=== PATIENT | male | born 1955 | race African-American/Black ===

== ENCOUNTER → 2018-05-09 | Day surgery (SDC) | payer OTHER, MEDICAID ==
[~2018-05-09] MED LIST: ASCO500C PO; ASPI-630 PO; CHOL500016 PO; DICY10CA3 PO; FLAX1CAP PO; HYDR-2761 PO; HYDR12.58 PO; HYDROmorphone 2 MG/ML VIAL IV PRN; IV RINGERS,LACTATED 1000ML 1,000 ML IV SCH; LEVO750T31 PO; LIDOCAINE 1% PF 2 ML VIAL. ID PRN; LISI1TAB3 PO; MORPHINE SULFATE 2 MG/ML VIAL. IV PRN; MULT-246 PO; ONDA4TAB10 SL; ONDANSETRON PF 4 MG/2 ML VIAL. IV PRN; OXYC1TAB7 PO; PROCHLORPERAZINE 10 MG/2 ML VIAL. IV PRN; PROPOFOL 40 ML IV ONE; fentaNYL PF VIAL 100 MCG/2 ML VIAL IV PRN
[2018-05-09 13:09] LABS: BASO # 0.1 x10^3/uL (0.0-0.2); BASO % 1 % (0-3); EOS # 0.1 x10^3/uL (0.0-0.7); EOS % 1 % (0-3); HEMATOCRIT 32.8 % (39.0-53.0); HEMOGLOBIN 10.8 g/dL (13.0-17.5); LYMPH # 3.3 x10^3/uL (1.0-4.8); LYMPH % 28 % (24-48); MEAN CORPUSCULAR HEMOGLOBIN 25 pg (25-35); MEAN CORPUSCULAR HGB CONC 33 g/dL (31-37); MEAN CORPUSCULAR VOLUME 75 fL (79-100); MONO # 1.3 x10^3/uL (0.0-1.1); MONO % 11 % (0-9); NEUT # 7.2 x10^3uL (1.8-7.7); NEUT % 60 % (31-73); PLATELET COUNT 523 x10^3/uL (140-400); RED BLOOD COUNT 4.37 x10^6/uL (4.30-5.70); RED CELL DISTRIBUTION WIDTH 18.4 % (11.5-14.5)
[2018-05-09 13:25] LABS: CALCIUM 9.8 mg/dL (8.5-10.1); GFR 90.7; POTASSIUM 3.7 mmol/L (3.5-5.1)
[2018-05-09 13:30] LABS: ALBUMIN 2.8 g/dL (3.4-5.0); ALBUMIN/GLOBULIN RATIO 0.5 (1.0-1.7); TOTAL BILIRUBIN 0.5 mg/dL (0.2-1.0); TOTAL PROTEIN 8.3 g/dL (6.4-8.2)
[2018-05-09 14:00] VITALS: BP 114/77
--- NOTE | 2018-05-12 15:08 | PATHOLOGY ---
[facility] Accession Number: [id number] . 01 Material submitted: . PART A: ANTRUM BIOPSY PART B: TUMOR AT 28CM PART C: TUMOR AT 9CM . 01 Clinical history: . Nausea with vomiting, HX colon cancer . 02 Diagnosis: A. Gastric biopsy, antrum: - Chronic gastritis, mild. . B. Colon biopsies, tumor at 28 cm: - Tubular adenoma showing focal high-grade dysplasia. . C. Colon biopsies, tumor at 9 cm: - Tubular adenoma showing focal high-grade dysplasia. (JPM:beck; 05/12/2017) QMS/05/12/2018 . 02 Comment: Sections of the gastric antral biopsy show congestion and mild chronic inflammation. A properly controlled immunoperoxidase stain for Helicobacter is negative for Helicobacter organisms. There is no evidence of malignancy. . Sections of the colon biopsies at 28 cm and 9 cm appear similar and show tubular adenomas showing focal high-grade dysplasia. There is no definitive evidence of malignancy. . The case is also examined by Dr. Nadja Gomez, who concurs with the diagnosis. (JPM:beck; 05/12/2018) . . Special stain performed: Immunoperoxidase stain for Helicobacter on A1. . 02 Electronically signed: . Elijah Johnson MD, Pathologist NPI- [id number] . 01 Gross description: . A. Received in formalin labeled "Wilfredo Nagel, antral BX, H. pylori," is a single segment of amor soft tissue measuring 0.4 cm in maximum dimension. The specimen is entirely submitted in cassette A1. . B. Received in formalin labeled "Wilfredo Nagel, tumor at 28 cm," are multiple segments of amor soft tissue measuring 1.1 x 0.3 x 0.1 cm in aggregate dimensions. The specimen is filtered and entirely submitted in cassette B1. . C. Received in formalin labeled "Wilfredo Nagel, tumor at 9 cm," are multiple segments of amor soft tissue measuring 0.9 x 0.3 x 0.2 cm in aggregate dimensions. The specimen is filtered and entirely submitted in cassette C1. (TSD; 05/09/2018) TOB/TOB . 02 Pathologist provided ICD-10: K29.50, D12.6 . 02 CPT . 290419, 593081, 839637, [id number] Specimen Comment: A courtesy copy of this report has been sent to Specimen Comment: [phone], . Specimen Comment: Report sent to and Specimen Comment: A duplicate report has been generated due to demographic updates. Performed at: 01 [facility] [address] [address], [place] [id number] MD Castillo Cervantes MD Phone: [phone] Performed at: 02 [facility] [address] [place], [place] [id number] MD Elijah Johnson MD Phone: [phone]
== END | disposition home or self-care (01) ==
LOC: SURG 11:44
PROVIDERS: ATTEND Surgery
DX: Z12.11 Encounter for screening for malignant neoplasm of colon (principal); D12.5 Benign neoplasm of sigmoid colon; D12.2 Benign neoplasm of ascending colon; D12.8 Benign neoplasm of rectum; K21.0 Gastro-esophageal reflux disease with esophagitis; K29.80 Duodenitis without bleeding; K29.50 Unspecified chronic gastritis without bleeding; Z79.899 Other long term (current) drug therapy; Z79.2 Long term (current) use of antibiotics; I10 Essential (primary) hypertension; Z85.038 Personal history of other malignant neoplasm of large intestine; Z90.49 Acquired absence of other specified parts of digestive tract; Z90.81 Acquired absence of spleen; Z98.890 Other specified postprocedural states
CPT/HCPCS: 36415; 43239; 45380; 45385; 80053; 85025; 88305; 88342; J2704

== ENCOUNTER → 2018-05-20 | Outpatient (CLI) | payer MEDICARE ==
[2018-05-09 14:00] VITALS: BP 114/77
[~2018-05-20] MED LIST changes: -HYDROmorphone 2 MG/ML VIAL IV PRN; +IOHEXOL 240 MG/ML 50ML VIAL. PO ONE; +IOHEXOL 300 MG/ML 100ML VIAL. IV ONE; -IV RINGERS,LACTATED 1000ML 1,000 ML IV SCH; -LIDOCAINE 1% PF 2 ML VIAL. ID PRN; -MORPHINE SULFATE 2 MG/ML VIAL. IV PRN; -ONDANSETRON PF 4 MG/2 ML VIAL. IV PRN; -PROCHLORPERAZINE 10 MG/2 ML VIAL. IV PRN; -PROPOFOL 40 ML IV ONE; -fentaNYL PF VIAL 100 MCG/2 ML VIAL IV PRN
--- NOTE | 2018-05-20 11:52 | RAD ---
PQRS Compliance statement: One or more of the following individualized dose reduction techniques were utilized for this examination: 1. Automated exposure control. 2. Adjustment of the mA and/or kV according to patient size. 3. Use of iterative reconstruction technique. Indication:Tubular adenoma
IVC OMNI 300 75 MLS AND PO OMNI 240 30 MLS
PREVIOUS TECHNIQUE: CT abdomen and pelvis with IV contrast with multiplanar reformats. COMPARISON: 11/28/2014 FINDINGS: Heart is normal in size. No pericardial or pleural effusion. Multiple pulmonary nodules are seen. The largest nodule in the right lower lobe measures 2.4 cm. The largest nodule in the left lung base measures 5 mm. Multiple low attenuating lesions are seen in the liver some of which are confluent limiting exact measurements. Index lesions as follows: Segment 2 lesion measuring 4.6 x 3.5 cm (series 2 image 20) (. Large infiltrative lesion in the segment 8 and 4A measuring 12.0 x 11.3 cm (series 2 image 17). Segment IVb lesion measuring 3.9 x 3.7 cm (series 2 image 36). 2.2 x 1.8 cm pericardial lymph node (series 2 image 13) (. Spleen is severely atrophic. 2.5 x 1.4 cm soft tissue oval-shaped nodule in the left upper quadrant may represent an accessory spleen or enlarged lymph node (series 2 image 21). Gallbladder, pancreas, adrenals within normal limits. Simple cyst is seen in the upper pole right kidney measuring 3.0 x 3.1 cm. No nephrolithiasis or hydronephrosis. No enlarged retroperitoneal or pelvic adenopathy. 2.2 x 1.6 cm, common hepatic artery lymph node (series 3 image 34). Enlarged 2.0 x 2.0 cm gastrohepatic ligament recess lymph node (series 2 image 26). Soft tissue mass in the sigmoid colon measuring 3.4 x 3.3 cm (series 2 image 79). Other soft tissue mass is seen in the rectum measuring 3.8 x 3.1 cm (series 2 image 84). Colonic anastomotic sutures are seen in the left lower quadrant. No bowel obstruction. Normal appendix. The prostate and seminal vesicles show no large mass. Urinary bladder is within normal limits. Most likely a sebaceous cyst in the left parasagittal superficial anterior pelvic wall measuring 2.8 x 2.0 cm. 1.6 x 1.2 cm mildly enlarged right external iliac chain lymph node (series 2 image 85) (. No suspicious bony lesion. IMPRESSION: 1. Multiple bilateral lung bases metastasis. 2. Multiple liver metastasis. 3. Multiple enlarged lymph nodes as described above concerning for metastasis. 4. Couple of intraluminal polypoid lesions in the rectosigmoid colon as described above concerning for colonic malignancy. Correlate with colonoscopy. Electronically signed by: Kyler Abdul DO (05/20/2018 11:47 AM) [id number]
== END | disposition home or self-care (01) ==
LOC: CT 09:41
PROVIDERS: ATTEND Surgery
DX: C78.7 Secondary malignant neoplasm of liver and intrahepatic bile duct (principal); C78.01 Secondary malignant neoplasm of right lung; C78.02 Secondary malignant neoplasm of left lung; K63.9 Disease of intestine, unspecified; N28.1 Cyst of kidney, acquired; R59.1 Generalized enlarged lymph nodes; R91.8 Other nonspecific abnormal finding of lung field
CPT/HCPCS: 74177; Q9966; Q9967

== ENCOUNTER 2018-06-20 06:06 | Inpatient (IN) | payer MEDICARE ==
[~2018-06-20] VITALS: Ht 188 cm; Wt 88.5 kg
[2018-06-20] VITALS (11 sets, daily range): BP systolic 113–141; BP diastolic 74–109
[~2018-06-20 06:06] MED LIST changes: -IOHEXOL 240 MG/ML 50ML VIAL. PO ONE; -IOHEXOL 300 MG/ML 100ML VIAL. IV ONE; +ONDA4TAB7 PO
[2018-06-20] MEDS ORDERED: IV RINGERS,LACTATED 1000ML 1,000 ML IV SCH (07:00)
[2018-06-20] MEDS ORDERED: ONDANSETRON PF 4 MG/2 ML VIAL. IV PRN (07:00)
[2018-06-20] MEDS ORDERED: PROCHLORPERAZINE 10 MG/2 ML VIAL. IV PRN (07:00)
[2018-06-20] MEDS ORDERED: fentaNYL PF VIAL 100 MCG/2 ML VIAL IV PRN (07:00)
[2018-06-20] MEDS ORDERED: LIDOCAINE 1% PF 2 ML VIAL. ID PRN (07:00)
[2018-06-20] MEDS ORDERED: HYDROmorphone 2 MG/ML VIAL IV PRN (07:00)
[2018-06-20] MEDS ORDERED: MORPHINE SULFATE 4 MG/ML VIAL. IV PRN (07:00)
[2018-06-20] MEDS ORDERED: PROPOFOL 20 ML IV ONE (07:43)
[2018-06-20] MEDS ORDERED: MIDAZOLAM HCL/PF 2 MG/2 ML VIAL. ONE (07:43)
[2018-06-20] MEDS ORDERED: DEXAMETHASONE SOD PHOS 20 MG/5 ML VIAL. ONE (07:43)
[2018-06-20] MEDS ORDERED: ONDANSETRON PF 4 MG/2 ML VIAL. ONE (07:43)
[2018-06-20] MEDS ORDERED: FAMOTIDINE 20 MG/2 ML VIAL ONE (07:43)
[2018-06-20] MEDS ORDERED: LIDOCAINE 2% PF 5 ML VIAL. ONE (07:43)
[2018-06-20] MEDS ORDERED: ROCURONIUM 100 MG/10 ML VIAL. ONE (07:43)
[2018-06-20] MEDS ORDERED: fentaNYL PF VIAL 100 MCG/2 ML VIAL ONE ×2 (07:43→07:46)
[2018-06-20] MEDS ORDERED: PHENYLEPHRINE 10 MG/ML VIAL. ONE (07:59)
[2018-06-20] MEDS: cefOXitin SODIUM IV Push 1 GM VIAL. IVP PRN ×2 (08:15→10:07)
[2018-06-20] MEDS ORDERED: SEVOFLURANE > 120 MINUTES. IH ONE (08:55)
[2018-06-20] MEDS ORDERED: GLYCOPYRROLATE 1 MG/5 ML VIAL. ONE (09:34)
[2018-06-20] MEDS ORDERED: NEOSTIGMINE 10 MG/10 ML VIAL. ONE (09:34)
[2018-06-20] MEDS ORDERED: ALBUMIN HUMAN 5% 500 ML IV ONE (09:35)
--- NOTE | 2018-06-20 10:58 | PDOC4 ---
Operative Note Operative Note Date: 06/20/2018 Preoperative diagnosis: Metachronous colon masses sigmoid colon distal rectum liver mass Postoperative diagnosis: Same Procedure: Total colectomy with end ileostomy, liver biopsy Surgeon: Larry Specimens:Colon, midline scar Dictation: Patient is a 63-year-old male who had had a left colon resection for colon cancer obstructing at that time returns after having had a colonoscopy several years later showing 2 large masses one in the mid sigmoid and one in the proximal rectum as well as a mass within the liver. Procedure of total colectomy with end ileostomy and liver biopsy were explained to the patient detail risk benefits were also discussed including bleeding infection alternatives to this procedure also discussed with the patient who seemed to understand and gave both verbal written consent to have the procedure performed. Patient was taken to the operating room placed in supine position general anesthesia was initiated once patient was sleep and intubated is placed in low lithotomy position and his abdomen was prepped and draped usual sterile fashion using ChloraPrep perineum was also prepped using Betadine. Midline incision was made with 10 blade scalpel was carried down through the subcutaneous anus tissue using Brito right hemostasis down to the fascia which was then opened with electrocautery perineum was opened with Metzenbaum scissors and was placed within the abdomen and the midline incision was further opened using electrocautery the abdomen was inspected and was noted there's a large mass within the liver there was no evidence of carcinomatosis. At this point the cecum was visualized a Endo GILDA stapler was used to staple and transect the terminal ileum from the cecum and the colon was taken down along the white line of Toldt mobilized medially up to the hepatic flexure this was taken down electrocautery and was followed around the transverse colon to the sigmoid colon was all taken down along the white line of Toldt the mesentery was taken down with LigaSure impact. This was carried down to the perineal reflection of the rectum this was taken down electrocautery as deep as could be taken and a contour TIA stapler was used to staple and transect the rectum. Specimen was passed off the abdomen was irrigated and suctioned dry a CATHRYN drain 19 Vietnamese was placed in the pelvis brought out through separate stab incision in the left lower quadrant and sewn in place with 2-0 silk suture. There was a large mass within the liver just medial to the gallbladder several core needle biopsies were taken and sent for pathology hemostasis was controlled with cautery. Common ileum was brought out through a circular incision in the right lower quadrant this was matured as an ileostomy. The fascia was then closed with a running looped PDS area in the epigastric portion of the incision there was a small what appeared to be a contained fluid collection which was excised and sent for pathology. Pressure was continued close the deep subcutaneous anus layers closed running 3-0 Vicryl and the skin was approximated for septic and a Monocryl Mastisol Steri-Strips and 4 x 4's Medipore tape were applied. Patient was awakened and extubated in the operating room taken recovery in stable condition all sponge instrument needle counts listed as correct estimated blood loss 100 mL PEPE PAGAN MD Jun 20, 2018 10:58
[2018-06-20] MEDS ORDERED: HYDROmorphone 2 MG/ML VIAL ONE (10:59)
[2018-06-20] MEDS ORDERED: 0.9 % SODIUM CHLORIDE 10 ML DISP.SYRIN. IV PRN (11:00)
[2018-06-20] MEDS ORDERED: KETOROLAC 30 MG/ML VIAL. ONE (11:09)
[2018-06-20] MEDS: IV NORMAL SALINE 1000ML BAG 1,000 ML IV SCH ×2 (12:17→23:57)
[2018-06-20] MEDS: KETOROLAC 15 MG/ML VIAL. IV SCH ×3 (12:19→23:54)
[2018-06-20] MEDS: fentaNYL PF VIAL 100 MCG/2 ML VIAL IV PRN ×2 (12:20→12:39)
[2018-06-20] MEDS: MORPHINE SULFATE 4 MG/ML VIAL. IV PRN ×3 (14:14→20:19)
[2018-06-20] MEDS: IV DEXTROSE 5%-LACT RINGERS 1,000 ML IV SCH (14:54)
[2018-06-20] MEDS ORDERED: cefOXitin SODIUM IV Push 1 GM VIAL. IVP SCH (18:00)
[2018-06-20] MEDS: cefOXitin SODIUM IV Push 1 GM VIAL. IVP SCH (18:05)
[2018-06-21] MEDS: IV DEXTROSE 5%-LACT RINGERS 1,000 ML IV SCH ×2 (00:18→13:38)
[2018-06-21] MEDS: cefOXitin SODIUM IV Push 1 GM VIAL. IVP SCH ×2 (01:53→10:38)
[2018-06-21 03:00] VITALS: BP 115/73
[2018-06-21 05:07] LABS: BASO # 0.1 x10^3/uL (0.0-0.2); BASO % 1 % (0-3); EOS % 0 % (0-3); HEMATOCRIT 29.5 % (39.0-53.0); HEMOGLOBIN 9.3 g/dL (13.0-17.5); LYMPH # 2.9 x10^3/uL (1.0-4.8); LYMPH % 23 % (24-48); MEAN CORPUSCULAR HEMOGLOBIN 23 pg (25-35); MEAN CORPUSCULAR HGB CONC 31 g/dL (31-37); MEAN CORPUSCULAR VOLUME 74 fL (79-100); MONO % 8 % (0-9); NEUT # 8.8 x10^3uL (1.8-7.7); NEUT % 69 % (31-73); PLATELET COUNT 469 x10^3/uL (140-400); RED BLOOD COUNT 3.98 x10^6/uL (4.30-5.70); RED CELL DISTRIBUTION WIDTH 19.4 % (11.5-14.5); WHITE BLOOD COUNT 12.8 x10^3/uL (4.0-11.0)
[2018-06-21 05:29] LABS: CALCIUM 8.9 mg/dL (8.5-10.1); CREATININE 1.8 mg/dL (0.7-1.3); POTASSIUM 4.2 mmol/L (3.5-5.1)
[2018-06-21] MEDS: KETOROLAC 15 MG/ML VIAL. IV SCH ×3 (05:33→17:49)
[2018-06-21] MEDS: IV NORMAL SALINE 1000ML BAG 1,000 ML IV SCH ×2 (07:15→16:44)
[2018-06-21 07:17] VITALS: BP 125/87
[2018-06-21] MEDS: MORPHINE SULFATE 4 MG/ML VIAL. IV PRN ×2 (08:25→20:17)
[2018-06-21 11:04] VITALS: BP 117/82
--- NOTE | 2018-06-21 13:26 | PDOC ---
SURGICAL PROGRESS NOTE Subjective Pt without c/o, pain control, no N/V Vital Signs Vital Signs Date Time Temp Pulse Resp B/P (MAP) Pulse Ox O2 Delivery O2 Flow Rate FiO2 06/21/18 11:04 97.6 86 117/82 (94) 96 97.6 06/21/18 09:00 Room Air 06/21/18 03:00 18 06/20/18 15:15 2.0 I&O Intake and Output 06/21/18 06:59 Intake Total 3050 ml Output Total 920 ml Balance 2130 ml Intake Oral 100 ml IV Total 2950 ml Output Urine Total 525 ml Drainage Total 295 ml Estimated Blood Loss 100 ml General: Alert, Oriented X3, Cooperative, No acute distress Abdomen: Soft, No tenderness, Other (dressing intact, ostomy pink and viable) Labs Laboratory Tests Test 06/21/18 04:30 White Blood Count 12.8 x10^3/uL (4.0-11.0) Red Blood Count 3.98 x10^6/uL (4.30-5.70) Hemoglobin 9.3 g/dL (13.0-17.5) Hematocrit 29.5 % (39.0-53.0) Mean Corpuscular Volume 74 fL (79-100) Mean Corpuscular Hemoglobin 23 pg (25-35) Mean Corpuscular Hemoglobin Concent 31 g/dL (31-37) Red Cell Distribution Width 19.4 % (11.5-14.5) Platelet Count 469 x10^3/uL (140-400) Neutrophils (%) (Auto) 69 % (31-73) Lymphocytes (%) (Auto) 23 % (24-48) Monocytes (%) (Auto) 8 % (0-9) Eosinophils (%) (Auto) 0 % (0-3) Basophils (%) (Auto) 1 % (0-3) Neutrophils # (Auto) 8.8 x10^3uL (1.8-7.7) Lymphocytes # (Auto) 2.9 x10^3/uL (1.0-4.8) Monocytes # (Auto) 1.0 x10^3/uL (0.0-1.1) Eosinophils # (Auto) 0.0 x10^3/uL (0.0-0.7) Basophils # (Auto) 0.1 x10^3/uL (0.0-0.2) Sodium Level 142 mmol/L (136-145) Potassium Level 4.2 mmol/L (3.5-5.1) Chloride Level 104 mmol/L (98-107) Carbon Dioxide Level 25 mmol/L (21-32) Anion Gap 13 (6-14) Blood Urea Nitrogen 27 mg/dL (8-26) Creatinine 1.8 mg/dL (0.7-1.3) Estimated GFR (Cockcroft-Gault) 46.0 Glucose Level 117 mg/dL (70-99) Calcium Level 8.9 mg/dL (8.5-10.1) Laboratory Tests Test 06/21/18 04:30 White Blood Count 12.8 x10^3/uL (4.0-11.0) Red Blood Count 3.98 x10^6/uL (4.30-5.70) Hemoglobin 9.3 g/dL (13.0-17.5) Hematocrit 29.5 % (39.0-53.0) Mean Corpuscular Volume 74 fL (79-100) Mean Corpuscular Hemoglobin 23 pg (25-35) Mean Corpuscular Hemoglobin Concent 31 g/dL (31-37) Red Cell Distribution Width 19.4 % (11.5-14.5) Platelet Count 469 x10^3/uL (140-400) Neutrophils (%) (Auto) 69 % (31-73) Lymphocytes (%) (Auto) 23 % (24-48) Monocytes (%) (Auto) 8 % (0-9) Eosinophils (%) (Auto) 0 % (0-3) Basophils (%) (Auto) 1 % (0-3) Neutrophils # (Auto) 8.8 x10^3uL (1.8-7.7) Lymphocytes # (Auto) 2.9 x10^3/uL (1.0-4.8) Monocytes # (Auto) 1.0 x10^3/uL (0.0-1.1) Eosinophils # (Auto) 0.0 x10^3/uL (0.0-0.7) Basophils # (Auto) 0.1 x10^3/uL (0.0-0.2) Sodium Level 142 mmol/L (136-145) Potassium Level 4.2 mmol/L (3.5-5.1) Chloride Level 104 mmol/L (98-107) Carbon Dioxide Level 25 mmol/L (21-32) Anion Gap 13 (6-14) Blood Urea Nitrogen 27 mg/dL (8-26) Creatinine 1.8 mg/dL (0.7-1.3) Estimated GFR (Cockcroft-Gault) 46.0 Glucose Level 117 mg/dL (70-99) Calcium Level 8.9 mg/dL (8.5-10.1) Problem List s/p colectomy start clears follow up labs in AM CORAL WOODY MD Jun 21, 2018 13:26
[2018-06-21 15:00] VITALS: BP 139/87
[2018-06-21] MEDS: ONDANSETRON PF 4 MG/2 ML VIAL. IV PRN (16:44)
[2018-06-21 19:00] VITALS: BP 108/83
[2018-06-21 23:00] VITALS: BP 155/99
[2018-06-22] MEDS: KETOROLAC 15 MG/ML VIAL. IV SCH ×2 (00:16→06:32)
[2018-06-22] MEDS: IV NORMAL SALINE 1000ML BAG 1,000 ML IV SCH ×3 (00:45→15:15)
[2018-06-22] MEDS: IV DEXTROSE 5%-LACT RINGERS 1,000 ML IV SCH ×2 (02:58→16:18)
[2018-06-22 03:00] VITALS: BP 132/86
[2018-06-22 04:40] LABS: BASO # 0.1 x10^3/uL (0.0-0.2); BASO % 0 % (0-3); EOS % 0 % (0-3); HEMATOCRIT 29.2 % (39.0-53.0); HEMOGLOBIN 9.2 g/dL (13.0-17.5); LYMPH # 2.9 x10^3/uL (1.0-4.8); LYMPH % 22 % (24-48); MEAN CORPUSCULAR HEMOGLOBIN 23 pg (25-35); MEAN CORPUSCULAR HGB CONC 32 g/dL (31-37); MEAN CORPUSCULAR VOLUME 73 fL (79-100); MONO # 0.6 x10^3/uL (0.0-1.1); MONO % 5 % (0-9); NEUT # 9.8 x10^3uL (1.8-7.7); NEUT % 73 % (31-73); PLATELET COUNT 475 x10^3/uL (140-400); RED BLOOD COUNT 3.98 x10^6/uL (4.30-5.70); RED CELL DISTRIBUTION WIDTH 19.3 % (11.5-14.5); WHITE BLOOD COUNT 13.4 x10^3/uL (4.0-11.0)
[2018-06-22 04:55] LABS: ALBUMIN 2.4 g/dL (3.4-5.0); ALBUMIN/GLOBULIN RATIO 0.5 (1.0-1.7); CALCIUM 8.6 mg/dL (8.5-10.1); CREATININE 1.3 mg/dL (0.7-1.3); POTASSIUM 3.6 mmol/L (3.5-5.1); TOTAL BILIRUBIN 0.8 mg/dL (0.2-1.0); TOTAL PROTEIN 7.5 g/dL (6.4-8.2)
[2018-06-22 07:00] VITALS: BP 150/105
[2018-06-22] MEDS: MORPHINE SULFATE 4 MG/ML VIAL. IV PRN ×5 (09:08→22:36)
[2018-06-22 11:00] VITALS: BP 179/108
[2018-06-22] MEDS: ENOXAPARIN 40 MG/0.4 ML SYRINGE. SQ SCH (12:22)
--- NOTE | 2018-06-22 14:40 | PDOC ---
SURGICAL PROGRESS NOTE Subjective Pt with main c/o coughing up phlegm, chepe clears, but having some nausea with it Vital Signs Vital Signs Date Time Temp Pulse Resp B/P (MAP) Pulse Ox O2 Delivery O2 Flow Rate FiO2 06/22/18 12:25 97 Room Air 06/22/18 11:00 98.3 88 18 179/108 (131) 98.3 I&O Intake and Output 06/22/18 07:00 Intake Total 2140 ml Output Total 600 ml Balance 1540 ml Intake Oral 240 ml IV Total 700 ml Other 1200 ml Output Urine Total 320 ml Stool Total 20 ml Drainage Total 260 ml General: Alert, Oriented X3, Cooperative, No acute distress Abdomen: Soft, No tenderness, Other (dressing c/d/i, CATHRYN serosang, ostomy fxn) Labs Laboratory Tests Test 06/21/18 04:30 06/22/18 04:15 White Blood Count 12.8 x10^3/uL (4.0-11.0) 13.4 x10^3/uL (4.0-11.0) Red Blood Count 3.98 x10^6/uL (4.30-5.70) 3.98 x10^6/uL (4.30-5.70) Hemoglobin 9.3 g/dL (13.0-17.5) 9.2 g/dL (13.0-17.5) Hematocrit 29.5 % (39.0-53.0) 29.2 % (39.0-53.0) Mean Corpuscular Volume 74 fL (79-100) 73 fL (79-100) Mean Corpuscular Hemoglobin 23 pg (25-35) 23 pg (25-35) Mean Corpuscular Hemoglobin Concent 31 g/dL (31-37) 32 g/dL (31-37) Red Cell Distribution Width 19.4 % (11.5-14.5) 19.3 % (11.5-14.5) Platelet Count 469 x10^3/uL (140-400) 475 x10^3/uL (140-400) Neutrophils (%) (Auto) 69 % (31-73) 73 % (31-73) Lymphocytes (%) (Auto) 23 % (24-48) 22 % (24-48) Monocytes (%) (Auto) 8 % (0-9) 5 % (0-9) Eosinophils (%) (Auto) 0 % (0-3) 0 % (0-3) Basophils (%) (Auto) 1 % (0-3) 0 % (0-3) Neutrophils # (Auto) 8.8 x10^3uL (1.8-7.7) 9.8 x10^3uL (1.8-7.7) Lymphocytes # (Auto) 2.9 x10^3/uL (1.0-4.8) 2.9 x10^3/uL (1.0-4.8) Monocytes # (Auto) 1.0 x10^3/uL (0.0-1.1) 0.6 x10^3/uL (0.0-1.1) Eosinophils # (Auto) 0.0 x10^3/uL (0.0-0.7) 0.0 x10^3/uL (0.0-0.7) Basophils # (Auto) 0.1 x10^3/uL (0.0-0.2) 0.1 x10^3/uL (0.0-0.2) Sodium Level 142 mmol/L (136-145) 140 mmol/L (136-145) Potassium Level 4.2 mmol/L (3.5-5.1) 3.6 mmol/L (3.5-5.1) Chloride Level 104 mmol/L (98-107) 102 mmol/L (98-107) Carbon Dioxide Level 25 mmol/L (21-32) 23 mmol/L (21-32) Anion Gap 13 (6-14) 15 (6-14) Blood Urea Nitrogen 27 mg/dL (8-26) 23 mg/dL (8-26) Creatinine 1.8 mg/dL (0.7-1.3) 1.3 mg/dL (0.7-1.3) Estimated GFR (Cockcroft-Gault) 46.0 67.0 Glucose Level 117 mg/dL (70-99) 92 mg/dL (70-99) Calcium Level 8.9 mg/dL (8.5-10.1) 8.6 mg/dL (8.5-10.1) BUN/Creatinine Ratio 18 (6-20) Total Bilirubin 0.8 mg/dL (0.2-1.0) Aspartate Amino Transf (AST/SGOT) 88 U/L (15-37) Alanine Aminotransferase (ALT/SGPT) 42 U/L (16-63) Alkaline Phosphatase 249 U/L (46-116) Total Protein 7.5 g/dL (6.4-8.2) Albumin 2.4 g/dL (3.4-5.0) Albumin/Globulin Ratio 0.5 (1.0-1.7) Laboratory Tests Test 06/22/18 04:15 White Blood Count 13.4 x10^3/uL (4.0-11.0) Red Blood Count 3.98 x10^6/uL (4.30-5.70) Hemoglobin 9.2 g/dL (13.0-17.5) Hematocrit 29.2 % (39.0-53.0) Mean Corpuscular Volume 73 fL (79-100) Mean Corpuscular Hemoglobin 23 pg (25-35) Mean Corpuscular Hemoglobin Concent 32 g/dL (31-37) Red Cell Distribution Width 19.3 % (11.5-14.5) Platelet Count 475 x10^3/uL (140-400) Neutrophils (%) (Auto) 73 % (31-73) Lymphocytes (%) (Auto) 22 % (24-48) Monocytes (%) (Auto) 5 % (0-9) Eosinophils (%) (Auto) 0 % (0-3) Basophils (%) (Auto) 0 % (0-3) Neutrophils # (Auto) 9.8 x10^3uL (1.8-7.7) Lymphocytes # (Auto) 2.9 x10^3/uL (1.0-4.8) Monocytes # (Auto) 0.6 x10^3/uL (0.0-1.1) Eosinophils # (Auto) 0.0 x10^3/uL (0.0-0.7) Basophils # (Auto) 0.1 x10^3/uL (0.0-0.2) Sodium Level 140 mmol/L (136-145) Potassium Level 3.6 mmol/L (3.5-5.1) Chloride Level 102 mmol/L (98-107) Carbon Dioxide Level 23 mmol/L (21-32) Anion Gap 15 (6-14) Blood Urea Nitrogen 23 mg/dL (8-26) Creatinine 1.3 mg/dL (0.7-1.3) Estimated GFR (Cockcroft-Gault) 67.0 BUN/Creatinine Ratio 18 (6-20) Glucose Level 92 mg/dL (70-99) Calcium Level 8.6 mg/dL (8.5-10.1) Total Bilirubin 0.8 mg/dL (0.2-1.0) Aspartate Amino Transf (AST/SGOT) 88 U/L (15-37) Alanine Aminotransferase (ALT/SGPT) 42 U/L (16-63) Alkaline Phosphatase 249 U/L (46-116) Total Protein 7.5 g/dL (6.4-8.2) Albumin 2.4 g/dL (3.4-5.0) Albumin/Globulin Ratio 0.5 (1.0-1.7) Problem List s/p total colectomy will start some mucinex per pt request cr improved await bowel fxn CORAL WOODY MD Jun 22, 2018 14:40
[2018-06-22 15:00] VITALS: BP 167/48
[2018-06-22 19:00] VITALS: BP 165/98
[2018-06-22 23:00] VITALS: BP 164/99
[2018-06-22] MEDS: ONDANSETRON PF 4 MG/2 ML VIAL. IV PRN (23:37)
[2018-06-23 03:00] VITALS: BP 149/104
[2018-06-23] MEDS: IV DEXTROSE 5%-LACT RINGERS 1,000 ML IV SCH ×2 (05:38→11:33)
[2018-06-23 07:00] VITALS: BP 148/101
[2018-06-23] MEDS: ONDANSETRON PF 4 MG/2 ML VIAL. IV PRN ×2 (08:58→22:00)
--- NOTE | 2018-06-23 09:10 | NUR ---
SW reviewed pt's medical chart and evaluated for potential dc needs. Pt is from home and was admitted for surgery. PT/OT has not been ordered and there are no dc needs of this time. SW will be available if pt's condition changes and there is a need for services.
[2018-06-23] MEDS: IV NORMAL SALINE 1000ML BAG 1,000 ML IV SCH (09:15)
--- NOTE | 2018-06-23 09:28 | PDOC ---
ANUSHA OVALLES MEDICAL REVIEWER 06/23/18 0928: SURGICAL PROGRESS NOTE Subjective some nausea with tea this AM Vital Signs Vital Signs Date Time Temp Pulse Resp B/P (MAP) Pulse Ox O2 Delivery O2 Flow Rate FiO2 06/23/18 07:00 99.6 85 18 148/101 (117) 96 Room Air 99.6 I&O Intake and Output 06/23/18 06:59 Intake Total 1900 ml Output Total 980 ml Balance 920 ml IV Total 700 ml Other 1200 ml Output Urine Total 750 ml Gastric Drainage Total 190 ml Drainage Total 40 ml General: Alert, Oriented X3, Cooperative, No acute distress Abdomen: Soft, Other (ostomy with stool, dressing dry) Labs Laboratory Tests Test 06/22/18 04:15 White Blood Count 13.4 x10^3/uL (4.0-11.0) Red Blood Count 3.98 x10^6/uL (4.30-5.70) Hemoglobin 9.2 g/dL (13.0-17.5) Hematocrit 29.2 % (39.0-53.0) Mean Corpuscular Volume 73 fL (79-100) Mean Corpuscular Hemoglobin 23 pg (25-35) Mean Corpuscular Hemoglobin Concent 32 g/dL (31-37) Red Cell Distribution Width 19.3 % (11.5-14.5) Platelet Count 475 x10^3/uL (140-400) Neutrophils (%) (Auto) 73 % (31-73) Lymphocytes (%) (Auto) 22 % (24-48) Monocytes (%) (Auto) 5 % (0-9) Eosinophils (%) (Auto) 0 % (0-3) Basophils (%) (Auto) 0 % (0-3) Neutrophils # (Auto) 9.8 x10^3uL (1.8-7.7) Lymphocytes # (Auto) 2.9 x10^3/uL (1.0-4.8) Monocytes # (Auto) 0.6 x10^3/uL (0.0-1.1) Eosinophils # (Auto) 0.0 x10^3/uL (0.0-0.7) Basophils # (Auto) 0.1 x10^3/uL (0.0-0.2) Sodium Level 140 mmol/L (136-145) Potassium Level 3.6 mmol/L (3.5-5.1) Chloride Level 102 mmol/L (98-107) Carbon Dioxide Level 23 mmol/L (21-32) Anion Gap 15 (6-14) Blood Urea Nitrogen 23 mg/dL (8-26) Creatinine 1.3 mg/dL (0.7-1.3) Estimated GFR (Cockcroft-Gault) 67.0 BUN/Creatinine Ratio 18 (6-20) Glucose Level 92 mg/dL (70-99) Calcium Level 8.6 mg/dL (8.5-10.1) Total Bilirubin 0.8 mg/dL (0.2-1.0) Aspartate Amino Transf (AST/SGOT) 88 U/L (15-37) Alanine Aminotransferase (ALT/SGPT) 42 U/L (16-63) Alkaline Phosphatase 249 U/L (46-116) Total Protein 7.5 g/dL (6.4-8.2) Albumin 2.4 g/dL (3.4-5.0) Albumin/Globulin Ratio 0.5 (1.0-1.7) Assessment/Plan add home antihypertensives back liquid diet, await improved bowel function increase activity PEPE PAGAN MD 06/23/18 1548: SURGICAL PROGRESS NOTE Assessment/Plan Agree with Torri's assessment and plan. ANUSHA OVALLES APRN Jun 23, 2018 09:28 PEPE PAGAN MD Jun 23, 2018 15:48
[2018-06-23 11:00] VITALS: BP 161/112
[2018-06-23] MEDS: hydroCHLOROthiazide 12.5 MG CAPSULE PO SCH (11:45)
[2018-06-23] MEDS: LISINOPRIL 10 MG TABLET PO SCH (11:53)
[2018-06-23] MEDS: ENOXAPARIN 40 MG/0.4 ML SYRINGE. SQ SCH (11:55)
[2018-06-23] MEDS: MORPHINE SULFATE 4 MG/ML VIAL. IV PRN ×2 (12:05→22:01)
[2018-06-23 15:00] VITALS: BP 159/104
[2018-06-23 19:00] VITALS: BP 146/103
[2018-06-23 23:00] VITALS: BP 156/107
[2018-06-24 03:00] VITALS: BP 118/88
[2018-06-24 07:00] VITALS: BP 151/104
[2018-06-24] MEDS: ONDANSETRON PF 4 MG/2 ML VIAL. IV PRN ×2 (08:39→18:04)
[2018-06-24] MEDS: LISINOPRIL 10 MG TABLET PO SCH (08:39)
[2018-06-24] MEDS: hydroCHLOROthiazide 12.5 MG CAPSULE PO SCH (08:39)
[2018-06-24] MEDS: MORPHINE SULFATE 4 MG/ML VIAL. IV PRN (08:40)
--- NOTE | 2018-06-24 10:38 | PDOC ---
ANUSHA OVALLES APRN 06/24/18 1038: SURGICAL PROGRESS NOTE Subjective resting low appetite some pain Vital Signs Vital Signs Date Time Temp Pulse Resp B/P (MAP) Pulse Ox O2 Delivery O2 Flow Rate FiO2 06/24/18 09:15 Room Air 06/24/18 08:39 73 151/104 06/24/18 07:00 97.9 18 96 97.9 06/23/18 20:00 2.0 I&O Intake and Output 06/24/18 07:00 Output Total 2155 ml Balance -2155 ml Output Urine Total 375 ml Stool Total 950 ml Gastric Drainage Total 775 ml Drainage Total 55 ml General: Alert, Oriented X3, Cooperative, No acute distress Abdomen: Soft, Other (ostomy with stool, incision c/d/i, no erythema ) Assessment/Plan increase activity-PT/OT eval dc planning diet as tolerated PEPE PAGAN MD 06/24/18 1116: SURGICAL PROGRESS NOTE Assessment/Plan Patient seen and examined by me having good ileostomy output tolerating full liquid diet. We'll advance to regular diet. CATHRYN drain is somewhat cloudy or we' ll continue to monitor agree with Iam assessment and plan ANUSHA OVALLES APRN Jun 24, 2018 10:38 PEPE PAGAN MD Jun 24, 2018 11:16
[2018-06-24 11:00] VITALS: BP 162/107
[2018-06-24] MEDS: ENOXAPARIN 40 MG/0.4 ML SYRINGE. SQ SCH (12:07)
[2018-06-24 15:00] VITALS: BP 127/87
--- NOTE | 2018-06-24 17:08 | PATHOLOGY ---
[facility] Accession Number: [id number] . 01 Material submitted: . PART A: COLON PART B: LIVER BIOPSY PART C: MIDLINE SCAR . 01 Clinical history: . Metastatic colon cancer to liver. . 02 Diagnosis: A. Distal ileum, cecum, and ascending, transverse, descending, and sigmoid colon with attached mesocolon and omentum, total colectomy: - Large polypoid tubular adenoma of distal colon, measuring 4.6 cm in greatest dimension, showing foci of high-grade dysplasia. - Forty-two mesocolic lymph nodes negative for tumor. - Proximal (distal ileum), distal (proximal rectum), and mesocolic margins of resection negative for tumor. - Focal tattooing of colon adjacent to polypoid mass. - Status post left colon segmental resection with intact anastomosis. - Omentum negative for tumor. - Tubular adenomas of colon proximal to polypoid mass, multiple, largest measuring 1.0 cm in greatest dimension. - Adiposity of ileocecal valve. - Reactive follicular lymphoid hyperplasia of mucosal associated lymphoid tissue of appendix. . B. Liver biopsy: - Metastatic moderately-well differentiated mucin producing adenocarcinoma. . C. Fibroadipose tissue, midline: - Dense scar with focal hemosiderin-laden macrophages and foreign body granulomatous reaction. . (JPM:poli; 06/23/2018) MBR/06/24/2018 . 02 Comment: The polypoid mass of the distal colon is a tubular adenoma showing foci of high grade dysplasia.There is no evidence of invasive adenocarcinoma.The liver metastasis is most likely due to the previously resected colonic adenocarcinoma. The case is also examined by Dr. Mendieta, who concurs with the diagnosis. . . 02 Electronically signed: . Elijah Johnson MD, Pathologist NPI- [id number] . 01 Gross description: . A. Received in formalin labeled "Wilfredo Nagel, colon" is a colectomy specimen consisting of a segment of terminal ileum (2.5 x 2.5 cm), cecum (5.8 x 5.5 x 4.3 cm), vermiform appendix (8.5 x 1.3 cm), and a segment of large bowel (68.5 x 3.5 cm). The specimen grossly extends to the proximal rectum. The distal rectum and anus are not present. There is an attached portion of yellow-amor lobulated omentum measuring 25.0 x 13.5 x 2.5 cm, which is grossly unremarkable without tumors or nodules. The colon serosa is pink-amor and smooth with a tattooed area in the distal aspect measuring 3.0 x 2.7 cm. The proximal and distal margins are closed with kassy lines. The specimen is opened to reveal a staple line anastomosis in the mid colon. The appendix is removed and serially sectioned to reveal no perforations or fecaliths and a luminal diameter of 0.3 cm. A prominent pedunculated polypoid mass is identified in the distal colon measuring 4.6 x 3.8 x 3.0 cm. The mass is located 56.5 cm from the proximal margin and 9.3 cm from the distal margin. The mass is located 6.5 cm from the closest mesenteric margin, and does not appear to grossly invade through the mucosa into the muscle wall. The previously described tattooed area is associated with this mass. The uninvolved colonic mucosa is amor-brown with unremarkable folding, and is notable for multiple additional polyps ranging from 0.2-1.0 cm in greatest dimension, which are located throughout the proximal and transverse colon. The mesocolic fat is palpated to reveal numerous lymph nodes ranging from 0.3-1.4 cm in greatest dimension. Bed Spring Maker sections are submitted as follows: A1-A2 proximal margin A3-A4 distal margin A5 sales account representative ileocecal valve A6 sales account representative appendix A7 sales account representative omentum A8 perpendicular section of the closest mesenteric margin A9-A13 multiple whole lymph node in each cassette A14-A16 two bisected lymph nodes in each cassette (one inked black) A17-A32 entire polypoid mass A33 serosa closest to mass, inked black A34 multiple whole colon polyps A35 one polyp, trisected . B. Received in formalin labeled "Wilfredo Nagel, liver biopsy" are two cylindrical soft tissue cores measuring 0.7 x 0.2 cm each. The specimen is submitted in cassette B1. . C. Received in formalin labeled "Wilfredo Nagel, midline scar" is a amor-white fibrotic portion of tissue measuring 4.5 x 1.7 x 1.0 cm. Upon sectioning, the cut surface is amor-white and rubbery. Bed Spring Maker sections are submitted in cassette C1. ([facility] [place]; 06/20/2018) SY/SY . 02 Pathologist provided ICD-10: C19, C78.7, D12.6 . 02 CPT . 573452, 059598, 337372 Specimen Comment: A courtesy copy of this report has been sent to Specimen Comment: [phone], . Specimen Comment: Report sent to / DR MCLAUGHLIN Specimen Comment: A duplicate report has been generated due to demographic updates. Performed at: 01 [facility] [address], [place] [id number] MD Castillo Cervantes MD Phone: [phone] Performed at: 02 [facility] [address] [place], [place] [id number] MD Elijah Johnson MD Phone: [phone]
[2018-06-24 19:25] VITALS: BP 152/111
[2018-06-24] MEDS: oxyCODONE/APAP 5/325 1 TAB TABLET PO PRN (21:00)
[2018-06-24 23:15] VITALS: BP 156/106
[2018-06-25 03:36] VITALS: BP 137/99
[2018-06-25 07:00] VITALS: BP 133/88
--- NOTE | 2018-06-25 08:58 | PDOC ---
SURGICAL PROGRESS NOTE Subjective Patient doing better did have a small bowel movement from rectum. Continues to have copious ileostomy output tolerating diet Vital Signs Vital Signs Date Time Temp Pulse Resp B/P (MAP) Pulse Ox O2 Delivery O2 Flow Rate FiO2 06/25/18 07:00 97.4 89 18 133/88 (103) 96 Room Air 97.4 I&O Intake and Output 06/25/18 06:59 Intake Total 480 ml Output Total 1000 ml Balance -520 ml Intake Oral 480 ml Output Urine Total 450 ml Stool Total 500 ml Other 50 ml # Voids 1 PATIENT HAS A RIVERA: No General: Alert, Oriented X3, Cooperative, mild distress Abdomen: Normal bowel sounds, Soft, Other (mild incisional tenderness ileostomy viable with good output CATHRYN drain intact cloudy drainage) Assessment/Plan Status post colectomy with end ileostomy liver biopsy Patient had ileostomy care training today Will follow his diet if well tolerated tolerating Percocet will plan on discharge in [facility] Levy MD Jun 25, 2018 08:58
[2018-06-25] MEDS: hydroCHLOROthiazide 12.5 MG CAPSULE PO SCH (09:13)
[2018-06-25] MEDS: oxyCODONE/APAP 5/325 1 TAB TABLET PO PRN ×3 (09:13→20:37)
[2018-06-25] MEDS: LISINOPRIL 10 MG TABLET PO SCH (09:13)
[2018-06-25 11:00] VITALS: BP 140/102
--- NOTE | 2018-06-25 11:09 | NUR ---
SW following, discussed with RN. Pt having Ostomy teaching today. SW met with pt, pt wants to go home. Open to Home Health, wants to look over the list of agencies before deciding. RN notified. SW will continue to follow.
[2018-06-25] MEDS: ENOXAPARIN 40 MG/0.4 ML SYRINGE. SQ SCH (12:00)
[2018-06-25 15:00] VITALS: BP 142/100
--- NOTE | 2018-06-25 15:00 | NUR ---
ostomy care patient seen for ostomy education and teaching. patient educated along with patients Pat at the bedside, patient and educated on the process of changing the bag. patient enrolled in the [employer] Program. will continue to f/u for questions.
[2018-06-25] MEDS: ONDANSETRON PF 4 MG/2 ML VIAL. IV PRN (17:34)
[2018-06-25 19:00] VITALS: BP 130/88
[2018-06-25 23:00] VITALS: BP 136/74
[2018-06-26] VITALS (8 sets, daily range): BP systolic 99–131; BP diastolic 71–94
[2018-06-26] MEDS: LISINOPRIL 10 MG TABLET PO SCH (08:25)
[2018-06-26] MEDS: hydroCHLOROthiazide 12.5 MG CAPSULE PO SCH (08:25)
--- NOTE | 2018-06-26 11:37 | PDOC ---
SURGICAL PROGRESS NOTE Subjective a little dizzy when got up to chair taking some pO, no nausea Vital Signs Vital Signs Date Time Temp Pulse Resp B/P (MAP) Pulse Ox O2 Delivery O2 Flow Rate FiO2 06/26/18 10:30 97.4 127 20 119/80 (93) 97 Room Air 97.4 I&O Intake and Output 06/26/18 07:00 Intake Total 1560 ml Output Total 1020 ml Balance 540 ml Intake Oral 1560 ml Output Urine Total 550 ml Stool Total 450 ml Drainage Total 20 ml General: Alert, Oriented X3, Cooperative, No acute distress Abdomen: Soft, Other (ostomy with stool) Assessment/Plan noted tachy this AM--will check EKG, consult IPC ANUSHA OVALLES APRN Jun 26, 2018 11:37
--- NOTE | 2018-06-26 12:00 | EKG ---
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
--- NOTE | 2018-06-26 12:08 | NUR ---
SW following. Discussed with RN, pt would like to have home health through [facility]. SW to fax referral and discharge paperwork when pt is ready to discharge. SW will continue to follow.
[2018-06-26] MEDS: ONDANSETRON PF 4 MG/2 ML VIAL. IV PRN (12:09)
[2018-06-26] MEDS: ENOXAPARIN 40 MG/0.4 ML SYRINGE. SQ SCH (12:10)
--- NOTE | 2018-06-26 12:45 | PDOC1 ---
History and Physical Date of Admission Date of Admission DATE: 06/26/18 TIME: 12:45 Identification/Chief Complaint Chief Complaint asked to see due to sinus tach, low urine output, nurse concerned that he may have inc oder from incision, ct requested Past Medical History Past Medical History Past Medical History Cardiovascular: No pertinent hx Pulmonary: No pertinent hx GI: No pertinent hx Heme/Onc: No pertinent hx Hepatobiliary: No pertinent hx Rheumatologic: No pertinent hx Past Surgical History Past Surgical History: Colon Resection, Other (Splenectomy) Family History Family History: Cancer, Heart Disease, Hypertension Family History: Parent Social History ALCOHOL: none Drugs: None Cardiovascular: No pertinent hx Pulmonary: No pertinent hx GI: No pertinent hx Heme/Onc: No pertinent hx Hepatobiliary: No pertinent hx Rheumatologic: No pertinent hx Past Surgical History Past Surgical History: Colon Resection, Other Family History Family History: Cancer, Heart Disease, Hypertension Family History: Parent Social History Smoke: No ALCOHOL: none Drugs: None Current Medications Current Medications Current Medications Ondansetron HCl (Zofran) 4 mg PRN Q6HRS PRN IV NAUSEA/VOMITING; Start 06/20/18 at 07:00; Stop 06/21/18 at 06:59; Status DC Fentanyl Citrate (Fentanyl 2ml Vial) 25 mcg PRN Q5MIN PRN IV MILD PAIN; Start 06/20/18 at 07:00; Stop 06/21/18 at 06:59; Status DC Fentanyl Citrate (Fentanyl 2ml Vial) 50 mcg PRN Q5MIN PRN IV MODERATE TO SEVERE PAIN Last administered on 06/20/18at 12:39; Start 06/20/18 at 07:00; Stop 06/21/18 at 06:59; Status DC Morphine Sulfate (Morphine Sulfate) 1 mg PRN Q10MIN PRN IV SEVERE PAIN; Start 06/20/18 at 07:00; Stop 06/21/18 at 06:59; Status DC Ringer's Solution 1,000 ml @ 30 mls/hr Q24H IV Last administered on 06/20/18at 06:39; Start 06/20/18 at 07:00; Stop 06/20/18 at 18:59; Status DC Lidocaine HCl (Xylocaine-Mpf 1% 2ml Vial) 2 ml PRN 1X PRN ID IV START; Start at 07:00; Stop 06/21/18 at 06:59; Status DC Hydromorphone HCl (Dilaudid) 0.5 mg PRN Q10MIN PRN IV SEV PAIN, Second choice; Start 06/20/18 at 07:00; Stop 06/21/18 at 06:59; Status DC Prochlorperazine Edisylate (Compazine) 5 mg PACU PRN PRN IV NAUSEA, MRX1 Last administered on 06/20/18at 12:18; Start 06/20/18 at 07:00; Stop 06/21/18 at 06:59 ; Status DC Cefoxitin Sodium (Mefoxin) 2 gm 1X PREOP PRN IVP PRIOR TO PROCEDURE Last administered on 06/20/18at 10:07; Start 06/20/18 at 06:00; Stop 06/20/18 at 21:00 ; Status DC Propofol 20 ml @ As Directed STK-MED ONCE IV ; Start 06/20/18 at 07:43; Stop at 07:44; Status DC Dexamethasone Sodium Phosphate (Decadron) 20 mg STK-MED ONCE .ROUTE ; Start at 07:43; Stop 06/20/18 at 07:44; Status DC Famotidine (Pepcid Vial) 20 mg STK-MED ONCE .ROUTE ; Start 06/20/18 at 07:43; Stop 06/20/18 at 07:44; Status DC Lidocaine HCl (Lidocaine Pf 2% Vial) 5 ml STK-MED ONCE .ROUTE ; Start 06/20/18 at 07:43; Stop 06/20/18 at 07:44; Status DC Ondansetron HCl (Zofran) 4 mg STK-MED ONCE .ROUTE ; Start 06/20/18 at 07:43; Stop 06/20/18 at 07:44; Status DC Rocuronium Sterling (Zemuron) 100 mg STK-MED ONCE .ROUTE ; Start 06/20/18 at 07: 43; Stop 06/20/18 at 07:44; Status DC Fentanyl Citrate (Fentanyl 2ml Vial) 100 mcg STK-MED ONCE .ROUTE ; Start at 07:43; Stop 06/20/18 at 07:44; Status DC Midazolam HCl (Versed) 2 mg STK-MED ONCE .ROUTE ; Start 06/20/18 at 07:43; Stop 06/20/18 at 07:44; Status DC Fentanyl Citrate (Fentanyl 2ml Vial) 100 mcg STK-MED ONCE .ROUTE ; Start at 07:46; Stop 06/20/18 at 07:47; Status DC Phenylephrine HCl (Celio-Synephrine Inj) 10 mg STK-MED ONCE .ROUTE ; Start at 07:59; Stop 06/20/18 at 08:00; Status DC Sevoflurane (Ultane) 90 ml STK-MED ONCE IH ; Start 06/20/18 at 08:55; Stop 06/20 at 08:56; Status DC Neostigmine Methylsulfate (Bloxiverz) 10 mg STK-MED ONCE .ROUTE ; Start at 09:34; Stop 06/20/18 at 09:35; Status DC Glycopyrrolate (Robinul) 1 mg STK-MED ONCE .ROUTE ; Start 06/20/18 at 09:34; Stop 06/20/18 at 09:35; Status DC Albumin Human 500 ml @ As Directed STK-MED ONCE IV ; Start 06/20/18 at 09:35; Stop 06/20/18 at 09:36; Status DC Hydromorphone HCl (Dilaudid) 2 mg STK-MED ONCE .ROUTE ; Start 06/20/18 at 10:59 ; Stop 06/20/18 at 11:00; Status DC Cefoxitin Sodium (Mefoxin) 1 gm Q8H IVP ; Start 06/20/18 at 18:00; Stop at 10:01; Status Cancel Sodium Chloride (Normal Saline Flush) 3 ml QSHIFT PRN IV AFTER MEDS AND BLOOD DRAWS; Start 06/20/18 at 11:00 Morphine Sulfate (Morphine Sulfate) 2 mg PRN Q3HRS PRN IV PAIN Last administered on 06/24/18at 08:40; Start 06/20/18 at 11:00 Oxycodone/ Acetaminophen (Percocet 5/325) 1 tab PRN Q4HRS PRN PO MILD PAIN, 1ST CHOICE Last administered on 06/25/18at 15:11; Start 06/20/18 at 11:00 Oxycodone/ Acetaminophen (Percocet 5/325) 2 tab PRN Q4HRS PRN PO MODERATE PAIN , SEVERE PAIN Last administered on 06/25/18 20:37; Start 06/20/18 at 11:00 Ketorolac Tromethamine (Toradol 15mg Vial) 15 mg Q6HRS IV Last administered on 06/22/18 06:32; Start 06/20/18 at 12:00; Stop 06/22/18 at 11:59; Status DC Ondansetron HCl (Zofran) 4 mg PRN Q6HRS PRN IV NAUSEA, 1ST CHOICE Last administered on 06/26/18 12:09; Start 06/20/18 at 11:00 Dextrose/Lactated Ringer's 1,000 ml @ 75 mls/hr [id number] IV Last administered on 06/20/18 14:54; Start 06/20/18 at 10:58; Stop 06/23/18 at 13:17; Status DC Ketorolac Tromethamine (Toradol 30mg Vial) 30 mg STK-MED ONCE .ROUTE ; Start at 11:09; Stop 06/20/18 at 11:10; Status DC Sodium Chloride 1,000 ml @ 100 mls/hr Q10H IV Last administered on 06/22/18 00:45; Start 06/20/18 at 11:15; Stop 06/23/18 at 13:17; Status DC Cefoxitin Sodium (Mefoxin) 1 gm Q8H IVP Last administered on 06/21/18 10:38; Start 06/20/18 at 18:00; Stop 06/21/18 at 10:01; Status DC Enoxaparin Sodium (Lovenox Per Pharmacy Prophylaxis Dosing) 1 each PRN DAILY PRN MC SEE COMMENTS; Start 06/22/18 at 11:30 Enoxaparin Sodium (Lovenox 40mg Syringe) 40 mg Q24H SQ Last administered on at 12:10; Start 06/22/18 at 12:00 Guaifenesin (Mucinex) 600 mg BID PO Last administered on 06/26/18 08:25; Start 06/22/18 at 15:00 Lisinopril (Prinivil) 10 mg DAILY PO Last administered on 06/26/18at 08:25; Start 06/23/18 at 10:00 Hydrochlorothiazide (Microzide) 12.5 mg DAILY PO Last administered on at 08:25; Start 06/23/18 at 10:00 Active Scripts Active Reported Zofran (Ondansetron Hcl) 4 Mg Tablet 4 Mg PO BID PRN Lisinopril-Hctz 10-12.5 Mg Tab (Lisinopril/Hydrochlorothiazide) 1 Each Tablet 1 Tab PO DAILY Allergies Allergies: Coded Allergies: No Known Drug Allergies (Unverified , 06/20/18) ROS General: YES: Fatigue, Malaise PSYCHOLOGICAL ROS: No: Anxiety, Behavioral Disorder, Concentration difficultie , Decreased libido, Depression, Disorientation, Hallucinations, Hostility, Irritablity, Memory difficulties, Mood Swings, Obsessive thoughts, Physical abuse, Sexual abuse, Sleep disturbances, Suicidal ideation, Other Eyes: No Blurry vision, No Decreased vision, No Double vision, No Dry eyes, No Excessive tearing, No Eye Pain, No Itchy Eyes, No Loss of vision, No Photophobia , No Scotomata, No Uses contacts, No Uses glasses, No Other HEENT: No: Heacaches, Visual Changes, Hearing change, Nasal congestion, Nasal discharge, Oral lesions, Sinus pain, Sore Throat, Epistaxis, Sneezing, Snoring, Tinnitus, Vertigo, Vocal changes, Other Hematological and Lymphatic: No: Bleeding Problems, Blood Clots, Blood Transfusions, Brusing, Night Sweats, Pallor, Swollen Lymph Nodes, Other Respiratory: No: Cough, Hemoptysis, Orthopnea, Pleuritic Pain, Shortness of breath, SOB with excertion, Sputum Changes, Stridor, Tachypnea, Wheezing, Other Cardiovascular: No Chest Pain, No Palpitations, No Orthopnea, No Paroxysmal Noc. Dyspnea, No Edema, No Lt Headedness, No Other Gastrointestinal: Yes Abdominal Pain (post-op) Musculoskeletal: No Gait Disturbance, No Joint Pain, No Joint Stiffness, No Joint Swelling, No Muscle Pain, No Muscular Weakness, No Pain In:, No Swelling In:, No Other Neurological: No Behavorial Changes, No Bowel/Bladder ControlChng, No Confusion , No Dizziness, No Gait Disturbance, No Headaches, No Impaired Coord/balance, No Memory Loss, No Numbness/Tingling, No Seizures, No Speech Problems, No Tremors, No Visual Changes, No Weakness, No Other Physical Exam General: Alert, Oriented X3, Cooperative, mild distress HEENT: Atraumatic, PERRLA, EOMI Lungs: Clear to auscultation Heart: RRR, no gallops, other (hr 110) Breasts: Not examined Abdomen: Soft, Other (incision dry ster-strips intact wound closed) Rectal Exam: not examined PELVIC: Examination not indicated Extremities: No clubbing, No cyanosis Neuro: Normal speech, Sensation intact, Cranial nerves 3-12 NL Psych/Mental Status: Mental status NL, Mood NL Vitals Vitals Vital Signs Date Time Temp Pulse Resp B/P (MAP) Pulse Ox O2 Delivery O2 Flow Rate FiO2 06/26/18 10:30 97.4 127 20 119/80 (93) 97 Room Air 97.4 06/23/18 20:00 2.0 Images Images SEX: M EXAM STATUS: REG CLI ORD. PHYSICIAN: PEPE PAGAN MD REASON: Tubular adenoma PROCEDURE: CT ABD PELV W/ORAL&IV CONTRAST PQRS Compliance statement: One or more of the following individualized dose reduction techniques were utilized for this examination: 1. Automated exposure control. 2. Adjustment of the mA and/or kV according to patient size. 3. Use of iterative reconstruction technique. Indication:Tubular adenoma
IVC OMNI 300 75 MLS AND PO OMNI 240 30 MLS
PREVIOUS TECHNIQUE: CT abdomen and pelvis with IV contrast with multiplanar reformats. COMPARISON: 11/28/2014 FINDINGS: Heart is normal in size. No pericardial or pleural effusion. Multiple pulmonary nodules are seen. The largest nodule in the right lower lobe measures 2.4 cm. The largest nodule in the left lung base measures 5 mm. Multiple low attenuating lesions are seen in the liver some of which are confluent limiting exact measurements. Index lesions as follows: Segment 2 lesion measuring 4.6 x 3.5 cm (series 2 image 20) (. Large infiltrative lesion in the segment 8 and 4A measuring 12.0 x 11.3 cm (series 2 image 17). Segment IVb lesion measuring 3.9 x 3.7 cm (series 2 image 36). 2.2 x 1.8 cm pericardial lymph node (series 2 image 13) (. Spleen is severely atrophic. 2.5 x 1.4 cm soft tissue oval-shaped nodule in the left upper quadrant may represent an accessory spleen or enlarged lymph node (series 2 image 21). Gallbladder, pancreas, adrenals within normal limits. Simple cyst is seen in the upper pole right kidney measuring 3.0 x 3.1 cm. No nephrolithiasis or hydronephrosis. No enlarged retroperitoneal or pelvic adenopathy. 2.2 x 1.6 cm, common hepatic artery lymph node (series 3 image 34). Enlarged 2.0 x 2.0 cm gastrohepatic ligament recess lymph node (series 2 image 26). Soft tissue mass in the sigmoid colon measuring 3.4 x 3.3 cm (series 2 image 79). Other soft tissue mass is seen in the rectum measuring 3.8 x 3.1 cm (series 2 image 84). Colonic anastomotic sutures are seen in the left lower quadrant. No bowel obstruction. Normal appendix. The prostate and seminal vesicles show no large mass. Urinary bladder is within normal limits. Most likely a sebaceous cyst in the left parasagittal superficial anterior pelvic wall measuring 2.8 x 2.0 cm. 1.6 x 1.2 cm mildly enlarged right external iliac chain lymph node (series 2 image 85) (. No suspicious bony lesion. IMPRESSION: 1. Multiple bilateral lung bases metastasis. 2. Multiple liver metastasis. 3. Multiple enlarged lymph nodes as described above concerning for metastasis. 4. Couple of intraluminal polypoid lesions in the rectosigmoid colon as described above concerning for colonic malignancy. Correlate with colonoscopy. Electronically signed by: Kyler Abdul DO (05/20/2018 11:47 AM) [id number] VTE Prophylaxis Ordered VTE Prophylaxis Devices: Yes VTE Pharmacological Prophylaxi: No Assessment/Plan Assessment/Plan impression s/p total colectomy tachycardia, due to volume depletion R/O SEPSIS Multiple bilateral lung bases metastasis. Multiple liver metastasis. Multiple enlarged lymph nodes as described above concerning for metastasis. tele 1 liter NS IV OVER 2 HRS, THEN 100 CC /HR mucinex await bowel fxn tele ct abd vidya ECHO CONSULT CARDIOLOGY PCXR BLOOD CULT CONSULT ID IV MEREM 1 GM Q 8 HRS VANC 1.5 GM IV X 1 CONSULT TIME 75 MIN Operative Note Date: 06/20/2018 Preoperative diagnosis: Metachronous colon masses sigmoid colon distal rectum liver mass Postoperative diagnosis: Same Procedure: Total colectomy with end ileostomy, liver biopsy Surgeon: PEPE Shah MD Jun 26, 2018 12:45
[2018-06-26] MEDS ORDERED: IOHEXOL 240 MG/ML 50ML VIAL. PO ONE (13:00)
[2018-06-26] MEDS ORDERED: IOHEXOL 300 MG/ML 100ML VIAL. IV ONE (13:00)
[2018-06-26] MEDS ORDERED: CONTRAST GIVEN. MC PRN (13:15)
[2018-06-26 13:48] LABS: BASO # 0.1 x10^3/uL (0.0-0.2); BASO % 1 % (0-3); EOS % 0 % (0-3); HEMATOCRIT 36.2 % (39.0-53.0); HEMOGLOBIN 11.2 g/dL (13.0-17.5); LYMPH # 7.9 x10^3/uL (1.0-4.8); LYMPH % 38 % (24-48); MEAN CORPUSCULAR HEMOGLOBIN 23 pg (25-35); MEAN CORPUSCULAR HGB CONC 31 g/dL (31-37); MEAN CORPUSCULAR VOLUME 74 fL (79-100); MONO # 1.4 x10^3/uL (0.0-1.1); MONO % 7 % (0-9); NEUT # 11.3 x10^3uL (1.8-7.7); NEUT % 55 % (31-73); PLATELET COUNT 546 x10^3/uL (140-400); RED BLOOD COUNT 4.86 x10^6/uL (4.30-5.70); RED CELL DISTRIBUTION WIDTH 19.5 % (11.5-14.5); WHITE BLOOD COUNT 20.6 x10^3/uL (4.0-11.0)
[2018-06-26 14:05] LABS: ALBUMIN 2.1 g/dL (3.4-5.0); ALBUMIN/GLOBULIN RATIO 0.4 (1.0-1.7); CALCIUM 9.8 mg/dL (8.5-10.1); CREATININE 1.3 mg/dL (0.7-1.3); POTASSIUM 3.1 mmol/L (3.5-5.1); TOTAL BILIRUBIN 0.8 mg/dL (0.2-1.0); TOTAL PROTEIN 7.8 g/dL (6.4-8.2)
[2018-06-26] MEDS ORDERED: VANCOMYCIN 1.5 GM in IV NORMAL SALINE 500ML BAG 500 ML IV ONE (14:45)
--- NOTE | 2018-06-26 14:58 | RAD ---
CHEST AP ONLY History: SVT, post abdominal surgery Saturday. Comparison: November 18, 2014 Findings: Single view of the chest is submitted. There are now nodular opacities of the bilateral hemithoraces. There is no pneumothorax or significant pleural fluid. There is no lobar consolidation. There is likely atelectasis medial right lung base. Heart size is within normal limits given technique. There is a somewhat tortuous thoracic aorta. Impression: 1. There is right base atelectasis. There are nodules of the bilateral hemithoraces, evidence of lung metastases. Electronically signed by: Rosendo Gordon MD (06/26/2018 2:55 PM) [id number]
[2018-06-26] MEDS ORDERED: POTASSIUM CHLORIDE 20 MEQ TABLET.ER. PO ONE (15:00)
[2018-06-26] MEDS ORDERED: IV NORMAL SALINE 1000ML BAG 1,000 ML IV ONE (15:00)
[2018-06-26] MEDS ORDERED: IV NORMAL SALINE 1000ML BAG 1,000 ML IV SCH ×2 (15:00→17:00)
--- NOTE | 2018-06-26 15:31 | RAD ---
CT ABD PELV W/ORAL IV CONTRAST Indication: Status post bowel surgery, possible bowel contents in abdomen Technique: Postcontrast CT imaging was performed of the abdomen and pelvis, multiplanar reconstruction images submitted. There is some oral contrast present. One or more of the following individualized dose reduction techniques were utilized for this examination: 1. Automated exposure control 2. Adjustment of the mA and/or kV according to patient size 3. Use of iterative reconstruction technique. Comparison: May 20, 2018 FINDINGS: There has been interval colectomy. There are dilated segments of the small bowel greater in the left abdomen with air-fluid levels, maximal caliber up to 4.5 cm. However discrete transition point is not confidently identified. There is now right lower quadrant ileostomy. There is now abnormal collection in the presacral region of the pelvis about 6.8 cm AP by 6.5 cm transverse by about 7 cm CC, some associated foci of adjacent gas. Internal density measurements are 29 Hounsfield units. There is another collection of fluid although more localized in the rectal pouch, internal density measurements of 18 Hounsfield units, mild peripheral enhancement. There is scattered pneumoperitoneum, more localized extraluminal gas in the right abdomen. There is mild perihepatic complex fluid or blood products. There is nonspecific density at site of ventral midline wound in the pelvis and to lesser degree in the abdomen, internal density measurements of 22 Hounsfield units. There are also some small foci of gas in the anterior subcutaneous fat. There are now trace bilateral pleural effusions right greater than left. There are again multiple lung masses, lungs not fully evaluated. There is again 1.8 cm short axis likely node superior abdomen superior to celiac axis. There is left lower lobe atelectasis, also mild compressive atelectasis right lower lobe adjacent to effusion. There is again extensive hepatic metastatic disease, not significantly changed in the short-term interval. Largest more confluent lesion of the left lobe of the liver is estimated about 12.2 cm transverse by 8.9 cm AP by about 11.5 cm cc. There is no adrenal nodularity. Both kidneys enhance without hydronephrosis. There is superior right renal cyst about 2.8 cm. There is no new abnormality of pancreas. 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 Gallbladder is present. There is mild circumferential thickening and enhancement of the urinary bladder gomes. There is degenerative disc disease and spondylosis L5-S1. There is fairly severe narrowing of the right L5-S1 neural foramen due to disc osteophyte complex and facet degenerative change. IMPRESSION: 1. There are scattered pockets of free air. While there has been recent surgery, quantity of gas is somewhat greater than expected, leak difficult to exclude at this point in time. There is also abnormal presacral fluid collection of uncertain sterility, some of foci of adjacent gas, internal density measurements which could be due to complex fluid or hematoma. There is also fluid distention of the rectal pouch. There is small bowel dilatation with air-fluid levels although discrete transition point not identified, could be due to ileus although radiographic follow-up would be beneficial to exclude obstruction. There is nonspecific fluid density at site of ventral wound. 2. There is extensive hepatic metastatic disease, also lung metastases and lymphadenopathy. There are now very small dependent pleural effusions right greater than left. FOR INTERNAL CODING PURPOSES Critical result: Findings discussed with nurse Chyna at 06/26/2018 3:21 PM, to inform doctor of findings. RESULT CODE: (C) Electronically signed by: Rosendo Gordon MD (06/26/2018 3:28 PM) [id number]
--- NOTE | 2018-06-26 15:37 | PDOC2 ---
CARDIAC CONSULT DATE OF CONSULT Date of Consult DATE: 06/26/18 TIME: 15:33 REASON FOR CONSULT Reason for Consult: SVT Possible CHF REFERRING PHYSICIAN Referring Physician: Dr. Cordova SOURCE Source: Chart review, Patient HISTORY OF PRESENT ILLNESS HISTORY OF PRESENT ILLNESS This is a 63 yo male, with a history of colon CA s/p left colon resection, who presented for total colectomy with end ileostomy and liver biopsy secondary to large sigmoid and proximal rectum and liver mass. Liver biopsy notable for metastatic disease. Patient was noted to be tachycardiac post-operatively, which prompted this consult. PAST MEDICAL HISTORY Cardiovascular: HTN Pulmonary: No pertinent hx CENTRAL NERVOUS SYSTEM: Other (no pertinent hx) GI: GERD Heme/Onc: Cancer (colon with mets to liver) Hepatobiliary: No pertinent hx Psych: No pertinent hx Musculoskeletal: Osteoarthritis Rheumatologic: No pertinent hx Infectious disease: No pertinent hx ENT: No pertinent hx Renal/: No pertinent hx Endocrine: No pertinent hx Dermatology: No pertinent hx PAST SURGICAL HISTORY Past Surgical History: Hernia Repair, Colon Resection, Other (splenectomy ) FAMILY HISTORY Family History: Diabetes, Heart Disease, Hypertension SOCIAL HISTORY Smoke: Quit (2014) ALCOHOL: none Drugs: None Lives: with Family CURRENT MEDICATIONS CURRENT MEDICATIONS Current Medications Medications (Trade) Dose Ordered Sig/Siri Route PRN Reason Start Time Stop Time Status Last Admin Dose Admin Iohexol (Omnipaque 300 Mg/ml) 75 ml 1X ONCE IV 06/26/18 13:00 06/26/18 13:02 DC 06/26/18 13:00 Iohexol (Omnipaque 240 Mg/ml) 30 ml 1X ONCE PO 06/26/18 13:00 06/26/18 13:02 DC 06/26/18 13:00 ALLERGIES ALLERGIES: Coded Allergies: No Known Drug Allergies (Unverified , 06/20/18) ROS Review of System 14 point ROS conducted with pertinent positives noted above in HPI PHYSICAL EXAM General: Alert, Oriented X3, Cooperative, No acute distress HEENT: Atraumatic, Mucous membr. moist/pink Lungs: Clear to auscultation Heart: Normal S1, Normal S2, Other (tele ST) Abdomen: Soft, Other (tenderness. incision with steri-strips- well approximated ) Extremities: No edema, Normal pulses Neuro: Normal speech, Sensation intact Psych/Mental Status: Mental status NL, Mood NL MUSCULOSKELETAL: Osteoarthritic changes both hands VITALS VITALS Vital Signs Date Time Temp Pulse Resp B/P (MAP) Pulse Ox O2 Delivery O2 Flow Rate FiO2 06/26/18 14:35 97.5 104 18 121/89 (100) 96 Room Air 97.5 LABS Lab: Laboratory Tests Test 06/26/18 13:30 White Blood Count 20.6 x10^3/uL (4.0-11.0) Red Blood Count 4.86 x10^6/uL (4.30-5.70) Hemoglobin 11.2 g/dL (13.0-17.5) Hematocrit 36.2 % (39.0-53.0) Mean Corpuscular Volume 74 fL (79-100) Mean Corpuscular Hemoglobin 23 pg (25-35) Mean Corpuscular Hemoglobin Concent 31 g/dL (31-37) Red Cell Distribution Width 19.5 % (11.5-14.5) Platelet Count 546 x10^3/uL (140-400) Neutrophils (%) (Auto) 55 % (31-73) Lymphocytes (%) (Auto) 38 % (24-48) Monocytes (%) (Auto) 7 % (0-9) Eosinophils (%) (Auto) 0 % (0-3) Basophils (%) (Auto) 1 % (0-3) Neutrophils # (Auto) 11.3 x10^3uL (1.8-7.7) Lymphocytes # (Auto) 7.9 x10^3/uL (1.0-4.8) Monocytes # (Auto) 1.4 x10^3/uL (0.0-1.1) Eosinophils # (Auto) 0.0 x10^3/uL (0.0-0.7) Basophils # (Auto) 0.1 x10^3/uL (0.0-0.2) Sodium Level 136 mmol/L (136-145) Potassium Level 3.1 mmol/L (3.5-5.1) Chloride Level 96 mmol/L (98-107) Carbon Dioxide Level 24 mmol/L (21-32) Anion Gap 16 (6-14) Blood Urea Nitrogen 33 mg/dL (8-26) Creatinine 1.3 mg/dL (0.7-1.3) Estimated GFR (Cockcroft-Gault) 67.0 BUN/Creatinine Ratio 25 (6-20) Glucose Level 108 mg/dL (70-99) Calcium Level 9.8 mg/dL (8.5-10.1) Total Bilirubin 0.8 mg/dL (0.2-1.0) Aspartate Amino Transf (AST/SGOT) 67 U/L (15-37) Alanine Aminotransferase (ALT/SGPT) 44 U/L (16-63) Alkaline Phosphatase 345 U/L (46-116) Total Protein 7.8 g/dL (6.4-8.2) Albumin 2.1 g/dL (3.4-5.0) Albumin/Globulin Ratio 0.4 (1.0-1.7) ASSESSMENT/PLAN ASSESSMENT/PLAN 1. Colon CA s/p previous left colon resection (2014) 2. Large sigmoid and proximal rectum mass and liver mass; s/p colectomy with end ileostomy liver biopsy. Liver Bx notable for metastatic disease. CXR with evidence of lung metastases. No significant pleural fluid- doubt acute HF. 3. Sinus tachycardia, reactive 4. Leukocytosis, ? sepsis. blood cultures drawn 5. Hypertension; low-normotensive 6. DAMIEN; improved 7. Hypokalemia; replaced 8. Protein malnutrition Recommendations Agree with IVF Echo ordered to assess LV systolic function Check Mg- replace as warranted Check lactic acid Post-op management as per surgical team Supportive care MARA SZYMANSKI APRN Jun 26, 2018 15:37
[2018-06-26] MEDS: MEROPENEM 1 GM in IV NORMAL SALINE 100ML 100 ML IV SCH ×2 (16:10→22:40)
[2018-06-26] MEDS: IV NORMAL SALINE 1000ML BAG 1,000 ML IV SCH (16:10)
[2018-06-26 16:59] LABS: % BANDS 2 % (0-9); % SEGS 59 % (35-66); OVALOCYTES OCC; PLATELET CLUMP PRESENT; PLT ESTIMATE INCREASED (ADEQUATE); POLYCHROMASIA SLIGHT
[2018-06-26 17:00] LABS: % LYMPHS 31 % (24-48); % MONOS 8 % (0-10)
[2018-06-26] MEDS ORDERED: IV NORMAL SALINE 500ML BAG 500 ML IV PRN (17:00)
[2018-06-26 17:32] LABS: PROTHROMBIN TIME PATIENT 16.5 SEC (11.7-14.0)
[2018-06-26] MEDS: VANCOMYCIN PER PHARMACY MC PRN (18:19)
--- NOTE | 2018-06-26 18:21 | NUR ---
Pharmacy Vancomycin Dosing Note S:Consulted to monitor and dose vancomycin started 06/26/18. O:PRABHA GROVER is a 63 year old M with Cellulitis Sepsis . Height: 6 feet, 2 inches Weight: 88.760170 kg [place] Body Weight: 82.20 Adjusted Body Weight: 84.52 Dosing Weight: Other Antibiotics: MEROPENEM 06/26 - LABS: Last BUN: 33 Last Creatinine: 1.3 Creatinine Clearance: 67 mL/min Last WBC: 20.6 Last Procalcitonin: - Tmax (past 24 hours): 98.5 Microbiology: 06/26 PENDING I/O: 1560/1020 Drug Levels: Last level: on at Last dose given 06/26/18 at 1653 Vancomycin Dosing: Loading Dose: 1500 mg x1 Dosing Weight: Target Trough: 15-20 A: Based on: CRCL~67, INITIAL DOSING PER HOSPITALIST OF 1500 MG, P: 1. Initiate Vancomycin 1250 mg IV q12h 2. Follow up Trough level on 06/28/18 at 0430 3. Pharmacy will continue to monitor, follow and adjust therapy as needed. ROSALBA LOTT [facility], 06/26/18 [id number]
--- NOTE | 2018-06-26 19:37 | PDOC ---
SURGICAL PROGRESS NOTE Subjective Resting comfortably in bed, denies pain. Vital Signs Vital Signs Date Time Temp Pulse Resp B/P (MAP) Pulse Ox O2 Delivery O2 Flow Rate FiO2 06/26/18 14:35 97.5 104 18 121/89 (100) 96 Room Air 97.5 I&O Intake and Output 06/26/18 07:00 Intake Total 1560 ml Output Total 1020 ml Balance 540 ml Intake Oral 1560 ml Output Urine Total 550 ml Stool Total 450 ml Drainage Total 20 ml PATIENT HAS A RIVERA: No General: Alert, Oriented X3, Cooperative, mild distress Abdomen: Normal bowel sounds, Soft, Other (mild incisional tenderness, good ileostomy output) Labs Laboratory Tests Test 06/26/18 13:30 06/26/18 17:15 White Blood Count 20.6 x10^3/uL (4.0-11.0) Red Blood Count 4.86 x10^6/uL (4.30-5.70) Hemoglobin 11.2 g/dL (13.0-17.5) Hematocrit 36.2 % (39.0-53.0) Mean Corpuscular Volume 74 fL (79-100) Mean Corpuscular Hemoglobin 23 pg (25-35) Mean Corpuscular Hemoglobin Concent 31 g/dL (31-37) Red Cell Distribution Width 19.5 % (11.5-14.5) Platelet Count 546 x10^3/uL (140-400) Neutrophils (%) (Auto) 55 % (31-73) Lymphocytes (%) (Auto) 38 % (24-48) Monocytes (%) (Auto) 7 % (0-9) Eosinophils (%) (Auto) 0 % (0-3) Basophils (%) (Auto) 1 % (0-3) Neutrophils # (Auto) 11.3 x10^3uL (1.8-7.7) Lymphocytes # (Auto) 7.9 x10^3/uL (1.0-4.8) Monocytes # (Auto) 1.4 x10^3/uL (0.0-1.1) Eosinophils # (Auto) 0.0 x10^3/uL (0.0-0.7) Basophils # (Auto) 0.1 x10^3/uL (0.0-0.2) Segmented Neutrophils % 59 % (35-66) Band Neutrophils % 2 % (0-9) Lymphocytes % 31 % (24-48) Monocytes % 8 % (0-10) Platelet Estimate Increased (ADEQUATE) Platelet Clumps, EDTA Present Giant Platelets Present Polychromasia Slight Ovalocytes Occ Crenated Cell Present Sodium Level 136 mmol/L (136-145) Potassium Level 3.1 mmol/L (3.5-5.1) Chloride Level 96 mmol/L (98-107) Carbon Dioxide Level 24 mmol/L (21-32) Anion Gap 16 (6-14) Blood Urea Nitrogen 33 mg/dL (8-26) Creatinine 1.3 mg/dL (0.7-1.3) Estimated GFR (Cockcroft-Gault) 67.0 BUN/Creatinine Ratio 25 (6-20) Glucose Level 108 mg/dL (70-99) Calcium Level 9.8 mg/dL (8.5-10.1) Magnesium Level 2.3 mg/dL (1.8-2.4) Total Bilirubin 0.8 mg/dL (0.2-1.0) Aspartate Amino Transf (AST/SGOT) 67 U/L (15-37) Alanine Aminotransferase (ALT/SGPT) 44 U/L (16-63) Alkaline Phosphatase 345 U/L (46-116) Total Protein 7.8 g/dL (6.4-8.2) Albumin 2.1 g/dL (3.4-5.0) Albumin/Globulin Ratio 0.4 (1.0-1.7) Prothrombin Time 16.5 SEC (11.7-14.0) Prothromb Time International Ratio 1.4 (0.8-1.1) Activated Partial Thromboplast Time 40 SEC (24-38) Fibrinogen 750 mg/dL (200-440) Lactic Acid Level 2.2 mmol/L (0.4-2.0) Procalcitonin 4.56 ng/mL (0.00-0.10) Laboratory Tests Test 06/26/18 13:30 06/26/18 17:15 White Blood Count 20.6 x10^3/uL (4.0-11.0) Red Blood Count 4.86 x10^6/uL (4.30-5.70) Hemoglobin 11.2 g/dL (13.0-17.5) Hematocrit 36.2 % (39.0-53.0) Mean Corpuscular Volume 74 fL (79-100) Mean Corpuscular Hemoglobin 23 pg (25-35) Mean Corpuscular Hemoglobin Concent 31 g/dL (31-37) Red Cell Distribution Width 19.5 % (11.5-14.5) Platelet Count 546 x10^3/uL (140-400) Neutrophils (%) (Auto) 55 % (31-73) Lymphocytes (%) (Auto) 38 % (24-48) Monocytes (%) (Auto) 7 % (0-9) Eosinophils (%) (Auto) 0 % (0-3) Basophils (%) (Auto) 1 % (0-3) Neutrophils # (Auto) 11.3 x10^3uL (1.8-7.7) Lymphocytes # (Auto) 7.9 x10^3/uL (1.0-4.8) Monocytes # (Auto) 1.4 x10^3/uL (0.0-1.1) Eosinophils # (Auto) 0.0 x10^3/uL (0.0-0.7) Basophils # (Auto) 0.1 x10^3/uL (0.0-0.2) Segmented Neutrophils % 59 % (35-66) Band Neutrophils % 2 % (0-9) Lymphocytes % 31 % (24-48) Monocytes % 8 % (0-10) Platelet Estimate Increased (ADEQUATE) Platelet Clumps, EDTA Present Giant Platelets Present Polychromasia Slight Ovalocytes Occ Crenated Cell Present Sodium Level 136 mmol/L (136-145) Potassium Level 3.1 mmol/L (3.5-5.1) Chloride Level 96 mmol/L (98-107) Carbon Dioxide Level 24 mmol/L (21-32) Anion Gap 16 (6-14) Blood Urea Nitrogen 33 mg/dL (8-26) Creatinine 1.3 mg/dL (0.7-1.3) Estimated GFR (Cockcroft-Gault) 67.0 BUN/Creatinine Ratio 25 (6-20) Glucose Level 108 mg/dL (70-99) Calcium Level 9.8 mg/dL (8.5-10.1) Magnesium Level 2.3 mg/dL (1.8-2.4) Total Bilirubin 0.8 mg/dL (0.2-1.0) Aspartate Amino Transf (AST/SGOT) 67 U/L (15-37) Alanine Aminotransferase (ALT/SGPT) 44 U/L (16-63) Alkaline Phosphatase 345 U/L (46-116) Total Protein 7.8 g/dL (6.4-8.2) Albumin 2.1 g/dL (3.4-5.0) Albumin/Globulin Ratio 0.4 (1.0-1.7) Prothrombin Time 16.5 SEC (11.7-14.0) Prothromb Time International Ratio 1.4 (0.8-1.1) Activated Partial Thromboplast Time 40 SEC (24-38) Fibrinogen 750 mg/dL (200-440) Lactic Acid Level 2.2 mmol/L (0.4-2.0) Procalcitonin 4.56 ng/mL (0.00-0.10) I have reviewed the following CT reviewed-free air, sacral fluid collection Assessment/Plan Patient appears more comfortable now. Free air to be expected in relation to open surgery. Will consult IR in am to evaluate possible percutaneous drain Abx started Discussed plan with the patient. PEPE PAGAN MD Jun 26, 2018 19:37
[2018-06-26] MEDS: oxyCODONE/APAP 5/325 1 TAB TABLET PO PRN (22:47)
[2018-06-26 23:57] LABS: BILIRUBIN,URINE SMALL (NEG); CLARITY,URINE CLEAR; COLOR,URINE YELLOW; NITRITE,URINE NEGATIVE (NEG); PH,URINE 5.5; PROTEIN,URINE NEGATIVE (NEG-TRACE); UROBILINOGEN,URINE 0.2 mg/dL (0.2 mg/dL)
[2018-06-27] VITALS (20 sets, daily range): BP systolic 114–141; BP diastolic 77–102
[2018-06-27 00:18] LABS: AMORPHOUS SEDIMENT,UR PRESENT /HPF; BACTERIA,URINE 0 /HPF (0-FEW); RBC,URINE RARE /HPF (0-2); SQUAMOUS EPITHELIAL CELL,UR FEW /LPF; WBC,URINE RARE /HPF (0-4)
[2018-06-27] MEDS: IV NORMAL SALINE 1000ML BAG 1,000 ML IV SCH ×2 (01:00→09:27)
[2018-06-27 04:51] LABS: BASO % 0 % (0-3); EOS % 0 % (0-3); HEMATOCRIT 30.2 % (39.0-53.0); HEMOGLOBIN 9.6 g/dL (13.0-17.5); LYMPH # 10.3 x10^3/uL (1.0-4.8); LYMPH % 48 % (24-48); MEAN CORPUSCULAR HEMOGLOBIN 23 pg (25-35); MEAN CORPUSCULAR HGB CONC 32 g/dL (31-37); MEAN CORPUSCULAR VOLUME 74 fL (79-100); MONO # 1.4 x10^3/uL (0.0-1.1); MONO % 6 % (0-9); NEUT # 9.8 x10^3uL (1.8-7.7); NEUT % 46 % (31-73); PLATELET COUNT 465 x10^3/uL (140-400); RED CELL DISTRIBUTION WIDTH 19.2 % (11.5-14.5); WHITE BLOOD COUNT 21.5 x10^3/uL (4.0-11.0)
[2018-06-27 05:13] LABS: ALBUMIN 1.8 g/dL (3.4-5.0); ALBUMIN/GLOBULIN RATIO 0.4 (1.0-1.7); CREATININE 1.1 mg/dL (0.7-1.3); GFR 81.3; POTASSIUM 3.4 mmol/L (3.5-5.1); TOTAL BILIRUBIN 0.7 mg/dL (0.2-1.0); TOTAL PROTEIN 6.8 g/dL (6.4-8.2)
[2018-06-27] MEDS: VANCOMYCIN 1.25 GM in IV NORMAL SALINE 250ML 250 ML IV SCH ×2 (05:20→17:24)
[2018-06-27] MEDS: POTASSIUM CHLORIDE 20 MEQ TABLET.ER. PO SCH (08:00)
--- NOTE | 2018-06-27 08:52 | PDOC ---
SURGICAL PROGRESS NOTE Subjective Patient feeling much better this morning minimal pain. Had another bowel movement through the rectal stump Vital Signs Vital Signs Date Time Temp Pulse Resp B/P (MAP) Pulse Ox O2 Delivery O2 Flow Rate FiO2 06/27/18 03:00 97.8 81 18 114/81 (92) 96 Room Air 97.8 I&O Intake and Output 06/27/18 06:59 Intake Total 1800 ml Output Total 2450 ml Balance -650 ml Intake Oral 1200 ml IV Total 600 ml Output Urine Total 1175 ml Stool Total 1275 ml # Voids 1 # Bowel Movements 1 PATIENT HAS A RIVERA: No General: Alert, Oriented X3, Cooperative, mild distress Abdomen: Normal bowel sounds, Soft, Other (mild incisional tenderness ileostomy with good output) Labs Laboratory Tests Test 06/26/18 13:30 06/26/18 17:15 06/26/18 23:25 06/27/18 04:20 White Blood Count 20.6 x10^3/uL (4.0-11.0) 21.5 x10^3/uL (4.0-11.0) Red Blood Count 4.86 x10^6/uL (4.30-5.70) 4.10 x10^6/uL (4.30-5.70) Hemoglobin 11.2 g/dL (13.0-17.5) 9.6 g/dL (13.0-17.5) Hematocrit 36.2 % (39.0-53.0) 30.2 % (39.0-53.0) Mean Corpuscular Volume 74 fL (79-100) 74 fL (79-100) Mean Corpuscular Hemoglobin 23 pg (25-35) 23 pg (25-35) Mean Corpuscular Hemoglobin Concent 31 g/dL (31-37) 32 g/dL (31-37) Red Cell Distribution Width 19.5 % (11.5-14.5) 19.2 % (11.5-14.5) Platelet Count 546 x10^3/uL (140-400) 465 x10^3/uL (140-400) Neutrophils (%) (Auto) 55 % (31-73) 46 % (31-73) Lymphocytes (%) (Auto) 38 % (24-48) 48 % (24-48) Monocytes (%) (Auto) 7 % (0-9) 6 % (0-9) Eosinophils (%) (Auto) 0 % (0-3) 0 % (0-3) Basophils (%) (Auto) 1 % (0-3) 0 % (0-3) Neutrophils # (Auto) 11.3 x10^3uL (1.8-7.7) 9.8 x10^3uL (1.8-7.7) Lymphocytes # (Auto) 7.9 x10^3/uL (1.0-4.8) 10.3 x10^3/uL (1.0-4.8) Monocytes # (Auto) 1.4 x10^3/uL (0.0-1.1) 1.4 x10^3/uL (0.0-1.1) Eosinophils # (Auto) 0.0 x10^3/uL (0.0-0.7) 0.0 x10^3/uL (0.0-0.7) Basophils # (Auto) 0.1 x10^3/uL (0.0-0.2) 0.0 x10^3/uL (0.0-0.2) Segmented Neutrophils % 59 % (35-66) Band Neutrophils % 2 % (0-9) Lymphocytes % 31 % (24-48) Monocytes % 8 % (0-10) Platelet Estimate Increased (ADEQUATE) Platelet Clumps, EDTA Present Giant Platelets Present Polychromasia Slight Ovalocytes Occ Crenated Cell Present Sodium Level 136 mmol/L (136-145) 139 mmol/L (136-145) Potassium Level 3.1 mmol/L (3.5-5.1) 3.4 mmol/L (3.5-5.1) Chloride Level 96 mmol/L (98-107) 102 mmol/L (98-107) Carbon Dioxide Level 24 mmol/L (21-32) 22 mmol/L (21-32) Anion Gap 16 (6-14) 15 (6-14) Blood Urea Nitrogen 33 mg/dL (8-26) 29 mg/dL (8-26) Creatinine 1.3 mg/dL (0.7-1.3) 1.1 mg/dL (0.7-1.3) Estimated GFR (Cockcroft-Gault) 67.0 81.3 BUN/Creatinine Ratio 25 (6-20) 26 (6-20) Glucose Level 108 mg/dL (70-99) 112 mg/dL (70-99) Calcium Level 9.8 mg/dL (8.5-10.1) 9.0 mg/dL (8.5-10.1) Magnesium Level 2.3 mg/dL (1.8-2.4) Total Bilirubin 0.8 mg/dL (0.2-1.0) 0.7 mg/dL (0.2-1.0) Aspartate Amino Transf (AST/SGOT) 67 U/L (15-37) 62 U/L (15-37) Alanine Aminotransferase (ALT/SGPT) 44 U/L (16-63) 35 U/L (16-63) Alkaline Phosphatase 345 U/L (46-116) 292 U/L (46-116) Total Protein 7.8 g/dL (6.4-8.2) 6.8 g/dL (6.4-8.2) Albumin 2.1 g/dL (3.4-5.0) 1.8 g/dL (3.4-5.0) Albumin/Globulin Ratio 0.4 (1.0-1.7) 0.4 (1.0-1.7) Prothrombin Time 16.5 SEC (11.7-14.0) Prothromb Time International Ratio 1.4 (0.8-1.1) Activated Partial Thromboplast Time 40 SEC (24-38) Fibrinogen 750 mg/dL (200-440) Lactic Acid Level 2.2 mmol/L (0.4-2.0) Procalcitonin 4.56 ng/mL (0.00-0.10) Urine Collection Type Unknown Urine Color Yellow Urine Clarity Clear Urine pH 5.5 Urine Specific [place] >=1.030 Urine Protein Negative mg/dL (NEG-TRACE) Urine Glucose (UA) Negative mg/dL (NEG) Urine Ketones (Stick) 15 mg/dL (NEG) Urine Blood Negative (NEG) Urine Nitrite Negative (NEG) Urine Bilirubin Small (NEG) Urine Urobilinogen Dipstick 0.2 mg/dL (0.2 mg/dL) Urine Leukocyte Esterase Negative (NEG) Urine RBC Rare /HPF (0-2) Urine WBC Rare /HPF (0-4) Urine Squamous Epithelial Cells Few /LPF Urine Amorphous Sediment Present /HPF Urine Bacteria 0 /HPF (0-FEW) Urine Mucus Slight /LPF Laboratory Tests Test 06/26/18 13:30 06/26/18 17:15 06/26/18 23:25 06/27/18 04:20 White Blood Count 20.6 x10^3/uL (4.0-11.0) 21.5 x10^3/uL (4.0-11.0) Red Blood Count 4.86 x10^6/uL (4.30-5.70) 4.10 x10^6/uL (4.30-5.70) Hemoglobin 11.2 g/dL (13.0-17.5) 9.6 g/dL (13.0-17.5) Hematocrit 36.2 % (39.0-53.0) 30.2 % (39.0-53.0) Mean Corpuscular Volume 74 fL (79-100) 74 fL (79-100) Mean Corpuscular Hemoglobin 23 pg (25-35) 23 pg (25-35) Mean Corpuscular Hemoglobin Concent 31 g/dL (31-37) 32 g/dL (31-37) Red Cell Distribution Width 19.5 % (11.5-14.5) 19.2 % (11.5-14.5) Platelet Count 546 x10^3/uL (140-400) 465 x10^3/uL (140-400) Neutrophils (%) (Auto) 55 % (31-73) 46 % (31-73) Lymphocytes (%) (Auto) 38 % (24-48) 48 % (24-48) Monocytes (%) (Auto) 7 % (0-9) 6 % (0-9) Eosinophils (%) (Auto) 0 % (0-3) 0 % (0-3) Basophils (%) (Auto) 1 % (0-3) 0 % (0-3) Neutrophils # (Auto) 11.3 x10^3uL (1.8-7.7) 9.8 x10^3uL (1.8-7.7) Lymphocytes # (Auto) 7.9 x10^3/uL (1.0-4.8) 10.3 x10^3/uL (1.0-4.8) Monocytes # (Auto) 1.4 x10^3/uL (0.0-1.1) 1.4 x10^3/uL (0.0-1.1) Eosinophils # (Auto) 0.0 x10^3/uL (0.0-0.7) 0.0 x10^3/uL (0.0-0.7) Basophils # (Auto) 0.1 x10^3/uL (0.0-0.2) 0.0 x10^3/uL (0.0-0.2) Segmented Neutrophils % 59 % (35-66) Band Neutrophils % 2 % (0-9) Lymphocytes % 31 % (24-48) Monocytes % 8 % (0-10) Platelet Estimate Increased (ADEQUATE) Platelet Clumps, EDTA Present Giant Platelets Present Polychromasia Slight Ovalocytes Occ Crenated Cell Present Sodium Level 136 mmol/L (136-145) 139 mmol/L (136-145) Potassium Level 3.1 mmol/L (3.5-5.1) 3.4 mmol/L (3.5-5.1) Chloride Level 96 mmol/L (98-107) 102 mmol/L (98-107) Carbon Dioxide Level 24 mmol/L (21-32) 22 mmol/L (21-32) Anion Gap 16 (6-14) 15 (6-14) Blood Urea Nitrogen 33 mg/dL (8-26) 29 mg/dL (8-26) Creatinine 1.3 mg/dL (0.7-1.3) 1.1 mg/dL (0.7-1.3) Estimated GFR (Cockcroft-Gault) 67.0 81.3 BUN/Creatinine Ratio 25 (6-20) 26 (6-20) Glucose Level 108 mg/dL (70-99) 112 mg/dL (70-99) Calcium Level 9.8 mg/dL (8.5-10.1) 9.0 mg/dL (8.5-10.1) Magnesium Level 2.3 mg/dL (1.8-2.4) Total Bilirubin 0.8 mg/dL (0.2-1.0) 0.7 mg/dL (0.2-1.0) Aspartate Amino Transf (AST/SGOT) 67 U/L (15-37) 62 U/L (15-37) Alanine Aminotransferase (ALT/SGPT) 44 U/L (16-63) 35 U/L (16-63) Alkaline Phosphatase 345 U/L (46-116) 292 U/L (46-116) Total Protein 7.8 g/dL (6.4-8.2) 6.8 g/dL (6.4-8.2) Albumin 2.1 g/dL (3.4-5.0) 1.8 g/dL (3.4-5.0) Albumin/Globulin Ratio 0.4 (1.0-1.7) 0.4 (1.0-1.7) Prothrombin Time 16.5 SEC (11.7-14.0) Prothromb Time International Ratio 1.4 (0.8-1.1) Activated Partial Thromboplast Time 40 SEC (24-38) Fibrinogen 750 mg/dL (200-440) Lactic Acid Level 2.2 mmol/L (0.4-2.0) Procalcitonin 4.56 ng/mL (0.00-0.10) Urine Collection Type Unknown Urine Color Yellow Urine Clarity Clear Urine pH 5.5 Urine Specific [place] >=1.030 Urine Protein Negative mg/dL (NEG-TRACE) Urine Glucose (UA) Negative mg/dL (NEG) Urine Ketones (Stick) 15 mg/dL (NEG) Urine Blood Negative (NEG) Urine Nitrite Negative (NEG) Urine Bilirubin Small (NEG) Urine Urobilinogen Dipstick 0.2 mg/dL (0.2 mg/dL) Urine Leukocyte Esterase Negative (NEG) Urine RBC Rare /HPF (0-2) Urine WBC Rare /HPF (0-4) Urine Squamous Epithelial Cells Few /LPF Urine Amorphous Sediment Present /HPF Urine Bacteria 0 /HPF (0-FEW) Urine Mucus Slight /LPF Assessment/Plan S/P colectomy with ileostomy for colon cancer We'll consult interventional radiology for evaluation of pelvic fluid for drainage. May have spontaneously drained through his rectal stump PEPE PAGAN MD Jun 27, 2018 08:52
[2018-06-27] MEDS: LISINOPRIL 10 MG TABLET PO SCH (09:00)
[2018-06-27] MEDS: hydroCHLOROthiazide 12.5 MG CAPSULE PO SCH (09:00)
--- NOTE | 2018-06-27 09:12 | PDOC ---
Infectious Disease Note Vital Sign Vital Signs Vital Signs Date Time Temp Pulse Resp B/P (MAP) Pulse Ox O2 Delivery O2 Flow Rate FiO2 06/27/18 03:00 97.8 81 18 114/81 (92) 96 Room Air 97.8 Labs Lab Laboratory Tests Test 06/26/18 13:30 06/26/18 17:15 06/26/18 23:25 06/27/18 04:20 White Blood Count 20.6 x10^3/uL (4.0-11.0) 21.5 x10^3/uL (4.0-11.0) Red Blood Count 4.86 x10^6/uL (4.30-5.70) 4.10 x10^6/uL (4.30-5.70) Hemoglobin 11.2 g/dL (13.0-17.5) 9.6 g/dL (13.0-17.5) Hematocrit 36.2 % (39.0-53.0) 30.2 % (39.0-53.0) Mean Corpuscular Volume 74 fL (79-100) 74 fL (79-100) Mean Corpuscular Hemoglobin 23 pg (25-35) 23 pg (25-35) Mean Corpuscular Hemoglobin Concent 31 g/dL (31-37) 32 g/dL (31-37) Red Cell Distribution Width 19.5 % (11.5-14.5) 19.2 % (11.5-14.5) Platelet Count 546 x10^3/uL (140-400) 465 x10^3/uL (140-400) Neutrophils (%) (Auto) 55 % (31-73) 46 % (31-73) Lymphocytes (%) (Auto) 38 % (24-48) 48 % (24-48) Monocytes (%) (Auto) 7 % (0-9) 6 % (0-9) Eosinophils (%) (Auto) 0 % (0-3) 0 % (0-3) Basophils (%) (Auto) 1 % (0-3) 0 % (0-3) Neutrophils # (Auto) 11.3 x10^3uL (1.8-7.7) 9.8 x10^3uL (1.8-7.7) Lymphocytes # (Auto) 7.9 x10^3/uL (1.0-4.8) 10.3 x10^3/uL (1.0-4.8) Monocytes # (Auto) 1.4 x10^3/uL (0.0-1.1) 1.4 x10^3/uL (0.0-1.1) Eosinophils # (Auto) 0.0 x10^3/uL (0.0-0.7) 0.0 x10^3/uL (0.0-0.7) Basophils # (Auto) 0.1 x10^3/uL (0.0-0.2) 0.0 x10^3/uL (0.0-0.2) Segmented Neutrophils % 59 % (35-66) Band Neutrophils % 2 % (0-9) Lymphocytes % 31 % (24-48) Monocytes % 8 % (0-10) Platelet Estimate Increased (ADEQUATE) Platelet Clumps, EDTA Present Giant Platelets Present Polychromasia Slight Ovalocytes Occ Crenated Cell Present Sodium Level 136 mmol/L (136-145) 139 mmol/L (136-145) Potassium Level 3.1 mmol/L (3.5-5.1) 3.4 mmol/L (3.5-5.1) Chloride Level 96 mmol/L (98-107) 102 mmol/L (98-107) Carbon Dioxide Level 24 mmol/L (21-32) 22 mmol/L (21-32) Anion Gap 16 (6-14) 15 (6-14) Blood Urea Nitrogen 33 mg/dL (8-26) 29 mg/dL (8-26) Creatinine 1.3 mg/dL (0.7-1.3) 1.1 mg/dL (0.7-1.3) Estimated GFR (Cockcroft-Gault) 67.0 81.3 BUN/Creatinine Ratio 25 (6-20) 26 (6-20) Glucose Level 108 mg/dL (70-99) 112 mg/dL (70-99) Calcium Level 9.8 mg/dL (8.5-10.1) 9.0 mg/dL (8.5-10.1) Magnesium Level 2.3 mg/dL (1.8-2.4) Total Bilirubin 0.8 mg/dL (0.2-1.0) 0.7 mg/dL (0.2-1.0) Aspartate Amino Transf (AST/SGOT) 67 U/L (15-37) 62 U/L (15-37) Alanine Aminotransferase (ALT/SGPT) 44 U/L (16-63) 35 U/L (16-63) Alkaline Phosphatase 345 U/L (46-116) 292 U/L (46-116) Total Protein 7.8 g/dL (6.4-8.2) 6.8 g/dL (6.4-8.2) Albumin 2.1 g/dL (3.4-5.0) 1.8 g/dL (3.4-5.0) Albumin/Globulin Ratio 0.4 (1.0-1.7) 0.4 (1.0-1.7) Prothrombin Time 16.5 SEC (11.7-14.0) Prothromb Time International Ratio 1.4 (0.8-1.1) Activated Partial Thromboplast Time 40 SEC (24-38) Fibrinogen 750 mg/dL (200-440) Lactic Acid Level 2.2 mmol/L (0.4-2.0) Procalcitonin 4.56 ng/mL (0.00-0.10) Urine Collection Type Unknown Urine Color Yellow Urine Clarity Clear Urine pH 5.5 Urine Specific [place] >=1.030 Urine Protein Negative mg/dL (NEG-TRACE) Urine Glucose (UA) Negative mg/dL (NEG) Urine Ketones (Stick) 15 mg/dL (NEG) Urine Blood Negative (NEG) Urine Nitrite Negative (NEG) Urine Bilirubin Small (NEG) Urine Urobilinogen Dipstick 0.2 mg/dL (0.2 mg/dL) Urine Leukocyte Esterase Negative (NEG) Urine RBC Rare /HPF (0-2) Urine WBC Rare /HPF (0-4) Urine Squamous Epithelial Cells Few /LPF Urine Amorphous Sediment Present /HPF Urine Bacteria 0 /HPF (0-FEW) Urine Mucus Slight /LPF Objective Assessment Fever Leukocytosis Sepsis Abdominal abscess vs leak Plan Plan of Care cont vanc and meropenem CT drainage d/w dr Juarez d/w FLOR SHEN MD Jun 27, 2018 09:12
--- NOTE | 2018-06-27 09:12 | CARD ---
MR#: [id number] Date of Study: 06/27/2018 Ordering Physician: PEPE ADEN, Referring Physician: PEPE PAGAN Tech: Joan Anderson KORINA APPROVED REPORT EXAM: Two-dimensional and M-mode echocardiogram with Doppler and color Doppler. Other Information Quality : AverageHR: 95bpm Rhythm : NSR INDICATION Congestive Heart Failure 2D DIMENSIONS RVDd3.3 (2.9-3.5cm)Left Atrium(2D)2.9 (1.6-4.0cm) IVSd1.5 (0.7-1.1cm)Aortic Root(2D)3.7 (2.0-3.7cm) LVDd4.3 (3.9-5.9cm)LVOT Diameter2.0 (1.8-2.4cm) PWd1.4 (0.7-1.1cm)LVDs3.1 (2.5-4.0cm) FS (%) 28.6 %SV47.2 ml LVEF(%)55.4 (>50%) M-Mode DIMENSIONS Left Atrium(MM)3.17 (2.5-4.0cm)Aortic Root4.17 (2.2-3.7cm) Aortic Valve AoV Peak Maulik.130.1cm/sAoV VTI18.7cm AO Peak GR.6.8mmHgLVOT Peak Maulik.120.3cm/s AO Mean GR.4mmHgAVA (VMAX)2.98cm2 PJ (VTI)2.90cm2 Mitral Valve MV E Vhsrnach29.4cm/sMV DECEL [id number] MV A Ravieheg12.9cm/sE/A Ratio1.0 MV A [id number] Pulmonary Valve PV Peak Tfvmkhhz241.1cm/s LEFT VENTRICLE The left ventricle is normal size. There is mild concentric left ventricular hypertrophy. The left ve ntricular systolic function is normal. The Ejection Fraction is 55-60%. There is normal LV segmental wall motion. RIGHT VENTRICLE The right ventricle is normal size. There is normal right ventricular wall thickness. The right ventr icular systolic function is normal. ATRIA The left atrium size is normal. The right atrium size is normal. The interatrial septum is intact wit h no evidence for an atrial septal defect or patent foramen ovale as noted on 2-D or Doppler imaging. AORTIC VALVE The aortic valve is normal in structure and function. The aortic valve is trileaflet. Doppler and Col or Flow revealed no significant aortic regurgitation. There is no significant aortic valvular stenosi s. MITRAL VALVE The mitral valve is normal in structure and function. There is no evidence of mitral valve prolapse. There is no mitral valve stenosis. Doppler and Color-flow revealed trace mitral regurgitation. TRICUSPID VALVE The tricuspid valve is normal in structure and function. Doppler and Color Flow revealed trace tricus pid regurgitation. There is no tricuspid valve prolapse or vegetation. There is no tricuspid valve st enosis. PULMONIC VALVE The pulmonic valve is not well visualized. GREAT VESSELS The aortic root is mildly enlarged. The ascending aorta is Mildly dilated. The IVC is normal in size and collapses >50% with inspiration. PERICARDIAL EFFUSION There is no evidence of significant pericardial effusion. Critical Notification Critical Value: No <Conclusion> The left ventricular systolic function is normal. The Ejection Fraction is 55-60%. There is normal LV segmental wall motion. Trace mitral regurgitation. Trace tricuspid regurgitation. There is no evidence of significant pericardial effusion. Signed by : Gwyn Larry, Electronically Approved : 06/27/2018 09:11:52
[2018-06-27] MEDS: MEROPENEM 1 GM in IV NORMAL SALINE 100ML 100 ML IV SCH ×3 (09:26→21:31)
--- NOTE | 2018-06-27 11:46 | NUR ---
SW following. Discussed with RN, pt is having a procedure today. SW met with pt, pt would like [facility] upon discharge. Pt choice and rights letter signed. [facility]. Pt likely will not discharge until Saturday06/30/18. SW will continue to follow.
[2018-06-27] MEDS: ENOXAPARIN 40 MG/0.4 ML SYRINGE. SQ SCH (12:00)
[2018-06-27] MEDS ORDERED: LIDOCAINE WITH 8.4% SOD BICARB 3 ML DISP.SYRIN. ONE (12:12)
[2018-06-27] MEDS ORDERED: fentaNYL PF VIAL 100 MCG/2 ML VIAL ONE (12:13)
[2018-06-27] MEDS ORDERED: MIDAZOLAM HCL/PF 2 MG/2 ML VIAL. ONE (12:13)
[2018-06-27] MEDS ORDERED: fentaNYL PF VIAL 100 MCG/2 ML VIAL IV ONE (12:30)
[2018-06-27] MEDS ORDERED: LIDOCAINE WITH 8.4% SOD BICARB 3 ML DISP.SYRIN. IJ ONE (12:30)
[2018-06-27] MEDS ORDERED: MIDAZOLAM HCL/PF 2 MG/2 ML VIAL. IV ONE (12:30)
--- NOTE | 2018-06-27 13:18 | PDOC ---
PROGRESS NOTES Chief Complaint Chief Complaint Sepsis w. fever and leukocytosis, Abdominal abscess vs leak Metachronous colon masses sigmoid colon distal rectum liver mass sever malnutrition, POA acute vasomotor nephropathy on admit, better, History of Present Illness History of Present Illness s/p total colectomy with end ileostomy, liver biopsy ID consult to cont with vanc and meropenem CT drainage d/w dr Juarez d/w Vitals Vitals Vital Signs Date Time Temp Pulse Resp B/P (MAP) Pulse Ox O2 Delivery O2 Flow Rate FiO2 06/27/18 13:00 108 14 130/87 (101) 98 Nasal Cannula 2.0 06/27/18 11:00 97.7 97.7 Physical Exam General: Alert, Oriented X3, Cooperative, mild distress Heart: Normal S1, Normal S2, Other (tele ST) Lungs: Clear Abdomen: Normal bowel sounds, Soft, Other (mild incisional tenderness ileostomy with good output) Extremities: No edema, Normal pulses Skin: No rashes Labs LABS Laboratory Tests Test 06/26/18 13:30 06/26/18 17:15 06/26/18 23:25 06/27/18 04:20 White Blood Count 20.6 x10^3/uL (4.0-11.0) 21.5 x10^3/uL (4.0-11.0) Red Blood Count 4.86 x10^6/uL (4.30-5.70) 4.10 x10^6/uL (4.30-5.70) Hemoglobin 11.2 g/dL (13.0-17.5) 9.6 g/dL (13.0-17.5) Hematocrit 36.2 % (39.0-53.0) 30.2 % (39.0-53.0) Mean Corpuscular Volume 74 fL (79-100) 74 fL (79-100) Mean Corpuscular Hemoglobin 23 pg (25-35) 23 pg (25-35) Mean Corpuscular Hemoglobin Concent 31 g/dL (31-37) 32 g/dL (31-37) Red Cell Distribution Width 19.5 % (11.5-14.5) 19.2 % (11.5-14.5) Platelet Count 546 x10^3/uL (140-400) 465 x10^3/uL (140-400) Neutrophils (%) (Auto) 55 % (31-73) 46 % (31-73) Lymphocytes (%) (Auto) 38 % (24-48) 48 % (24-48) Monocytes (%) (Auto) 7 % (0-9) 6 % (0-9) Eosinophils (%) (Auto) 0 % (0-3) 0 % (0-3) Basophils (%) (Auto) 1 % (0-3) 0 % (0-3) Neutrophils # (Auto) 11.3 x10^3uL (1.8-7.7) 9.8 x10^3uL (1.8-7.7) Lymphocytes # (Auto) 7.9 x10^3/uL (1.0-4.8) 10.3 x10^3/uL (1.0-4.8) Monocytes # (Auto) 1.4 x10^3/uL (0.0-1.1) 1.4 x10^3/uL (0.0-1.1) Eosinophils # (Auto) 0.0 x10^3/uL (0.0-0.7) 0.0 x10^3/uL (0.0-0.7) Basophils # (Auto) 0.1 x10^3/uL (0.0-0.2) 0.0 x10^3/uL (0.0-0.2) Segmented Neutrophils % 59 % (35-66) Band Neutrophils % 2 % (0-9) Lymphocytes % 31 % (24-48) Monocytes % 8 % (0-10) Platelet Estimate Increased (ADEQUATE) Platelet Clumps, EDTA Present Giant Platelets Present Polychromasia Slight Ovalocytes Occ Crenated Cell Present Sodium Level 136 mmol/L (136-145) 139 mmol/L (136-145) Potassium Level 3.1 mmol/L (3.5-5.1) 3.4 mmol/L (3.5-5.1) Chloride Level 96 mmol/L (98-107) 102 mmol/L (98-107) Carbon Dioxide Level 24 mmol/L (21-32) 22 mmol/L (21-32) Anion Gap 16 (6-14) 15 (6-14) Blood Urea Nitrogen 33 mg/dL (8-26) 29 mg/dL (8-26) Creatinine 1.3 mg/dL (0.7-1.3) 1.1 mg/dL (0.7-1.3) Estimated GFR (Cockcroft-Gault) 67.0 81.3 BUN/Creatinine Ratio 25 (6-20) 26 (6-20) Glucose Level 108 mg/dL (70-99) 112 mg/dL (70-99) Calcium Level 9.8 mg/dL (8.5-10.1) 9.0 mg/dL (8.5-10.1) Magnesium Level 2.3 mg/dL (1.8-2.4) Total Bilirubin 0.8 mg/dL (0.2-1.0) 0.7 mg/dL (0.2-1.0) Aspartate Amino Transf (AST/SGOT) 67 U/L (15-37) 62 U/L (15-37) Alanine Aminotransferase (ALT/SGPT) 44 U/L (16-63) 35 U/L (16-63) Alkaline Phosphatase 345 U/L (46-116) 292 U/L (46-116) Total Protein 7.8 g/dL (6.4-8.2) 6.8 g/dL (6.4-8.2) Albumin 2.1 g/dL (3.4-5.0) 1.8 g/dL (3.4-5.0) Albumin/Globulin Ratio 0.4 (1.0-1.7) 0.4 (1.0-1.7) Prothrombin Time 16.5 SEC (11.7-14.0) Prothromb Time International Ratio 1.4 (0.8-1.1) Activated Partial Thromboplast Time 40 SEC (24-38) Fibrinogen 750 mg/dL (200-440) Lactic Acid Level 2.2 mmol/L (0.4-2.0) Procalcitonin 4.56 ng/mL (0.00-0.10) Urine Collection Type Unknown Urine Color Yellow Urine Clarity Clear Urine pH 5.5 Urine Specific [place] >=1.030 Urine Protein Negative mg/dL (NEG-TRACE) Urine Glucose (UA) Negative mg/dL (NEG) Urine Ketones (Stick) 15 mg/dL (NEG) Urine Blood Negative (NEG) Urine Nitrite Negative (NEG) Urine Bilirubin Small (NEG) Urine Urobilinogen Dipstick 0.2 mg/dL (0.2 mg/dL) Urine Leukocyte Esterase Negative (NEG) Urine RBC Rare /HPF (0-2) Urine WBC Rare /HPF (0-4) Urine Squamous Epithelial Cells Few /LPF Urine Amorphous Sediment Present /HPF Urine Bacteria 0 /HPF (0-FEW) Urine Mucus Slight /LPF Comment Review of Relevant I have reviewed the following items pallavi (where applicable) has been applied. Labs Laboratory Tests Test 06/26/18 13:30 06/26/18 17:15 06/26/18 23:25 06/27/18 04:20 White Blood Count 20.6 x10^3/uL (4.0-11.0) 21.5 x10^3/uL (4.0-11.0) Red Blood Count 4.86 x10^6/uL (4.30-5.70) 4.10 x10^6/uL (4.30-5.70) Hemoglobin 11.2 g/dL (13.0-17.5) 9.6 g/dL (13.0-17.5) Hematocrit 36.2 % (39.0-53.0) 30.2 % (39.0-53.0) Mean Corpuscular Volume 74 fL (79-100) 74 fL (79-100) Mean Corpuscular Hemoglobin 23 pg (25-35) 23 pg (25-35) Mean Corpuscular Hemoglobin Concent 31 g/dL (31-37) 32 g/dL (31-37) Red Cell Distribution Width 19.5 % (11.5-14.5) 19.2 % (11.5-14.5) Platelet Count 546 x10^3/uL (140-400) 465 x10^3/uL (140-400) Neutrophils (%) (Auto) 55 % (31-73) 46 % (31-73) Lymphocytes (%) (Auto) 38 % (24-48) 48 % (24-48) Monocytes (%) (Auto) 7 % (0-9) 6 % (0-9) Eosinophils (%) (Auto) 0 % (0-3) 0 % (0-3) Basophils (%) (Auto) 1 % (0-3) 0 % (0-3) Neutrophils # (Auto) 11.3 x10^3uL (1.8-7.7) 9.8 x10^3uL (1.8-7.7) Lymphocytes # (Auto) 7.9 x10^3/uL (1.0-4.8) 10.3 x10^3/uL (1.0-4.8) Monocytes # (Auto) 1.4 x10^3/uL (0.0-1.1) 1.4 x10^3/uL (0.0-1.1) Eosinophils # (Auto) 0.0 x10^3/uL (0.0-0.7) 0.0 x10^3/uL (0.0-0.7) Basophils # (Auto) 0.1 x10^3/uL (0.0-0.2) 0.0 x10^3/uL (0.0-0.2) Segmented Neutrophils % 59 % (35-66) Band Neutrophils % 2 % (0-9) Lymphocytes % 31 % (24-48) Monocytes % 8 % (0-10) Platelet Estimate Increased (ADEQUATE) Platelet Clumps, EDTA Present Giant Platelets Present Polychromasia Slight Ovalocytes Occ Crenated Cell Present Sodium Level 136 mmol/L (136-145) 139 mmol/L (136-145) Potassium Level 3.1 mmol/L (3.5-5.1) 3.4 mmol/L (3.5-5.1) Chloride Level 96 mmol/L (98-107) 102 mmol/L (98-107) Carbon Dioxide Level 24 mmol/L (21-32) 22 mmol/L (21-32) Anion Gap 16 (6-14) 15 (6-14) Blood Urea Nitrogen 33 mg/dL (8-26) 29 mg/dL (8-26) Creatinine 1.3 mg/dL (0.7-1.3) 1.1 mg/dL (0.7-1.3) Estimated GFR (Cockcroft-Gault) 67.0 81.3 BUN/Creatinine Ratio 25 (6-20) 26 (6-20) Glucose Level 108 mg/dL (70-99) 112 mg/dL (70-99) Calcium Level 9.8 mg/dL (8.5-10.1) 9.0 mg/dL (8.5-10.1) Magnesium Level 2.3 mg/dL (1.8-2.4) Total Bilirubin 0.8 mg/dL (0.2-1.0) 0.7 mg/dL (0.2-1.0) Aspartate Amino Transf (AST/SGOT) 67 U/L (15-37) 62 U/L (15-37) Alanine Aminotransferase (ALT/SGPT) 44 U/L (16-63) 35 U/L (16-63) Alkaline Phosphatase 345 U/L (46-116) 292 U/L (46-116) Total Protein 7.8 g/dL (6.4-8.2) 6.8 g/dL (6.4-8.2) Albumin 2.1 g/dL (3.4-5.0) 1.8 g/dL (3.4-5.0) Albumin/Globulin Ratio 0.4 (1.0-1.7) 0.4 (1.0-1.7) Prothrombin Time 16.5 SEC (11.7-14.0) Prothromb Time International Ratio 1.4 (0.8-1.1) Activated Partial Thromboplast Time 40 SEC (24-38) Fibrinogen 750 mg/dL (200-440) Lactic Acid Level 2.2 mmol/L (0.4-2.0) Procalcitonin 4.56 ng/mL (0.00-0.10) Urine Collection Type Unknown Urine Color Yellow Urine Clarity Clear Urine pH 5.5 Urine Specific [place] >=1.030 Urine Protein Negative mg/dL (NEG-TRACE) Urine Glucose (UA) Negative mg/dL (NEG) Urine Ketones (Stick) 15 mg/dL (NEG) Urine Blood Negative (NEG) Urine Nitrite Negative (NEG) Urine Bilirubin Small (NEG) Urine Urobilinogen Dipstick 0.2 mg/dL (0.2 mg/dL) Urine Leukocyte Esterase Negative (NEG) Urine RBC Rare /HPF (0-2) Urine WBC Rare /HPF (0-4) Urine Squamous Epithelial Cells Few /LPF Urine Amorphous Sediment Present /HPF Urine Bacteria 0 /HPF (0-FEW) Urine Mucus Slight /LPF Laboratory Tests Test 06/26/18 13:30 06/26/18 17:15 06/26/18 23:25 06/27/18 04:20 White Blood Count 20.6 x10^3/uL (4.0-11.0) 21.5 x10^3/uL (4.0-11.0) Red Blood Count 4.86 x10^6/uL (4.30-5.70) 4.10 x10^6/uL (4.30-5.70) Hemoglobin 11.2 g/dL (13.0-17.5) 9.6 g/dL (13.0-17.5) Hematocrit 36.2 % (39.0-53.0) 30.2 % (39.0-53.0) Mean Corpuscular Volume 74 fL (79-100) 74 fL (79-100) Mean Corpuscular Hemoglobin 23 pg (25-35) 23 pg (25-35) Mean Corpuscular Hemoglobin Concent 31 g/dL (31-37) 32 g/dL (31-37) Red Cell Distribution Width 19.5 % (11.5-14.5) 19.2 % (11.5-14.5) Platelet Count 546 x10^3/uL (140-400) 465 x10^3/uL (140-400) Neutrophils (%) (Auto) 55 % (31-73) 46 % (31-73) Lymphocytes (%) (Auto) 38 % (24-48) 48 % (24-48) Monocytes (%) (Auto) 7 % (0-9) 6 % (0-9) Eosinophils (%) (Auto) 0 % (0-3) 0 % (0-3) Basophils (%) (Auto) 1 % (0-3) 0 % (0-3) Neutrophils # (Auto) 11.3 x10^3uL (1.8-7.7) 9.8 x10^3uL (1.8-7.7) Lymphocytes # (Auto) 7.9 x10^3/uL (1.0-4.8) 10.3 x10^3/uL (1.0-4.8) Monocytes # (Auto) 1.4 x10^3/uL (0.0-1.1) 1.4 x10^3/uL (0.0-1.1) Eosinophils # (Auto) 0.0 x10^3/uL (0.0-0.7) 0.0 x10^3/uL (0.0-0.7) Basophils # (Auto) 0.1 x10^3/uL (0.0-0.2) 0.0 x10^3/uL (0.0-0.2) Segmented Neutrophils % 59 % (35-66) Band Neutrophils % 2 % (0-9) Lymphocytes % 31 % (24-48) Monocytes % 8 % (0-10) Platelet Estimate Increased (ADEQUATE) Platelet Clumps, EDTA Present Giant Platelets Present Polychromasia Slight Ovalocytes Occ Crenated Cell Present Sodium Level 136 mmol/L (136-145) 139 mmol/L (136-145) Potassium Level 3.1 mmol/L (3.5-5.1) 3.4 mmol/L (3.5-5.1) Chloride Level 96 mmol/L (98-107) 102 mmol/L (98-107) Carbon Dioxide Level 24 mmol/L (21-32) 22 mmol/L (21-32) Anion Gap 16 (6-14) 15 (6-14) Blood Urea Nitrogen 33 mg/dL (8-26) 29 mg/dL (8-26) Creatinine 1.3 mg/dL (0.7-1.3) 1.1 mg/dL (0.7-1.3) Estimated GFR (Cockcroft-Gault) 67.0 81.3 BUN/Creatinine Ratio 25 (6-20) 26 (6-20) Glucose Level 108 mg/dL (70-99) 112 mg/dL (70-99) Calcium Level 9.8 mg/dL (8.5-10.1) 9.0 mg/dL (8.5-10.1) Magnesium Level 2.3 mg/dL (1.8-2.4) Total Bilirubin 0.8 mg/dL (0.2-1.0) 0.7 mg/dL (0.2-1.0) Aspartate Amino Transf (AST/SGOT) 67 U/L (15-37) 62 U/L (15-37) Alanine Aminotransferase (ALT/SGPT) 44 U/L (16-63) 35 U/L (16-63) Alkaline Phosphatase 345 U/L (46-116) 292 U/L (46-116) Total Protein 7.8 g/dL (6.4-8.2) 6.8 g/dL (6.4-8.2) Albumin 2.1 g/dL (3.4-5.0) 1.8 g/dL (3.4-5.0) Albumin/Globulin Ratio 0.4 (1.0-1.7) 0.4 (1.0-1.7) Prothrombin Time 16.5 SEC (11.7-14.0) Prothromb Time International Ratio 1.4 (0.8-1.1) Activated Partial Thromboplast Time 40 SEC (24-38) Fibrinogen 750 mg/dL (200-440) Lactic Acid Level 2.2 mmol/L (0.4-2.0) Procalcitonin 4.56 ng/mL (0.00-0.10) Urine Collection Type Unknown Urine Color Yellow Urine Clarity Clear Urine pH 5.5 Urine Specific [place] >=1.030 Urine Protein Negative mg/dL (NEG-TRACE) Urine Glucose (UA) Negative mg/dL (NEG) Urine Ketones (Stick) 15 mg/dL (NEG) Urine Blood Negative (NEG) Urine Nitrite Negative (NEG) Urine Bilirubin Small (NEG) Urine Urobilinogen Dipstick 0.2 mg/dL (0.2 mg/dL) Urine Leukocyte Esterase Negative (NEG) Urine RBC Rare /HPF (0-2) Urine WBC Rare /HPF (0-4) Urine Squamous Epithelial Cells Few /LPF Urine Amorphous Sediment Present /HPF Urine Bacteria 0 /HPF (0-FEW) Urine Mucus Slight /LPF Medications Current Medications Ondansetron HCl (Zofran) 4 mg PRN Q6HRS PRN IV NAUSEA/VOMITING; Start 06/20/18 at 07:00; Stop 06/21/18 at 06:59; Status DC Fentanyl Citrate (Fentanyl 2ml Vial) 25 mcg PRN Q5MIN PRN IV MILD PAIN; Start 06/20/18 at 07:00; Stop 06/21/18 at 06:59; Status DC Fentanyl Citrate (Fentanyl 2ml Vial) 50 mcg PRN Q5MIN PRN IV MODERATE TO SEVERE PAIN Last administered on 06/20/18at 12:39; Start 06/20/18 at 07:00; Stop 06/21/18 at 06:59; Status DC Morphine Sulfate (Morphine Sulfate) 1 mg PRN Q10MIN PRN IV SEVERE PAIN; Start 06/20/18 at 07:00; Stop 06/21/18 at 06:59; Status DC Ringer's Solution 1,000 ml @ 30 mls/hr Q24H IV Last administered on 06/20/18at 06:39; Start 06/20/18 at 07:00; Stop 06/20/18 at 18:59; Status DC Lidocaine HCl (Xylocaine-Mpf 1% 2ml Vial) 2 ml PRN 1X PRN ID IV START; Start at 07:00; Stop 06/21/18 at 06:59; Status DC Hydromorphone HCl (Dilaudid) 0.5 mg PRN Q10MIN PRN IV SEV PAIN, Second choice; Start 06/20/18 at 07:00; Stop 06/21/18 at 06:59; Status DC Prochlorperazine Edisylate (Compazine) 5 mg PACU PRN PRN IV NAUSEA, MRX1 Last administered on 06/20/18at 12:18; Start 06/20/18 at 07:00; Stop 06/21/18 at 06:59 ; Status DC Cefoxitin Sodium (Mefoxin) 2 gm 1X PREOP PRN IVP PRIOR TO PROCEDURE Last administered on 06/20/18at 10:07; Start 06/20/18 at 06:00; Stop 06/20/18 at 21:00 ; Status DC Propofol 20 ml @ As Directed STK-MED ONCE IV ; Start 06/20/18 at 07:43; Stop at 07:44; Status DC Dexamethasone Sodium Phosphate (Decadron) 20 mg STK-MED ONCE .ROUTE ; Start at 07:43; Stop 06/20/18 at 07:44; Status DC Famotidine (Pepcid Vial) 20 mg STK-MED ONCE .ROUTE ; Start 06/20/18 at 07:43; Stop 06/20/18 at 07:44; Status DC Lidocaine HCl (Lidocaine Pf 2% Vial) 5 ml STK-MED ONCE .ROUTE ; Start 06/20/18 at 07:43; Stop 06/20/18 at 07:44; Status DC Ondansetron HCl (Zofran) 4 mg STK-MED ONCE .ROUTE ; Start 06/20/18 at 07:43; Stop 06/20/18 at 07:44; Status DC Rocuronium [place] (Zemuron) 100 mg STK-MED ONCE .ROUTE ; Start 06/20/18 at 07: 43; Stop 06/20/18 at 07:44; Status DC Fentanyl Citrate (Fentanyl 2ml Vial) 100 mcg STK-MED ONCE .ROUTE ; Start at 07:43; Stop 06/20/18 at 07:44; Status DC Midazolam HCl (Versed) 2 mg STK-MED ONCE .ROUTE ; Start 06/20/18 at 07:43; Stop 06/20/18 at 07:44; Status DC Fentanyl Citrate (Fentanyl 2ml Vial) 100 mcg STK-MED ONCE .ROUTE ; Start at 07:46; Stop 06/20/18 at 07:47; Status DC Phenylephrine HCl (Celio-Synephrine Inj) 10 mg STK-MED ONCE .ROUTE ; Start at 07:59; Stop 06/20/18 at 08:00; Status DC Sevoflurane (Ultane) 90 ml STK-MED ONCE IH ; Start 06/20/18 at 08:55; Stop 06/20 at 08:56; Status DC Neostigmine Methylsulfate (Bloxiverz) 10 mg STK-MED ONCE .ROUTE ; Start at 09:34; Stop 06/20/18 at 09:35; Status DC Glycopyrrolate (Robinul) 1 mg STK-MED ONCE .ROUTE ; Start 06/20/18 at 09:34; Stop 06/20/18 at 09:35; Status DC Albumin Human 500 ml @ As Directed STK-MED ONCE IV ; Start 06/20/18 at 09:35; Stop 06/20/18 at 09:36; Status DC Hydromorphone HCl (Dilaudid) 2 mg STK-MED ONCE .ROUTE ; Start 06/20/18 at 10:59 ; Stop 06/20/18 at 11:00; Status DC Cefoxitin Sodium (Mefoxin) 1 gm Q8H IVP ; Start 06/20/18 at 18:00; Stop at 10:01; Status Cancel Sodium Chloride (Normal Saline Flush) 3 ml QSHIFT PRN IV AFTER MEDS AND BLOOD DRAWS; Start 06/20/18 at 11:00 Morphine Sulfate (Morphine Sulfate) 2 mg PRN Q3HRS PRN IV PAIN Last administered on 06/24/18at 08:40; Start 06/20/18 at 11:00 Oxycodone/ Acetaminophen (Percocet 5/325) 1 tab PRN Q4HRS PRN PO MILD PAIN, 1ST CHOICE Last administered on 06/25/18at 15:11; Start 06/20/18 at 11:00 Oxycodone/ Acetaminophen (Percocet 5/325) 2 tab PRN Q4HRS PRN PO MODERATE PAIN , SEVERE PAIN Last administered on 06/26/18at 22:47; Start 06/20/18 at 11:00 Ketorolac Tromethamine (Toradol 15mg Vial) 15 mg Q6HRS IV Last administered on 06/22/18at 06:32; Start 06/20/18 at 12:00; Stop 06/22/18 at 11:59; Status DC Ondansetron HCl (Zofran) 4 mg PRN Q6HRS PRN IV NAUSEA, 1ST CHOICE Last administered on 06/26/18at 12:09; Start 06/20/18 at 11:00 Dextrose/Lactated Ringer's 1,000 ml @ 75 mls/hr [id number] IV Last administered on 06/20/18at 14:54; Start 06/20/18 at 10:58; Stop 06/23/18 at 13:17; Status DC Ketorolac Tromethamine (Toradol 30mg Vial) 30 mg STK-MED ONCE .ROUTE ; Start at 11:09; Stop 06/20/18 at 11:10; Status DC Sodium Chloride 1,000 ml @ 100 mls/hr Q10H IV Last administered on 06/22/18at 00:45; Start 06/20/18 at 11:15; Stop 06/23/18 at 13:17; Status DC Cefoxitin Sodium (Mefoxin) 1 gm Q8H IVP Last administered on 06/21/18at 10:38; Start 06/20/18 at 18:00; Stop 06/21/18 at 10:01; Status DC Enoxaparin Sodium (Lovenox Per Pharmacy Prophylaxis Dosing) 1 each PRN DAILY PRN MC SEE COMMENTS; Start 06/22/18 at 11:30 Enoxaparin Sodium (Lovenox 40mg Syringe) 40 mg Q24H SQ Last administered on at 12:10; Start 06/22/18 at 12:00 Guaifenesin (Mucinex) 600 mg BID PO Last administered on 06/26/18at 22:40; Start 06/22/18 at 15:00 Lisinopril (Prinivil) 10 mg DAILY PO Last administered on 06/26/18at 08:25; Start 06/23/18 at 10:00 Hydrochlorothiazide (Microzide) 12.5 mg DAILY PO Last administered on at 08:25; Start 06/23/18 at 10:00 Iohexol (Omnipaque 300 Mg/ml) 75 ml 1X ONCE IV Last administered on 06/26/18at 13:00; Start 06/26/18 at 13:00; Stop 06/26/18 at 13:02; Status DC Iohexol (Omnipaque 240 Mg/ml) 30 ml 1X ONCE PO Last administered on 06/26/18at 13:00; Start 06/26/18 at 13:00; Stop 06/26/18 at 13:02; Status DC Info (CONTRAST GIVEN -- Rx MONITORING) 1 each PRN DAILY PRN MC SEE COMMENTS; Start 06/26/18 at 13:15; Stop 06/28/18 at 13:14 Sodium Chloride 1,000 ml @ 100 mls/hr Q10H IV Last administered on 06/27/18at 09 :27; Start 06/26/18 at 15:00 Potassium Chloride (Klor-Con) 40 meq 1X ONCE PO Last administered on at 16:56; Start 06/26/18 at 15:00; Stop 06/26/18 at 15:01; Status DC Potassium Chloride (Klor-Con) 20 meq [id number] PO ; Start 06/27/18 at 08:00 Sodium Chloride 1,000 ml @ 500 mls/hr Q2H IV ; Start 06/26/18 at 15:00; Status Cancel Meropenem 1 gm/ Sodium Chloride 100 ml @ 200 mls/hr Q8HRS IV Last administered on 06/27/18at 09:26; Start 06/26/18 at 15:00 Vancomycin HCl 1.5 gm/Sodium Chloride 500 ml @ 250 mls/hr 1X ONCE IV Last administered on 06/26/18at 16:53; Start 06/26/18 at 14:45; Stop 06/26/18 at 16:44 ; Status DC Sodium Chloride 1,000 ml @ 500 mls/hr 1X ONCE IV Last administered on at 16:10; Start 06/26/18 at 15:00; Stop 06/26/18 at 16:59; Status DC Sodium Chloride 1,000 ml @ 2,460 mls/hr Q25M IV ; Start 06/26/18 at 17:00; Stop 06/26/18 at 17:11; Status DC Sodium Chloride 500 ml @ 1,000 mls/hr PRN Q30MIN PRN IV SEE COMMENTS; Start at 17:00 Vancomycin HCl (Vanco Per Pharmacy) 1 each PRN DAILY PRN MC SEE COMMENTS Last administered on 06/26/18at 18:19; Start 06/26/18 at 17:00 Vancomycin HCl 1.25 gm/Sodium Chloride 250 ml @ 167 mls/hr Q12H IV Last administered on 06/27/18at 05:20; Start 06/27/18 at 05:00 Vancomycin HCl (Vancomycin Trough Level) 1 each 1X ONCE MC ; Start 06/28/18 at 04:30; Stop 06/28/18 at 04:31 Lidocaine/Sodium Bicarbonate (Buffered Lidocaine 1%) 3 ml STK-MED ONCE .ROUTE ; Start 06/27/18 at 12:12; Stop 06/27/18 at 12:13; Status DC Midazolam HCl (Versed) 2 mg STK-MED ONCE .ROUTE ; Start 06/27/18 at 12:13; Stop 06/27/18 at 12:14; Status DC Fentanyl Citrate (Fentanyl 2ml Vial) 100 mcg STK-MED ONCE .ROUTE ; Start at 12:13; Stop 06/27/18 at 12:14; Status DC Lidocaine/Sodium Bicarbonate (Buffered Lidocaine 1%) 3 ml 1X ONCE IJ ; Start at 12:30; Stop 06/27/18 at 12:31; Status DC Midazolam HCl (Versed) 2 mg 1X ONCE IV ; Start 06/27/18 at 12:30; Stop 06/27/18 at 12:31; Status DC Fentanyl Citrate (Fentanyl 2ml Vial) 100 mcg 1X ONCE IV ; Start 06/27/18 at 12: 30; Stop 06/27/18 at 12:31; Status DC Active Scripts Active Reported Zofran (Ondansetron Hcl) 4 Mg Tablet 4 Mg PO BID PRN Lisinopril-Hctz 10-12.5 Mg Tab (Lisinopril/Hydrochlorothiazide) 1 Each Tablet 1 Tab PO DAILY Vitals/I & O Vital Sign - Last 24 Hours 06/26/18 06/26/18 06/26/18 06/26/18 14:35 19:00 20:15 22:47 Temp 97.5 97.4 97.5 97.4 Pulse 104 104 Resp 18 18 B/P (MAP) 121/89 (100) 131/84 (100) Pulse Ox 96 94 O2 Delivery Room Air Room Air Room Air Room Air 06/26/18 06/26/18 06/27/18 06/27/18 23:00 23:47 03:00 11:00 Temp 98.3 97.8 97.7 98.3 97.8 97.7 Pulse 97 81 108 Resp 18 18 18 B/P (MAP) 120/82 (95) 114/81 (92) 124/77 (93) Pulse Ox 93 96 96 O2 Delivery Room Air Room Air Room Air Room Air 06/27/18 06/27/18 06/27/18 06/27/18 12:36 12:45 12:50 12:55 Pulse 102 110 109 107 Resp 20 16 16 15 B/P (MAP) 141/91 (108) 136/85 (102) 123/87 (99) Pulse Ox 94 90 100 95 O2 Delivery Nasal Cannula Nasal Cannula Nasal Cannula Nasal Cannula O2 Flow Rate 2.0 2.0 2.0 2.0 06/27/18 13:00 Pulse 108 Resp 14 B/P (MAP) 130/87 (101) Pulse Ox 98 O2 Delivery Nasal Cannula O2 Flow Rate 2.0 Intake and Output 06/26/18 06/26/18 06/27/18 15:00 23:00 07:00 Intake Total 500 ml 1300 ml Output Total 275 ml 1150 ml 1025 ml Balance 225 ml 150 ml -1025 ml JINA MILLER MD Jun 27, 2018 13:18
--- NOTE | 2018-06-27 13:31 | PDOC ---
CARDIO Progress Notes Date and Time Date of Service 06/27/18 Time of Evaluation 1115 Subjective Subjective: No Chest Pain, No Palpitations, No Dizziness Vitals Vitals Vital Signs Date Time Temp Pulse Resp B/P (MAP) Pulse Ox O2 Delivery O2 Flow Rate FiO2 06/27/18 13:15 107 16 99 Nasal Cannula 2.0 06/27/18 13:11 130/85 (100) 06/27/18 11:00 97.7 97.7 Weight Weight [ ] Input and Output Intake and Output Intake and Output 06/27/18 06:59 Intake Total 1800 ml Output Total 2450 ml Balance -650 ml Intake Oral 1200 ml IV Total 600 ml Output Urine Total 1175 ml Stool Total 1275 ml # Voids 1 # Bowel Movements 1 Laboratory Labs Laboratory Tests Test 06/26/18 13:30 06/26/18 17:15 06/26/18 23:25 06/27/18 04:20 White Blood Count 20.6 x10^3/uL (4.0-11.0) 21.5 x10^3/uL (4.0-11.0) Red Blood Count 4.86 x10^6/uL (4.30-5.70) 4.10 x10^6/uL (4.30-5.70) Hemoglobin 11.2 g/dL (13.0-17.5) 9.6 g/dL (13.0-17.5) Hematocrit 36.2 % (39.0-53.0) 30.2 % (39.0-53.0) Mean Corpuscular Volume 74 fL (79-100) 74 fL (79-100) Mean Corpuscular Hemoglobin 23 pg (25-35) 23 pg (25-35) Mean Corpuscular Hemoglobin Concent 31 g/dL (31-37) 32 g/dL (31-37) Red Cell Distribution Width 19.5 % (11.5-14.5) 19.2 % (11.5-14.5) Platelet Count 546 x10^3/uL (140-400) 465 x10^3/uL (140-400) Neutrophils (%) (Auto) 55 % (31-73) 46 % (31-73) Lymphocytes (%) (Auto) 38 % (24-48) 48 % (24-48) Monocytes (%) (Auto) 7 % (0-9) 6 % (0-9) Eosinophils (%) (Auto) 0 % (0-3) 0 % (0-3) Basophils (%) (Auto) 1 % (0-3) 0 % (0-3) Neutrophils # (Auto) 11.3 x10^3uL (1.8-7.7) 9.8 x10^3uL (1.8-7.7) Lymphocytes # (Auto) 7.9 x10^3/uL (1.0-4.8) 10.3 x10^3/uL (1.0-4.8) Monocytes # (Auto) 1.4 x10^3/uL (0.0-1.1) 1.4 x10^3/uL (0.0-1.1) Eosinophils # (Auto) 0.0 x10^3/uL (0.0-0.7) 0.0 x10^3/uL (0.0-0.7) Basophils # (Auto) 0.1 x10^3/uL (0.0-0.2) 0.0 x10^3/uL (0.0-0.2) Segmented Neutrophils % 59 % (35-66) Band Neutrophils % 2 % (0-9) Lymphocytes % 31 % (24-48) Monocytes % 8 % (0-10) Platelet Estimate Increased (ADEQUATE) Platelet Clumps, EDTA Present Giant Platelets Present Polychromasia Slight Ovalocytes Occ Crenated Cell Present Sodium Level 136 mmol/L (136-145) 139 mmol/L (136-145) Potassium Level 3.1 mmol/L (3.5-5.1) 3.4 mmol/L (3.5-5.1) Chloride Level 96 mmol/L (98-107) 102 mmol/L (98-107) Carbon Dioxide Level 24 mmol/L (21-32) 22 mmol/L (21-32) Anion Gap 16 (6-14) 15 (6-14) Blood Urea Nitrogen 33 mg/dL (8-26) 29 mg/dL (8-26) Creatinine 1.3 mg/dL (0.7-1.3) 1.1 mg/dL (0.7-1.3) Estimated GFR (Cockcroft-Gault) 67.0 81.3 BUN/Creatinine Ratio 25 (6-20) 26 (6-20) Glucose Level 108 mg/dL (70-99) 112 mg/dL (70-99) Calcium Level 9.8 mg/dL (8.5-10.1) 9.0 mg/dL (8.5-10.1) Magnesium Level 2.3 mg/dL (1.8-2.4) Total Bilirubin 0.8 mg/dL (0.2-1.0) 0.7 mg/dL (0.2-1.0) Aspartate Amino Transf (AST/SGOT) 67 U/L (15-37) 62 U/L (15-37) Alanine Aminotransferase (ALT/SGPT) 44 U/L (16-63) 35 U/L (16-63) Alkaline Phosphatase 345 U/L (46-116) 292 U/L (46-116) Total Protein 7.8 g/dL (6.4-8.2) 6.8 g/dL (6.4-8.2) Albumin 2.1 g/dL (3.4-5.0) 1.8 g/dL (3.4-5.0) Albumin/Globulin Ratio 0.4 (1.0-1.7) 0.4 (1.0-1.7) Prothrombin Time 16.5 SEC (11.7-14.0) Prothromb Time International Ratio 1.4 (0.8-1.1) Activated Partial Thromboplast Time 40 SEC (24-38) Fibrinogen 750 mg/dL (200-440) Lactic Acid Level 2.2 mmol/L (0.4-2.0) Procalcitonin 4.56 ng/mL (0.00-0.10) Urine Collection Type Unknown Urine Color Yellow Urine Clarity Clear Urine pH 5.5 Urine Specific [place] >=1.030 Urine Protein Negative mg/dL (NEG-TRACE) Urine Glucose (UA) Negative mg/dL (NEG) Urine Ketones (Stick) 15 mg/dL (NEG) Urine Blood Negative (NEG) Urine Nitrite Negative (NEG) Urine Bilirubin Small (NEG) Urine Urobilinogen Dipstick 0.2 mg/dL (0.2 mg/dL) Urine Leukocyte Esterase Negative (NEG) Urine RBC Rare /HPF (0-2) Urine WBC Rare /HPF (0-4) Urine Squamous Epithelial Cells Few /LPF Urine Amorphous Sediment Present /HPF Urine Bacteria 0 /HPF (0-FEW) Urine Mucus Slight /LPF Physical Exam HEENT: Neck Supple W Full Motion Chest: Symmetric LUNGS: Clear to Auscultation Heart: S1S2, RRR, no murmurs, other (hr 110) Abdomen: Other (abdominal incision well-approximated) Extremities: No Edema Neurology: alert, oriented, follow commands Assessment Assessment 1. Colon CA s/p previous left colon resection (2014) 2. Large sigmoid and proximal rectum mass and liver mass; s/p colectomy with end ileostomy liver biopsy. Liver Bx notable for metastatic disease. Now with evidence of lung metastases. 3. Sinus tachycardia, reactive. HR better controlled following IVFs. Echo showed normal LV systolic function with an EF of 55% 4. Leukocytosis, ? sepsis. blood cultures with on growth so far 5. Hypertension; low-normotensive 6. DAMIEN; improved 7. Hypokalemia; replaced 8. Protein malnutrition Recommendations Check TSH Post-op management as per surgical team Supportive care from a CV standpoint MARA SZYMANSKI APRN Jun 27, 2018 13:30
[2018-06-27] MEDS: VANCOMYCIN PER PHARMACY MC PRN (14:54)
[2018-06-27] MEDS: oxyCODONE/APAP 5/325 1 TAB TABLET PO PRN (22:47)
--- NOTE | 2018-06-27 23:04 | CONS ---
DATE OF CONSULTATION: 06/27/2018 REQUESTING PHYSICIAN: Dr. Juarez. REASON FOR CONSULTATION: Tachycardia and lactic acidosis with leukocytosis. HISTORY OF PRESENT ILLNESS: This is a 63-year-old gentleman admitted with colon mass and liver mets. The patient underwent total colectomy and end ileostomy and a liver biopsy. The patient was doing reasonably well as he was in fact they were even talking about going to home or rehab and then yesterday, he changed with the tachycardia, white count went up and had lactic acidosis, hence they called me, vancomycin and meropenem started and a CT was done, which showed possible leak versus pelvic abscess. The patient's biopsy is showing adenocarcinoma with colon cancer with mets to the liver and probably lungs. The patient is alert, awake. The patient has some abdominal pain, but otherwise, he feels okay. There is a large amount of drainage that came out from the rectum yesterday. The patient denies any nausea or vomiting. Denies any chest pain, shortness of breath or abdominal pain. 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 SOCIAL HISTORY: Negative for smoking, alcohol and illicit drug use. Lives with . ALLERGIES: No known drug allergies. CURRENT MEDICATIONS: Reviewed. The patient is on vancomycin and meropenem. REVIEW OF SYSTEMS: As per HPI, all other systems reviewed and are negative. PHYSICAL EXAMINATION: GENERAL: Alert and oriented gentleman, not in any distress. VITAL SIGNS: Stable, afebrile. HEENT: NAD. NECK: Supple, no JVP, no lymphadenopathy. LUNGS: Clear. HEART: S1, S2 regular. ABDOMEN: Slightly distended, mild tenderness present. No rebound or guarding. No organomegaly appreciated. EXTREMITIES: No edema or cyanosis. SKIN: Unremarkable. NEUROLOGIC: The patient does move all the extremities, though weak and debilitated. LABORATORY DATA: White count is 21,000. BUN and creatinine is 29 and 1.1. Lactic acid was 2.2. Urinalysis unremarkable. CT of the abdomen and pelvis showing pelvic fluid collection, hematoma versus abscess and there is more pockets of air, which is more than expected from the surgery on 06/20/2018. IMPRESSION: 1. Leukocytosis, tachycardia and lactic acidosis points towards possible early sepsis. 2. Anastomotic leak versus pelvic abscess, status post total colectomy. 3. Colon mass, status post total colectomy with colon cancer with mets to the liver and possibly lungs. 4. Leukocytosis. RECOMMENDATIONS: Recommend continue vancomycin and meropenem. Supportive care. CT-guided drainage has been planned for today. Discussion with the done as well as discussed with Dr. Juarez. Thank you very much, Dr. Juarez, for giving me the opportunity to participate in this patient's care. FLOR SHEN MD DR: SKIP/mercedes JOB#: [id number] / [id number]
[2018-06-28] MEDS: IV NORMAL SALINE 1000ML BAG 1,000 ML IV SCH ×2 (01:59→09:14)
[2018-06-28 03:00] VITALS: BP 112/75
[2018-06-28] MEDS: MEROPENEM 1 GM in IV NORMAL SALINE 100ML 100 ML IV SCH ×3 (05:47→21:37)
[2018-06-28 05:58] LABS: VANC TR 13.3 mcg/mL (10.0-20.0)
[2018-06-28] MEDS: VANCOMYCIN 1.25 GM in IV NORMAL SALINE 250ML 250 ML IV SCH ×2 (06:41→16:45)
[2018-06-28] MEDS: VANCOMYCIN PER PHARMACY MC PRN (06:41)
--- NOTE | 2018-06-28 06:41 | NUR ---
Pharmacy Vancomycin Dosing Note S:Consulted to monitor and dose vancomycin started 06/26/18. O:PRABHA GROVER is a 63 year old M with Cellulitis Sepsis possible abd source? . Height: 6 feet, 2 inches Weight: 88.613544 kg [place] Body Weight: 82.20 Adjusted Body Weight: 84.52 Dosing Weight: Other Antibiotics: MEROPENEM 1G IV Q8HRS LABS: Last BUN: 29 Last Creatinine: 1.1 Creatinine Clearance: 82 mL/min Last WBC: 21.5 Last Procalcitonin: - Tmax (past 24 hours): 98.3 Microbiology: BLOOD AND WOUND CX PENDING I/O: 1800/2450 Drug Levels: Last Trough level: 13.3 on 06/28/18 at 0430 Last dose given 06/27/18 at 0520 Vancomycin Dosing: Loading Dose: 1500 mg x1 Dosing Weight: Target Trough: 15-20 A: Based on: TROUGH P: 1. Continue Vancomycin 1250 mg IV q12h 2. Follow up Trough level on 06/28/18 at 0430 3. Pharmacy will continue to monitor, follow and adjust therapy as needed. ANTONIO DAVIES RPH, 06/28/18 0641 Signed: 06/28/18 at 0642 by ANTONIO DAVIES RPH PHA
--- NOTE | 2018-06-28 06:55 | PDOC ---
Infectious Disease Note Subjective Subjective pt is feeling better ROS ROS no n/v/d/sob Vital Sign Vital Signs Vital Signs Date Time Temp Pulse Resp B/P (MAP) Pulse Ox O2 Delivery O2 Flow Rate FiO2 06/28/18 03:00 97.6 79 18 112/75 (87) 96 Room Air 97.6 06/27/18 13:15 2.0 Physical Exam PHYSICAL EXAM GENERAL: Alert and oriented gentleman, not in any distress. VITAL SIGNS: Stable, afebrile. HEENT: NAD. NECK: Supple, no JVP, no lymphadenopathy. LUNGS: Clear. HEART: S1, S2 regular. ABDOMEN: Slightly distended, mild tenderness present. No rebound or guarding. No organomegaly appreciated. EXTREMITIES: No edema or cyanosis. SKIN: Unremarkable. NEUROLOGIC: The patient does move all the extremities, though weak and debilitated. Labs Lab Laboratory Tests Test 06/28/18 04:30 Vancomycin Level Trough 13.3 mcg/mL (10.0-20.0) Vancomycin Last Dose Date 06/27/08 Vancomycin Last Dose Time 1700 Micro Microbiology 06/26/18 Blood Culture - Preliminary, Resulted NO GROWTH AFTER 1 DAY Objective Assessment Fever Leukocytosis Sepsis Abdominal abscess / leak s/p CT drainage Plan Plan of Care cont vanc and meropenem check culture d/w dr Juarez d/w FLRO SHEN MD Jun 28, 2018 06:55
[2018-06-28 07:00] VITALS: BP 138/86
[2018-06-28] MEDS: POTASSIUM CHLORIDE 20 MEQ TABLET.ER. PO SCH (09:13)
[2018-06-28] MEDS: hydroCHLOROthiazide 12.5 MG CAPSULE PO SCH (09:13)
[2018-06-28] MEDS: LISINOPRIL 10 MG TABLET PO SCH (09:13)
[2018-06-28] MEDS: ENOXAPARIN 40 MG/0.4 ML SYRINGE. SQ SCH (09:14)
--- NOTE | 2018-06-28 09:32 | PDOC ---
ANUSHA OVALLES ORNAMENTER 06/28/18 0932: SURGICAL PROGRESS NOTE Subjective resting no complaints Vital Signs Vital Signs Date Time Temp Pulse Resp B/P (MAP) Pulse Ox O2 Delivery O2 Flow Rate FiO2 06/28/18 09:13 86 138/86 06/28/18 07:00 97.4 18 99 Room Air 97.4 06/27/18 13:15 2.0 I&O Intake and Output 06/28/18 06:59 Intake Total 1840 ml Output Total 3335 ml Balance -1495 ml Intake Oral 1740 ml IV Total 100 ml Output Urine Total 700 ml Stool Total 1825 ml Urine/Stool Mix 600 ml Drainage Total 210 ml General: Alert, Oriented X3, Cooperative, No acute distress Abdomen: Soft, Other (ostomy with stool, drain purulent) Labs Laboratory Tests Test 06/26/18 13:30 06/26/18 17:15 06/26/18 23:25 06/27/18 04:20 White Blood Count 20.6 x10^3/uL (4.0-11.0) 21.5 x10^3/uL (4.0-11.0) Red Blood Count 4.86 x10^6/uL (4.30-5.70) 4.10 x10^6/uL (4.30-5.70) Hemoglobin 11.2 g/dL (13.0-17.5) 9.6 g/dL (13.0-17.5) Hematocrit 36.2 % (39.0-53.0) 30.2 % (39.0-53.0) Mean Corpuscular Volume 74 fL (79-100) 74 fL (79-100) Mean Corpuscular Hemoglobin 23 pg (25-35) 23 pg (25-35) Mean Corpuscular Hemoglobin Concent 31 g/dL (31-37) 32 g/dL (31-37) Red Cell Distribution Width 19.5 % (11.5-14.5) 19.2 % (11.5-14.5) Platelet Count 546 x10^3/uL (140-400) 465 x10^3/uL (140-400) Neutrophils (%) (Auto) 55 % (31-73) 46 % (31-73) Lymphocytes (%) (Auto) 38 % (24-48) 48 % (24-48) Monocytes (%) (Auto) 7 % (0-9) 6 % (0-9) Eosinophils (%) (Auto) 0 % (0-3) 0 % (0-3) Basophils (%) (Auto) 1 % (0-3) 0 % (0-3) Neutrophils # (Auto) 11.3 x10^3uL (1.8-7.7) 9.8 x10^3uL (1.8-7.7) Lymphocytes # (Auto) 7.9 x10^3/uL (1.0-4.8) 10.3 x10^3/uL (1.0-4.8) Monocytes # (Auto) 1.4 x10^3/uL (0.0-1.1) 1.4 x10^3/uL (0.0-1.1) Eosinophils # (Auto) 0.0 x10^3/uL (0.0-0.7) 0.0 x10^3/uL (0.0-0.7) Basophils # (Auto) 0.1 x10^3/uL (0.0-0.2) 0.0 x10^3/uL (0.0-0.2) Segmented Neutrophils % 59 % (35-66) Band Neutrophils % 2 % (0-9) Lymphocytes % 31 % (24-48) Monocytes % 8 % (0-10) Platelet Estimate Increased (ADEQUATE) Platelet Clumps, EDTA Present Giant Platelets Present Polychromasia Slight Ovalocytes Occ Crenated Cell Present Sodium Level 136 mmol/L (136-145) 139 mmol/L (136-145) Potassium Level 3.1 mmol/L (3.5-5.1) 3.4 mmol/L (3.5-5.1) Chloride Level 96 mmol/L (98-107) 102 mmol/L (98-107) Carbon Dioxide Level 24 mmol/L (21-32) 22 mmol/L (21-32) Anion Gap 16 (6-14) 15 (6-14) Blood Urea Nitrogen 33 mg/dL (8-26) 29 mg/dL (8-26) Creatinine 1.3 mg/dL (0.7-1.3) 1.1 mg/dL (0.7-1.3) Estimated GFR (Cockcroft-Gault) 67.0 81.3 BUN/Creatinine Ratio 25 (6-20) 26 (6-20) Glucose Level 108 mg/dL (70-99) 112 mg/dL (70-99) Calcium Level 9.8 mg/dL (8.5-10.1) 9.0 mg/dL (8.5-10.1) Magnesium Level 2.3 mg/dL (1.8-2.4) Total Bilirubin 0.8 mg/dL (0.2-1.0) 0.7 mg/dL (0.2-1.0) Aspartate Amino Transf (AST/SGOT) 67 U/L (15-37) 62 U/L (15-37) Alanine Aminotransferase (ALT/SGPT) 44 U/L (16-63) 35 U/L (16-63) Alkaline Phosphatase 345 U/L (46-116) 292 U/L (46-116) Total Protein 7.8 g/dL (6.4-8.2) 6.8 g/dL (6.4-8.2) Albumin 2.1 g/dL (3.4-5.0) 1.8 g/dL (3.4-5.0) Albumin/Globulin Ratio 0.4 (1.0-1.7) 0.4 (1.0-1.7) Prothrombin Time 16.5 SEC (11.7-14.0) Prothromb Time International Ratio 1.4 (0.8-1.1) Activated Partial Thromboplast Time 40 SEC (24-38) Fibrinogen 750 mg/dL (200-440) Lactic Acid Level 2.2 mmol/L (0.4-2.0) Procalcitonin 4.56 ng/mL (0.00-0.10) Urine Collection Type Unknown Urine Color Yellow Urine Clarity Clear Urine pH 5.5 Urine Specific [place] >=1.030 Urine Protein Negative mg/dL (NEG-TRACE) Urine Glucose (UA) Negative mg/dL (NEG) Urine Ketones (Stick) 15 mg/dL (NEG) Urine Blood Negative (NEG) Urine Nitrite Negative (NEG) Urine Bilirubin Small (NEG) Urine Urobilinogen Dipstick 0.2 mg/dL (0.2 mg/dL) Urine Leukocyte Esterase Negative (NEG) Urine RBC Rare /HPF (0-2) Urine WBC Rare /HPF (0-4) Urine Squamous Epithelial Cells Few /LPF Urine Amorphous Sediment Present /HPF Urine Bacteria 0 /HPF (0-FEW) Urine Mucus Slight /LPF Thyroid Stimulating Hormone (TSH) 0.958 uIU/mL (0.358-3.74) Test 06/28/18 04:30 Vancomycin Level Trough 13.3 mcg/mL (10.0-20.0) Vancomycin Last Dose Date 06/27/08 Vancomycin Last Dose Time 1700 Laboratory Tests Test 06/28/18 04:30 Vancomycin Level Trough 13.3 mcg/mL (10.0-20.0) Vancomycin Last Dose Date 06/27/08 Vancomycin Last Dose Time 1700 Problem List supportive care YASMIN MOODY MD 06/29/18 1225: SURGICAL PROGRESS NOTE Assessment/Plan Agree with above ANUSHA OVALLES APRN Jun 28, 2018 09:32 YASMIN MOODY MD Jun 29, 2018 12:25
[2018-06-28 11:00] VITALS: BP 140/88
[2018-06-28] MEDS: oxyCODONE/APAP 5/325 1 TAB TABLET PO PRN ×3 (12:32→21:37)
--- NOTE | 2018-06-28 12:44 | PDOC ---
PROGRESS NOTES Chief Complaint Chief Complaint Sepsis w. fever and leukocytosis, Abdominal abscess vs leak Metachronous colon masses sigmoid colon distal rectum liver mass sever malnutrition, POA acute vasomotor nephropathy on admit, better, History of Present Illness History of Present Illness s/p total colectomy with end ileostomy, liver biopsy some confused today may need SNU, discussed with , she would prefer home in a couple days, PT note reviewed, he may improve markedly by saturday, CT drainage gen surg following Vitals Vitals Vital Signs Date Time Temp Pulse Resp B/P (MAP) Pulse Ox O2 Delivery O2 Flow Rate FiO2 06/28/18 12:32 98 Room Air 06/28/18 11:00 97.4 93 18 140/88 (105) 97.4 06/27/18 13:15 2.0 Physical Exam Physical Exam GENERAL: Alert and oriented gentleman, not in any distress. VITAL SIGNS: Stable, afebrile. HEENT: NAD. NECK: Supple, no JVP, no lymphadenopathy. LUNGS: Clear. HEART: S1, S2 regular. ABDOMEN: Slightly distended, mild tenderness present. No rebound or guarding. No organomegaly appreciated. EXTREMITIES: No edema or cyanosis. SKIN: Unremarkable. NEUROLOGIC: The patient does move all the extremities, though weak and debilitated. General: Alert, Oriented X3, Cooperative, No acute distress Heart: Normal S1, Normal S2, Other (tele ST) Lungs: Clear Abdomen: Soft, Other (ostomy with stool, drain purulent) Extremities: No edema, Normal pulses Skin: No rashes Labs LABS Laboratory Tests Test 06/28/18 04:30 Vancomycin Level Trough 13.3 mcg/mL (10.0-20.0) Vancomycin Last Dose Date 06/27/08 Vancomycin Last Dose Time 1700 Comment Review of Relevant I have reviewed the following items pallavi (where applicable) has been applied. Labs Laboratory Tests Test 06/26/18 13:30 06/26/18 17:15 06/26/18 23:25 06/27/18 04:20 White Blood Count 20.6 x10^3/uL (4.0-11.0) 21.5 x10^3/uL (4.0-11.0) Red Blood Count 4.86 x10^6/uL (4.30-5.70) 4.10 x10^6/uL (4.30-5.70) Hemoglobin 11.2 g/dL (13.0-17.5) 9.6 g/dL (13.0-17.5) Hematocrit 36.2 % (39.0-53.0) 30.2 % (39.0-53.0) Mean Corpuscular Volume 74 fL (79-100) 74 fL (79-100) Mean Corpuscular Hemoglobin 23 pg (25-35) 23 pg (25-35) Mean Corpuscular Hemoglobin Concent 31 g/dL (31-37) 32 g/dL (31-37) Red Cell Distribution Width 19.5 % (11.5-14.5) 19.2 % (11.5-14.5) Platelet Count 546 x10^3/uL (140-400) 465 x10^3/uL (140-400) Neutrophils (%) (Auto) 55 % (31-73) 46 % (31-73) Lymphocytes (%) (Auto) 38 % (24-48) 48 % (24-48) Monocytes (%) (Auto) 7 % (0-9) 6 % (0-9) Eosinophils (%) (Auto) 0 % (0-3) 0 % (0-3) Basophils (%) (Auto) 1 % (0-3) 0 % (0-3) Neutrophils # (Auto) 11.3 x10^3uL (1.8-7.7) 9.8 x10^3uL (1.8-7.7) Lymphocytes # (Auto) 7.9 x10^3/uL (1.0-4.8) 10.3 x10^3/uL (1.0-4.8) Monocytes # (Auto) 1.4 x10^3/uL (0.0-1.1) 1.4 x10^3/uL (0.0-1.1) Eosinophils # (Auto) 0.0 x10^3/uL (0.0-0.7) 0.0 x10^3/uL (0.0-0.7) Basophils # (Auto) 0.1 x10^3/uL (0.0-0.2) 0.0 x10^3/uL (0.0-0.2) Segmented Neutrophils % 59 % (35-66) Band Neutrophils % 2 % (0-9) Lymphocytes % 31 % (24-48) Monocytes % 8 % (0-10) Platelet Estimate Increased (ADEQUATE) Platelet Clumps, EDTA Present Giant Platelets Present Polychromasia Slight Ovalocytes Occ Crenated Cell Present Sodium Level 136 mmol/L (136-145) 139 mmol/L (136-145) Potassium Level 3.1 mmol/L (3.5-5.1) 3.4 mmol/L (3.5-5.1) Chloride Level 96 mmol/L (98-107) 102 mmol/L (98-107) Carbon Dioxide Level 24 mmol/L (21-32) 22 mmol/L (21-32) Anion Gap 16 (6-14) 15 (6-14) Blood Urea Nitrogen 33 mg/dL (8-26) 29 mg/dL (8-26) Creatinine 1.3 mg/dL (0.7-1.3) 1.1 mg/dL (0.7-1.3) Estimated GFR (Cockcroft-Gault) 67.0 81.3 BUN/Creatinine Ratio 25 (6-20) 26 (6-20) Glucose Level 108 mg/dL (70-99) 112 mg/dL (70-99) Calcium Level 9.8 mg/dL (8.5-10.1) 9.0 mg/dL (8.5-10.1) Magnesium Level 2.3 mg/dL (1.8-2.4) Total Bilirubin 0.8 mg/dL (0.2-1.0) 0.7 mg/dL (0.2-1.0) Aspartate Amino Transf (AST/SGOT) 67 U/L (15-37) 62 U/L (15-37) Alanine Aminotransferase (ALT/SGPT) 44 U/L (16-63) 35 U/L (16-63) Alkaline Phosphatase 345 U/L (46-116) 292 U/L (46-116) Total Protein 7.8 g/dL (6.4-8.2) 6.8 g/dL (6.4-8.2) Albumin 2.1 g/dL (3.4-5.0) 1.8 g/dL (3.4-5.0) Albumin/Globulin Ratio 0.4 (1.0-1.7) 0.4 (1.0-1.7) Prothrombin Time 16.5 SEC (11.7-14.0) Prothromb Time International Ratio 1.4 (0.8-1.1) Activated Partial Thromboplast Time 40 SEC (24-38) Fibrinogen 750 mg/dL (200-440) Lactic Acid Level 2.2 mmol/L (0.4-2.0) Procalcitonin 4.56 ng/mL (0.00-0.10) Urine Collection Type Unknown Urine Color Yellow Urine Clarity Clear Urine pH 5.5 Urine Specific [place] >=1.030 Urine Protein Negative mg/dL (NEG-TRACE) Urine Glucose (UA) Negative mg/dL (NEG) Urine Ketones (Stick) 15 mg/dL (NEG) Urine Blood Negative (NEG) Urine Nitrite Negative (NEG) Urine Bilirubin Small (NEG) Urine Urobilinogen Dipstick 0.2 mg/dL (0.2 mg/dL) Urine Leukocyte Esterase Negative (NEG) Urine RBC Rare /HPF (0-2) Urine WBC Rare /HPF (0-4) Urine Squamous Epithelial Cells Few /LPF Urine Amorphous Sediment Present /HPF Urine Bacteria 0 /HPF (0-FEW) Urine Mucus Slight /LPF Thyroid Stimulating Hormone (TSH) 0.958 uIU/mL (0.358-3.74) Test 06/28/18 04:30 Vancomycin Level Trough 13.3 mcg/mL (10.0-20.0) Vancomycin Last Dose Date 06/27/08 Vancomycin Last Dose Time 1700 Laboratory Tests Test 06/28/18 04:30 Vancomycin Level Trough 13.3 mcg/mL (10.0-20.0) Vancomycin Last Dose Date 06/27/08 Vancomycin Last Dose Time 1700 Microbiology 06/26/18 Blood Culture - Preliminary, Resulted NO GROWTH AFTER 1 DAY Medications Current Medications Ondansetron HCl (Zofran) 4 mg PRN Q6HRS PRN IV NAUSEA/VOMITING; Start 06/20/18 at 07:00; Stop 06/21/18 at 06:59; Status DC Fentanyl Citrate (Fentanyl 2ml Vial) 25 mcg PRN Q5MIN PRN IV MILD PAIN; Start 06/20/18 at 07:00; Stop 06/21/18 at 06:59; Status DC Fentanyl Citrate (Fentanyl 2ml Vial) 50 mcg PRN Q5MIN PRN IV MODERATE TO SEVERE PAIN Last administered on 06/20/18at 12:39; Start 06/20/18 at 07:00; Stop 06/21/18 at 06:59; Status DC Morphine Sulfate (Morphine Sulfate) 1 mg PRN Q10MIN PRN IV SEVERE PAIN; Start 06/20/18 at 07:00; Stop 06/21/18 at 06:59; Status DC Ringer's Solution 1,000 ml @ 30 mls/hr Q24H IV Last administered on 06/20/18at 06:39; Start 06/20/18 at 07:00; Stop 06/20/18 at 18:59; Status DC Lidocaine HCl (Xylocaine-Mpf 1% 2ml Vial) 2 ml PRN 1X PRN ID IV START; Start at 07:00; Stop 06/21/18 at 06:59; Status DC Hydromorphone HCl (Dilaudid) 0.5 mg PRN Q10MIN PRN IV SEV PAIN, Second choice; Start 06/20/18 at 07:00; Stop 06/21/18 at 06:59; Status DC Prochlorperazine Edisylate (Compazine) 5 mg PACU PRN PRN IV NAUSEA, MRX1 Last administered on 06/20/18at 12:18; Start 06/20/18 at 07:00; Stop 06/21/18 at 06:59 ; Status DC Cefoxitin Sodium (Mefoxin) 2 gm 1X PREOP PRN IVP PRIOR TO PROCEDURE Last administered on 06/20/18at 10:07; Start 06/20/18 at 06:00; Stop 06/20/18 at 21:00 ; Status DC Propofol 20 ml @ As Directed STK-MED ONCE IV ; Start 06/20/18 at 07:43; Stop at 07:44; Status DC Dexamethasone Sodium Phosphate (Decadron) 20 mg STK-MED ONCE .ROUTE ; Start at 07:43; Stop 06/20/18 at 07:44; Status DC Famotidine (Pepcid Vial) 20 mg STK-MED ONCE .ROUTE ; Start 06/20/18 at 07:43; Stop 06/20/18 at 07:44; Status DC Lidocaine HCl (Lidocaine Pf 2% Vial) 5 ml STK-MED ONCE .ROUTE ; Start 06/20/18 at 07:43; Stop 06/20/18 at 07:44; Status DC Ondansetron HCl (Zofran) 4 mg STK-MED ONCE .ROUTE ; Start 06/20/18 at 07:43; Stop 06/20/18 at 07:44; Status DC Rocuronium [place] (Zemuron) 100 mg STK-MED ONCE .ROUTE ; Start 06/20/18 at 07: 43; Stop 06/20/18 at 07:44; Status DC Fentanyl Citrate (Fentanyl 2ml Vial) 100 mcg STK-MED ONCE .ROUTE ; Start at 07:43; Stop 06/20/18 at 07:44; Status DC Midazolam HCl (Versed) 2 mg STK-MED ONCE .ROUTE ; Start 06/20/18 at 07:43; Stop 06/20/18 at 07:44; Status DC Fentanyl Citrate (Fentanyl 2ml Vial) 100 mcg STK-MED ONCE .ROUTE ; Start at 07:46; Stop 06/20/18 at 07:47; Status DC Phenylephrine HCl (Celio-Synephrine Inj) 10 mg STK-MED ONCE .ROUTE ; Start at 07:59; Stop 06/20/18 at 08:00; Status DC Sevoflurane (Ultane) 90 ml STK-MED ONCE IH ; Start 06/20/18 at 08:55; Stop 06/20 at 08:56; Status DC Neostigmine Methylsulfate (Bloxiverz) 10 mg STK-MED ONCE .ROUTE ; Start at 09:34; Stop 06/20/18 at 09:35; Status DC Glycopyrrolate (Robinul) 1 mg STK-MED ONCE .ROUTE ; Start 06/20/18 at 09:34; Stop 06/20/18 at 09:35; Status DC Albumin Human 500 ml @ As Directed STK-MED ONCE IV ; Start 06/20/18 at 09:35; Stop 06/20/18 at 09:36; Status DC Hydromorphone HCl (Dilaudid) 2 mg STK-MED ONCE .ROUTE ; Start 06/20/18 at 10:59 ; Stop 06/20/18 at 11:00; Status DC Cefoxitin Sodium (Mefoxin) 1 gm Q8H IVP ; Start 06/20/18 at 18:00; Stop at 10:01; Status Cancel Sodium Chloride (Normal Saline Flush) 3 ml QSHIFT PRN IV AFTER MEDS AND BLOOD DRAWS; Start 06/20/18 at 11:00 Morphine Sulfate (Morphine Sulfate) 2 mg PRN Q3HRS PRN IV PAIN Last administered on 06/24/18at 08:40; Start 06/20/18 at 11:00 Oxycodone/ Acetaminophen (Percocet 5/325) 1 tab PRN Q4HRS PRN PO MILD PAIN, 1ST CHOICE Last administered on 06/28/18 12:32; Start 06/20/18 at 11:00 Oxycodone/ Acetaminophen (Percocet 5/325) 2 tab PRN Q4HRS PRN PO MODERATE PAIN , SEVERE PAIN Last administered on 06/27/18at 22:47; Start 06/20/18 at 11:00 Ketorolac Tromethamine (Toradol 15mg Vial) 15 mg Q6HRS IV Last administered on 06/22/18 06:32; Start 06/20/18 at 12:00; Stop 06/22/18 at 11:59; Status DC Ondansetron HCl (Zofran) 4 mg PRN Q6HRS PRN IV NAUSEA, 1ST CHOICE Last administered on 06/26/18at 12:09; Start 06/20/18 at 11:00 Dextrose/Lactated Ringer's 1,000 ml @ 75 mls/hr [id number] IV Last administered on 06/20/18at 14:54; Start 06/20/18 at 10:58; Stop 06/23/18 at 13:17; Status DC Ketorolac Tromethamine (Toradol 30mg Vial) 30 mg STK-MED ONCE .ROUTE ; Start at 11:09; Stop 06/20/18 at 11:10; Status DC Sodium Chloride 1,000 ml @ 100 mls/hr Q10H IV Last administered on 06/22/18at 00:45; Start 06/20/18 at 11:15; Stop 06/23/18 at 13:17; Status DC Cefoxitin Sodium (Mefoxin) 1 gm Q8H IVP Last administered on 06/21/18at 10:38; Start 06/20/18 at 18:00; Stop 06/21/18 at 10:01; Status DC Enoxaparin Sodium (Lovenox Per Pharmacy Prophylaxis Dosing) 1 each PRN DAILY PRN MC SEE COMMENTS; Start 06/22/18 at 11:30; Stop 06/27/18 at 14:49; Status DC Enoxaparin Sodium (Lovenox 40mg Syringe) 40 mg Q24H SQ Last administered on 06/28 09:14; Start 06/22/18 at 12:00 Guaifenesin (Mucinex) 600 mg BID PO Last administered on 06/28/18 09:13; Start 06/22/18 at 15:00 Lisinopril (Prinivil) 10 mg DAILY PO Last administered on 06/28/18 09:13; Start 06/23/18 at 10:00 Hydrochlorothiazide (Microzide) 12.5 mg DAILY PO Last administered on 06/28/18at 09:13; Start 06/23/18 at 10:00 Iohexol (Omnipaque 300 Mg/ml) 75 ml 1X ONCE IV Last administered on 06/26/18at 13:00; Start 06/26/18 at 13:00; Stop 06/26/18 at 13:02; Status DC Iohexol (Omnipaque 240 Mg/ml) 30 ml 1X ONCE PO Last administered on 06/26/18at 13:00; Start 06/26/18 at 13:00; Stop 06/26/18 at 13:02; Status DC Info (CONTRAST GIVEN -- Rx MONITORING) 1 each PRN DAILY PRN MC SEE COMMENTS; Start 06/26/18 at 13:15; Stop 06/28/18 at 13:14 Sodium Chloride 1,000 ml @ 100 mls/hr Q10H IV Last administered on 06/28/18 09 :14; Start 06/26/18 at 15:00; Stop 06/28/18 at 10:46; Status DC Potassium Chloride (Klor-Con) 40 meq 1X ONCE PO Last administered on at 16:56; Start 06/26/18 at 15:00; Stop 06/26/18 at 15:01; Status DC Potassium Chloride (Klor-Con) 20 meq [id number] PO Last administered on at 09:13; Start 06/27/18 at 08:00 Sodium Chloride 1,000 ml @ 500 mls/hr Q2H IV ; Start 06/26/18 at 15:00; Status Cancel Meropenem 1 gm/ Sodium Chloride 100 ml @ 200 mls/hr Q8HRS IV Last administered on 06/28/18at 12:34; Start 06/26/18 at 15:00 Vancomycin HCl 1.5 gm/Sodium Chloride 500 ml @ 250 mls/hr 1X ONCE IV Last administered on 06/26/18at 16:53; Start 06/26/18 at 14:45; Stop 06/26/18 at 16:44 ; Status DC Sodium Chloride 1,000 ml @ 500 mls/hr 1X ONCE IV Last administered on at 16:10; Start 06/26/18 at 15:00; Stop 06/26/18 at 16:59; Status DC Sodium Chloride 1,000 ml @ 2,460 mls/hr Q25M IV ; Start 06/26/18 at 17:00; Stop 06/26/18 at 17:11; Status DC Sodium Chloride 500 ml @ 1,000 mls/hr PRN Q30MIN PRN IV SEE COMMENTS; Start at 17:00 Vancomycin HCl (Vanco Per Pharmacy) 1 each PRN DAILY PRN MC SEE COMMENTS Last administered on 06/28/18at 06:41; Start 06/26/18 at 17:00 Vancomycin HCl 1.25 gm/Sodium Chloride 250 ml @ 167 mls/hr Q12H IV Last administered on 06/28/18at 06:41; Start 06/27/18 at 05:00 Vancomycin HCl (Vancomycin Trough Level) 1 each 1X ONCE MC ; Start 06/28/18 at 04:30; Stop 06/28/18 at 04:31; Status DC Lidocaine/Sodium Bicarbonate (Buffered Lidocaine 1%) 3 ml STK-MED ONCE .ROUTE ; Start 06/27/18 at 12:12; Stop 06/27/18 at 12:13; Status DC Midazolam HCl (Versed) 2 mg STK-MED ONCE .ROUTE ; Start 06/27/18 at 12:13; Stop 06/27/18 at 12:14; Status DC Fentanyl Citrate (Fentanyl 2ml Vial) 100 mcg STK-MED ONCE .ROUTE ; Start at 12:13; Stop 06/27/18 at 12:14; Status DC Lidocaine/Sodium Bicarbonate (Buffered Lidocaine 1%) 3 ml 1X ONCE IJ Last administered on 06/27/18at 12:30; Start 06/27/18 at 12:30; Stop 06/27/18 at 12:31; Status DC Midazolam HCl (Versed) 2 mg 1X ONCE IV Last administered on 06/27/18at 12:30; Start 06/27/18 at 12:30; Stop 06/27/18 at 12:31; Status DC Fentanyl Citrate (Fentanyl 2ml Vial) 100 mcg 1X ONCE IV Last administered on at 12:30; Start 06/27/18 at 12:30; Stop 06/27/18 at 12:31; Status DC Active Scripts Active Reported Zofran (Ondansetron Hcl) 4 Mg Tablet 4 Mg PO BID PRN Lisinopril-Hctz 10-12.5 Mg Tab (Lisinopril/Hydrochlorothiazide) 1 Each Tablet 1 Tab PO DAILY Vitals/I & O Vital Sign - Last 24 Hours 06/27/18 06/27/18 06/27/18 06/27/18 12:45 12:50 12:55 13:00 Pulse 110 109 107 108 Resp 16 16 15 14 B/P (MAP) 141/91 (108) 136/85 (102) 123/87 (99) 130/87 (101) Pulse Ox 90 100 95 98 O2 Delivery Nasal Cannula Nasal Cannula Nasal Cannula Nasal Cannula O2 Flow Rate 2.0 2.0 2.0 2.0 06/27/18 06/27/18 06/27/18 06/27/18 13:05 13:11 13:15 13:30 Pulse 109 111 107 99 Resp 16 16 16 B/P (MAP) 127/84 (98) 130/85 (100) 133/88 (103) Pulse Ox 94 95 99 96 O2 Delivery Nasal Cannula Nasal Cannula Nasal Cannula O2 Flow Rate 2.0 2.0 2.0 06/27/18 06/27/18 06/27/18 06/27/18 13:45 14:00 14:15 14:30 Pulse 100 101 112 112 B/P (MAP) 137/81 (99) 129/90 (103) 130/89 (103) 134/102 (113) 06/27/18 06/27/18 06/27/18 06/27/18 15:00 15:30 16:30 19:00 Temp 98.1 97.4 98.1 97.4 Pulse 98 98 104 99 Resp 18 18 B/P (MAP) 136/85 (102) 131/85 (100) 124/77 (93) 120/81 (94) Pulse Ox 96 96 O2 Delivery Room Air Room Air 06/27/18 06/27/18 06/27/18 06/27/18 19:55 22:47 23:00 23:47 Temp 97.4 97.4 Pulse 94 Resp 18 B/P (MAP) 139/87 (104) Pulse Ox 97 O2 Delivery Room Air Room Air Room Air Room Air 06/28/18 06/28/18 06/28/18 06/28/18 03:00 07:00 09:13 11:00 Temp 97.6 97.4 97.4 97.6 97.4 97.4 Pulse 79 86 86 93 Resp 18 18 18 B/P (MAP) 112/75 (87) 138/86 (103) 138/86 140/88 (105) Pulse Ox 96 99 98 O2 Delivery Room Air Room Air Room Air 06/28/18 12:32 Pulse Ox 98 O2 Delivery Room Air Intake and Output 06/27/18 06/27/18 06/28/18 15:00 23:00 07:00 Intake Total 340 ml 1500 ml Output Total 2055 ml 1280 ml Balance -1715 ml 220 ml JINA MILLER MD Jun 28, 2018 12:44
[2018-06-28 15:00] VITALS: BP 127/78
[2018-06-28 19:00] VITALS: BP 142/91
[2018-06-28 23:00] VITALS: BP 126/80
[2018-06-29] VITALS (9 sets, daily range): BP systolic 115–154; BP diastolic 74–99
--- NOTE | 2018-06-29 04:06 | CONS ---
DATE OF CONSULTATION: 06/28/2018 MEDICAL ONCOLOGY CONSULTATION CONSULTATION REQUESTED BY: Dr. Don Juarze REASON FOR CONSULTATION: Metastatic colon cancer. HISTORY OF PRESENT ILLNESS: The patient is a 63-year-old gentleman who was diagnosed with colon cancer involving the splenic flexure in October 2014. He underwent a splenic flexure segmental resection on 11/22/[address] Don Juarez. Pathology revealed invasive moderately differentiated adenocarcinoma with mucinous component involving the splenic flexure measuring 5.5 cm with tumor invasion through the muscularis propria into the subserosa and mesocolic soft tissues. Focal large vessel tumor invasion is identified and focal perineural tumor invasion is identified. Twenty-three lymph nodes are negative for malignancy. He was staged as a T3 N0 M0, stage 2 colon cancer. He underwent a followup colonoscopy in 2018. He was noted to have tubular adenoma in the colon and there was evidence of focal high-grade dysplasia by colonoscopy performed in April 2018. Hence, further surgery was recommended. He underwent total colectomy with end ileostomy and liver biopsy on 06/20/[address] Don Juarez. Pathology revealed no malignancy in the colon. There was evidence of high-grade dysplasia in the large polypoid tubular adenoma of the distal colon. Liver biopsy revealed metastatic moderately well-differentiated mucin-producing adenocarcinoma. There was no invasive carcinoma in the current colon specimen. CT scan of the abdomen and pelvis on 05/20/2018 revealed multiple bilateral lung bases metastases. Multiple liver metastases. One lesion in the segment 2 region measured 4.6 x 3.5 cm and there was another lesion in the segment 8 and 4a measuring 12 x 11.3 cm. The segment 4b lesion measures 3.9 x 3.7 cm. There is a 2.2 cm pericardial lymph node. There is a 2.5 cm soft tissue nodule in the left upper quadrant, which may represent an accessory spleen or an enlarged lymph node. Soft tissue masses seen in the sigmoid colon and in the rectum, thought to be polypoid lesions. Multiple lung nodules are seen and the largest is noted in the right lower lobe measuring 2.4 cm. I was asked to see the patient for further evaluation and management of metastatic colon cancer. PAST MEDICAL HISTORY: Osteoarthritis, hernia repair. SOCIAL HISTORY: He has a history of cigarette smoking 1 pack of cigarettes per day for approximately 40 years. FAMILY HISTORY: Father had lung cancer. Sister had lung cancer. REVIEW OF SYSTEMS: A 12-point review of systems was performed. Pertinent positives are mentioned in the history of present illness. Rest of the system review is negative. PHYSICAL EXAMINATION: GENERAL APPEARANCE: The patient is a 63-year-old gentleman who appears poorly nourished and in no acute cardiorespiratory distress. VITAL SIGNS: Blood pressure 140/88, temperature 97.4. HEENT: Head is atraumatic, normocephalic. Eyes: No icterus. NECK: Supple. CHEST: Bilaterally symmetrical. HEART: S1, S2 normal. ABDOMEN: Soft, postop incision is noted. CENTRAL NERVOUS SYSTEM: No focal deficits. LYMPHATICS: No lymphadenopathy. SKIN: No rashes. PSYCHOLOGIC: Mood and affect are appropriate. MUSCULOSKELETAL: No joint effusions. LABORATORY DATA: WBC 21.5, hemoglobin 9.6, platelet count 465, MCV 74. Sodium 139, potassium 3.4, creatinine 1.1. Total bilirubin 0.7, AST 62, ALT 25, alkaline phosphatase 292, total protein 6.8, albumin 1.8. IMPRESSION AND PLAN: 1. 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 He had a colon cancer diagnosed in 2014 involving the splenic flexure and it was stage 2 at that time. He was diagnosed with multiple bilateral lung metastases and liver metastasis consistent with stage [address] 2018 and liver biopsy 06/20/18. I reviewed the CT results and the pathology results in detail with the patient and his . I explained that this is stage 4 malignancy, which is not curable and treatments are palliative. I discussed the role of palliative chemotherapy and the risks and benefits. He is going to continue postoperative management at this point and follow up with me in about 3 weeks to evaluate for palliative chemotherapy. 2. Hypoalbuminemia. He reports a 25-pound weight loss. This is due to malignancy. 3. Liver metastasis, status post biopsy. 4. Lung metastasis, bilateral. 5. Anemia due to malignancy. I will also check iron studies and B12 level. BJORN CHACON MD DR: ALEJANDRA/mercedes JOB#: [id number] / [id number] NINI
[2018-06-29] MEDS: MEROPENEM 1 GM in IV NORMAL SALINE 100ML 100 ML IV SCH ×3 (05:21→22:55)
[2018-06-29] MEDS: VANCOMYCIN 1.25 GM in IV NORMAL SALINE 250ML 250 ML IV SCH ×2 (06:26→16:57)
[2018-06-29] MEDS: LISINOPRIL 10 MG TABLET PO SCH (08:28)
[2018-06-29] MEDS: hydroCHLOROthiazide 12.5 MG CAPSULE PO SCH (08:29)
[2018-06-29] MEDS: POTASSIUM CHLORIDE 20 MEQ TABLET.ER. PO SCH (08:29)
[2018-06-29] MEDS: oxyCODONE/APAP 5/325 1 TAB TABLET PO PRN (08:34)
[2018-06-29 09:14] LABS: BASO # 0.1 x10^3/uL (0.0-0.2); BASO % 1 % (0-3); EOS % 0 % (0-3); HEMATOCRIT 31.4 % (39.0-53.0); LYMPH # 9.1 x10^3/uL (1.0-4.8); LYMPH % 46 % (24-48); MEAN CORPUSCULAR HEMOGLOBIN 24 pg (25-35); MEAN CORPUSCULAR HGB CONC 32 g/dL (31-37); MEAN CORPUSCULAR VOLUME 75 fL (79-100); MONO # 0.8 x10^3/uL (0.0-1.1); MONO % 4 % (0-9); NEUT # 9.9 x10^3uL (1.8-7.7); NEUT % 50 % (31-73); PLATELET COUNT 533 x10^3/uL (140-400); RED BLOOD COUNT 4.21 x10^6/uL (4.30-5.70); RED CELL DISTRIBUTION WIDTH 19.8 % (11.5-14.5)
[2018-06-29 09:38] LABS: ALBUMIN 1.9 g/dL (3.4-5.0); ALBUMIN/GLOBULIN RATIO 0.3 (1.0-1.7); CREATININE 0.9 mg/dL (0.7-1.3); GFR 102.5; POTASSIUM 3.2 mmol/L (3.5-5.1); TOTAL BILIRUBIN 0.6 mg/dL (0.2-1.0); TOTAL PROTEIN 7.5 g/dL (6.4-8.2)
--- NOTE | 2018-06-29 10:12 | PDOC ---
Infectious Disease Note Subjective Subjective Thinks he is doing alright Denies pain/N/V No fevers last 48 hours ROS ROS per HPI Vital Sign Vital Signs Vital Signs Date Time Temp Pulse Resp B/P (MAP) Pulse Ox O2 Delivery O2 Flow Rate FiO2 06/29/18 08:34 Room Air 06/29/18 08:28 84 154/92 06/29/18 07:00 98.4 20 98.4 06/29/18 03:00 95 Physical Exam PHYSICAL EXAM GENERAL: Lying down, NAD HEENT: Oral cavity clear NECK: Supple LUNGS: Clear. HEART: S1, S2 regular. ABDOMEN: Slightly distended, midline incision approx/steri-strips. Ostomy. Left -sided CATHRYN - purulent drainage EXTREMITIES: No edema or cyanosis. SKIN: warm NEUROLOGIC: Awake, responds few questions PIV Labs Lab Laboratory Tests Test 06/29/18 08:20 White Blood Count 20.0 x10^3/uL (4.0-11.0) Red Blood Count 4.21 x10^6/uL (4.30-5.70) Hemoglobin 10.0 g/dL (13.0-17.5) Hematocrit 31.4 % (39.0-53.0) Mean Corpuscular Volume 75 fL (79-100) Mean Corpuscular Hemoglobin 24 pg (25-35) Mean Corpuscular Hemoglobin Concent 32 g/dL (31-37) Red Cell Distribution Width 19.8 % (11.5-14.5) Platelet Count 533 x10^3/uL (140-400) Neutrophils (%) (Auto) 50 % (31-73) Lymphocytes (%) (Auto) 46 % (24-48) Monocytes (%) (Auto) 4 % (0-9) Eosinophils (%) (Auto) 0 % (0-3) Basophils (%) (Auto) 1 % (0-3) Neutrophils # (Auto) 9.9 x10^3uL (1.8-7.7) Lymphocytes # (Auto) 9.1 x10^3/uL (1.0-4.8) Monocytes # (Auto) 0.8 x10^3/uL (0.0-1.1) Eosinophils # (Auto) 0.0 x10^3/uL (0.0-0.7) Basophils # (Auto) 0.1 x10^3/uL (0.0-0.2) Sodium Level 137 mmol/L (136-145) Potassium Level 3.2 mmol/L (3.5-5.1) Chloride Level 101 mmol/L (98-107) Carbon Dioxide Level 23 mmol/L (21-32) Anion Gap 13 (6-14) Blood Urea Nitrogen 18 mg/dL (8-26) Creatinine 0.9 mg/dL (0.7-1.3) Estimated GFR (Cockcroft-Gault) 102.5 BUN/Creatinine Ratio 20 (6-20) Glucose Level 98 mg/dL (70-99) Calcium Level 9.0 mg/dL (8.5-10.1) Total Bilirubin 0.6 mg/dL (0.2-1.0) Aspartate Amino Transf (AST/SGOT) 75 U/L (15-37) Alanine Aminotransferase (ALT/SGPT) 51 U/L (16-63) Alkaline Phosphatase 529 U/L (46-116) Total Protein 7.5 g/dL (6.4-8.2) Albumin 1.9 g/dL (3.4-5.0) Albumin/Globulin Ratio 0.3 (1.0-1.7) Micro 06/26/18 Blood Culture - Preliminary, Resulted NO GROWTH AFTER 2 DAYS Objective Assessment Fever, better Leukocytosis Sepsis Abdominal abscess / leak s/p CT drainage on 06/27. Plan Plan of Care Vanc and meropenem Trough 13.3 f/u cultures Supportive care d/w Attending Co-Sign The patient was seen and interviewed as well as examined at the bedside. The chart was reviewed. The case was discussed. Agree with the plan of care. LEXA FAUSTIN APRN Jun 29, 2018 10:12 FLOR SHEN MD Jun 29, 2018 11:32
--- NOTE | 2018-06-29 10:14 | PDOC ---
ANUSHA OVALLES TAPPER HAND 06/29/18 1014: SURGICAL PROGRESS NOTE Subjective resting incisional pain eating some Vital Signs Vital Signs Date Time Temp Pulse Resp B/P (MAP) Pulse Ox O2 Delivery O2 Flow Rate FiO2 06/29/18 08:34 Room Air 06/29/18 08:28 84 154/92 06/29/18 07:00 98.4 20 98.4 06/29/18 03:00 95 I&O Intake and Output 06/29/18 07:00 Intake Total 480 ml Output Total 2495 ml Balance -2015 ml Intake Oral 480 ml Output Urine Total 250 ml Stool Total 2075 ml Urine/Stool Mix 75 ml Drainage Total 95 ml # Voids 2 General: Alert, Oriented X3, Cooperative, No acute distress Abdomen: Soft, Other (ostomy functioning, drain purulent) Labs Laboratory Tests Test 06/28/18 04:30 06/29/18 08:20 Iron Level 13 ug/dL (65-175) Total Iron Binding Capacity 134 ug/dL (250-450) Iron Saturation 10 % (15-34) Ferritin 1544 ng/mL (26-388) Vancomycin Level Trough 13.3 mcg/mL (10.0-20.0) Vancomycin Last Dose Date 06/27/08 Vancomycin Last Dose Time 1700 White Blood Count 20.0 x10^3/uL (4.0-11.0) Red Blood Count 4.21 x10^6/uL (4.30-5.70) Hemoglobin 10.0 g/dL (13.0-17.5) Hematocrit 31.4 % (39.0-53.0) Mean Corpuscular Volume 75 fL (79-100) Mean Corpuscular Hemoglobin 24 pg (25-35) Mean Corpuscular Hemoglobin Concent 32 g/dL (31-37) Red Cell Distribution Width 19.8 % (11.5-14.5) Platelet Count 533 x10^3/uL (140-400) Neutrophils (%) (Auto) 50 % (31-73) Lymphocytes (%) (Auto) 46 % (24-48) Monocytes (%) (Auto) 4 % (0-9) Eosinophils (%) (Auto) 0 % (0-3) Basophils (%) (Auto) 1 % (0-3) Neutrophils # (Auto) 9.9 x10^3uL (1.8-7.7) Lymphocytes # (Auto) 9.1 x10^3/uL (1.0-4.8) Monocytes # (Auto) 0.8 x10^3/uL (0.0-1.1) Eosinophils # (Auto) 0.0 x10^3/uL (0.0-0.7) Basophils # (Auto) 0.1 x10^3/uL (0.0-0.2) Sodium Level 137 mmol/L (136-145) Potassium Level 3.2 mmol/L (3.5-5.1) Chloride Level 101 mmol/L (98-107) Carbon Dioxide Level 23 mmol/L (21-32) Anion Gap 13 (6-14) Blood Urea Nitrogen 18 mg/dL (8-26) Creatinine 0.9 mg/dL (0.7-1.3) Estimated GFR (Cockcroft-Gault) 102.5 BUN/Creatinine Ratio 20 (6-20) Glucose Level 98 mg/dL (70-99) Calcium Level 9.0 mg/dL (8.5-10.1) Total Bilirubin 0.6 mg/dL (0.2-1.0) Aspartate Amino Transf (AST/SGOT) 75 U/L (15-37) Alanine Aminotransferase (ALT/SGPT) 51 U/L (16-63) Alkaline Phosphatase 529 U/L (46-116) Total Protein 7.5 g/dL (6.4-8.2) Albumin 1.9 g/dL (3.4-5.0) Albumin/Globulin Ratio 0.3 (1.0-1.7) Laboratory Tests Test 06/29/18 08:20 White Blood Count 20.0 x10^3/uL (4.0-11.0) Red Blood Count 4.21 x10^6/uL (4.30-5.70) Hemoglobin 10.0 g/dL (13.0-17.5) Hematocrit 31.4 % (39.0-53.0) Mean Corpuscular Volume 75 fL (79-100) Mean Corpuscular Hemoglobin 24 pg (25-35) Mean Corpuscular Hemoglobin Concent 32 g/dL (31-37) Red Cell Distribution Width 19.8 % (11.5-14.5) Platelet Count 533 x10^3/uL (140-400) Neutrophils (%) (Auto) 50 % (31-73) Lymphocytes (%) (Auto) 46 % (24-48) Monocytes (%) (Auto) 4 % (0-9) Eosinophils (%) (Auto) 0 % (0-3) Basophils (%) (Auto) 1 % (0-3) Neutrophils # (Auto) 9.9 x10^3uL (1.8-7.7) Lymphocytes # (Auto) 9.1 x10^3/uL (1.0-4.8) Monocytes # (Auto) 0.8 x10^3/uL (0.0-1.1) Eosinophils # (Auto) 0.0 x10^3/uL (0.0-0.7) Basophils # (Auto) 0.1 x10^3/uL (0.0-0.2) Sodium Level 137 mmol/L (136-145) Potassium Level 3.2 mmol/L (3.5-5.1) Chloride Level 101 mmol/L (98-107) Carbon Dioxide Level 23 mmol/L (21-32) Anion Gap 13 (6-14) Blood Urea Nitrogen 18 mg/dL (8-26) Creatinine 0.9 mg/dL (0.7-1.3) Estimated GFR (Cockcroft-Gault) 102.5 BUN/Creatinine Ratio 20 (6-20) Glucose Level 98 mg/dL (70-99) Calcium Level 9.0 mg/dL (8.5-10.1) Total Bilirubin 0.6 mg/dL (0.2-1.0) Aspartate Amino Transf (AST/SGOT) 75 U/L (15-37) Alanine Aminotransferase (ALT/SGPT) 51 U/L (16-63) Alkaline Phosphatase 529 U/L (46-116) Total Protein 7.5 g/dL (6.4-8.2) Albumin 1.9 g/dL (3.4-5.0) Albumin/Globulin Ratio 0.3 (1.0-1.7) Problem List continue care YASMIN MOODY MD 06/29/18 1226: SURGICAL PROGRESS NOTE Assessment/Plan Agree with above ANUSHA OVALLES APRN Jun 29, 2018 10:14 YASMIN MOODY MD Jun 29, 2018 12:26
[2018-06-29 10:27] LABS: % ATYL 1 % (0-0); % BANDS 15 % (0-9); % LYMPHS 22 % (24-48); % METAS 1 % (0-0); % MONOS 8 % (0-10); % SEGS 53 % (35-66); NUCLEATED RBC 3; PLT ESTIMATE INCREASED (ADEQUATE)
[2018-06-29 10:28] LABS: ANISOCYTOSIS PRESENT; BURR CELLS FEW; MICROCYTOSIS PRESENT; POIKILOCYTOSIS PRESENT; POLYCHROMASIA PRESENT; SCHISTOCYTES FEW; TARGET CELLS FEW
[2018-06-29 10:29] LABS: TEAR DROP CELLS OCC
[2018-06-29] MEDS ORDERED: POTASSIUM CHLORIDE 20 MEQ TABLET.ER. PO ONE (12:00)
[2018-06-29] MEDS: ONDANSETRON PF 4 MG/2 ML VIAL. IV PRN ×2 (12:30→19:35)
[2018-06-29] MEDS: ENOXAPARIN 40 MG/0.4 ML SYRINGE. SQ SCH (12:31)
--- NOTE | 2018-06-29 12:57 | PDOC ---
PROGRESS NOTES Chief Complaint Chief Complaint Sepsis w. fever and leukocytosis, Abdominal abscess vs leak Metachronous colon masses sigmoid colon distal rectum liver mass sever malnutrition, POA acute vasomotor nephropathy on admit, better, History of Present Illness History of Present Illness s/p total colectomy with end ileostomy, liver biopsy more alert and coherent today plan DC with home health in AM if cont to improve he has had trouble with ostomy leakage, He thinks they now have it figured out. gen surg following Vitals Vitals Vital Signs Date Time Temp Pulse Resp B/P (MAP) Pulse Ox O2 Delivery O2 Flow Rate FiO2 06/29/18 11:49 95 Room Air 06/29/18 11:00 97.7 85 18 145/91 (109) 97.7 Physical Exam Physical Exam GENERAL: Lying down, NAD HEENT: Oral cavity clear NECK: Supple LUNGS: Clear. HEART: S1, S2 regular. ABDOMEN: Slightly distended, midline incision approx/steri-strips. Ostomy. Left -sided CATHRYN - purulent drainage EXTREMITIES: No edema or cyanosis. SKIN: warm NEUROLOGIC: Awake, responds few questions PIV General: Alert, Oriented X3, Cooperative, No acute distress Heart: Normal S1, Normal S2, Other (tele ST) Lungs: Clear Abdomen: Soft, Other (ostomy functioning, drain purulent) Extremities: No edema, Normal pulses Skin: No rashes Labs LABS Laboratory Tests Test 06/29/18 08:20 White Blood Count 20.0 x10^3/uL (4.0-11.0) Red Blood Count 4.21 x10^6/uL (4.30-5.70) Hemoglobin 10.0 g/dL (13.0-17.5) Hematocrit 31.4 % (39.0-53.0) Mean Corpuscular Volume 75 fL (79-100) Mean Corpuscular Hemoglobin 24 pg (25-35) Mean Corpuscular Hemoglobin Concent 32 g/dL (31-37) Red Cell Distribution Width 19.8 % (11.5-14.5) Platelet Count 533 x10^3/uL (140-400) Neutrophils (%) (Auto) 50 % (31-73) Lymphocytes (%) (Auto) 46 % (24-48) Monocytes (%) (Auto) 4 % (0-9) Eosinophils (%) (Auto) 0 % (0-3) Basophils (%) (Auto) 1 % (0-3) Neutrophils # (Auto) 9.9 x10^3uL (1.8-7.7) Lymphocytes # (Auto) 9.1 x10^3/uL (1.0-4.8) Monocytes # (Auto) 0.8 x10^3/uL (0.0-1.1) Eosinophils # (Auto) 0.0 x10^3/uL (0.0-0.7) Basophils # (Auto) 0.1 x10^3/uL (0.0-0.2) Segmented Neutrophils % 53 % (35-66) Band Neutrophils % 15 % (0-9) Lymphocytes % 22 % (24-48) Atypical Lymphocytes % (Manual) 1 % (0-0) Monocytes % 8 % (0-10) Metamyelocytes % 1 % (0-0) Nucleated Red Blood Cells 3 Platelet Estimate Increased (ADEQUATE) Large Platelets Few Giant Platelets Few Polychromasia Present Poikilocytosis Present Anisocytosis Present Microcytosis Present Target Cells Few Tear Drop Cells Occ Nick Cells Few Schistocytes Few Sodium Level 137 mmol/L (136-145) Potassium Level 3.2 mmol/L (3.5-5.1) Chloride Level 101 mmol/L (98-107) Carbon Dioxide Level 23 mmol/L (21-32) Anion Gap 13 (6-14) Blood Urea Nitrogen 18 mg/dL (8-26) Creatinine 0.9 mg/dL (0.7-1.3) Estimated GFR (Cockcroft-Gault) 102.5 BUN/Creatinine Ratio 20 (6-20) Glucose Level 98 mg/dL (70-99) Calcium Level 9.0 mg/dL (8.5-10.1) Total Bilirubin 0.6 mg/dL (0.2-1.0) Aspartate Amino Transf (AST/SGOT) 75 U/L (15-37) Alanine Aminotransferase (ALT/SGPT) 51 U/L (16-63) Alkaline Phosphatase 529 U/L (46-116) Total Protein 7.5 g/dL (6.4-8.2) Albumin 1.9 g/dL (3.4-5.0) Albumin/Globulin Ratio 0.3 (1.0-1.7) Review of Systems Review of Systems nausea abd pain weakness - overall better Comment Review of Relevant I have reviewed the following items pallavi (where applicable) has been applied. Labs Laboratory Tests Test 06/28/18 04:30 06/29/18 08:20 Iron Level 13 ug/dL (65-175) Total Iron Binding Capacity 134 ug/dL (250-450) Iron Saturation 10 % (15-34) Ferritin 1544 ng/mL (26-388) Vancomycin Level Trough 13.3 mcg/mL (10.0-20.0) Vancomycin Last Dose Date 06/27/08 Vancomycin Last Dose Time 1700 White Blood Count 20.0 x10^3/uL (4.0-11.0) Red Blood Count 4.21 x10^6/uL (4.30-5.70) Hemoglobin 10.0 g/dL (13.0-17.5) Hematocrit 31.4 % (39.0-53.0) Mean Corpuscular Volume 75 fL (79-100) Mean Corpuscular Hemoglobin 24 pg (25-35) Mean Corpuscular Hemoglobin Concent 32 g/dL (31-37) Red Cell Distribution Width 19.8 % (11.5-14.5) Platelet Count 533 x10^3/uL (140-400) Neutrophils (%) (Auto) 50 % (31-73) Lymphocytes (%) (Auto) 46 % (24-48) Monocytes (%) (Auto) 4 % (0-9) Eosinophils (%) (Auto) 0 % (0-3) Basophils (%) (Auto) 1 % (0-3) Neutrophils # (Auto) 9.9 x10^3uL (1.8-7.7) Lymphocytes # (Auto) 9.1 x10^3/uL (1.0-4.8) Monocytes # (Auto) 0.8 x10^3/uL (0.0-1.1) Eosinophils # (Auto) 0.0 x10^3/uL (0.0-0.7) Basophils # (Auto) 0.1 x10^3/uL (0.0-0.2) Segmented Neutrophils % 53 % (35-66) Band Neutrophils % 15 % (0-9) Lymphocytes % 22 % (24-48) Atypical Lymphocytes % (Manual) 1 % (0-0) Monocytes % 8 % (0-10) Metamyelocytes % 1 % (0-0) Nucleated Red Blood Cells 3 Platelet Estimate Increased (ADEQUATE) Large Platelets Few Giant Platelets Few Polychromasia Present Poikilocytosis Present Anisocytosis Present Microcytosis Present Target Cells Few Tear Drop Cells Occ [place] Cells Few Schistocytes Few Sodium Level 137 mmol/L (136-145) Potassium Level 3.2 mmol/L (3.5-5.1) Chloride Level 101 mmol/L (98-107) Carbon Dioxide Level 23 mmol/L (21-32) Anion Gap 13 (6-14) Blood Urea Nitrogen 18 mg/dL (8-26) Creatinine 0.9 mg/dL (0.7-1.3) Estimated GFR (Cockcroft-Gault) 102.5 BUN/Creatinine Ratio 20 (6-20) Glucose Level 98 mg/dL (70-99) Calcium Level 9.0 mg/dL (8.5-10.1) Total Bilirubin 0.6 mg/dL (0.2-1.0) Aspartate Amino Transf (AST/SGOT) 75 U/L (15-37) Alanine Aminotransferase (ALT/SGPT) 51 U/L (16-63) Alkaline Phosphatase 529 U/L (46-116) Total Protein 7.5 g/dL (6.4-8.2) Albumin 1.9 g/dL (3.4-5.0) Albumin/Globulin Ratio 0.3 (1.0-1.7) Laboratory Tests Test 06/29/18 08:20 White Blood Count 20.0 x10^3/uL (4.0-11.0) Red Blood Count 4.21 x10^6/uL (4.30-5.70) Hemoglobin 10.0 g/dL (13.0-17.5) Hematocrit 31.4 % (39.0-53.0) Mean Corpuscular Volume 75 fL (79-100) Mean Corpuscular Hemoglobin 24 pg (25-35) Mean Corpuscular Hemoglobin Concent 32 g/dL (31-37) Red Cell Distribution Width 19.8 % (11.5-14.5) Platelet Count 533 x10^3/uL (140-400) Neutrophils (%) (Auto) 50 % (31-73) Lymphocytes (%) (Auto) 46 % (24-48) Monocytes (%) (Auto) 4 % (0-9) Eosinophils (%) (Auto) 0 % (0-3) Basophils (%) (Auto) 1 % (0-3) Neutrophils # (Auto) 9.9 x10^3uL (1.8-7.7) Lymphocytes # (Auto) 9.1 x10^3/uL (1.0-4.8) Monocytes # (Auto) 0.8 x10^3/uL (0.0-1.1) Eosinophils # (Auto) 0.0 x10^3/uL (0.0-0.7) Basophils # (Auto) 0.1 x10^3/uL (0.0-0.2) Segmented Neutrophils % 53 % (35-66) Band Neutrophils % 15 % (0-9) Lymphocytes % 22 % (24-48) Atypical Lymphocytes % (Manual) 1 % (0-0) Monocytes % 8 % (0-10) Metamyelocytes % 1 % (0-0) Nucleated Red Blood Cells 3 Platelet Estimate Increased (ADEQUATE) Large Platelets Few Giant Platelets Few Polychromasia Present Poikilocytosis Present Anisocytosis Present Microcytosis Present Target Cells Few Tear Drop Cells Occ Nick Cells Few Schistocytes Few Sodium Level 137 mmol/L (136-145) Potassium Level 3.2 mmol/L (3.5-5.1) Chloride Level 101 mmol/L (98-107) Carbon Dioxide Level 23 mmol/L (21-32) Anion Gap 13 (6-14) Blood Urea Nitrogen 18 mg/dL (8-26) Creatinine 0.9 mg/dL (0.7-1.3) Estimated GFR (Cockcroft-Gault) 102.5 BUN/Creatinine Ratio 20 (6-20) Glucose Level 98 mg/dL (70-99) Calcium Level 9.0 mg/dL (8.5-10.1) Total Bilirubin 0.6 mg/dL (0.2-1.0) Aspartate Amino Transf (AST/SGOT) 75 U/L (15-37) Alanine Aminotransferase (ALT/SGPT) 51 U/L (16-63) Alkaline Phosphatase 529 U/L (46-116) Total Protein 7.5 g/dL (6.4-8.2) Albumin 1.9 g/dL (3.4-5.0) Albumin/Globulin Ratio 0.3 (1.0-1.7) Microbiology 06/26/18 Blood Culture - Preliminary, Resulted NO GROWTH AFTER 2 DAYS Medications Current Medications Ondansetron HCl (Zofran) 4 mg PRN Q6HRS PRN IV NAUSEA/VOMITING; Start 06/20/18 at 07:00; Stop 06/21/18 at 06:59; Status DC Fentanyl Citrate (Fentanyl 2ml Vial) 25 mcg PRN Q5MIN PRN IV MILD PAIN; Start 06/20/18 at 07:00; Stop 06/21/18 at 06:59; Status DC Fentanyl Citrate (Fentanyl 2ml Vial) 50 mcg PRN Q5MIN PRN IV MODERATE TO SEVERE PAIN Last administered on 06/20/18at 12:39; Start 06/20/18 at 07:00; Stop 06/21/18 at 06:59; Status DC Morphine Sulfate (Morphine Sulfate) 1 mg PRN Q10MIN PRN IV SEVERE PAIN; Start 06/20/18 at 07:00; Stop 06/21/18 at 06:59; Status DC Ringer's Solution 1,000 ml @ 30 mls/hr Q24H IV Last administered on 06/20/18at 06:39; Start 06/20/18 at 07:00; Stop 06/20/18 at 18:59; Status DC Lidocaine HCl (Xylocaine-Mpf 1% 2ml Vial) 2 ml PRN 1X PRN ID IV START; Start at 07:00; Stop 06/21/18 at 06:59; Status DC Hydromorphone HCl (Dilaudid) 0.5 mg PRN Q10MIN PRN IV SEV PAIN, Second choice; Start 06/20/18 at 07:00; Stop 06/21/18 at 06:59; Status DC Prochlorperazine Edisylate (Compazine) 5 mg PACU PRN PRN IV NAUSEA, MRX1 Last administered on 06/20/18at 12:18; Start 06/20/18 at 07:00; Stop 06/21/18 at 06:59 ; Status DC Cefoxitin Sodium (Mefoxin) 2 gm 1X PREOP PRN IVP PRIOR TO PROCEDURE Last administered on 06/20/18at 10:07; Start 06/20/18 at 06:00; Stop 06/20/18 at 21:00 ; Status DC Propofol 20 ml @ As Directed STK-MED ONCE IV ; Start 06/20/18 at 07:43; Stop at 07:44; Status DC Dexamethasone Sodium Phosphate (Decadron) 20 mg STK-MED ONCE .ROUTE ; Start at 07:43; Stop 06/20/18 at 07:44; Status DC Famotidine (Pepcid Vial) 20 mg STK-MED ONCE .ROUTE ; Start 06/20/18 at 07:43; Stop 06/20/18 at 07:44; Status DC Lidocaine HCl (Lidocaine Pf 2% Vial) 5 ml STK-MED ONCE .ROUTE ; Start 06/20/18 at 07:43; Stop 06/20/18 at 07:44; Status DC Ondansetron HCl (Zofran) 4 mg STK-MED ONCE .ROUTE ; Start 06/20/18 at 07:43; Stop 06/20/18 at 07:44; Status DC Rocuronium Forbes (Zemuron) 100 mg STK-MED ONCE .ROUTE ; Start 06/20/18 at 07: 43; Stop 06/20/18 at 07:44; Status DC Fentanyl Citrate (Fentanyl 2ml Vial) 100 mcg STK-MED ONCE .ROUTE ; Start at 07:43; Stop 06/20/18 at 07:44; Status DC Midazolam HCl (Versed) 2 mg STK-MED ONCE .ROUTE ; Start 06/20/18 at 07:43; Stop 06/20/18 at 07:44; Status DC Fentanyl Citrate (Fentanyl 2ml Vial) 100 mcg STK-MED ONCE .ROUTE ; Start at 07:46; Stop 06/20/18 at 07:47; Status DC Phenylephrine HCl (Celio-Synephrine Inj) 10 mg STK-MED ONCE .ROUTE ; Start at 07:59; Stop 06/20/18 at 08:00; Status DC Sevoflurane (Ultane) 90 ml STK-MED ONCE IH ; Start 06/20/18 at 08:55; Stop 06/20 at 08:56; Status DC Neostigmine Methylsulfate (Bloxiverz) 10 mg STK-MED ONCE .ROUTE ; Start at 09:34; Stop 06/20/18 at 09:35; Status DC Glycopyrrolate (Robinul) 1 mg STK-MED ONCE .ROUTE ; Start 06/20/18 at 09:34; Stop 06/20/18 at 09:35; Status DC Albumin Human 500 ml @ As Directed STK-MED ONCE IV ; Start 06/20/18 at 09:35; Stop 06/20/18 at 09:36; Status DC Hydromorphone HCl (Dilaudid) 2 mg STK-MED ONCE .ROUTE ; Start 06/20/18 at 10:59 ; Stop 06/20/18 at 11:00; Status DC Cefoxitin Sodium (Mefoxin) 1 gm Q8H IVP ; Start 06/20/18 at 18:00; Stop at 10:01; Status Cancel Sodium Chloride (Normal Saline Flush) 3 ml QSHIFT PRN IV AFTER MEDS AND BLOOD DRAWS; Start 06/20/18 at 11:00 Morphine Sulfate (Morphine Sulfate) 2 mg PRN Q3HRS PRN IV PAIN Last administered on 06/24/18at 08:40; Start 06/20/18 at 11:00 Oxycodone/ Acetaminophen (Percocet 5/325) 1 tab PRN Q4HRS PRN PO MILD PAIN, 1ST CHOICE Last administered on 06/29/18at 08:34; Start 06/20/18 at 11:00 Oxycodone/ Acetaminophen (Percocet 5/325) 2 tab PRN Q4HRS PRN PO MODERATE PAIN , SEVERE PAIN Last administered on 06/28/18at 21:37; Start 06/20/18 at 11:00 Ketorolac Tromethamine (Toradol 15mg Vial) 15 mg Q6HRS IV Last administered on 06/22/18at 06:32; Start 06/20/18 at 12:00; Stop 06/22/18 at 11:59; Status DC Ondansetron HCl (Zofran) 4 mg PRN Q6HRS PRN IV NAUSEA, 1ST CHOICE Last administered on 06/29/18at 12:30; Start 06/20/18 at 11:00 Dextrose/Lactated Ringer's 1,000 ml @ 75 mls/hr [id number] IV Last administered on 06/20/18at 14:54; Start 06/20/18 at 10:58; Stop 06/23/18 at 13:17; Status DC Ketorolac Tromethamine (Toradol 30mg Vial) 30 mg STK-MED ONCE .ROUTE ; Start at 11:09; Stop 06/20/18 at 11:10; Status DC Sodium Chloride 1,000 ml @ 100 mls/hr Q10H IV Last administered on 06/22/18at 00:45; Start 06/20/18 at 11:15; Stop 06/23/18 at 13:17; Status DC Cefoxitin Sodium (Mefoxin) 1 gm Q8H IVP Last administered on 06/21/18at 10:38; Start 06/20/18 at 18:00; Stop 06/21/18 at 10:01; Status DC Enoxaparin Sodium (Lovenox Per Pharmacy Prophylaxis Dosing) 1 each PRN DAILY PRN MC SEE COMMENTS; Start 06/22/18 at 11:30; Stop 06/27/18 at 14:49; Status DC Enoxaparin Sodium (Lovenox 40mg Syringe) 40 mg Q24H SQ Last administered on 06/29at 12:31; Start 06/22/18 at 12:00 Guaifenesin (Mucinex) 600 mg BID PO Last administered on 06/29/18 08:29; Start 06/22/18 at 15:00 Lisinopril (Prinivil) 10 mg DAILY PO Last administered on 06/29/18 08:28; Start 06/23/18 at 10:00 Hydrochlorothiazide (Microzide) 12.5 mg DAILY PO Last administered on 06/29/18 08:29; Start 06/23/18 at 10:00 Iohexol (Omnipaque 300 Mg/ml) 75 ml 1X ONCE IV Last administered on 06/26/18at 13:00; Start 06/26/18 at 13:00; Stop 06/26/18 at 13:02; Status DC Iohexol (Omnipaque 240 Mg/ml) 30 ml 1X ONCE PO Last administered on 06/26/18at 13:00; Start 06/26/18 at 13:00; Stop 06/26/18 at 13:02; Status DC Info (CONTRAST GIVEN -- Rx MONITORING) 1 each PRN DAILY PRN MC SEE COMMENTS; Start 06/26/18 at 13:15; Stop 06/28/18 at 13:14; Status DC Sodium Chloride 1,000 ml @ 100 mls/hr Q10H IV Last administered on 06/28/18at 09 :14; Start 06/26/18 at 15:00; Stop 06/28/18 at 10:46; Status DC Potassium Chloride (Klor-Con) 40 meq 1X ONCE PO Last administered on at 16:56; Start 06/26/18 at 15:00; Stop 06/26/18 at 15:01; Status DC Potassium Chloride (Klor-Con) 20 meq [id number] PO Last administered on at 08:29; Start 06/27/18 at 08:00 Sodium Chloride 1,000 ml @ 500 mls/hr Q2H IV ; Start 06/26/18 at 15:00; Status Cancel Meropenem 1 gm/ Sodium Chloride 100 ml @ 200 mls/hr Q8HRS IV Last administered on 06/29/18at 05:21; Start 06/26/18 at 15:00 Vancomycin HCl 1.5 gm/Sodium Chloride 500 ml @ 250 mls/hr 1X ONCE IV Last administered on 06/26/18at 16:53; Start 06/26/18 at 14:45; Stop 06/26/18 at 16:44 ; Status DC Sodium Chloride 1,000 ml @ 500 mls/hr 1X ONCE IV Last administered on at 16:10; Start 06/26/18 at 15:00; Stop 06/26/18 at 16:59; Status DC Sodium Chloride 1,000 ml @ 2,460 mls/hr Q25M IV ; Start 06/26/18 at 17:00; Stop 06/26/18 at 17:11; Status DC Sodium Chloride 500 ml @ 1,000 mls/hr PRN Q30MIN PRN IV SEE COMMENTS; Start at 17:00 Vancomycin HCl (Vanco Per Pharmacy) 1 each PRN DAILY PRN MC SEE COMMENTS Last administered on 06/28/18at 06:41; Start 06/26/18 at 17:00 Vancomycin HCl 1.25 gm/Sodium Chloride 250 ml @ 167 mls/hr Q12H IV Last administered on 06/29/18at 06:26; Start 06/27/18 at 05:00 Vancomycin HCl (Vancomycin Trough Level) 1 each 1X ONCE MC ; Start 06/28/18 at 04:30; Stop 06/28/18 at 04:31; Status DC Lidocaine/Sodium Bicarbonate (Buffered Lidocaine 1%) 3 ml STK-MED ONCE .ROUTE ; Start 06/27/18 at 12:12; Stop 06/27/18 at 12:13; Status DC Midazolam HCl (Versed) 2 mg STK-MED ONCE .ROUTE ; Start 06/27/18 at 12:13; Stop 06/27/18 at 12:14; Status DC Fentanyl Citrate (Fentanyl 2ml Vial) 100 mcg STK-MED ONCE .ROUTE ; Start at 12:13; Stop 06/27/18 at 12:14; Status DC Lidocaine/Sodium Bicarbonate (Buffered Lidocaine 1%) 3 ml 1X ONCE IJ Last administered on 06/27/18at 12:30; Start 06/27/18 at 12:30; Stop 06/27/18 at 12:31; Status DC Midazolam HCl (Versed) 2 mg 1X ONCE IV Last administered on 06/27/18at 12:30; Start 06/27/18 at 12:30; Stop 06/27/18 at 12:31; Status DC Fentanyl Citrate (Fentanyl 2ml Vial) 100 mcg 1X ONCE IV Last administered on at 12:30; Start 06/27/18 at 12:30; Stop 06/27/18 at 12:31; Status DC Potassium Chloride (Klor-Con) 40 meq 1X ONCE PO Last administered on 06/29/18at 12:31; Start 06/29/18 at 12:00; Stop 06/29/18 at 12:01; Status DC Active Scripts Active Reported Zofran (Ondansetron Hcl) 4 Mg Tablet 4 Mg PO BID PRN Lisinopril-Hctz 10-12.5 Mg Tab (Lisinopril/Hydrochlorothiazide) 1 Each Tablet 1 Tab PO DAILY Vitals/I & O Vital Sign - Last 24 Hours 06/28/18 06/28/18 06/28/18 06/28/18 15:00 16:46 18:02 19:00 Temp 98.2 98.6 98.2 98.6 Pulse 87 91 Resp 18 18 B/P (MAP) 127/78 (94) 142/91 (108) Pulse Ox 97 97 97 96 O2 Delivery Room Air Room Air Room Air 06/28/18 06/28/18 06/28/18 06/28/18 20:00 21:37 22:37 23:00 Temp 98.1 98.1 Pulse 96 Resp 18 20 16 B/P (MAP) 126/80 (95) Pulse Ox 96 O2 Delivery Room Air Room Air Room Air Room Air 06/29/18 06/29/18 06/29/18 06/29/18 03:00 07:00 08:28 08:34 Temp 98.6 98.4 98.6 98.4 Pulse 83 84 84 Resp 16 20 B/P (MAP) 141/87 (105) 154/92 (112) 154/92 Pulse Ox 95 O2 Delivery Room Air Room Air Room Air 06/29/18 06/29/18 11:00 11:49 Temp 97.7 97.7 Pulse 85 Resp 18 B/P (MAP) 145/91 (109) Pulse Ox 95 O2 Delivery Room Air Room Air Intake and Output 06/28/18 06/28/18 06/29/18 15:00 23:00 07:00 Intake Total 480 ml Output Total 925 ml 750 ml 820 ml Balance -445 ml -750 ml -820 ml JINA MILLER MD Jun 29, 2018 12:57
[2018-06-29] MEDS: VANCOMYCIN PER PHARMACY MC PRN (14:20)
--- NOTE | 2018-06-29 18:49 | NUR ---
Floor nurse called a rapid response after obtaining a transfer order from the MD. She stated the patient became tachycardic and she did not know when she was going to be able to transfer him to ICU. I did not run a rapid response because the nurse was on the phone with the MD again when I arrived. Transferred the patient to the ICU with the boiler house operator for higher level of care, at bedside and is meeting a family member to take all of the patient's belongings home, will come to room afterwards.
--- NOTE | 2018-06-29 19:24 | NUR ---
Report given to ICU nurse for pt transferring to ICU. Pt is tachycardic, with purulent drainage coming from the middle of incision site. Dr. Goodwin paged. Orders given. Dr. Cordova notified. A rapid was called for pt's high HR. Pt was tranferred via bed to ICU room 106.
[2018-06-29] MEDS ORDERED: IV NORMAL SALINE 500ML BAG 500 ML IV ONE (19:30)
--- NOTE | 2018-06-29 19:30 | NUR ---
pt transferred to ICU via bed at this time. pt alert and oriented x4, VSS, c/o pain to abdomen upon moving from floor bed to ICU bed. Morphine given per PRN order. thin, yellow/amor drainage noted from abdominal incision, steristrips intact but soiled, left in place. ABD pad placed to open area of incision then covered with medipore tape. ileostomy device also intact, no leaking observed. pt and updated on plan of care, unit routines and new diet order; both verbalize understanding. call light in reach, will continue to closely monitor.
[2018-06-29] MEDS: MORPHINE SULFATE 4 MG/ML VIAL. IV PRN (19:31)
[2018-06-29] MEDS: IV DEXTROSE 5% - 0.9 % NACL 1,000 ML IV SCH (21:07)
[2018-06-30] VITALS (24 sets, daily range): BP systolic 113–165; BP diastolic 69–97
[2018-06-30 05:05] LABS: CALCIUM 8.3 mg/dL (8.5-10.1); CREATININE 0.7 mg/dL (0.7-1.3); GFR 136.9; POTASSIUM 3.6 mmol/L (3.5-5.1)
[2018-06-30] MEDS: VANCOMYCIN 1.25 GM in IV NORMAL SALINE 250ML 250 ML IV SCH ×2 (05:06→19:36)
[2018-06-30] MEDS: MORPHINE SULFATE 4 MG/ML VIAL. IV PRN (05:07)
[2018-06-30] MEDS: MEROPENEM 1 GM in IV NORMAL SALINE 100ML 100 ML IV SCH ×3 (06:11→21:12)
--- NOTE | 2018-06-30 08:16 | PDOC ---
Infectious Disease Note Subjective: Subjective Thinks he is doing alright Denies pain?Vomiting some nausea No fevers last 48 hours ROS: ROS Negative except for above. Vital Signs: Vital Signs Vital Signs Date Time Temp Pulse Resp B/P (MAP) Pulse Ox O2 Delivery O2 Flow Rate FiO2 06/30/18 06:13 18 97 Room Air 06/30/18 06:00 71 144/86 (105) 06/30/18 04:00 98.1 98.1 Physical Exam: PHYSICAL EXAM GENERAL: Lying down, NAD HEENT: Oral cavity clear NECK: Supple LUNGS: Clear. HEART: S1, S2 regular. ABDOMEN: Slightly distended, midline incision approx/steri-strips. Ostomy. Left -sided CATHRYN - purulent drainage EXTREMITIES: No edema or cyanosis. SKIN: warm NEUROLOGIC: Awake, responds few questions PIV Medications: Inpatient Meds: Current Medications Medications (Trade) Dose Ordered Sig/Siri Start Time Stop Time Status Last Admin Dose Admin Albumin Human 500 ml @ As Directed STK-MED ONCE 06/20/18 09:35 06/20/18 09:36 DC Cefoxitin Sodium (Mefoxin) 1 gm Q8H 06/20/18 18:00 06/21/18 10:01 DC 06/21/18 10:38 1 GM Dexamethasone Sodium Phosphate (Decadron) 20 mg STK-MED ONCE 06/20/18 07:43 06/20/18 07:44 DC Dextrose/Lactated Ringer's 1,000 ml @ 75 mls/hr [id number] 06/20/18 10:58 06/23/18 13:17 DC 06/20/18 14:54 75 MLS/HR Dextrose/Sodium Chloride 1,000 ml @ 100 mls/hr Q10H 06/29/18 21:00 06/29/18 21:07 100 MLS/HR Enoxaparin Sodium (Lovenox 40mg Syringe) 40 mg Q24H 06/22/18 12:00 06/29/18 12:31 40 MG Enoxaparin Sodium (Lovenox Per Pharmacy Prophylaxis Dosing) 1 each PRN DAILY PRN 06/22/18 11:30 06/27/18 14:49 DC Famotidine (Pepcid Vial) 20 mg STK-MED ONCE 06/20/18 07:43 06/20/18 07:44 DC Fentanyl Citrate (Fentanyl 2ml Vial) 100 mcg 1X ONCE 06/27/18 12:30 06/27/18 12:31 DC 06/27/18 12:30 75 MCG Glycopyrrolate (Robinul) 1 mg STK-MED ONCE 06/20/18 09:34 06/20/18 09:35 DC Guaifenesin (Mucinex) 600 mg BID 06/22/18 15:00 06/29/18 08:29 600 MG Hydrochlorothiazide (Microzide) 12.5 mg DAILY 06/23/18 10:00 06/29/18 08:29 12.5 MG Hydromorphone HCl (Dilaudid) 2 mg STK-MED ONCE 06/20/18 10:59 06/20/18 11:00 DC Info (CONTRAST GIVEN -- Rx MONITORING) 1 each PRN DAILY PRN 06/26/18 13:15 06/28/18 13:14 DC Iohexol (Omnipaque 240 Mg/ml) 30 ml 1X ONCE 06/26/18 13:00 06/26/18 13:02 DC 06/26/18 13:00 30 ML Iohexol (Omnipaque 300 Mg/ml) 75 ml 1X ONCE 06/26/18 13:00 06/26/18 13:02 DC 06/26/18 13:00 75 ML Ketorolac Tromethamine (Toradol 15mg Vial) 15 mg Q6HRS 06/20/18 12:00 06/22/18 11:59 DC 06/22/18 06:32 15 MG Ketorolac Tromethamine (Toradol 30mg Vial) 30 mg STK-MED ONCE 06/20/18 11:09 06/20/18 11:10 DC Lidocaine HCl (Lidocaine Pf 2% Vial) 5 ml STK-MED ONCE 06/20/18 07:43 06/20/18 07:44 DC Lidocaine HCl (Xylocaine-Mpf 1% 2ml Vial) 2 ml PRN 1X PRN 06/20/18 07:00 06/21/18 06:59 DC Lidocaine/Sodium Bicarbonate (Buffered Lidocaine 1%) 3 ml 1X ONCE 06/27/18 12:30 06/27/18 12:31 DC 06/27/18 12:30 9 ML Lisinopril (Prinivil) 10 mg DAILY 06/23/18 10:00 06/29/18 08:28 10 MG Meropenem 1 gm/ Sodium Chloride 100 ml @ 200 mls/hr Q8HRS 06/26/18 15:00 06/30/18 06:11 200 MLS/HR Midazolam HCl (Versed) 2 mg 1X ONCE 06/27/18 12:30 06/27/18 12:31 DC 06/27/18 12:30 2 MG Morphine Sulfate (Morphine Sulfate) 2 mg PRN Q3HRS PRN 06/20/18 11:00 06/30/18 05:07 2 MG Neostigmine Methylsulfate (Bloxiverz) 10 mg STK-MED ONCE 06/20/18 09:34 06/20/18 09:35 DC Ondansetron HCl (Zofran) 4 mg PRN Q6HRS PRN 06/20/18 11:00 06/29/18 19:35 4 MG Oxycodone/ Acetaminophen (Percocet 5/325) 2 tab PRN Q4HRS PRN 06/20/18 11:00 06/28/18 21:37 2 TAB Phenylephrine HCl (Celio-Synephrine Inj) 10 mg STK-MED ONCE 06/20/18 07:59 06/20/18 08:00 DC Potassium Chloride (Klor-Con) 40 meq 1X ONCE 06/29/18 12:00 06/29/18 12:01 DC 06/29/18 12:31 40 MEQ Prochlorperazine Edisylate (Compazine) 5 mg PACU PRN PRN 06/20/18 07:00 06/21/18 06:59 DC 06/20/18 12:18 5 MG Propofol 20 ml @ As Directed STK-MED ONCE 06/20/18 07:43 06/20/18 07:44 DC Ringer's Solution 1,000 ml @ 30 mls/hr Q24H 06/20/18 07:00 06/20/18 18:59 DC 06/20/18 06:39 30 MLS/HR Rocuronium [place] (Zemuron) 100 mg STK-MED ONCE 06/20/18 07:43 06/20/18 07:44 DC Sevoflurane (Ultane) 90 ml STK-MED ONCE 06/20/18 08:55 06/20/18 08:56 DC Sodium Chloride 500 ml @ 500 mls/hr 1X ONCE 06/29/18 19:30 06/29/18 20:29 DC 06/29/18 20:30 500 MLS/HR Sodium Chloride (Normal Saline Flush) 3 ml QSHIFT PRN 06/20/18 11:00 Vancomycin HCl (Vanco Per Pharmacy) 1 each PRN DAILY PRN 06/26/18 17:00 06/29/18 14:20 1 EACH Vancomycin HCl (Vancomycin Trough Level) 1 each 1X ONCE 06/28/18 04:30 06/28/18 04:31 DC Vancomycin HCl 1.25 gm/Sodium Chloride 250 ml @ 167 mls/hr Q12H 06/27/18 05:00 06/30/18 05:06 167 MLS/HR Vancomycin HCl 1.5 gm/Sodium Chloride 500 ml @ 250 mls/hr 1X ONCE 06/26/18 14:45 06/26/18 16:44 DC 06/26/18 16:53 250 MLS/HR Labs: Lab Laboratory Tests Test 06/29/18 08:20 06/30/18 03:40 White Blood Count 20.0 x10^3/uL (4.0-11.0) Red Blood Count 4.21 x10^6/uL (4.30-5.70) Hemoglobin 10.0 g/dL (13.0-17.5) Hematocrit 31.4 % (39.0-53.0) Mean Corpuscular Volume 75 fL (79-100) Mean Corpuscular Hemoglobin 24 pg (25-35) Mean Corpuscular Hemoglobin Concent 32 g/dL (31-37) Red Cell Distribution Width 19.8 % (11.5-14.5) Platelet Count 533 x10^3/uL (140-400) Neutrophils (%) (Auto) 50 % (31-73) Lymphocytes (%) (Auto) 46 % (24-48) Monocytes (%) (Auto) 4 % (0-9) Eosinophils (%) (Auto) 0 % (0-3) Basophils (%) (Auto) 1 % (0-3) Neutrophils # (Auto) 9.9 x10^3uL (1.8-7.7) Lymphocytes # (Auto) 9.1 x10^3/uL (1.0-4.8) Monocytes # (Auto) 0.8 x10^3/uL (0.0-1.1) Eosinophils # (Auto) 0.0 x10^3/uL (0.0-0.7) Basophils # (Auto) 0.1 x10^3/uL (0.0-0.2) Segmented Neutrophils % 53 % (35-66) Band Neutrophils % 15 % (0-9) Lymphocytes % 22 % (24-48) Atypical Lymphocytes % (Manual) 1 % (0-0) Monocytes % 8 % (0-10) Metamyelocytes % 1 % (0-0) Nucleated Red Blood Cells 3 Platelet Estimate Increased (ADEQUATE) Large Platelets Few Giant Platelets Few Polychromasia Present Poikilocytosis Present Anisocytosis Present Microcytosis Present Target Cells Few Tear Drop Cells Occ [place] Cells Few Schistocytes Few Sodium Level 137 mmol/L (136-145) 141 mmol/L (136-145) Potassium Level 3.2 mmol/L (3.5-5.1) 3.6 mmol/L (3.5-5.1) Chloride Level 101 mmol/L (98-107) 106 mmol/L (98-107) Carbon Dioxide Level 23 mmol/L (21-32) 22 mmol/L (21-32) Anion Gap 13 (6-14) 13 (6-14) Blood Urea Nitrogen 18 mg/dL (8-26) 13 mg/dL (8-26) Creatinine 0.9 mg/dL (0.7-1.3) 0.7 mg/dL (0.7-1.3) Estimated GFR (Cockcroft-Gault) 102.5 136.9 BUN/Creatinine Ratio 20 (6-20) Glucose Level 98 mg/dL (70-99) 125 mg/dL (70-99) Calcium Level 9.0 mg/dL (8.5-10.1) 8.3 mg/dL (8.5-10.1) Total Bilirubin 0.6 mg/dL (0.2-1.0) Aspartate Amino Transf (AST/SGOT) 75 U/L (15-37) Alanine Aminotransferase (ALT/SGPT) 51 U/L (16-63) Alkaline Phosphatase 529 U/L (46-116) Total Protein 7.5 g/dL (6.4-8.2) Albumin 1.9 g/dL (3.4-5.0) Albumin/Globulin Ratio 0.3 (1.0-1.7) Micro RUN DATE: 06/29/18 PAGE 1 RUN TIME: 1610 [facility] [address] [id number] Elijah Johnson M.D., Field Laborer PATIENT: PRABHA GROVER ACCT: [id number] LOC: [address] [place] [address] U : [id number] AGE/SX: 63/M ROOM: 434 REG : 06/20/[address]: PEPE PAGAN MD : 1955 BED: 1 DIS : STATUS: ADM IN TLOC: SPEC #: [id number] SYD: 06/27/18 STATUS: RES REQ #: [id number] RECD: 06/27/[address] [facility] [address]: NOAH HUBBARD MD SOURCE: PELVIS ENTR: 06/27/[address]: TADEO MCLAUGHLIN MD [facility]: FLOR DEWEY MD, PRASHANTH S MD TERMULO, CHERRIE Y MD WILDER, THOMAS W MD ORDERED: ANAER/AEROB/GS Procedure Result ANAEROBIC-AEROBIC CULTURE PENDING ANAEROBIC RES 1 PENDING AEROBIC CULT PENDING AEROBIC RES 1 PENDING GRAM STAIN Final Final report GRAM STAIN RES 1 Final Comment Many gram negative rods. GRAM STAIN RES 2 Final Comment Few gram positive rods. GRAM STAIN RES 3 Final Comment Few gram positive cocci GRAM STAIN RES 4 Final Comment CONTINUED ON NEXT PAGE RUN DATE: 06/29/18 PAGE 2 RUN TIME: 1610 [facility] [address] [place] [address] Elijah Johnson M.D., Field Laborer SPEC: [id number] PATIENT: PRABHA GROVER Bret [id number] ( Continued) Procedure Result GRAM STAIN RES 4 Final (continued) Few white blood cells. Performed at: - [facility] [address], [place], [place] [id number] Postal Clerk: BRISEYDA Peraza MD, Phone: [phone] Objective: Assessment: Fever, better Leukocytosis chronic since 2014 Sepsis Abdominal abscess / leak s/p CT drainage on 06/27. 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 s/p splenic flexure segmental resection on 11/22/2014 by s/p total colectomy with end ileostomy 06/20/2018 awaiting palliative chemotherapy by oncology PCM Anemia Plan: Plan of Care Vanc and meropenem Trough 13.3 f/u cultures Supportive care d/w RN SARAH SHEN MD Jun 30, 2018 08:16
--- NOTE | 2018-06-30 09:10 | PDOC ---
SURGICAL PROGRESS NOTE Subjective Resting comfortably in bed. Complains of incisional pain at site of drainage. Denies N/V Vital Signs Vital Signs Date Time Temp Pulse Resp B/P (MAP) Pulse Ox O2 Delivery O2 Flow Rate FiO2 06/30/18 08:00 Room Air 06/30/18 08:00 74 26 141/81 (101) 96 06/30/18 07:00 97.6 97.6 I&O Intake and Output 06/30/18 06:59 Intake Total 1971.8 ml Output Total 1220 ml Balance 751.8 ml Intake Oral 0 ml IV Total 1971.8 ml Stool Total 875 ml Gastric Drainage Total 235 ml Drainage Total 110 ml PATIENT HAS A RIVERA: No General: Alert, Oriented X3, Cooperative, mild distress Abdomen: Normal bowel sounds, Soft, Other (good ileostomy output. small wound opening with purulent drainage.) Labs Laboratory Tests Test 06/29/18 08:20 06/30/18 03:40 White Blood Count 20.0 x10^3/uL (4.0-11.0) Red Blood Count 4.21 x10^6/uL (4.30-5.70) Hemoglobin 10.0 g/dL (13.0-17.5) Hematocrit 31.4 % (39.0-53.0) Mean Corpuscular Volume 75 fL (79-100) Mean Corpuscular Hemoglobin 24 pg (25-35) Mean Corpuscular Hemoglobin Concent 32 g/dL (31-37) Red Cell Distribution Width 19.8 % (11.5-14.5) Platelet Count 533 x10^3/uL (140-400) Neutrophils (%) (Auto) 50 % (31-73) Lymphocytes (%) (Auto) 46 % (24-48) Monocytes (%) (Auto) 4 % (0-9) Eosinophils (%) (Auto) 0 % (0-3) Basophils (%) (Auto) 1 % (0-3) Neutrophils # (Auto) 9.9 x10^3uL (1.8-7.7) Lymphocytes # (Auto) 9.1 x10^3/uL (1.0-4.8) Monocytes # (Auto) 0.8 x10^3/uL (0.0-1.1) Eosinophils # (Auto) 0.0 x10^3/uL (0.0-0.7) Basophils # (Auto) 0.1 x10^3/uL (0.0-0.2) Segmented Neutrophils % 53 % (35-66) Band Neutrophils % 15 % (0-9) Lymphocytes % 22 % (24-48) Atypical Lymphocytes % (Manual) 1 % (0-0) Monocytes % 8 % (0-10) Metamyelocytes % 1 % (0-0) Nucleated Red Blood Cells 3 Platelet Estimate Increased (ADEQUATE) Large Platelets Few Giant Platelets Few Polychromasia Present Poikilocytosis Present Anisocytosis Present Microcytosis Present Target Cells Few Tear Drop Cells Occ [place] Cells Few Schistocytes Few Sodium Level 137 mmol/L (136-145) 141 mmol/L (136-145) Potassium Level 3.2 mmol/L (3.5-5.1) 3.6 mmol/L (3.5-5.1) Chloride Level 101 mmol/L (98-107) 106 mmol/L (98-107) Carbon Dioxide Level 23 mmol/L (21-32) 22 mmol/L (21-32) Anion Gap 13 (6-14) 13 (6-14) Blood Urea Nitrogen 18 mg/dL (8-26) 13 mg/dL (8-26) Creatinine 0.9 mg/dL (0.7-1.3) 0.7 mg/dL (0.7-1.3) Estimated GFR (Cockcroft-Gault) 102.5 136.9 BUN/Creatinine Ratio 20 (6-20) Glucose Level 98 mg/dL (70-99) 125 mg/dL (70-99) Calcium Level 9.0 mg/dL (8.5-10.1) 8.3 mg/dL (8.5-10.1) Total Bilirubin 0.6 mg/dL (0.2-1.0) Aspartate Amino Transf (AST/SGOT) 75 U/L (15-37) Alanine Aminotransferase (ALT/SGPT) 51 U/L (16-63) Alkaline Phosphatase 529 U/L (46-116) Total Protein 7.5 g/dL (6.4-8.2) Albumin 1.9 g/dL (3.4-5.0) Albumin/Globulin Ratio 0.3 (1.0-1.7) Laboratory Tests Test 06/30/18 03:40 Sodium Level 141 mmol/L (136-145) Potassium Level 3.6 mmol/L (3.5-5.1) Chloride Level 106 mmol/L (98-107) Carbon Dioxide Level 22 mmol/L (21-32) Anion Gap 13 (6-14) Blood Urea Nitrogen 13 mg/dL (8-26) Creatinine 0.7 mg/dL (0.7-1.3) Estimated GFR (Cockcroft-Gault) 136.9 Glucose Level 125 mg/dL (70-99) Calcium Level 8.3 mg/dL (8.5-10.1) Assessment/Plan S/P colon resection Small superficial wound infection, cleaned at bedside and expressed drainage. Will monitor in ICU today, Continue x PEPE PAGAN MD Jun 30, 2018 09:10
[2018-06-30] MEDS: hydroCHLOROthiazide 12.5 MG CAPSULE PO SCH (09:17)
[2018-06-30] MEDS: LISINOPRIL 10 MG TABLET PO SCH (09:18)
[2018-06-30] MEDS: POTASSIUM CHLORIDE 20 MEQ TABLET.ER. PO SCH (09:19)
[2018-06-30] MEDS: oxyCODONE/APAP 5/325 1 TAB TABLET PO PRN ×2 (09:19→21:11)
[2018-06-30] MEDS: VANCOMYCIN PER PHARMACY MC PRN ×3 (09:27→09:52)
--- NOTE | 2018-06-30 11:08 | RAD ---
CT-guided drain placement, pelvic fluid collection. 06/27/2018 Discussion: The patient is a 63-year-old male with a postoperative pelvic fluid collection, adjacent to a rectal stump. The risks and benefits of the procedure were discussed the patient. Informed consent was obtained. A timeout procedure was performed. CT imaging was performed with patient in the prone position. The pelvic fluid collection was again identified. Using an oblique transgluteal approach 1% lidocaine was administered for local anesthesia. Under intermittent CT guidance a 17-gauge needle was advanced to the collection. A guidewire was advanced into the collection which was confirmed with CT. Over this wire following dilatation a 10 Italian drain was placed. Turbid fluid was aspirated. Samples were sent for Gram stain and culture. The catheter secured. Sterile dressings were applied. The procedure was performed under conscious sedation including continuous cardiopulmonary monitoring via dedicated sedation nurse. [id number] sedation time: 30 minutes. Impression: CT-guided transgluteal drainage of a pelvic abscess as described. PQRS Compliance Statement: One or more of the following individualized dose reduction techniques were utilized for this examination: 1. Automated exposure control 2. Adjustment of the mA and/or kV according to patient size 3. Use of iterative reconstruction technique
--- NOTE | 2018-06-30 12:21 | PDOC ---
PROGRESS NOTES Chief Complaint Chief Complaint CC: Sepsis w. 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 General surgery following. Patient seen and examined in the ICU. Discussed case with nurse and discussed plan with patient. Patient complains of drainage from incision site. Patient is awaiting chemotherapy. Vitals Vitals Vital Signs Date Time Temp Pulse Resp B/P (MAP) Pulse Ox O2 Delivery O2 Flow Rate FiO2 06/30/18 09:18 74 166/82 06/30/18 08:00 Room Air 06/30/18 08:00 26 96 06/30/18 07:00 97.6 97.6 Physical Exam Physical Exam GENERAL: Lying down, NAD HEENT: Oral cavity clear NECK: Supple LUNGS: Clear. HEART: S1, S2 regular. ABDOMEN: Slightly distended, midline incision approx/steri-strips. Ostomy. Left -sided CATHRYN - purulent drainage EXTREMITIES: No edema or cyanosis. SKIN: warm NEUROLOGIC: Awake, responds few questions PIV General: Alert, Oriented X3, Cooperative, mild distress Heart: Normal S1, Normal S2, Other (tele ST) Lungs: Clear Abdomen: Normal bowel sounds, Soft, Other (good ileostomy output. small wound opening with purulent drainage.) Extremities: No edema, Normal pulses Skin: No rashes, Other (yellow pus from lap excision site, CATHRYN tube in place) Labs LABS Laboratory Tests Test 06/30/18 03:40 Sodium Level 141 mmol/L (136-145) Potassium Level 3.6 mmol/L (3.5-5.1) Chloride Level 106 mmol/L (98-107) Carbon Dioxide Level 22 mmol/L (21-32) Anion Gap 13 (6-14) Blood Urea Nitrogen 13 mg/dL (8-26) Creatinine 0.7 mg/dL (0.7-1.3) Estimated GFR (Cockcroft-Gault) 136.9 Glucose Level 125 mg/dL (70-99) Calcium Level 8.3 mg/dL (8.5-10.1) Review of Systems Review of Systems Reports drainage and pain around incision site Denies fevers or chills Reports nausea Assessment and Plan Assessmemt and Plan Assessment: Sepsis w. 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 Labs Laboratory Tests Test 06/29/18 08:20 06/30/18 03:40 White Blood Count 20.0 x10^3/uL (4.0-11.0) Red Blood Count 4.21 x10^6/uL (4.30-5.70) Hemoglobin 10.0 g/dL (13.0-17.5) Hematocrit 31.4 % (39.0-53.0) Mean Corpuscular Volume 75 fL (79-100) Mean Corpuscular Hemoglobin 24 pg (25-35) Mean Corpuscular Hemoglobin Concent 32 g/dL (31-37) Red Cell Distribution Width 19.8 % (11.5-14.5) Platelet Count 533 x10^3/uL (140-400) Neutrophils (%) (Auto) 50 % (31-73) Lymphocytes (%) (Auto) 46 % (24-48) Monocytes (%) (Auto) 4 % (0-9) Eosinophils (%) (Auto) 0 % (0-3) Basophils (%) (Auto) 1 % (0-3) Neutrophils # (Auto) 9.9 x10^3uL (1.8-7.7) Lymphocytes # (Auto) 9.1 x10^3/uL (1.0-4.8) Monocytes # (Auto) 0.8 x10^3/uL (0.0-1.1) Eosinophils # (Auto) 0.0 x10^3/uL (0.0-0.7) Basophils # (Auto) 0.1 x10^3/uL (0.0-0.2) Segmented Neutrophils % 53 % (35-66) Band Neutrophils % 15 % (0-9) Lymphocytes % 22 % (24-48) Atypical Lymphocytes % (Manual) 1 % (0-0) Monocytes % 8 % (0-10) Metamyelocytes % 1 % (0-0) Nucleated Red Blood Cells 3 Platelet Estimate Increased (ADEQUATE) Large Platelets Few Giant Platelets Few Polychromasia Present Poikilocytosis Present Anisocytosis Present Microcytosis Present Target Cells Few Tear Drop Cells Occ Mineral Cells Few Schistocytes Few Sodium Level 137 mmol/L (136-145) 141 mmol/L (136-145) Potassium Level 3.2 mmol/L (3.5-5.1) 3.6 mmol/L (3.5-5.1) Chloride Level 101 mmol/L (98-107) 106 mmol/L (98-107) Carbon Dioxide Level 23 mmol/L (21-32) 22 mmol/L (21-32) Anion Gap 13 (6-14) 13 (6-14) Blood Urea Nitrogen 18 mg/dL (8-26) 13 mg/dL (8-26) Creatinine 0.9 mg/dL (0.7-1.3) 0.7 mg/dL (0.7-1.3) Estimated GFR (Cockcroft-Gault) 102.5 136.9 BUN/Creatinine Ratio 20 (6-20) Glucose Level 98 mg/dL (70-99) 125 mg/dL (70-99) Calcium Level 9.0 mg/dL (8.5-10.1) 8.3 mg/dL (8.5-10.1) Total Bilirubin 0.6 mg/dL (0.2-1.0) Aspartate Amino Transf (AST/SGOT) 75 U/L (15-37) Alanine Aminotransferase (ALT/SGPT) 51 U/L (16-63) Alkaline Phosphatase 529 U/L (46-116) Total Protein 7.5 g/dL (6.4-8.2) Albumin 1.9 g/dL (3.4-5.0) Albumin/Globulin Ratio 0.3 (1.0-1.7) Laboratory Tests Test 06/30/18 03:40 Sodium Level 141 mmol/L (136-145) Potassium Level 3.6 mmol/L (3.5-5.1) Chloride Level 106 mmol/L (98-107) Carbon Dioxide Level 22 mmol/L (21-32) Anion Gap 13 (6-14) Blood Urea Nitrogen 13 mg/dL (8-26) Creatinine 0.7 mg/dL (0.7-1.3) Estimated GFR (Cockcroft-Gault) 136.9 Glucose Level 125 mg/dL (70-99) Calcium Level 8.3 mg/dL (8.5-10.1) Microbiology 06/26/18 Blood Culture - Preliminary, Resulted NO GROWTH AFTER 3 DAYS 06/27/18 Anaerobic/Aerobic Culture, Resulted Pending 06/27/18 Anaerobic Culture Result 1 (MILAN), Resulted Pending 06/27/18 Aerobic Culture, Resulted Pending 06/27/18 Aerobic Culture Result 1 (MILAN), Resulted Pending 06/27/18 Gram Stain - Final, Resulted 06/27/18 Gram Stain Result 1 (MILAN) - Final, Resulted 06/27/18 Gram Stain Result 2 (MILAN) - Final, Resulted 06/27/18 Gram Stain Result 3 (MILAN) - Final, Resulted 06/27/18 Gram Stain Result 4 (MILAN) - Final, Resulted Medications Current Medications Ondansetron HCl (Zofran) 4 mg PRN Q6HRS PRN IV NAUSEA/VOMITING; Start 06/20/18 at 07:00; Stop 06/21/18 at 06:59; Status DC Fentanyl Citrate (Fentanyl 2ml Vial) 25 mcg PRN Q5MIN PRN IV MILD PAIN; Start 06/20/18 at 07:00; Stop 06/21/18 at 06:59; Status DC Fentanyl Citrate (Fentanyl 2ml Vial) 50 mcg PRN Q5MIN PRN IV MODERATE TO SEVERE PAIN Last administered on 06/20/18at 12:39; Start 06/20/18 at 07:00; Stop 06/21/18 at 06:59; Status DC Morphine Sulfate (Morphine Sulfate) 1 mg PRN Q10MIN PRN IV SEVERE PAIN; Start 06/20/18 at 07:00; Stop 06/21/18 at 06:59; Status DC Ringer's Solution 1,000 ml @ 30 mls/hr Q24H IV Last administered on 06/20/18at 06:39; Start 06/20/18 at 07:00; Stop 06/20/18 at 18:59; Status DC Lidocaine HCl (Xylocaine-Mpf 1% 2ml Vial) 2 ml PRN 1X PRN ID IV START; Start at 07:00; Stop 06/21/18 at 06:59; Status DC Hydromorphone HCl (Dilaudid) 0.5 mg PRN Q10MIN PRN IV SEV PAIN, Second choice; Start 06/20/18 at 07:00; Stop 06/21/18 at 06:59; Status DC Prochlorperazine Edisylate (Compazine) 5 mg PACU PRN PRN IV NAUSEA, MRX1 Last administered on 06/20/18at 12:18; Start 06/20/18 at 07:00; Stop 06/21/18 at 06:59 ; Status DC Cefoxitin Sodium (Mefoxin) 2 gm 1X PREOP PRN IVP PRIOR TO PROCEDURE Last administered on 06/20/18at 10:07; Start 06/20/18 at 06:00; Stop 06/20/18 at 21:00 ; Status DC Propofol 20 ml @ As Directed STK-MED ONCE IV ; Start 06/20/18 at 07:43; Stop at 07:44; Status DC Dexamethasone Sodium Phosphate (Decadron) 20 mg STK-MED ONCE .ROUTE ; Start at 07:43; Stop 06/20/18 at 07:44; Status DC Famotidine (Pepcid Vial) 20 mg STK-MED ONCE .ROUTE ; Start 06/20/18 at 07:43; Stop 06/20/18 at 07:44; Status DC Lidocaine HCl (Lidocaine Pf 2% Vial) 5 ml STK-MED ONCE .ROUTE ; Start 06/20/18 at 07:43; Stop 06/20/18 at 07:44; Status DC Ondansetron HCl (Zofran) 4 mg STK-MED ONCE .ROUTE ; Start 06/20/18 at 07:43; Stop 06/20/18 at 07:44; Status DC Rocuronium [place] (Zemuron) 100 mg STK-MED ONCE .ROUTE ; Start 06/20/18 at 07: 43; Stop 06/20/18 at 07:44; Status DC Fentanyl Citrate (Fentanyl 2ml Vial) 100 mcg STK-MED ONCE .ROUTE ; Start at 07:43; Stop 06/20/18 at 07:44; Status DC Midazolam HCl (Versed) 2 mg STK-MED ONCE .ROUTE ; Start 06/20/18 at 07:43; Stop 06/20/18 at 07:44; Status DC Fentanyl Citrate (Fentanyl 2ml Vial) 100 mcg STK-MED ONCE .ROUTE ; Start at 07:46; Stop 06/20/18 at 07:47; Status DC Phenylephrine HCl (Celio-Synephrine Inj) 10 mg STK-MED ONCE .ROUTE ; Start at 07:59; Stop 06/20/18 at 08:00; Status DC Sevoflurane (Ultane) 90 ml STK-MED ONCE IH ; Start 06/20/18 at 08:55; Stop 06/20 at 08:56; Status DC Neostigmine Methylsulfate (Bloxiverz) 10 mg STK-MED ONCE .ROUTE ; Start at 09:34; Stop 06/20/18 at 09:35; Status DC Glycopyrrolate (Robinul) 1 mg STK-MED ONCE .ROUTE ; Start 06/20/18 at 09:34; Stop 06/20/18 at 09:35; Status DC Albumin Human 500 ml @ As Directed STK-MED ONCE IV ; Start 06/20/18 at 09:35; Stop 06/20/18 at 09:36; Status DC Hydromorphone HCl (Dilaudid) 2 mg STK-MED ONCE .ROUTE ; Start 06/20/18 at 10:59 ; Stop 06/20/18 at 11:00; Status DC Cefoxitin Sodium (Mefoxin) 1 gm Q8H IVP ; Start 06/20/18 at 18:00; Stop at 10:01; Status Cancel Sodium Chloride (Normal Saline Flush) 3 ml QSHIFT PRN IV AFTER MEDS AND BLOOD DRAWS; Start 06/20/18 at 11:00 Morphine Sulfate (Morphine Sulfate) 2 mg PRN Q3HRS PRN IV PAIN Last administered on 06/30/18at 05:07; Start 06/20/18 at 11:00 Oxycodone/ Acetaminophen (Percocet 5/325) 1 tab PRN Q4HRS PRN PO MILD PAIN, 1ST CHOICE Last administered on 06/29/18 08:34; Start 06/20/18 at 11:00 Oxycodone/ Acetaminophen (Percocet 5/325) 2 tab PRN Q4HRS PRN PO MODERATE PAIN , SEVERE PAIN Last administered on 06/30/18 09:19; Start 06/20/18 at 11:00 Ketorolac Tromethamine (Toradol 15mg Vial) 15 mg Q6HRS IV Last administered on 06/22/18 06:32; Start 06/20/18 at 12:00; Stop 06/22/18 at 11:59; Status DC Ondansetron HCl (Zofran) 4 mg PRN Q6HRS PRN IV NAUSEA, 1ST CHOICE Last administered on 06/29/18 19:35; Start 06/20/18 at 11:00 Dextrose/Lactated Ringer's 1,000 ml @ 75 mls/hr [id number] IV Last administered on 06/20/18 14:54; Start 06/20/18 at 10:58; Stop 06/23/18 at 13:17; Status DC Ketorolac Tromethamine (Toradol 30mg Vial) 30 mg STK-MED ONCE .ROUTE ; Start at 11:09; Stop 06/20/18 at 11:10; Status DC Sodium Chloride 1,000 ml @ 100 mls/hr Q10H IV Last administered on 06/22/18 00:45; Start 06/20/18 at 11:15; Stop 06/23/18 at 13:17; Status DC Cefoxitin Sodium (Mefoxin) 1 gm Q8H IVP Last administered on 06/21/18 10:38; Start 06/20/18 at 18:00; Stop 06/21/18 at 10:01; Status DC Enoxaparin Sodium (Lovenox Per Pharmacy Prophylaxis Dosing) 1 each PRN DAILY PRN MC SEE COMMENTS; Start 06/22/18 at 11:30; Stop 06/27/18 at 14:49; Status DC Enoxaparin Sodium (Lovenox 40mg Syringe) 40 mg Q24H SQ Last administered on 06/29 12:31; Start 06/22/18 at 12:00 Guaifenesin (Mucinex) 600 mg BID PO Last administered on 06/30/18 09:18; Start 06/22/18 at 15:00 Lisinopril (Prinivil) 10 mg DAILY PO Last administered on 06/30/18 09:18; Start 06/23/18 at 10:00 Hydrochlorothiazide (Microzide) 12.5 mg DAILY PO Last administered on 06/30/18 09:17; Start 06/23/18 at 10:00 Iohexol (Omnipaque 300 Mg/ml) 75 ml 1X ONCE IV Last administered on 06/26/18at 13:00; Start 06/26/18 at 13:00; Stop 06/26/18 at 13:02; Status DC Iohexol (Omnipaque 240 Mg/ml) 30 ml 1X ONCE PO Last administered on 06/26/18 13:00; Start 06/26/18 at 13:00; Stop 06/26/18 at 13:02; Status DC Info (CONTRAST GIVEN -- Rx MONITORING) 1 each PRN DAILY PRN MC SEE COMMENTS; Start 06/26/18 at 13:15; Stop 06/28/18 at 13:14; Status DC Sodium Chloride 1,000 ml @ 100 mls/hr Q10H IV Last administered on 06/28/18 09 :14; Start 06/26/18 at 15:00; Stop 06/28/18 at 10:46; Status DC Potassium Chloride (Klor-Con) 40 meq 1X ONCE PO Last administered on at 16:56; Start 06/26/18 at 15:00; Stop 06/26/18 at 15:01; Status DC Potassium Chloride (Klor-Con) 20 meq [id number] PO Last administered on 09:19; Start 06/27/18 at 08:00 Sodium Chloride 1,000 ml @ 500 mls/hr Q2H IV ; Start 06/26/18 at 15:00; Status Cancel Meropenem 1 gm/ Sodium Chloride 100 ml @ 200 mls/hr Q8HRS IV Last administered on 06/30/18 06:11; Start 06/26/18 at 15:00 Vancomycin HCl 1.5 gm/Sodium Chloride 500 ml @ 250 mls/hr 1X ONCE IV Last administered on 06/26/18at 16:53; Start 06/26/18 at 14:45; Stop 06/26/18 at 16:44 ; Status DC Sodium Chloride 1,000 ml @ 500 mls/hr 1X ONCE IV Last administered on at 16:10; Start 06/26/18 at 15:00; Stop 06/26/18 at 16:59; Status DC Sodium Chloride 1,000 ml @ 2,460 mls/hr Q25M IV ; Start 06/26/18 at 17:00; Stop 06/26/18 at 17:11; Status DC Sodium Chloride 500 ml @ 1,000 mls/hr PRN Q30MIN PRN IV SEE COMMENTS; Start at 17:00 Vancomycin HCl (Vanco Per Pharmacy) 1 each PRN DAILY PRN MC SEE COMMENTS Last administered on 06/30/18at 09:52; Start 06/26/18 at 17:00 Vancomycin HCl 1.25 gm/Sodium Chloride 250 ml @ 167 mls/hr Q12H IV Last administered on 06/30/18at 05:06; Start 06/27/18 at 05:00 Vancomycin HCl (Vancomycin Trough Level) 1 each 1X ONCE MC ; Start 06/28/18 at 04:30; Stop 06/28/18 at 04:31; Status DC Lidocaine/Sodium Bicarbonate (Buffered Lidocaine 1%) 3 ml STK-MED ONCE .ROUTE ; Start 06/27/18 at 12:12; Stop 06/27/18 at 12:13; Status DC Midazolam HCl (Versed) 2 mg STK-MED ONCE .ROUTE ; Start 06/27/18 at 12:13; Stop 06/27/18 at 12:14; Status DC Fentanyl Citrate (Fentanyl 2ml Vial) 100 mcg STK-MED ONCE .ROUTE ; Start at 12:13; Stop 06/27/18 at 12:14; Status DC Lidocaine/Sodium Bicarbonate (Buffered Lidocaine 1%) 3 ml 1X ONCE IJ Last administered on 06/27/18at 12:30; Start 06/27/18 at 12:30; Stop 06/27/18 at 12:31; Status DC Midazolam HCl (Versed) 2 mg 1X ONCE IV Last administered on 06/27/18at 12:30; Start 06/27/18 at 12:30; Stop 06/27/18 at 12:31; Status DC Fentanyl Citrate (Fentanyl 2ml Vial) 100 mcg 1X ONCE IV Last administered on 12:30; Start 06/27/18 at 12:30; Stop 06/27/18 at 12:31; Status DC Potassium Chloride (Klor-Con) 40 meq 1X ONCE PO Last administered on 06/29/18at 12:31; Start 06/29/18 at 12:00; Stop 06/29/18 at 12:01; Status DC Dextrose/Sodium Chloride 1,000 ml @ 100 mls/hr Q10H IV Last administered on 06/29/18at 21:07; Start 06/29/18 at 21:00 Sodium Chloride 500 ml @ 500 mls/hr 1X ONCE IV Last administered on 06/29/18at 20:30; Start 06/29/18 at 19:30; Stop 06/29/18 at 20:29; Status DC Active Scripts Active Reported Zofran (Ondansetron Hcl) 4 Mg Tablet 4 Mg PO BID PRN Lisinopril-Hctz 10-12.5 Mg Tab (Lisinopril/Hydrochlorothiazide) 1 Each Tablet 1 Tab PO DAILY Vitals/I & O Vital Sign - Last 24 Hours 06/29/18 06/29/18 06/29/18 06/29/18 15:00 19:00 19:31 20:00 Temp 98.5 98.5 Pulse 101 112 103 Resp 20 20 18 B/P (MAP) 146/99 (115) 127/84 (98) 118/74 (89) Pulse Ox 96 96 97 O2 Delivery Room Air Room Air Room Air Room Air 06/29/18 06/29/18 06/29/18 06/30/18 21:00 22:00 23:00 00:00 Temp 98.4 98.4 Pulse 95 88 81 80 Resp 18 21 15 B/P (MAP) 122/87 (99) 124/80 (95) 115/75 (88) 125/87 (100) Pulse Ox 97 98 99 98 O2 Delivery Room Air Room Air Room Air Room Air 06/30/18 06/30/18 06/30/18 06/30/18 01:00 02:00 03:00 04:00 Temp 98.1 98.1 Pulse 75 75 75 74 Resp 17 B/P (MAP) 124/86 (99) 139/87 (104) 125/97 (106) 132/92 (105) Pulse Ox 97 99 99 97 O2 Delivery Room Air Room Air Room Air Room Air 06/30/18 06/30/18 06/30/18 06/30/18 05:00 05:07 06:00 06:13 Pulse 75 71 Resp 16 18 18 18 B/P (MAP) 144/96 (112) 144/86 (105) Pulse Ox 99 99 97 97 O2 Delivery Room Air Room Air Room Air Room Air 06/30/18 06/30/18 06/30/18 06/30/18 07:00 08:00 08:00 09:18 Temp 97.6 97.6 Pulse 72 74 74 Resp 26 26 B/P (MAP) 140/86 (104) 141/81 (101) 166/82 Pulse Ox 99 96 O2 Delivery Room Air Room Air Room Air Intake and Output 06/29/18 06/29/18 06/30/18 15:00 23:00 07:00 Intake Total 350 ml 1621.8 ml Output Total 85 ml 735 ml 400 ml Balance -85 ml -385 ml 1221.8 ml VERN VALENTIN III DO Jun 30, 2018 12:21
[2018-06-30] MEDS: ENOXAPARIN 40 MG/0.4 ML SYRINGE. SQ SCH (12:34)
[2018-06-30] MEDS: IV DEXTROSE 5% - 0.9 % NACL 1,000 ML IV SCH ×2 (13:53→23:00)
--- NOTE | 2018-06-30 13:56 | NUR ---
SS following up with discharge planning. SS met with pt and contacted pt's spouse, Shazia, to discuss discharge planning. Pt and spouse continue to decline fpc unit. Pt's spouse reported that they will go home with [facility] at discharge as previously discussed with previous social workers.
--- NOTE | 2018-06-30 14:00 | NUR ---
10 cc flush with NS to CATHRYN drain per dr nicole
--- NOTE | 2018-06-30 14:24 | PDOC ---
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 ROS - had purulent discharge Objective Objective Vital Signs Date Time Temp Pulse Resp B/P (MAP) Pulse Ox O2 Delivery O2 Flow Rate FiO2 06/30/18 13:00 76 18 140/88 (105) 99 Room Air 06/30/18 12:00 97.3 97.3 06/27/18 13:15 2.0 Intake and Output 06/30/18 07:00 Intake Total 1971.8 ml Output Total 1220 ml Balance 751.8 ml Intake Oral 0 ml IV Total 1971.8 ml Stool Total 875 ml Gastric Drainage Total 235 ml Drainage Total 110 ml Physical Exam Heart: Normal S1, Normal S2 General: Alert, Oriented X3 Lungs: Clear to auscultation Neuro: Normal speech Psych/Mental Status: Mental status NL Assessment Assessment IMPRESSION AND PLAN: 1. 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 He had a colon cancer diagnosed in 2014 involving the splenic flexure and it was stage 2 at that time. He was diagnosed with multiple bilateral lung metastases and liver metastasis consistent with stage [address] 2018 and liver biopsy 06/20/18. I reviewed the CT results and the pathology results in detail with the patient and his . I explained that this is stage 4 malignancy, which is not curable and treatments are palliative. I discussed the role of palliative chemotherapy and the risks and benefits. He is going to continue postoperative management at this point and follow up with me in about 3 weeks to evaluate for palliative chemotherapy. 2. Hypoalbuminemia. He reports a 25-pound weight loss. This is due to malignancy. 3. Liver metastasis, status post biopsy. 4. Lung metastasis, bilateral. 5. Anemia due to malignancy. Iron studies are consistent with anemia due to chronic disease. Comment Review of Relevant I have reviewed the following items pallavi (where applicable) has been applied. Labs Laboratory Tests Test 06/29/18 07:26 06/29/18 08:20 06/30/18 03:40 Nasal Screen MRSA (PCR) Negative (Negative) White Blood Count 20.0 x10^3/uL (4.0-11.0) Red Blood Count 4.21 x10^6/uL (4.30-5.70) Hemoglobin 10.0 g/dL (13.0-17.5) Hematocrit 31.4 % (39.0-53.0) Mean Corpuscular Volume 75 fL (79-100) Mean Corpuscular Hemoglobin 24 pg (25-35) Mean Corpuscular Hemoglobin Concent 32 g/dL (31-37) Red Cell Distribution Width 19.8 % (11.5-14.5) Platelet Count 533 x10^3/uL (140-400) Neutrophils (%) (Auto) 50 % (31-73) Lymphocytes (%) (Auto) 46 % (24-48) Monocytes (%) (Auto) 4 % (0-9) Eosinophils (%) (Auto) 0 % (0-3) Basophils (%) (Auto) 1 % (0-3) Neutrophils # (Auto) 9.9 x10^3uL (1.8-7.7) Lymphocytes # (Auto) 9.1 x10^3/uL (1.0-4.8) Monocytes # (Auto) 0.8 x10^3/uL (0.0-1.1) Eosinophils # (Auto) 0.0 x10^3/uL (0.0-0.7) Basophils # (Auto) 0.1 x10^3/uL (0.0-0.2) Segmented Neutrophils % 53 % (35-66) Band Neutrophils % 15 % (0-9) Lymphocytes % 22 % (24-48) Atypical Lymphocytes % (Manual) 1 % (0-0) Monocytes % 8 % (0-10) Metamyelocytes % 1 % (0-0) Nucleated Red Blood Cells 3 Platelet Estimate Increased (ADEQUATE) Large Platelets Few Giant Platelets Few Polychromasia Present Poikilocytosis Present Anisocytosis Present Microcytosis Present Target Cells Few Tear Drop Cells Occ Nick Cells Few Schistocytes Few Sodium Level 137 mmol/L (136-145) 141 mmol/L (136-145) Potassium Level 3.2 mmol/L (3.5-5.1) 3.6 mmol/L (3.5-5.1) Chloride Level 101 mmol/L (98-107) 106 mmol/L (98-107) Carbon Dioxide Level 23 mmol/L (21-32) 22 mmol/L (21-32) Anion Gap 13 (6-14) 13 (6-14) Blood Urea Nitrogen 18 mg/dL (8-26) 13 mg/dL (8-26) Creatinine 0.9 mg/dL (0.7-1.3) 0.7 mg/dL (0.7-1.3) Estimated GFR (Cockcroft-Gault) 102.5 136.9 BUN/Creatinine Ratio 20 (6-20) Glucose Level 98 mg/dL (70-99) 125 mg/dL (70-99) Calcium Level 9.0 mg/dL (8.5-10.1) 8.3 mg/dL (8.5-10.1) Total Bilirubin 0.6 mg/dL (0.2-1.0) Aspartate Amino Transf (AST/SGOT) 75 U/L (15-37) Alanine Aminotransferase (ALT/SGPT) 51 U/L (16-63) Alkaline Phosphatase 529 U/L (46-116) Total Protein 7.5 g/dL (6.4-8.2) Albumin 1.9 g/dL (3.4-5.0) Albumin/Globulin Ratio 0.3 (1.0-1.7) Laboratory Tests Test 06/30/18 03:40 Sodium Level 141 mmol/L (136-145) Potassium Level 3.6 mmol/L (3.5-5.1) Chloride Level 106 mmol/L (98-107) Carbon Dioxide Level 22 mmol/L (21-32) Anion Gap 13 (6-14) Blood Urea Nitrogen 13 mg/dL (8-26) Creatinine 0.7 mg/dL (0.7-1.3) Estimated GFR (Cockcroft-Gault) 136.9 Glucose Level 125 mg/dL (70-99) Calcium Level 8.3 mg/dL (8.5-10.1) Microbiology 06/26/18 Blood Culture - Preliminary, Resulted NO GROWTH AFTER 3 DAYS 06/27/18 Anaerobic/Aerobic Culture, Resulted Pending 06/27/18 Anaerobic Culture Result 1 (MILAN), Resulted Pending 06/27/18 Aerobic Culture - Preliminary, Resulted 06/27/18 Aerobic Culture Result 1 (MILAN) - Preliminary, Resulted 06/27/18 Aerobic Culture Result 2 (MILAN) - Preliminary, Resulted 06/27/18 Gram Stain - Final, Resulted 06/27/18 Gram Stain Result 1 (MILAN) - Final, Resulted 06/27/18 Gram Stain Result 2 (MILAN) - Final, Resulted 06/27/18 Gram Stain Result 3 (MILAN) - Final, Resulted 06/27/18 Gram Stain Result 4 (MILAN) - Final, Resulted Medications Current Medications Ondansetron HCl (Zofran) 4 mg PRN Q6HRS PRN IV NAUSEA/VOMITING; Start 06/20/18 at 07:00; Stop 06/21/18 at 06:59; Status DC Fentanyl Citrate (Fentanyl 2ml Vial) 25 mcg PRN Q5MIN PRN IV MILD PAIN; Start 06/20/18 at 07:00; Stop 06/21/18 at 06:59; Status DC Fentanyl Citrate (Fentanyl 2ml Vial) 50 mcg PRN Q5MIN PRN IV MODERATE TO SEVERE PAIN Last administered on 06/20/18at 12:39; Start 06/20/18 at 07:00; Stop 06/21/18 at 06:59; Status DC Morphine Sulfate (Morphine Sulfate) 1 mg PRN Q10MIN PRN IV SEVERE PAIN; Start 06/20/18 at 07:00; Stop 06/21/18 at 06:59; Status DC Ringer's Solution 1,000 ml @ 30 mls/hr Q24H IV Last administered on 06/20/18at 06:39; Start 06/20/18 at 07:00; Stop 06/20/18 at 18:59; Status DC Lidocaine HCl (Xylocaine-Mpf 1% 2ml Vial) 2 ml PRN 1X PRN ID IV START; Start at 07:00; Stop 06/21/18 at 06:59; Status DC Hydromorphone HCl (Dilaudid) 0.5 mg PRN Q10MIN PRN IV SEV PAIN, Second choice; Start 06/20/18 at 07:00; Stop 06/21/18 at 06:59; Status DC Prochlorperazine Edisylate (Compazine) 5 mg PACU PRN PRN IV NAUSEA, MRX1 Last administered on 06/20/18at 12:18; Start 06/20/18 at 07:00; Stop 06/21/18 at 06:59 ; Status DC Cefoxitin Sodium (Mefoxin) 2 gm 1X PREOP PRN IVP PRIOR TO PROCEDURE Last administered on 06/20/18at 10:07; Start 06/20/18 at 06:00; Stop 06/20/18 at 21:00 ; Status DC Propofol 20 ml @ As Directed STK-MED ONCE IV ; Start 06/20/18 at 07:43; Stop at 07:44; Status DC Dexamethasone Sodium Phosphate (Decadron) 20 mg STK-MED ONCE .ROUTE ; Start at 07:43; Stop 06/20/18 at 07:44; Status DC Famotidine (Pepcid Vial) 20 mg STK-MED ONCE .ROUTE ; Start 06/20/18 at 07:43; Stop 06/20/18 at 07:44; Status DC Lidocaine HCl (Lidocaine Pf 2% Vial) 5 ml STK-MED ONCE .ROUTE ; Start 06/20/18 at 07:43; Stop 06/20/18 at 07:44; Status DC Ondansetron HCl (Zofran) 4 mg STK-MED ONCE .ROUTE ; Start 06/20/18 at 07:43; Stop 06/20/18 at 07:44; Status DC Rocuronium [place] (Zemuron) 100 mg STK-MED ONCE .ROUTE ; Start 06/20/18 at 07: 43; Stop 06/20/18 at 07:44; Status DC Fentanyl Citrate (Fentanyl 2ml Vial) 100 mcg STK-MED ONCE .ROUTE ; Start at 07:43; Stop 06/20/18 at 07:44; Status DC Midazolam HCl (Versed) 2 mg STK-MED ONCE .ROUTE ; Start 06/20/18 at 07:43; Stop 06/20/18 at 07:44; Status DC Fentanyl Citrate (Fentanyl 2ml Vial) 100 mcg STK-MED ONCE .ROUTE ; Start at 07:46; Stop 06/20/18 at 07:47; Status DC Phenylephrine HCl (Celio-Synephrine Inj) 10 mg STK-MED ONCE .ROUTE ; Start at 07:59; Stop 06/20/18 at 08:00; Status DC Sevoflurane (Ultane) 90 ml STK-MED ONCE IH ; Start 06/20/18 at 08:55; Stop 06/20 at 08:56; Status DC Neostigmine Methylsulfate (Bloxiverz) 10 mg STK-MED ONCE .ROUTE ; Start at 09:34; Stop 06/20/18 at 09:35; Status DC Glycopyrrolate (Robinul) 1 mg STK-MED ONCE .ROUTE ; Start 06/20/18 at 09:34; Stop 06/20/18 at 09:35; Status DC Albumin Human 500 ml @ As Directed STK-MED ONCE IV ; Start 06/20/18 at 09:35; Stop 06/20/18 at 09:36; Status DC Hydromorphone HCl (Dilaudid) 2 mg STK-MED ONCE .ROUTE ; Start 06/20/18 at 10:59 ; Stop 06/20/18 at 11:00; Status DC Cefoxitin Sodium (Mefoxin) 1 gm Q8H IVP ; Start 06/20/18 at 18:00; Stop at 10:01; Status Cancel Sodium Chloride (Normal Saline Flush) 3 ml QSHIFT PRN IV AFTER MEDS AND BLOOD DRAWS; Start 06/20/18 at 11:00 Morphine Sulfate (Morphine Sulfate) 2 mg PRN Q3HRS PRN IV PAIN Last administered on 06/30/18 05:07; Start 06/20/18 at 11:00 Oxycodone/ Acetaminophen (Percocet 5/325) 1 tab PRN Q4HRS PRN PO MILD PAIN, 1ST CHOICE Last administered on 06/29/18 08:34; Start 06/20/18 at 11:00 Oxycodone/ Acetaminophen (Percocet 5/325) 2 tab PRN Q4HRS PRN PO MODERATE PAIN , SEVERE PAIN Last administered on 06/30/18 09:19; Start 06/20/18 at 11:00 Ketorolac Tromethamine (Toradol 15mg Vial) 15 mg Q6HRS IV Last administered on 06/22/18at 06:32; Start 06/20/18 at 12:00; Stop 06/22/18 at 11:59; Status DC Ondansetron HCl (Zofran) 4 mg PRN Q6HRS PRN IV NAUSEA, 1ST CHOICE Last administered on 06/29/18 19:35; Start 06/20/18 at 11:00 Dextrose/Lactated Ringer's 1,000 ml @ 75 mls/hr [id number] IV Last administered on 06/20/18at 14:54; Start 06/20/18 at 10:58; Stop 06/23/18 at 13:17; Status DC Ketorolac Tromethamine (Toradol 30mg Vial) 30 mg STK-MED ONCE .ROUTE ; Start at 11:09; Stop 06/20/18 at 11:10; Status DC Sodium Chloride 1,000 ml @ 100 mls/hr Q10H IV Last administered on 06/22/18at 00:45; Start 06/20/18 at 11:15; Stop 06/23/18 at 13:17; Status DC Cefoxitin Sodium (Mefoxin) 1 gm Q8H IVP Last administered on 06/21/18at 10:38; Start 06/20/18 at 18:00; Stop 06/21/18 at 10:01; Status DC Enoxaparin Sodium (Lovenox Per Pharmacy Prophylaxis Dosing) 1 each PRN DAILY PRN MC SEE COMMENTS; Start 06/22/18 at 11:30; Stop 06/27/18 at 14:49; Status DC Enoxaparin Sodium (Lovenox 40mg Syringe) 40 mg Q24H SQ Last administered on 06/30 12:34; Start 06/22/18 at 12:00 Guaifenesin (Mucinex) 600 mg BID PO Last administered on 06/30/18 09:18; Start 06/22/18 at 15:00 Lisinopril (Prinivil) 10 mg DAILY PO Last administered on 06/30/18 09:18; Start 06/23/18 at 10:00 Hydrochlorothiazide (Microzide) 12.5 mg DAILY PO Last administered on 06/30/18 09:17; Start 06/23/18 at 10:00 Iohexol (Omnipaque 300 Mg/ml) 75 ml 1X ONCE IV Last administered on 06/26/18 13:00; Start 06/26/18 at 13:00; Stop 06/26/18 at 13:02; Status DC Iohexol (Omnipaque 240 Mg/ml) 30 ml 1X ONCE PO Last administered on 06/26/18 13:00; Start 06/26/18 at 13:00; Stop 06/26/18 at 13:02; Status DC Info (CONTRAST GIVEN -- Rx MONITORING) 1 each PRN DAILY PRN MC SEE COMMENTS; Start 06/26/18 at 13:15; Stop 06/28/18 at 13:14; Status DC Sodium Chloride 1,000 ml @ 100 mls/hr Q10H IV Last administered on 06/28/18at 09 :14; Start 06/26/18 at 15:00; Stop 06/28/18 at 10:46; Status DC Potassium Chloride (Klor-Con) 40 meq 1X ONCE PO Last administered on at 16:56; Start 06/26/18 at 15:00; Stop 06/26/18 at 15:01; Status DC Potassium Chloride (Klor-Con) 20 meq [id number] PO Last administered on 09:19; Start 06/27/18 at 08:00 Sodium Chloride 1,000 ml @ 500 mls/hr Q2H IV ; Start 06/26/18 at 15:00; Status Cancel Meropenem 1 gm/ Sodium Chloride 100 ml @ 200 mls/hr Q8HRS IV Last administered on 06/30/18at 13:53; Start 06/26/18 at 15:00 Vancomycin HCl 1.5 gm/Sodium Chloride 500 ml @ 250 mls/hr 1X ONCE IV Last administered on 06/26/18at 16:53; Start 06/26/18 at 14:45; Stop 06/26/18 at 16:44 ; Status DC Sodium Chloride 1,000 ml @ 500 mls/hr 1X ONCE IV Last administered on at 16:10; Start 06/26/18 at 15:00; Stop 06/26/18 at 16:59; Status DC Sodium Chloride 1,000 ml @ 2,460 mls/hr Q25M IV ; Start 06/26/18 at 17:00; Stop 06/26/18 at 17:11; Status DC Sodium Chloride 500 ml @ 1,000 mls/hr PRN Q30MIN PRN IV SEE COMMENTS; Start at 17:00 Vancomycin HCl (Vanco Per Pharmacy) 1 each PRN DAILY PRN MC SEE COMMENTS Last administered on 06/30/18at 09:52; Start 06/26/18 at 17:00 Vancomycin HCl 1.25 gm/Sodium Chloride 250 ml @ 167 mls/hr Q12H IV Last administered on 06/30/18at 05:06; Start 06/27/18 at 05:00 Vancomycin HCl (Vancomycin Trough Level) 1 each 1X ONCE MC ; Start 06/28/18 at 04:30; Stop 06/28/18 at 04:31; Status DC Lidocaine/Sodium Bicarbonate (Buffered Lidocaine 1%) 3 ml STK-MED ONCE .ROUTE ; Start 06/27/18 at 12:12; Stop 06/27/18 at 12:13; Status DC Midazolam HCl (Versed) 2 mg STK-MED ONCE .ROUTE ; Start 06/27/18 at 12:13; Stop 06/27/18 at 12:14; Status DC Fentanyl Citrate (Fentanyl 2ml Vial) 100 mcg STK-MED ONCE .ROUTE ; Start at 12:13; Stop 06/27/18 at 12:14; Status DC Lidocaine/Sodium Bicarbonate (Buffered Lidocaine 1%) 3 ml 1X ONCE IJ Last administered on 06/27/18at 12:30; Start 06/27/18 at 12:30; Stop 06/27/18 at 12:31; Status DC Midazolam HCl (Versed) 2 mg 1X ONCE IV Last administered on 06/27/18at 12:30; Start 06/27/18 at 12:30; Stop 06/27/18 at 12:31; Status DC Fentanyl Citrate (Fentanyl 2ml Vial) 100 mcg 1X ONCE IV Last administered on at 12:30; Start 06/27/18 at 12:30; Stop 06/27/18 at 12:31; Status DC Potassium Chloride (Klor-Con) 40 meq 1X ONCE PO Last administered on 06/29/18at 12:31; Start 06/29/18 at 12:00; Stop 06/29/18 at 12:01; Status DC Dextrose/Sodium Chloride 1,000 ml @ 100 mls/hr Q10H IV Last administered on 13:53; Start 06/29/18 at 21:00 Sodium Chloride 500 ml @ 500 mls/hr 1X ONCE IV Last administered on 06/29/18at 20:30; Start 06/29/18 at 19:30; Stop 06/29/18 at 20:29; Status DC Active Scripts Active Reported Zofran (Ondansetron Hcl) 4 Mg Tablet 4 Mg PO BID PRN Lisinopril-Hctz 10-12.5 Mg Tab (Lisinopril/Hydrochlorothiazide) 1 Each Tablet 1 Tab PO DAILY Vitals/I & O Vital Sign - Last 24 Hours 06/29/18 06/29/18 06/29/18 06/29/18 15:00 19:00 19:31 20:00 Temp 98.5 98.5 Pulse 101 112 103 Resp 20 20 20 18 B/P (MAP) 146/99 (115) 127/84 (98) 118/74 (89) Pulse Ox 96 96 97 O2 Delivery Room Air Room Air Room Air Room Air 06/29/18 06/29/18 06/29/18 06/30/18 21:00 22:00 23:00 00:00 Temp 98.4 98.4 Pulse 95 88 81 80 Resp 21 18 21 15 B/P (MAP) 122/87 (99) 124/80 (95) 115/75 (88) 125/87 (100) Pulse Ox 97 98 99 98 O2 Delivery Room Air Room Air Room Air Room Air 06/30/18 06/30/18 06/30/18 06/30/18 01:00 02:00 03:00 04:00 Temp 98.1 98.1 Pulse 75 75 75 74 Resp 27 17 19 17 B/P (MAP) 124/86 (99) 139/87 (104) 125/97 (106) 132/92 (105) Pulse Ox 97 99 99 97 O2 Delivery Room Air Room Air Room Air Room Air 06/30/18 06/30/18 06/30/18 06/30/18 05:00 05:07 06:00 06:13 Pulse 75 71 Resp 16 18 18 18 B/P (MAP) 144/96 (112) 144/86 (105) Pulse Ox 99 99 97 97 O2 Delivery Room Air Room Air Room Air Room Air 06/30/18 06/30/18 06/30/18 06/30/18 07:00 08:00 08:00 09:00 Temp 97.6 97.6 Pulse 72 74 74 Resp 26 26 26 B/P (MAP) 140/86 (104) 141/81 (101) 165/97 (119) Pulse Ox 99 96 96 O2 Delivery Room Air Room Air Room Air Room Air 06/30/18 06/30/18 06/30/18 06/30/18 09:18 10:00 11:00 12:00 Pulse 74 77 78 Resp 24 24 B/P (MAP) 166/82 129/92 (104) 128/78 (95) Pulse Ox 100 97 O2 Delivery Room Air Room Air Room Air 06/30/18 06/30/18 12:00 13:00 Temp 97.3 97.3 Pulse 73 76 Resp 22 18 B/P (MAP) 125/81 (96) 140/88 (105) Pulse Ox 98 99 O2 Delivery Room Air Room Air Intake and Output 06/29/18 06/29/18 06/30/18 15:00 23:00 07:00 Intake Total 350 ml 1621.8 ml Output Total 85 ml 735 ml 400 ml Balance -85 ml -385 ml 1221.8 ml BJORN CHACON MD Jun 30, 2018 14:24
[2018-07-01] VITALS (16 sets, daily range): BP systolic 136–176; BP diastolic 82–109
[2018-07-01] MEDS: IV DEXTROSE 5% - 0.9 % NACL 1,000 ML IV SCH ×3 (03:00→21:16)
[2018-07-01] MEDS: VANCOMYCIN 1.25 GM in IV NORMAL SALINE 250ML 250 ML IV SCH ×2 (04:31→17:44)
--- NOTE | 2018-07-01 05:35 | NUR ---
VSS throughout night. Pain mainly with movement. Continued need to empty ostomy frequently. Changed appliance twice throughout night. CATHRYN flushed. No needs currently. Will continue to monitor.
[2018-07-01 05:55] LABS: BASO # 0.1 x10^3/uL (0.0-0.2); BASO % 0 % (0-3); EOS % 0 % (0-3); HEMATOCRIT 27.7 % (39.0-53.0); HEMOGLOBIN 8.6 g/dL (13.0-17.5); LYMPH # 7.1 x10^3/uL (1.0-4.8); LYMPH % 40 % (24-48); MEAN CORPUSCULAR HEMOGLOBIN 23 pg (25-35); MEAN CORPUSCULAR HGB CONC 31 g/dL (31-37); MEAN CORPUSCULAR VOLUME 75 fL (79-100); MONO # 1.8 x10^3/uL (0.0-1.1); MONO % 10 % (0-9); NEUT # 8.8 x10^3uL (1.8-7.7); NEUT % 49 % (31-73); PLATELET COUNT 529 x10^3/uL (140-400); RED BLOOD COUNT 3.71 x10^6/uL (4.30-5.70); RED CELL DISTRIBUTION WIDTH 20.2 % (11.5-14.5); WHITE BLOOD COUNT 17.8 x10^3/uL (4.0-11.0)
[2018-07-01] MEDS: MEROPENEM 1 GM in IV NORMAL SALINE 100ML 100 ML IV SCH ×3 (06:03→21:14)
--- NOTE | 2018-07-01 07:54 | PDOC ---
Infectious Disease Note Subjective: Subjective Pt says is doing ok no n/v ostomy site has some leakage No fevers last 48 hours ROS: ROS Negative except for above. Vital Signs: Vital Signs Vital Signs Date Time Temp Pulse Resp B/P (MAP) Pulse Ox O2 Delivery O2 Flow Rate FiO2 07/01/18 07:11 98.1 77 18 158/96 (116) 94 Room Air 98.1 06/30/18 21:11 2.0 Physical Exam: PHYSICAL EXAM GENERAL: Lying down, NAD HEENT: Oral cavity clear NECK: Supple LUNGS: Clear. HEART: S1, S2 regular. ABDOMEN: Slightly distended, midline incision approx/steri-strips. Ostomy. Left -sided CATHRYN - purulent drainage EXTREMITIES: No edema or cyanosis. SKIN: warm NEUROLOGIC: Awake, responds few questions PIV Medications: Inpatient Meds: Current Medications Medications (Trade) Dose Ordered Sig/Siri Start Time Stop Time Status Last Admin Dose Admin Albumin Human 500 ml @ As Directed STK-MED ONCE 06/20/18 09:35 06/20/18 09:36 DC Cefoxitin Sodium (Mefoxin) 1 gm Q8H 06/20/18 18:00 06/21/18 10:01 DC 06/21/18 10:38 1 GM Dexamethasone Sodium Phosphate (Decadron) 20 mg STK-MED ONCE 06/20/18 07:43 06/20/18 07:44 DC Dextrose/Lactated Ringer's 1,000 ml @ 75 mls/hr [id number] 06/20/18 10:58 06/23/18 13:17 DC 06/20/18 14:54 75 MLS/HR Dextrose/Sodium Chloride 1,000 ml @ 100 mls/hr Q10H 06/29/18 21:00 06/30/18 23:00 100 MLS/HR Enoxaparin Sodium (Lovenox 40mg Syringe) 40 mg Q24H 06/22/18 12:00 06/30/18 12:34 40 MG Enoxaparin Sodium (Lovenox Per Pharmacy Prophylaxis Dosing) 1 each PRN DAILY PRN 06/22/18 11:30 06/27/18 14:49 DC Famotidine (Pepcid Vial) 20 mg STK-MED ONCE 06/20/18 07:43 06/20/18 07:44 DC Fentanyl Citrate (Fentanyl 2ml Vial) 100 mcg 1X ONCE 06/27/18 12:30 06/27/18 12:31 DC 06/27/18 12:30 75 MCG Glycopyrrolate (Robinul) 1 mg STK-MED ONCE 06/20/18 09:34 06/20/18 09:35 DC Guaifenesin (Mucinex) 600 mg BID 06/22/18 15:00 06/30/18 21:11 600 MG Hydrochlorothiazide (Microzide) 12.5 mg DAILY 06/23/18 10:00 06/30/18 09:17 12.5 MG Hydromorphone HCl (Dilaudid) 2 mg STK-MED ONCE 06/20/18 10:59 06/20/18 11:00 DC Info (CONTRAST GIVEN -- Rx MONITORING) 1 each PRN DAILY PRN 06/26/18 13:15 06/28/18 13:14 DC Iohexol (Omnipaque 240 Mg/ml) 30 ml 1X ONCE 06/26/18 13:00 06/26/18 13:02 DC 06/26/18 13:00 30 ML Iohexol (Omnipaque 300 Mg/ml) 75 ml 1X ONCE 06/26/18 13:00 06/26/18 13:02 DC 06/26/18 13:00 75 ML Ketorolac Tromethamine (Toradol 15mg Vial) 15 mg Q6HRS 06/20/18 12:00 06/22/18 11:59 DC 06/22/18 06:32 15 MG Ketorolac Tromethamine (Toradol 30mg Vial) 30 mg STK-MED ONCE 06/20/18 11:09 06/20/18 11:10 DC Lidocaine HCl (Lidocaine Pf 2% Vial) 5 ml STK-MED ONCE 06/20/18 07:43 06/20/18 07:44 DC Lidocaine HCl (Xylocaine-Mpf 1% 2ml Vial) 2 ml PRN 1X PRN 06/20/18 07:00 06/21/18 06:59 DC Lidocaine/Sodium Bicarbonate (Buffered Lidocaine 1%) 3 ml 1X ONCE 06/27/18 12:30 06/27/18 12:31 DC 06/27/18 12:30 9 ML Lisinopril (Prinivil) 10 mg DAILY 06/23/18 10:00 06/30/18 09:18 10 MG Meropenem 1 gm/ Sodium Chloride 100 ml @ 200 mls/hr Q8HRS 06/26/18 15:00 07/01/18 06:03 200 MLS/HR Midazolam HCl (Versed) 2 mg 1X ONCE 06/27/18 12:30 06/27/18 12:31 DC 06/27/18 12:30 2 MG Morphine Sulfate (Morphine Sulfate) 2 mg PRN Q3HRS PRN 06/20/18 11:00 06/30/18 05:07 2 MG Neostigmine Methylsulfate (Bloxiverz) 10 mg STK-MED ONCE 06/20/18 09:34 06/20/18 09:35 DC Ondansetron HCl (Zofran) 4 mg PRN Q6HRS PRN 06/20/18 11:00 06/29/18 19:35 4 MG Oxycodone/ Acetaminophen (Percocet 5/325) 2 tab PRN Q4HRS PRN 06/20/18 11:00 06/30/18 09:19 2 TAB Phenylephrine HCl (Celio-Synephrine Inj) 10 mg STK-MED ONCE 06/20/18 07:59 06/20/18 08:00 DC Potassium Chloride (Klor-Con) 40 meq 1X ONCE 06/29/18 12:00 06/29/18 12:01 DC 06/29/18 12:31 40 MEQ Prochlorperazine Edisylate (Compazine) 5 mg PACU PRN PRN 06/20/18 07:00 06/21/18 06:59 DC 06/20/18 12:18 5 MG Propofol 20 ml @ As Directed STK-MED ONCE 06/20/18 07:43 06/20/18 07:44 DC Ringer's Solution 1,000 ml @ 30 mls/hr Q24H 06/20/18 07:00 06/20/18 18:59 DC 06/20/18 06:39 30 MLS/HR Rocuronium [place] (Zemuron) 100 mg STK-MED ONCE 06/20/18 07:43 06/20/18 07:44 DC Sevoflurane (Ultane) 90 ml STK-MED ONCE 06/20/18 08:55 06/20/18 08:56 DC Sodium Chloride 500 ml @ 500 mls/hr 1X ONCE 06/29/18 19:30 06/29/18 20:29 DC 06/29/18 20:30 500 MLS/HR Sodium Chloride (Normal Saline Flush) 3 ml QSHIFT PRN 06/20/18 11:00 Vancomycin HCl (Vanco Per Pharmacy) 1 each PRN DAILY PRN 06/26/18 17:00 06/30/18 09:52 1 EACH Vancomycin HCl (Vancomycin Trough Level) 1 each 1X ONCE 06/28/18 04:30 06/28/18 04:31 DC Vancomycin HCl 1.25 gm/Sodium Chloride 250 ml @ 167 mls/hr Q12H 06/27/18 05:00 07/01/18 04:31 167 MLS/HR Vancomycin HCl 1.5 gm/Sodium Chloride 500 ml @ 250 mls/hr 1X ONCE 06/26/18 14:45 06/26/18 16:44 DC 06/26/18 16:53 250 MLS/HR Labs: Lab Laboratory Tests Test 07/01/18 04:30 White Blood Count 17.8 x10^3/uL (4.0-11.0) Red Blood Count 3.71 x10^6/uL (4.30-5.70) Hemoglobin 8.6 g/dL (13.0-17.5) Hematocrit 27.7 % (39.0-53.0) Mean Corpuscular Volume 75 fL (79-100) Mean Corpuscular Hemoglobin 23 pg (25-35) Mean Corpuscular Hemoglobin Concent 31 g/dL (31-37) Red Cell Distribution Width 20.2 % (11.5-14.5) Platelet Count 529 x10^3/uL (140-400) Neutrophils (%) (Auto) 49 % (31-73) Lymphocytes (%) (Auto) 40 % (24-48) Monocytes (%) (Auto) 10 % (0-9) Eosinophils (%) (Auto) 0 % (0-3) Basophils (%) (Auto) 0 % (0-3) Neutrophils # (Auto) 8.8 x10^3uL (1.8-7.7) Lymphocytes # (Auto) 7.1 x10^3/uL (1.0-4.8) Monocytes # (Auto) 1.8 x10^3/uL (0.0-1.1) Eosinophils # (Auto) 0.0 x10^3/uL (0.0-0.7) Basophils # (Auto) 0.1 x10^3/uL (0.0-0.2) Micro RUN DATE: 06/29/18 PAGE 1 RUN TIME: 1610 [facility] [address] [place] [address] Elijah Johnson M.D., Nurse Tech PATIENT: PRABHA GROVER ACCT: [id number] LOC: [address] [place] [address] U : [id number] AGE/SX: 63/M ROOM: 434 REG : 06/20/[address]: PEPE PAGAN MD : 1955 BED: 1 DIS : STATUS: ADM IN TLOC: SPEC #: [id number] SYD: 06/27/18 STATUS: RES REQ #: [id number] RECD: 06/27/[address]: NOAH HUBBARD MD SOURCE: PELVIS ENTR: 06/27/[address]: TADEO MCLAUGHLIN MD SPDC: FLOR DEWEY MD, AIDA BUCKLEY MD, MD, THOMAS W MD ORDERED: ANAER/AEROB/GS Procedure Result ANAEROBIC-AEROBIC CULTURE PENDING ANAEROBIC RES 1 PENDING AEROBIC CULT PENDING AEROBIC RES 1 PENDING GRAM STAIN Final Final report GRAM STAIN RES 1 Final Comment Many gram negative rods. GRAM STAIN RES 2 Final Comment Few gram positive rods. GRAM STAIN RES 3 Final Comment Few gram positive cocci GRAM STAIN RES 4 Final Comment CONTINUED ON NEXT PAGE RUN DATE: 06/29/18 PAGE 2 RUN TIME: 1610 [facility] [address] [place] [id number] Elijah Johnson M.D., Nurse Tech SPEC: [id number] PATIENT: PRABHA GROVER Bret [id number] ( Continued) Procedure Result GRAM STAIN RES 4 Final (continued) Few white blood cells. Performed at: DA - [facility] [place] [id number] [facility] [address], [place], [place] [id number] Glass Beveller: BRISEYDA Peraza MD, Phone: [phone] Objective: Assessment: Fever, better Leukocytosis chronic since 2014 Sepsis Abdominal abscess / leak s/p CT drainage on 06/27. cults pending G/S PSAE,GPR,GPCs Stage IV adenocarcinoma of the colon with metastatic disease to the lung and liver. s/p splenic flexure segmental resection on 11/22/2014 by s/p total colectomy with end ileostomy 06/20/2018 awaiting palliative chemotherapy by oncology PCM Anemia Plan: Plan of Care Vanc and meropenem Trough 13.3 f/u cultures Supportive care d/w at bedside SARAH SHEN MD Jul 01, 2018 07:54
--- NOTE | 2018-07-01 08:35 | PDOC ---
ANUSHA OVALLES BEAUTY ARTIST 07/01/18 0834: SURGICAL PROGRESS NOTE Subjective resting no complaints Vital Signs Vital Signs Date Time Temp Pulse Resp B/P (MAP) Pulse Ox O2 Delivery O2 Flow Rate FiO2 07/01/18 07:11 98.1 77 18 158/96 (116) 94 Room Air 98.1 06/30/18 21:11 2.0 I&O Intake and Output 07/01/18 07:00 Intake Total 3831 ml Output Total 3340 ml Balance 491 ml Intake Oral 730 ml IV Total 3101 ml Output Urine Total 1125 ml Stool Total 1745 ml Gastric Drainage Total 350 ml Drainage Total 120 ml General: Alert, Oriented X3, Cooperative, No acute distress Abdomen: Soft, Other (some drainage from bottom of incision, ostomy with stool , keely purulent ) Labs Laboratory Tests Test 06/30/18 03:40 07/01/18 04:30 Sodium Level 141 mmol/L (136-145) Potassium Level 3.6 mmol/L (3.5-5.1) Chloride Level 106 mmol/L (98-107) Carbon Dioxide Level 22 mmol/L (21-32) Anion Gap 13 (6-14) Blood Urea Nitrogen 13 mg/dL (8-26) Creatinine 0.7 mg/dL (0.7-1.3) Estimated GFR (Cockcroft-Gault) 136.9 Glucose Level 125 mg/dL (70-99) Calcium Level 8.3 mg/dL (8.5-10.1) White Blood Count 17.8 x10^3/uL (4.0-11.0) Red Blood Count 3.71 x10^6/uL (4.30-5.70) Hemoglobin 8.6 g/dL (13.0-17.5) Hematocrit 27.7 % (39.0-53.0) Mean Corpuscular Volume 75 fL (79-100) Mean Corpuscular Hemoglobin 23 pg (25-35) Mean Corpuscular Hemoglobin Concent 31 g/dL (31-37) Red Cell Distribution Width 20.2 % (11.5-14.5) Platelet Count 529 x10^3/uL (140-400) Neutrophils (%) (Auto) 49 % (31-73) Lymphocytes (%) (Auto) 40 % (24-48) Monocytes (%) (Auto) 10 % (0-9) Eosinophils (%) (Auto) 0 % (0-3) Basophils (%) (Auto) 0 % (0-3) Neutrophils # (Auto) 8.8 x10^3uL (1.8-7.7) Lymphocytes # (Auto) 7.1 x10^3/uL (1.0-4.8) Monocytes # (Auto) 1.8 x10^3/uL (0.0-1.1) Eosinophils # (Auto) 0.0 x10^3/uL (0.0-0.7) Basophils # (Auto) 0.1 x10^3/uL (0.0-0.2) Laboratory Tests Test 07/01/18 04:30 White Blood Count 17.8 x10^3/uL (4.0-11.0) Red Blood Count 3.71 x10^6/uL (4.30-5.70) Hemoglobin 8.6 g/dL (13.0-17.5) Hematocrit 27.7 % (39.0-53.0) Mean Corpuscular Volume 75 fL (79-100) Mean Corpuscular Hemoglobin 23 pg (25-35) Mean Corpuscular Hemoglobin Concent 31 g/dL (31-37) Red Cell Distribution Width 20.2 % (11.5-14.5) Platelet Count 529 x10^3/uL (140-400) Neutrophils (%) (Auto) 49 % (31-73) Lymphocytes (%) (Auto) 40 % (24-48) Monocytes (%) (Auto) 10 % (0-9) Eosinophils (%) (Auto) 0 % (0-3) Basophils (%) (Auto) 0 % (0-3) Neutrophils # (Auto) 8.8 x10^3uL (1.8-7.7) Lymphocytes # (Auto) 7.1 x10^3/uL (1.0-4.8) Monocytes # (Auto) 1.8 x10^3/uL (0.0-1.1) Eosinophils # (Auto) 0.0 x10^3/uL (0.0-0.7) Basophils # (Auto) 0.1 x10^3/uL (0.0-0.2) Assessment/Plan continue abx PEPE Lyons MD 07/01/18 1113: SURGICAL PROGRESS NOTE Assessment/Plan Improving wbc, patient tolerating diet. Midline wound looking better no drainage , no erythema. Continue abx and KEELY drain. Will transfer to . Agree with Torri 's assessment and plan. ANUSHA OVALLES APRN Jul 01, 2018 08:34 PEPE PAGAN MD Jul 01, 2018 11:13
[2018-07-01] MEDS: hydroCHLOROthiazide 12.5 MG CAPSULE PO SCH (08:55)
--- NOTE | 2018-07-01 08:55 | PDOC ---
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 ROS - no fever Objective Objective Vital Signs Date Time Temp Pulse Resp B/P (MAP) Pulse Ox O2 Delivery O2 Flow Rate FiO2 07/01/18 08:43 97.3 76 18 154/96 (115) 95 Room Air 97.3 06/30/18 21:11 2.0 Intake and Output 07/01/18 07:00 Intake Total 3831 ml Output Total 3340 ml Balance 491 ml Intake Oral 730 ml IV Total 3101 ml Output Urine Total 1125 ml Stool Total 1745 ml Gastric Drainage Total 350 ml Drainage Total 120 ml Physical Exam Heart: Normal S1, Normal S2 General: Alert, Oriented X3 Lungs: Clear to auscultation Neuro: Normal speech Psych/Mental Status: Mental status NL Assessment Assessment IMPRESSION AND PLAN: 1. 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 He had a colon cancer diagnosed in 2014 involving the splenic flexure and it was stage 2 at that time. He was diagnosed with multiple bilateral lung metastases and liver metastasis consistent with stage [address] 2018 and liver biopsy 06/20/18. CEA [id number] on 06/28/18. I reviewed the CT results and the pathology results in detail with the patient and his . I explained that this is stage 4 malignancy, which is not curable and treatments are palliative. I discussed the role of palliative chemotherapy and the risks and benefits. He is going to continue postoperative management at this point and follow up with me in about 3 weeks to evaluate for palliative chemotherapy. 2. Hypoalbuminemia. He reports a 25-pound weight loss. This is due to malignancy. 3. Liver metastasis, status post biopsy. 4. Lung metastasis, bilateral. 5. Anemia due to malignancy. Iron studies are consistent with anemia due to chronic disease. Hb 8.6 Comment Review of Relevant I have reviewed the following items pallavi (where applicable) has been applied. Labs Laboratory Tests Test 06/30/18 03:40 07/01/18 04:30 Sodium Level 141 mmol/L (136-145) Potassium Level 3.6 mmol/L (3.5-5.1) Chloride Level 106 mmol/L (98-107) Carbon Dioxide Level 22 mmol/L (21-32) Anion Gap 13 (6-14) Blood Urea Nitrogen 13 mg/dL (8-26) Creatinine 0.7 mg/dL (0.7-1.3) Estimated GFR (Cockcroft-Gault) 136.9 Glucose Level 125 mg/dL (70-99) Calcium Level 8.3 mg/dL (8.5-10.1) White Blood Count 17.8 x10^3/uL (4.0-11.0) Red Blood Count 3.71 x10^6/uL (4.30-5.70) Hemoglobin 8.6 g/dL (13.0-17.5) Hematocrit 27.7 % (39.0-53.0) Mean Corpuscular Volume 75 fL (79-100) Mean Corpuscular Hemoglobin 23 pg (25-35) Mean Corpuscular Hemoglobin Concent 31 g/dL (31-37) Red Cell Distribution Width 20.2 % (11.5-14.5) Platelet Count 529 x10^3/uL (140-400) Neutrophils (%) (Auto) 49 % (31-73) Lymphocytes (%) (Auto) 40 % (24-48) Monocytes (%) (Auto) 10 % (0-9) Eosinophils (%) (Auto) 0 % (0-3) Basophils (%) (Auto) 0 % (0-3) Neutrophils # (Auto) 8.8 x10^3uL (1.8-7.7) Lymphocytes # (Auto) 7.1 x10^3/uL (1.0-4.8) Monocytes # (Auto) 1.8 x10^3/uL (0.0-1.1) Eosinophils # (Auto) 0.0 x10^3/uL (0.0-0.7) Basophils # (Auto) 0.1 x10^3/uL (0.0-0.2) Laboratory Tests Test 07/01/18 04:30 White Blood Count 17.8 x10^3/uL (4.0-11.0) Red Blood Count 3.71 x10^6/uL (4.30-5.70) Hemoglobin 8.6 g/dL (13.0-17.5) Hematocrit 27.7 % (39.0-53.0) Mean Corpuscular Volume 75 fL (79-100) Mean Corpuscular Hemoglobin 23 pg (25-35) Mean Corpuscular Hemoglobin Concent 31 g/dL (31-37) Red Cell Distribution Width 20.2 % (11.5-14.5) Platelet Count 529 x10^3/uL (140-400) Neutrophils (%) (Auto) 49 % (31-73) Lymphocytes (%) (Auto) 40 % (24-48) Monocytes (%) (Auto) 10 % (0-9) Eosinophils (%) (Auto) 0 % (0-3) Basophils (%) (Auto) 0 % (0-3) Neutrophils # (Auto) 8.8 x10^3uL (1.8-7.7) Lymphocytes # (Auto) 7.1 x10^3/uL (1.0-4.8) Monocytes # (Auto) 1.8 x10^3/uL (0.0-1.1) Eosinophils # (Auto) 0.0 x10^3/uL (0.0-0.7) Basophils # (Auto) 0.1 x10^3/uL (0.0-0.2) Microbiology 06/26/18 Blood Culture - Preliminary, Resulted NO GROWTH AFTER 4 DAYS 06/27/18 Anaerobic/Aerobic Culture, Resulted Pending 06/27/18 Anaerobic Culture Result 1 (MILAN), Resulted Pending 06/27/18 Aerobic Culture - Preliminary, Resulted 06/27/18 Aerobic Culture Result 1 (MILAN) - Preliminary, Resulted 06/27/18 Aerobic Culture Result 2 (MILAN) - Preliminary, Resulted 06/27/18 Gram Stain - Final, Resulted 06/27/18 Gram Stain Result 1 (MILAN) - Final, Resulted 06/27/18 Gram Stain Result 2 (MILAN) - Final, Resulted 06/27/18 Gram Stain Result 3 (MILAN) - Final, Resulted 06/27/18 Gram Stain Result 4 (MILAN) - Final, Resulted Medications Current Medications Ondansetron HCl (Zofran) 4 mg PRN Q6HRS PRN IV NAUSEA/VOMITING; Start 06/20/18 at 07:00; Stop 06/21/18 at 06:59; Status DC Fentanyl Citrate (Fentanyl 2ml Vial) 25 mcg PRN Q5MIN PRN IV MILD PAIN; Start 06/20/18 at 07:00; Stop 06/21/18 at 06:59; Status DC Fentanyl Citrate (Fentanyl 2ml Vial) 50 mcg PRN Q5MIN PRN IV MODERATE TO SEVERE PAIN Last administered on 06/20/18at 12:39; Start 06/20/18 at 07:00; Stop 06/21/18 at 06:59; Status DC Morphine Sulfate (Morphine Sulfate) 1 mg PRN Q10MIN PRN IV SEVERE PAIN; Start 06/20/18 at 07:00; Stop 06/21/18 at 06:59; Status DC Ringer's Solution 1,000 ml @ 30 mls/hr Q24H IV Last administered on 06/20/18at 06:39; Start 06/20/18 at 07:00; Stop 06/20/18 at 18:59; Status DC Lidocaine HCl (Xylocaine-Mpf 1% 2ml Vial) 2 ml PRN 1X PRN ID IV START; Start at 07:00; Stop 06/21/18 at 06:59; Status DC Hydromorphone HCl (Dilaudid) 0.5 mg PRN Q10MIN PRN IV SEV PAIN, Second choice; Start 06/20/18 at 07:00; Stop 06/21/18 at 06:59; Status DC Prochlorperazine Edisylate (Compazine) 5 mg PACU PRN PRN IV NAUSEA, MRX1 Last administered on 06/20/18at 12:18; Start 06/20/18 at 07:00; Stop 06/21/18 at 06:59 ; Status DC Cefoxitin Sodium (Mefoxin) 2 gm 1X PREOP PRN IVP PRIOR TO PROCEDURE Last administered on 06/20/18at 10:07; Start 06/20/18 at 06:00; Stop 06/20/18 at 21:00 ; Status DC Propofol 20 ml @ As Directed STK-MED ONCE IV ; Start 06/20/18 at 07:43; Stop at 07:44; Status DC Dexamethasone Sodium Phosphate (Decadron) 20 mg STK-MED ONCE .ROUTE ; Start at 07:43; Stop 06/20/18 at 07:44; Status DC Famotidine (Pepcid Vial) 20 mg STK-MED ONCE .ROUTE ; Start 06/20/18 at 07:43; Stop 06/20/18 at 07:44; Status DC Lidocaine HCl (Lidocaine Pf 2% Vial) 5 ml STK-MED ONCE .ROUTE ; Start 06/20/18 at 07:43; Stop 06/20/18 at 07:44; Status DC Ondansetron HCl (Zofran) 4 mg STK-MED ONCE .ROUTE ; Start 06/20/18 at 07:43; Stop 06/20/18 at 07:44; Status DC Rocuronium [place]idan (Zemuron) 100 mg STK-MED ONCE .ROUTE ; Start 06/20/18 at 07: 43; Stop 06/20/18 at 07:44; Status DC Fentanyl Citrate (Fentanyl 2ml Vial) 100 mcg STK-MED ONCE .ROUTE ; Start at 07:43; Stop 06/20/18 at 07:44; Status DC Midazolam HCl (Versed) 2 mg STK-MED ONCE .ROUTE ; Start 06/20/18 at 07:43; Stop 06/20/18 at 07:44; Status DC Fentanyl Citrate (Fentanyl 2ml Vial) 100 mcg STK-MED ONCE .ROUTE ; Start at 07:46; Stop 06/20/18 at 07:47; Status DC Phenylephrine HCl (Celio-Synephrine Inj) 10 mg STK-MED ONCE .ROUTE ; Start at 07:59; Stop 06/20/18 at 08:00; Status DC Sevoflurane (Ultane) 90 ml STK-MED ONCE IH ; Start 06/20/18 at 08:55; Stop 06/20 at 08:56; Status DC Neostigmine Methylsulfate (Bloxiverz) 10 mg STK-MED ONCE .ROUTE ; Start at 09:34; Stop 06/20/18 at 09:35; Status DC Glycopyrrolate (Robinul) 1 mg STK-MED ONCE .ROUTE ; Start 06/20/18 at 09:34; Stop 06/20/18 at 09:35; Status DC Albumin Human 500 ml @ As Directed STK-MED ONCE IV ; Start 06/20/18 at 09:35; Stop 06/20/18 at 09:36; Status DC Hydromorphone HCl (Dilaudid) 2 mg STK-MED ONCE .ROUTE ; Start 06/20/18 at 10:59 ; Stop 06/20/18 at 11:00; Status DC Cefoxitin Sodium (Mefoxin) 1 gm Q8H IVP ; Start 06/20/18 at 18:00; Stop at 10:01; Status Cancel Sodium Chloride (Normal Saline Flush) 3 ml QSHIFT PRN IV AFTER MEDS AND BLOOD DRAWS; Start 06/20/18 at 11:00 Morphine Sulfate (Morphine Sulfate) 2 mg PRN Q3HRS PRN IV PAIN Last administered on 06/30/18at 05:07; Start 06/20/18 at 11:00 Oxycodone/ Acetaminophen (Percocet 5/325) 1 tab PRN Q4HRS PRN PO MILD PAIN, 1ST CHOICE Last administered on 06/30/18at 21:11; Start 06/20/18 at 11:00 Oxycodone/ Acetaminophen (Percocet 5/325) 2 tab PRN Q4HRS PRN PO MODERATE PAIN , SEVERE PAIN Last administered on 06/30/18 09:19; Start 06/20/18 at 11:00 Ketorolac Tromethamine (Toradol 15mg Vial) 15 mg Q6HRS IV Last administered on 06/22/18 06:32; Start 06/20/18 at 12:00; Stop 06/22/18 at 11:59; Status DC Ondansetron HCl (Zofran) 4 mg PRN Q6HRS PRN IV NAUSEA, 1ST CHOICE Last administered on 06/29/18at 19:35; Start 06/20/18 at 11:00 Dextrose/Lactated Ringer's 1,000 ml @ 75 mls/hr [id number] IV Last administered on 06/20/18at 14:54; Start 06/20/18 at 10:58; Stop 06/23/18 at 13:17; Status DC Ketorolac Tromethamine (Toradol 30mg Vial) 30 mg STK-MED ONCE .ROUTE ; Start at 11:09; Stop 06/20/18 at 11:10; Status DC Sodium Chloride 1,000 ml @ 100 mls/hr Q10H IV Last administered on 06/22/18at 00:45; Start 06/20/18 at 11:15; Stop 06/23/18 at 13:17; Status DC Cefoxitin Sodium (Mefoxin) 1 gm Q8H IVP Last administered on 06/21/18at 10:38; Start 06/20/18 at 18:00; Stop 06/21/18 at 10:01; Status DC Enoxaparin Sodium (Lovenox Per Pharmacy Prophylaxis Dosing) 1 each PRN DAILY PRN MC SEE COMMENTS; Start 06/22/18 at 11:30; Stop 06/27/18 at 14:49; Status DC Enoxaparin Sodium (Lovenox 40mg Syringe) 40 mg Q24H SQ Last administered on 06/30 12:34; Start 06/22/18 at 12:00 Guaifenesin (Mucinex) 600 mg BID PO Last administered on 06/30/18 21:11; Start 06/22/18 at 15:00 Lisinopril (Prinivil) 10 mg DAILY PO Last administered on 06/30/18 09:18; Start 06/23/18 at 10:00 Hydrochlorothiazide (Microzide) 12.5 mg DAILY PO Last administered on 06/30/18 09:17; Start 06/23/18 at 10:00 Iohexol (Omnipaque 300 Mg/ml) 75 ml 1X ONCE IV Last administered on 06/26/18at 13:00; Start 06/26/18 at 13:00; Stop 06/26/18 at 13:02; Status DC Iohexol (Omnipaque 240 Mg/ml) 30 ml 1X ONCE PO Last administered on 06/26/18at 13:00; Start 06/26/18 at 13:00; Stop 06/26/18 at 13:02; Status DC Info (CONTRAST GIVEN -- Rx MONITORING) 1 each PRN DAILY PRN MC SEE COMMENTS; Start 06/26/18 at 13:15; Stop 06/28/18 at 13:14; Status DC Sodium Chloride 1,000 ml @ 100 mls/hr Q10H IV Last administered on 06/28/18 09 :14; Start 06/26/18 at 15:00; Stop 06/28/18 at 10:46; Status DC Potassium Chloride (Klor-Con) 40 meq 1X ONCE PO Last administered on at 16:56; Start 06/26/18 at 15:00; Stop 06/26/18 at 15:01; Status DC Potassium Chloride (Klor-Con) 20 meq [id number] PO Last administered on at 09:19; Start 06/27/18 at 08:00 Sodium Chloride 1,000 ml @ 500 mls/hr Q2H IV ; Start 06/26/18 at 15:00; Status Cancel Meropenem 1 gm/ Sodium Chloride 100 ml @ 200 mls/hr Q8HRS IV Last administered on 07/01/18at 06:03; Start 06/26/18 at 15:00 Vancomycin HCl 1.5 gm/Sodium Chloride 500 ml @ 250 mls/hr 1X ONCE IV Last administered on 06/26/18at 16:53; Start 06/26/18 at 14:45; Stop 06/26/18 at 16:44 ; Status DC Sodium Chloride 1,000 ml @ 500 mls/hr 1X ONCE IV Last administered on at 16:10; Start 06/26/18 at 15:00; Stop 06/26/18 at 16:59; Status DC Sodium Chloride 1,000 ml @ 2,460 mls/hr Q25M IV ; Start 06/26/18 at 17:00; Stop 06/26/18 at 17:11; Status DC Sodium Chloride 500 ml @ 1,000 mls/hr PRN Q30MIN PRN IV SEE COMMENTS; Start at 17:00 Vancomycin HCl (Vanco Per Pharmacy) 1 each PRN DAILY PRN MC SEE COMMENTS Last administered on 06/30/18at 09:52; Start 06/26/18 at 17:00 Vancomycin HCl 1.25 gm/Sodium Chloride 250 ml @ 167 mls/hr Q12H IV Last administered on 07/01/18at 04:31; Start 06/27/18 at 05:00 Vancomycin HCl (Vancomycin Trough Level) 1 each 1X ONCE MC ; Start 06/28/18 at 04:30; Stop 06/28/18 at 04:31; Status DC Lidocaine/Sodium Bicarbonate (Buffered Lidocaine 1%) 3 ml STK-MED ONCE .ROUTE ; Start 06/27/18 at 12:12; Stop 06/27/18 at 12:13; Status DC Midazolam HCl (Versed) 2 mg STK-MED ONCE .ROUTE ; Start 06/27/18 at 12:13; Stop 06/27/18 at 12:14; Status DC Fentanyl Citrate (Fentanyl 2ml Vial) 100 mcg STK-MED ONCE .ROUTE ; Start at 12:13; Stop 06/27/18 at 12:14; Status DC Lidocaine/Sodium Bicarbonate (Buffered Lidocaine 1%) 3 ml 1X ONCE IJ Last administered on 06/27/18 12:30; Start 06/27/18 at 12:30; Stop 06/27/18 at 12:31; Status DC Midazolam HCl (Versed) 2 mg 1X ONCE IV Last administered on 06/27/18at 12:30; Start 06/27/18 at 12:30; Stop 06/27/18 at 12:31; Status DC Fentanyl Citrate (Fentanyl 2ml Vial) 100 mcg 1X ONCE IV Last administered on 12:30; Start 06/27/18 at 12:30; Stop 06/27/18 at 12:31; Status DC Potassium Chloride (Klor-Con) 40 meq 1X ONCE PO Last administered on 06/29/18 12:31; Start 06/29/18 at 12:00; Stop 06/29/18 at 12:01; Status DC Dextrose/Sodium Chloride 1,000 ml @ 100 mls/hr Q10H IV Last administered on 23:00; Start 06/29/18 at 21:00 Sodium Chloride 500 ml @ 500 mls/hr 1X ONCE IV Last administered on 06/29/18 20:30; Start 06/29/18 at 19:30; Stop 06/29/18 at 20:29; Status DC Active Scripts Active Reported Zofran (Ondansetron Hcl) 4 Mg Tablet 4 Mg PO BID PRN Lisinopril-Hctz 10-12.5 Mg Tab (Lisinopril/Hydrochlorothiazide) 1 Each Tablet 1 Tab PO DAILY Vitals/I & O Vital Sign - Last 24 Hours 06/30/18 06/30/18 06/30/18 06/30/18 09:00 09:18 10:00 11:00 Pulse 74 74 77 78 Resp 26 24 24 B/P (MAP) 165/97 (119) 166/82 129/92 (104) 128/78 (95) Pulse Ox 96 100 97 O2 Delivery Room Air Room Air Room Air 06/30/18 06/30/18 06/30/184/19 12:00 12:00 13:00 14:00 Temp 97.3 97.3 Pulse 73 76 77 Resp 22 18 16 B/P (MAP) 125/81 (96) 140/88 (105) 113/69 (84) Pulse Ox 98 99 98 O2 Delivery Room Air Room Air Room Air Room Air 06/30/18 06/30/18 06/30/18 06/30/18 15:00 16:00 16:00 17:00 Temp 97.4 97.4 Pulse 80 80 78 Resp 16 20 32 B/P (MAP) 120/95 (103) 134/84 (101) 141/88 (105) Pulse Ox 98 99 97 O2 Delivery Room Air Room Air Room Air Room Air 06/30/18 06/30/18 06/30/18 06/30/18 18:00 19:00 19:15 20:00 Temp 98.2 98.2 Pulse 79 84 82 Resp 30 20 22 B/P (MAP) 146/96 (113) 142/95 (111) 146/92 (110) Pulse Ox 96 93 97 O2 Delivery Room Air Room Air Room Air Room Air 06/30/18 06/30/18 06/30/18 06/30/18 21:00 21:11 22:00 22:01 Pulse 80 78 Resp 21 20 15 18 B/P (MAP) 151/97 (115) 153/92 (112) Pulse Ox 94 94 99 94 O2 Delivery Room Air Room Air Room Air Room Air O2 Flow Rate 2.0 06/30/18 07/01/18 07/01/18 07/01/18 23:00 00:00 00:05 01:00 Temp 97.8 97.8 Pulse 78 81 78 Resp 16 21 17 B/P (MAP) 154/89 (110) 155/96 (115) 147/95 (112) Pulse Ox 98 100 97 O2 Delivery Room Air Room Air Room Air Room Air 07/01/18 07/01/18 07/01/18 07/01/18 02:05 03:00 04:00 04:04 Temp 97.8 97.8 Pulse 89 82 79 Resp 20 20 20 B/P (MAP) 150/93 (112) 136/93 (107) 138/86 (103) Pulse Ox 97 99 98 O2 Delivery Room Air Room Air Room Air Room Air 07/01/18 07/01/18 07/01/18 07/01/18 05:00 06:00 07:11 08:13 Temp 98.1 98.1 Pulse 76 80 77 Resp 21 12 18 B/P (MAP) 140/82 (101) 154/92 (112) 158/96 (116) Pulse Ox 99 99 94 O2 Delivery Room Air Room Air Room Air Room Air 07/01/18 08:43 Temp 97.3 97.3 Pulse 76 Resp 18 B/P (MAP) 154/96 (115) Pulse Ox 95 O2 Delivery Room Air Intake and Output 06/30/18 06/30/18 07/01/18 15:00 23:00 07:00 Intake Total 100 ml 2380 ml 1351 ml Output Total 1440 ml 1100 ml 800 ml Balance -1340 ml 1280 ml 551 ml BJORN CHACON MD Jul 01, 2018 08:55
[2018-07-01] MEDS: LISINOPRIL 10 MG TABLET PO SCH (08:56)
[2018-07-01] MEDS: POTASSIUM CHLORIDE 20 MEQ TABLET.ER. PO SCH (08:56)
--- NOTE | 2018-07-01 11:50 | PDOC ---
PROGRESS NOTES Chief Complaint Chief Complaint CC: Sepsis w. 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 General surgery following. Patient seen and examined in the ICU. Patient has no new complaints today. Drainage from midline incision has improved. Patient to be transferred to from ICU today. Incision site c/d/i. Vitals Vitals Vital Signs Date Time Temp Pulse Resp B/P (MAP) Pulse Ox O2 Delivery O2 Flow Rate FiO2 07/01/18 11:00 98.0 82 18 157/89 (111) 96 Room Air 98.0 06/30/18 21:11 2.0 Physical Exam Physical Exam GENERAL: Lying down, NAD HEENT: Oral cavity clear NECK: Supple LUNGS: Clear. HEART: S1, S2 regular. ABDOMEN: Slightly distended, midline incision approx/steri-strips. Ostomy. Left -sided KEELY - purulent drainage EXTREMITIES: No edema or cyanosis. SKIN: warm NEUROLOGIC: Awake, responds few questions PIV General: Alert, Oriented X3 Heart: Normal S1, Normal S2 Lungs: Clear Abdomen: Soft, Other (some drainage from bottom of incision, ostomy with stool , keely purulent ) Extremities: No edema, Normal pulses Skin: No rashes, Other (KEELY tube in place) Labs LABS Laboratory Tests Test 07/01/18 04:30 White Blood Count 17.8 x10^3/uL (4.0-11.0) Red Blood Count 3.71 x10^6/uL (4.30-5.70) Hemoglobin 8.6 g/dL (13.0-17.5) Hematocrit 27.7 % (39.0-53.0) Mean Corpuscular Volume 75 fL (79-100) Mean Corpuscular Hemoglobin 23 pg (25-35) Mean Corpuscular Hemoglobin Concent 31 g/dL (31-37) Red Cell Distribution Width 20.2 % (11.5-14.5) Platelet Count 529 x10^3/uL (140-400) Neutrophils (%) (Auto) 49 % (31-73) Lymphocytes (%) (Auto) 40 % (24-48) Monocytes (%) (Auto) 10 % (0-9) Eosinophils (%) (Auto) 0 % (0-3) Basophils (%) (Auto) 0 % (0-3) Neutrophils # (Auto) 8.8 x10^3uL (1.8-7.7) Lymphocytes # (Auto) 7.1 x10^3/uL (1.0-4.8) Monocytes # (Auto) 1.8 x10^3/uL (0.0-1.1) Eosinophils # (Auto) 0.0 x10^3/uL (0.0-0.7) Basophils # (Auto) 0.1 x10^3/uL (0.0-0.2) Review of Systems Review of Systems Denies chest pain Denies drainage from incision site Assessment and Plan Assessmemt and Plan Assessment: Sepsis w. 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 Juarez input Consult PT/OT Continue home meds Continue Vancomycin and Meropenem Continue to follow with onocology, appreciate subspecialty input Recheck labs tomorrow morning Comment Review of Relevant I have reviewed the following items pallavi (where applicable) has been applied. Labs Laboratory Tests Test 06/30/18 03:40 07/01/18 04:30 Sodium Level 141 mmol/L (136-145) Potassium Level 3.6 mmol/L (3.5-5.1) Chloride Level 106 mmol/L (98-107) Carbon Dioxide Level 22 mmol/L (21-32) Anion Gap 13 (6-14) Blood Urea Nitrogen 13 mg/dL (8-26) Creatinine 0.7 mg/dL (0.7-1.3) Estimated GFR (Cockcroft-Gault) 136.9 Glucose Level 125 mg/dL (70-99) Calcium Level 8.3 mg/dL (8.5-10.1) White Blood Count 17.8 x10^3/uL (4.0-11.0) Red Blood Count 3.71 x10^6/uL (4.30-5.70) Hemoglobin 8.6 g/dL (13.0-17.5) Hematocrit 27.7 % (39.0-53.0) Mean Corpuscular Volume 75 fL (79-100) Mean Corpuscular Hemoglobin 23 pg (25-35) Mean Corpuscular Hemoglobin Concent 31 g/dL (31-37) Red Cell Distribution Width 20.2 % (11.5-14.5) Platelet Count 529 x10^3/uL (140-400) Neutrophils (%) (Auto) 49 % (31-73) Lymphocytes (%) (Auto) 40 % (24-48) Monocytes (%) (Auto) 10 % (0-9) Eosinophils (%) (Auto) 0 % (0-3) Basophils (%) (Auto) 0 % (0-3) Neutrophils # (Auto) 8.8 x10^3uL (1.8-7.7) Lymphocytes # (Auto) 7.1 x10^3/uL (1.0-4.8) Monocytes # (Auto) 1.8 x10^3/uL (0.0-1.1) Eosinophils # (Auto) 0.0 x10^3/uL (0.0-0.7) Basophils # (Auto) 0.1 x10^3/uL (0.0-0.2) Laboratory Tests Test 07/01/18 04:30 White Blood Count 17.8 x10^3/uL (4.0-11.0) Red Blood Count 3.71 x10^6/uL (4.30-5.70) Hemoglobin 8.6 g/dL (13.0-17.5) Hematocrit 27.7 % (39.0-53.0) Mean Corpuscular Volume 75 fL (79-100) Mean Corpuscular Hemoglobin 23 pg (25-35) Mean Corpuscular Hemoglobin Concent 31 g/dL (31-37) Red Cell Distribution Width 20.2 % (11.5-14.5) Platelet Count 529 x10^3/uL (140-400) Neutrophils (%) (Auto) 49 % (31-73) Lymphocytes (%) (Auto) 40 % (24-48) Monocytes (%) (Auto) 10 % (0-9) Eosinophils (%) (Auto) 0 % (0-3) Basophils (%) (Auto) 0 % (0-3) Neutrophils # (Auto) 8.8 x10^3uL (1.8-7.7) Lymphocytes # (Auto) 7.1 x10^3/uL (1.0-4.8) Monocytes # (Auto) 1.8 x10^3/uL (0.0-1.1) Eosinophils # (Auto) 0.0 x10^3/uL (0.0-0.7) Basophils # (Auto) 0.1 x10^3/uL (0.0-0.2) Microbiology 06/26/18 Blood Culture - Preliminary, Resulted NO GROWTH AFTER 4 DAYS 06/27/18 Anaerobic/Aerobic Culture, Resulted Pending 06/27/18 Anaerobic Culture Result 1 (MILAN), Resulted Pending 06/27/18 Aerobic Culture - Preliminary, Resulted 06/27/18 Aerobic Culture Result 1 (MILAN) - Preliminary, Resulted 06/27/18 Aerobic Culture Result 2 (MILAN) - Preliminary, Resulted 06/27/18 Gram Stain - Final, Resulted 06/27/18 Gram Stain Result 1 (MILAN) - Final, Resulted 06/27/18 Gram Stain Result 2 (MILAN) - Final, Resulted 06/27/18 Gram Stain Result 3 (MILAN) - Final, Resulted 06/27/18 Gram Stain Result 4 (MILAN) - Final, Resulted Medications Current Medications Ondansetron HCl (Zofran) 4 mg PRN Q6HRS PRN IV NAUSEA/VOMITING; Start 06/20/18 at 07:00; Stop 06/21/18 at 06:59; Status DC Fentanyl Citrate (Fentanyl 2ml Vial) 25 mcg PRN Q5MIN PRN IV MILD PAIN; Start 06/20/18 at 07:00; Stop 06/21/18 at 06:59; Status DC Fentanyl Citrate (Fentanyl 2ml Vial) 50 mcg PRN Q5MIN PRN IV MODERATE TO SEVERE PAIN Last administered on 06/20/18at 12:39; Start 06/20/18 at 07:00; Stop 06/21/18 at 06:59; Status DC Morphine Sulfate (Morphine Sulfate) 1 mg PRN Q10MIN PRN IV SEVERE PAIN; Start 06/20/18 at 07:00; Stop 06/21/18 at 06:59; Status DC Ringer's Solution 1,000 ml @ 30 mls/hr Q24H IV Last administered on 06/20/18at 06:39; Start 06/20/18 at 07:00; Stop 06/20/18 at 18:59; Status DC Lidocaine HCl (Xylocaine-Mpf 1% 2ml Vial) 2 ml PRN 1X PRN ID IV START; Start at 07:00; Stop 06/21/18 at 06:59; Status DC Hydromorphone HCl (Dilaudid) 0.5 mg PRN Q10MIN PRN IV SEV PAIN, Second choice; Start 06/20/18 at 07:00; Stop 06/21/18 at 06:59; Status DC Prochlorperazine Edisylate (Compazine) 5 mg PACU PRN PRN IV NAUSEA, MRX1 Last administered on 06/20/18at 12:18; Start 06/20/18 at 07:00; Stop 06/21/18 at 06:59 ; Status DC Cefoxitin Sodium (Mefoxin) 2 gm 1X PREOP PRN IVP PRIOR TO PROCEDURE Last administered on 06/20/18at 10:07; Start 06/20/18 at 06:00; Stop 06/20/18 at 21:00 ; Status DC Propofol 20 ml @ As Directed STK-MED ONCE IV ; Start 06/20/18 at 07:43; Stop at 07:44; Status DC Dexamethasone Sodium Phosphate (Decadron) 20 mg STK-MED ONCE .ROUTE ; Start at 07:43; Stop 06/20/18 at 07:44; Status DC Famotidine (Pepcid Vial) 20 mg STK-MED ONCE .ROUTE ; Start 06/20/18 at 07:43; Stop 06/20/18 at 07:44; Status DC Lidocaine HCl (Lidocaine Pf 2% Vial) 5 ml STK-MED ONCE .ROUTE ; Start 06/20/18 at 07:43; Stop 06/20/18 at 07:44; Status DC Ondansetron HCl (Zofran) 4 mg STK-MED ONCE .ROUTE ; Start 06/20/18 at 07:43; Stop 06/20/18 at 07:44; Status DC Rocuronium [place] (Zemuron) 100 mg STK-MED ONCE .ROUTE ; Start 06/20/18 at 07: 43; Stop 06/20/18 at 07:44; Status DC Fentanyl Citrate (Fentanyl 2ml Vial) 100 mcg STK-MED ONCE .ROUTE ; Start at 07:43; Stop 06/20/18 at 07:44; Status DC Midazolam HCl (Versed) 2 mg STK-MED ONCE .ROUTE ; Start 06/20/18 at 07:43; Stop 06/20/18 at 07:44; Status DC Fentanyl Citrate (Fentanyl 2ml Vial) 100 mcg STK-MED ONCE .ROUTE ; Start at 07:46; Stop 06/20/18 at 07:47; Status DC Phenylephrine HCl (Celio-Synephrine Inj) 10 mg STK-MED ONCE .ROUTE ; Start at 07:59; Stop 06/20/18 at 08:00; Status DC Sevoflurane (Ultane) 90 ml STK-MED ONCE IH ; Start 06/20/18 at 08:55; Stop 06/20 at 08:56; Status DC Neostigmine Methylsulfate (Bloxiverz) 10 mg STK-MED ONCE .ROUTE ; Start at 09:34; Stop 06/20/18 at 09:35; Status DC Glycopyrrolate (Robinul) 1 mg STK-MED ONCE .ROUTE ; Start 06/20/18 at 09:34; Stop 06/20/18 at 09:35; Status DC Albumin Human 500 ml @ As Directed STK-MED ONCE IV ; Start 06/20/18 at 09:35; Stop 06/20/18 at 09:36; Status DC Hydromorphone HCl (Dilaudid) 2 mg STK-MED ONCE .ROUTE ; Start 06/20/18 at 10:59 ; Stop 06/20/18 at 11:00; Status DC Cefoxitin Sodium (Mefoxin) 1 gm Q8H IVP ; Start 06/20/18 at 18:00; Stop at 10:01; Status Cancel Sodium Chloride (Normal Saline Flush) 3 ml QSHIFT PRN IV AFTER MEDS AND BLOOD DRAWS; Start 06/20/18 at 11:00 Morphine Sulfate (Morphine Sulfate) 2 mg PRN Q3HRS PRN IV PAIN Last administered on 06/30/18 05:07; Start 06/20/18 at 11:00 Oxycodone/ Acetaminophen (Percocet 5/325) 1 tab PRN Q4HRS PRN PO MILD PAIN, 1ST CHOICE Last administered on 06/30/18 21:11; Start 06/20/18 at 11:00 Oxycodone/ Acetaminophen (Percocet 5/325) 2 tab PRN Q4HRS PRN PO MODERATE PAIN , SEVERE PAIN Last administered on 06/30/18 09:19; Start 06/20/18 at 11:00 Ketorolac Tromethamine (Toradol 15mg Vial) 15 mg Q6HRS IV Last administered on 06/22/18 06:32; Start 06/20/18 at 12:00; Stop 06/22/18 at 11:59; Status DC Ondansetron HCl (Zofran) 4 mg PRN Q6HRS PRN IV NAUSEA, 1ST CHOICE Last administered on 06/29/18 19:35; Start 06/20/18 at 11:00 Dextrose/Lactated Ringer's 1,000 ml @ 75 mls/hr [id number] IV Last administered on 06/20/18at 14:54; Start 06/20/18 at 10:58; Stop 06/23/18 at 13:17; Status DC Ketorolac Tromethamine (Toradol 30mg Vial) 30 mg STK-MED ONCE .ROUTE ; Start at 11:09; Stop 06/20/18 at 11:10; Status DC Sodium Chloride 1,000 ml @ 100 mls/hr Q10H IV Last administered on 06/22/18at 00:45; Start 06/20/18 at 11:15; Stop 06/23/18 at 13:17; Status DC Cefoxitin Sodium (Mefoxin) 1 gm Q8H IVP Last administered on 06/21/18at 10:38; Start 06/20/18 at 18:00; Stop 06/21/18 at 10:01; Status DC Enoxaparin Sodium (Lovenox Per Pharmacy Prophylaxis Dosing) 1 each PRN DAILY PRN MC SEE COMMENTS; Start 06/22/18 at 11:30; Stop 06/27/18 at 14:49; Status DC Enoxaparin Sodium (Lovenox 40mg Syringe) 40 mg Q24H SQ Last administered on 06/30 12:34; Start 06/22/18 at 12:00 Guaifenesin (Mucinex) 600 mg BID PO Last administered on 07/01/18 08:56; Start 06/22/18 at 15:00 Lisinopril (Prinivil) 10 mg DAILY PO Last administered on 07/01/18 08:56; Start 06/23/18 at 10:00 Hydrochlorothiazide (Microzide) 12.5 mg DAILY PO Last administered on 07/01/18 08:55; Start 06/23/18 at 10:00 Iohexol (Omnipaque 300 Mg/ml) 75 ml 1X ONCE IV Last administered on 06/26/18 13:00; Start 06/26/18 at 13:00; Stop 06/26/18 at 13:02; Status DC Iohexol (Omnipaque 240 Mg/ml) 30 ml 1X ONCE PO Last administered on 06/26/18 13:00; Start 06/26/18 at 13:00; Stop 06/26/18 at 13:02; Status DC Info (CONTRAST GIVEN -- Rx MONITORING) 1 each PRN DAILY PRN MC SEE COMMENTS; Start 06/26/18 at 13:15; Stop 06/28/18 at 13:14; Status DC Sodium Chloride 1,000 ml @ 100 mls/hr Q10H IV Last administered on 06/28/18 09 :14; Start 06/26/18 at 15:00; Stop 06/28/18 at 10:46; Status DC Potassium Chloride (Klor-Con) 40 meq 1X ONCE PO Last administered on at 16:56; Start 06/26/18 at 15:00; Stop 06/26/18 at 15:01; Status DC Potassium Chloride (Klor-Con) 20 meq [id number] PO Last administered on 08:56; Start 06/27/18 at 08:00 Sodium Chloride 1,000 ml @ 500 mls/hr Q2H IV ; Start 06/26/18 at 15:00; Status Cancel Meropenem 1 gm/ Sodium Chloride 100 ml @ 200 mls/hr Q8HRS IV Last administered on 3/5/19at 06:03; Start 06/26/18 at 15:00 Vancomycin HCl 1.5 gm/Sodium Chloride 500 ml @ 250 mls/hr 1X ONCE IV Last administered on 06/26/18at 16:53; Start 06/26/18 at 14:45; Stop 06/26/18 at 16:44 ; Status DC Sodium Chloride 1,000 ml @ 500 mls/hr 1X ONCE IV Last administered on at 16:10; Start 06/26/18 at 15:00; Stop 06/26/18 at 16:59; Status DC Sodium Chloride 1,000 ml @ 2,460 mls/hr Q25M IV ; Start 06/26/18 at 17:00; Stop 06/26/18 at 17:11; Status DC Sodium Chloride 500 ml @ 1,000 mls/hr PRN Q30MIN PRN IV SEE COMMENTS; Start at 17:00 Vancomycin HCl (Vanco Per Pharmacy) 1 each PRN DAILY PRN MC SEE COMMENTS Last administered on 06/30/18at 09:52; Start 06/26/18 at 17:00 Vancomycin HCl 1.25 gm/Sodium Chloride 250 ml @ 167 mls/hr Q12H IV Last administered on 07/01/18at 04:31; Start 06/27/18 at 05:00 Vancomycin HCl (Vancomycin Trough Level) 1 each 1X ONCE MC ; Start 06/28/18 at 04:30; Stop 06/28/18 at 04:31; Status DC Lidocaine/Sodium Bicarbonate (Buffered Lidocaine 1%) 3 ml STK-MED ONCE .ROUTE ; Start 06/27/18 at 12:12; Stop 06/27/18 at 12:13; Status DC Midazolam HCl (Versed) 2 mg STK-MED ONCE .ROUTE ; Start 06/27/18 at 12:13; Stop 06/27/18 at 12:14; Status DC Fentanyl Citrate (Fentanyl 2ml Vial) 100 mcg STK-MED ONCE .ROUTE ; Start at 12:13; Stop 06/27/18 at 12:14; Status DC Lidocaine/Sodium Bicarbonate (Buffered Lidocaine 1%) 3 ml 1X ONCE IJ Last administered on 06/27/18at 12:30; Start 06/27/18 at 12:30; Stop 06/27/18 at 12:31; Status DC Midazolam HCl (Versed) 2 mg 1X ONCE IV Last administered on 06/27/18 12:30; Start 06/27/18 at 12:30; Stop 06/27/18 at 12:31; Status DC Fentanyl Citrate (Fentanyl 2ml Vial) 100 mcg 1X ONCE IV Last administered on 12:30; Start 06/27/18 at 12:30; Stop 06/27/18 at 12:31; Status DC Potassium Chloride (Klor-Con) 40 meq 1X ONCE PO Last administered on 06/29/18at 12:31; Start 06/29/18 at 12:00; Stop 06/29/18 at 12:01; Status DC Dextrose/Sodium Chloride 1,000 ml @ 100 mls/hr Q10H IV Last administered on 07/01/18at 08:55; Start 06/29/18 at 21:00 Sodium Chloride 500 ml @ 500 mls/hr 1X ONCE IV Last administered on 06/29/18 20:30; Start 06/29/18 at 19:30; Stop 06/29/18 at 20:29; Status DC Active Scripts Active Reported Zofran (Ondansetron Hcl) 4 Mg Tablet 4 Mg PO BID PRN Lisinopril-Hctz 10-12.5 Mg Tab (Lisinopril/Hydrochlorothiazide) 1 Each Tablet 1 Tab PO DAILY Vitals/I & O Vital Sign - Last 24 Hours 06/30/18 06/30/18 06/30/18 06/30/18 12:00 12:00 13:00 14:00 Temp 97.3 97.3 Pulse 73 76 77 Resp 22 18 16 B/P (MAP) 125/81 (96) 140/88 (105) 113/69 (84) Pulse Ox 98 99 98 O2 Delivery Room Air Room Air Room Air Room Air 06/30/18 06/30/18 06/30/18 06/30/18 15:00 16:00 16:00 17:00 Temp 97.4 97.4 Pulse 80 80 78 Resp 16 20 32 B/P (MAP) 120/95 (103) 134/84 (101) 141/88 (105) Pulse Ox 98 99 97 O2 Delivery Room Air Room Air Room Air Room Air 06/30/18 06/30/18 06/30/18 06/30/18 18:00 19:00 19:15 20:00 Temp 98.2 98.2 Pulse 79 84 82 Resp 30 20 22 B/P (MAP) 146/96 (113) 142/95 (111) 146/92 (110) Pulse Ox 96 93 97 O2 Delivery Room Air Room Air Room Air Room Air 06/30/18 06/30/18 06/30/18 06/30/18 21:00 21:11 22:00 22:01 Pulse 80 78 Resp 20 15 18 B/P (MAP) 151/97 (115) 153/92 (112) Pulse Ox 94 94 99 94 O2 Delivery Room Air Room Air Room Air Room Air O2 Flow Rate 2.0 06/30/18 07/01/18 07/01/18 07/01/18 23:00 00:00 00:05 01:00 Temp 97.8 97.8 Pulse 78 81 78 Resp 16 21 17 B/P (MAP) 154/89 (110) 155/96 (115) 147/95 (112) Pulse Ox 98 100 97 O2 Delivery Room Air Room Air Room Air Room Air 07/01/18 07/01/18 07/01/18 07/01/18 02:05 03:00 04:00 04:04 Temp 97.8 97.8 Pulse 89 82 79 Resp 20 20 20 B/P (MAP) 150/93 (112) 136/93 (107) 138/86 (103) Pulse Ox 97 99 98 O2 Delivery Room Air Room Air Room Air Room Air 07/01/18 07/01/18 07/01/18 07/01/18 05:00 06:00 07:11 08:13 Temp 98.1 98.1 Pulse 76 80 77 Resp 21 12 18 B/P (MAP) 140/82 (101) 154/92 (112) 158/96 (116) Pulse Ox 99 99 94 O2 Delivery Room Air Room Air Room Air Room Air 07/01/18 07/01/18 07/01/18 07/01/18 08:43 08:56 09:05 09:54 Temp 97.3 97.8 97.9 97.3 97.8 97.9 Pulse 76 76 78 77 Resp 18 18 18 B/P (MAP) 154/96 (115) 154/96 155/105 (122) 160/90 (113) Pulse Ox 95 97 95 O2 Delivery Room Air Room Air Room Air 07/01/18 11:00 Temp 98.0 98.0 Pulse 82 Resp 18 B/P (MAP) 157/89 (111) Pulse Ox 96 O2 Delivery Room Air Intake and Output 06/30/18 06/30/18 07/01/18 15:00 23:00 07:00 Intake Total 100 ml 2380 ml 1351 ml Output Total 1440 ml 1100 ml 800 ml Balance -1340 ml 1280 ml 551 ml VERN VALENTIN III DO Jul 01, 2018 11:50
[2018-07-01] MEDS: ENOXAPARIN 40 MG/0.4 ML SYRINGE. SQ SCH (12:02)
--- NOTE | 2018-07-01 12:48 | NUR ---
Transfer note: TR given to Lalito TABOR on [address]. Pt belongings packd up (cell phone, hot metal charger, wound dressing supplies). Denies pain at this time. Transferring to room 426
--- NOTE | 2018-07-01 13:13 | NUR ---
PT ORIENTED TO ROOM AND UNIT. BED LOW AND LOCKED, SIDE RAILS UPX3, CALL LIGHT IN REACH. WILL CONTINUE TO ASSESS.
[2018-07-01] MEDS: oxyCODONE/APAP 5/325 1 TAB TABLET PO PRN ×2 (14:18→19:14)
--- NOTE | 2018-07-01 16:00 | NUR ---
Assumed pt care at this time. Ostomy being changed by RN. at bedside. Call light within reach. Will continue to monitor.
--- NOTE | 2018-07-01 17:30 | NUR ---
Flushed drain with 10mL of saline without complications.
[2018-07-01] MEDS: ONDANSETRON PF 4 MG/2 ML VIAL. IV PRN (19:14)
[2018-07-02] MEDS: oxyCODONE/APAP 5/325 1 TAB TABLET PO PRN ×4 (02:01→21:16)
[2018-07-02 03:00] VITALS: BP 147/97
[2018-07-02] MEDS: VANCOMYCIN 1.25 GM in IV NORMAL SALINE 250ML 250 ML IV SCH ×2 (05:38→17:25)
--- NOTE | 2018-07-02 06:00 | NUR ---
Pt's drain flushed w/ 10ml of normal saline, pt tolerated well.
[2018-07-02 06:06] LABS: CREATININE 0.7 mg/dL (0.7-1.3); GFR 136.9
[2018-07-02 07:00] VITALS: BP 140/97
[2018-07-02] MEDS: MEROPENEM 1 GM in IV NORMAL SALINE 100ML 100 ML IV SCH ×3 (08:28→21:11)
[2018-07-02] MEDS: LISINOPRIL 10 MG TABLET PO SCH (08:30)
[2018-07-02] MEDS: hydroCHLOROthiazide 12.5 MG CAPSULE PO SCH (08:31)
[2018-07-02] MEDS: POTASSIUM CHLORIDE 20 MEQ TABLET.ER. PO SCH (08:32)
--- NOTE | 2018-07-02 08:37 | PDOC ---
PROGRESS NOTES Chief Complaint Chief Complaint CC: Sepsis w. 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 Originally diagnosed 2014, now with multiple bilateral lung metastases and liver metastasis consistent with stage [address] 05/20/2018 and liver biopsy 06/20/18. CEA [id number] on 06/28/18. 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 Iron studies are consistent with anemia due to chronic disease. Hb 8.6 History of Present Illness History of Present Illness Patient is 63 yo male s/p total colectomy with end ileostomy, liver biopsy. General surgery following. Patient seen and examined. Patient has no new complaints today. Drainage from midline incision has improved. Incision site c/d /i. Plan: Need final sensitivities for ID to prescribe antibiotics as this is pseudomonas likely will be on quinolone, carbapenem Surgery to eval for further wound drainage. He needs skilled wound care services established for d/c Vitals Vitals Vital Signs Date Time Temp Pulse Resp B/P (MAP) Pulse Ox O2 Delivery O2 Flow Rate FiO2 07/02/18 03:01 16 95 Room Air 07/02/18 03:00 97.9 70 147/97 (114) 97.9 07/02/18 02:01 2.0 Physical Exam Physical Exam GENERAL: Lying down, NAD HEENT: Oral cavity clear NECK: Supple LUNGS: Clear. HEART: S1, S2 regular. ABDOMEN: Slightly distended, midline incision approx/steri-strips. Ostomy. Left -sided KEELY - purulent drainage EXTREMITIES: No edema or cyanosis. SKIN: warm NEUROLOGIC: Awake, responds few questions PIV General: Alert, Oriented X3 Heart: Normal S1, Normal S2 Lungs: Clear Abdomen: Soft, Other (some drainage from bottom of incision, ostomy with stool , keely purulent ) Extremities: No edema, Normal pulses Skin: No rashes, Other (KEELY tube in place) Labs LABS Laboratory Tests Test 07/02/18 05:00 Creatinine 0.7 mg/dL (0.7-1.3) Estimated GFR (Cockcroft-Gault) 136.9 Comment Review of Relevant I have reviewed the following items pallavi (where applicable) has been applied. Labs Laboratory Tests Test 07/01/18 04:30 07/02/18 05:00 White Blood Count 17.8 x10^3/uL (4.0-11.0) Red Blood Count 3.71 x10^6/uL (4.30-5.70) Hemoglobin 8.6 g/dL (13.0-17.5) Hematocrit 27.7 % (39.0-53.0) Mean Corpuscular Volume 75 fL (79-100) Mean Corpuscular Hemoglobin 23 pg (25-35) Mean Corpuscular Hemoglobin Concent 31 g/dL (31-37) Red Cell Distribution Width 20.2 % (11.5-14.5) Platelet Count 529 x10^3/uL (140-400) Neutrophils (%) (Auto) 49 % (31-73) Lymphocytes (%) (Auto) 40 % (24-48) Monocytes (%) (Auto) 10 % (0-9) Eosinophils (%) (Auto) 0 % (0-3) Basophils (%) (Auto) 0 % (0-3) Neutrophils # (Auto) 8.8 x10^3uL (1.8-7.7) Lymphocytes # (Auto) 7.1 x10^3/uL (1.0-4.8) Monocytes # (Auto) 1.8 x10^3/uL (0.0-1.1) Eosinophils # (Auto) 0.0 x10^3/uL (0.0-0.7) Basophils # (Auto) 0.1 x10^3/uL (0.0-0.2) Creatinine 0.7 mg/dL (0.7-1.3) Estimated GFR (Cockcroft-Gault) 136.9 Laboratory Tests Test 07/02/18 05:00 Creatinine 0.7 mg/dL (0.7-1.3) Estimated GFR (Cockcroft-Gault) 136.9 Microbiology 06/26/18 Blood Culture - Final, Complete NO GROWTH AFTER 5 DAYS 06/27/18 Anaerobic/Aerobic Culture - Final, Resulted 06/27/18 Anaerobic Culture Result 1 (MILAN) - Final, Resulted 06/27/18 Aerobic Culture - Preliminary, Resulted 06/27/18 Aerobic Culture Result 1 (MILAN) - Preliminary, Resulted 06/27/18 Aerobic Culture Result 2 (MILAN) - Preliminary, Resulted 06/27/18 Gram Stain - Final, Resulted 06/27/18 Gram Stain Result 1 (MILAN) - Final, Resulted 06/27/18 Gram Stain Result 2 (MILAN) - Final, Resulted 06/27/18 Gram Stain Result 3 (MILAN) - Final, Resulted 06/27/18 Gram Stain Result 4 (MILAN) - Final, Resulted Medications Current Medications Ondansetron HCl (Zofran) 4 mg PRN Q6HRS PRN IV NAUSEA/VOMITING; Start 06/20/18 at 07:00; Stop 06/21/18 at 06:59; Status DC Fentanyl Citrate (Fentanyl 2ml Vial) 25 mcg PRN Q5MIN PRN IV MILD PAIN; Start 06/20/18 at 07:00; Stop 06/21/18 at 06:59; Status DC Fentanyl Citrate (Fentanyl 2ml Vial) 50 mcg PRN Q5MIN PRN IV MODERATE TO SEVERE PAIN Last administered on 06/20/18at 12:39; Start 06/20/18 at 07:00; Stop 06/21/18 at 06:59; Status DC Morphine Sulfate (Morphine Sulfate) 1 mg PRN Q10MIN PRN IV SEVERE PAIN; Start 06/20/18 at 07:00; Stop 06/21/18 at 06:59; Status DC Ringer's Solution 1,000 ml @ 30 mls/hr Q24H IV Last administered on 06/20/18at 06:39; Start 06/20/18 at 07:00; Stop 06/20/18 at 18:59; Status DC Lidocaine HCl (Xylocaine-Mpf 1% 2ml Vial) 2 ml PRN 1X PRN ID IV START; Start at 07:00; Stop 06/21/18 at 06:59; Status DC Hydromorphone HCl (Dilaudid) 0.5 mg PRN Q10MIN PRN IV SEV PAIN, Second choice; Start 06/20/18 at 07:00; Stop 06/21/18 at 06:59; Status DC Prochlorperazine Edisylate (Compazine) 5 mg PACU PRN PRN IV NAUSEA, MRX1 Last administered on 06/20/18at 12:18; Start 06/20/18 at 07:00; Stop 06/21/18 at 06:59 ; Status DC Cefoxitin Sodium (Mefoxin) 2 gm 1X PREOP PRN IVP PRIOR TO PROCEDURE Last administered on 06/20/18at 10:07; Start 06/20/18 at 06:00; Stop 06/20/18 at 21:00 ; Status DC Propofol 20 ml @ As Directed STK-MED ONCE IV ; Start 06/20/18 at 07:43; Stop at 07:44; Status DC Dexamethasone Sodium Phosphate (Decadron) 20 mg STK-MED ONCE .ROUTE ; Start at 07:43; Stop 06/20/18 at 07:44; Status DC Famotidine (Pepcid Vial) 20 mg STK-MED ONCE .ROUTE ; Start 06/20/18 at 07:43; Stop 06/20/18 at 07:44; Status DC Lidocaine HCl (Lidocaine Pf 2% Vial) 5 ml STK-MED ONCE .ROUTE ; Start 06/20/18 at 07:43; Stop 06/20/18 at 07:44; Status DC Ondansetron HCl (Zofran) 4 mg STK-MED ONCE .ROUTE ; Start 06/20/18 at 07:43; Stop 06/20/18 at 07:44; Status DC Rocuronium [place] (Zemuron) 100 mg STK-MED ONCE .ROUTE ; Start 06/20/18 at 07: 43; Stop 06/20/18 at 07:44; Status DC Fentanyl Citrate (Fentanyl 2ml Vial) 100 mcg STK-MED ONCE .ROUTE ; Start at 07:43; Stop 06/20/18 at 07:44; Status DC Midazolam HCl (Versed) 2 mg STK-MED ONCE .ROUTE ; Start 06/20/18 at 07:43; Stop 06/20/18 at 07:44; Status DC Fentanyl Citrate (Fentanyl 2ml Vial) 100 mcg STK-MED ONCE .ROUTE ; Start at 07:46; Stop 06/20/18 at 07:47; Status DC Phenylephrine HCl (Celio-Synephrine Inj) 10 mg STK-MED ONCE .ROUTE ; Start at 07:59; Stop 06/20/18 at 08:00; Status DC Sevoflurane (Ultane) 90 ml STK-MED ONCE IH ; Start 06/20/18 at 08:55; Stop 06/20 at 08:56; Status DC Neostigmine Methylsulfate (Bloxiverz) 10 mg STK-MED ONCE .ROUTE ; Start at 09:34; Stop 06/20/18 at 09:35; Status DC Glycopyrrolate (Robinul) 1 mg STK-MED ONCE .ROUTE ; Start 06/20/18 at 09:34; Stop 06/20/18 at 09:35; Status DC Albumin Human 500 ml @ As Directed STK-MED ONCE IV ; Start 06/20/18 at 09:35; Stop 06/20/18 at 09:36; Status DC Hydromorphone HCl (Dilaudid) 2 mg STK-MED ONCE .ROUTE ; Start 06/20/18 at 10:59 ; Stop 06/20/18 at 11:00; Status DC Cefoxitin Sodium (Mefoxin) 1 gm Q8H IVP ; Start 06/20/18 at 18:00; Stop at 10:01; Status Cancel Sodium Chloride (Normal Saline Flush) 3 ml QSHIFT PRN IV AFTER MEDS AND BLOOD DRAWS; Start 06/20/18 at 11:00 Morphine Sulfate (Morphine Sulfate) 2 mg PRN Q3HRS PRN IV PAIN Last administered on 06/30/18at 05:07; Start 06/20/18 at 11:00 Oxycodone/ Acetaminophen (Percocet 5/325) 1 tab PRN Q4HRS PRN PO MILD PAIN, 1ST CHOICE Last administered on 07/02/18at 02:01; Start 06/20/18 at 11:00 Oxycodone/ Acetaminophen (Percocet 5/325) 2 tab PRN Q4HRS PRN PO MODERATE PAIN , SEVERE PAIN Last administered on 06/30/18at 09:19; Start 06/20/18 at 11:00 Ketorolac Tromethamine (Toradol 15mg Vial) 15 mg Q6HRS IV Last administered on 06/22/18at 06:32; Start 06/20/18 at 12:00; Stop 06/22/18 at 11:59; Status DC Ondansetron HCl (Zofran) 4 mg PRN Q6HRS PRN IV NAUSEA, 1ST CHOICE Last administered on 07/01/18 19:14; Start 06/20/18 at 11:00 Dextrose/Lactated Ringer's 1,000 ml @ 75 mls/hr [id number] IV Last administered on 06/20/18at 14:54; Start 06/20/18 at 10:58; Stop 06/23/18 at 13:17; Status DC Ketorolac Tromethamine (Toradol 30mg Vial) 30 mg STK-MED ONCE .ROUTE ; Start at 11:09; Stop 06/20/18 at 11:10; Status DC Sodium Chloride 1,000 ml @ 100 mls/hr Q10H IV Last administered on 06/22/18at 00:45; Start 06/20/18 at 11:15; Stop 06/23/18 at 13:17; Status DC Cefoxitin Sodium (Mefoxin) 1 gm Q8H IVP Last administered on 06/21/18at 10:38; Start 06/20/18 at 18:00; Stop 06/21/18 at 10:01; Status DC Enoxaparin Sodium (Lovenox Per Pharmacy Prophylaxis Dosing) 1 each PRN DAILY PRN MC SEE COMMENTS; Start 06/22/18 at 11:30; Stop 06/27/18 at 14:49; Status DC Enoxaparin Sodium (Lovenox 40mg Syringe) 40 mg Q24H SQ Last administered on 07/01 12:02; Start 06/22/18 at 12:00 Guaifenesin (Mucinex) 600 mg BID PO Last administered on 07/01/18 21:14; Start 06/22/18 at 15:00 Lisinopril (Prinivil) 10 mg DAILY PO Last administered on 07/01/18 08:56; Start 06/23/18 at 10:00 Hydrochlorothiazide (Microzide) 12.5 mg DAILY PO Last administered on 07/01/18 08:55; Start 06/23/18 at 10:00 Iohexol (Omnipaque 300 Mg/ml) 75 ml 1X ONCE IV Last administered on 06/26/18 13:00; Start 06/26/18 at 13:00; Stop 06/26/18 at 13:02; Status DC Iohexol (Omnipaque 240 Mg/ml) 30 ml 1X ONCE PO Last administered on 06/26/18at 13:00; Start 06/26/18 at 13:00; Stop 06/26/18 at 13:02; Status DC Info (CONTRAST GIVEN -- Rx MONITORING) 1 each PRN DAILY PRN MC SEE COMMENTS; Start 06/26/18 at 13:15; Stop 06/28/18 at 13:14; Status DC Sodium Chloride 1,000 ml @ 100 mls/hr Q10H IV Last administered on 06/28/18at 09 :14; Start 06/26/18 at 15:00; Stop 06/28/18 at 10:46; Status DC Potassium Chloride (Klor-Con) 40 meq 1X ONCE PO Last administered on at 16:56; Start 06/26/18 at 15:00; Stop 06/26/18 at 15:01; Status DC Potassium Chloride (Klor-Con) 20 meq [id number] PO Last administered on at 08:56; Start 06/27/18 at 08:00 Sodium Chloride 1,000 ml @ 500 mls/hr Q2H IV ; Start 06/26/18 at 15:00; Status Cancel Meropenem 1 gm/ Sodium Chloride 100 ml @ 200 mls/hr Q8HRS IV Last administered on 07/01/18at 21:14; Start 06/26/18 at 15:00 Vancomycin HCl 1.5 gm/Sodium Chloride 500 ml @ 250 mls/hr 1X ONCE IV Last administered on 06/26/18at 16:53; Start 06/26/18 at 14:45; Stop 06/26/18 at 16:44 ; Status DC Sodium Chloride 1,000 ml @ 500 mls/hr 1X ONCE IV Last administered on at 16:10; Start 06/26/18 at 15:00; Stop 06/26/18 at 16:59; Status DC Sodium Chloride 1,000 ml @ 2,460 mls/hr Q25M IV ; Start 06/26/18 at 17:00; Stop 06/26/18 at 17:11; Status DC Sodium Chloride 500 ml @ 1,000 mls/hr PRN Q30MIN PRN IV SEE COMMENTS; Start at 17:00 Vancomycin HCl (Vanco Per Pharmacy) 1 each PRN DAILY PRN MC SEE COMMENTS Last administered on 06/30/18at 09:52; Start 06/26/18 at 17:00 Vancomycin HCl 1.25 gm/Sodium Chloride 250 ml @ 167 mls/hr Q12H IV Last administered on 07/02/18at 05:38; Start 06/27/18 at 05:00 Vancomycin HCl (Vancomycin Trough Level) 1 each 1X ONCE MC ; Start 06/28/18 at 04:30; Stop 06/28/18 at 04:31; Status DC Lidocaine/Sodium Bicarbonate (Buffered Lidocaine 1%) 3 ml STK-MED ONCE .ROUTE ; Start 06/27/18 at 12:12; Stop 06/27/18 at 12:13; Status DC Midazolam HCl (Versed) 2 mg STK-MED ONCE .ROUTE ; Start 06/27/18 at 12:13; Stop 06/27/18 at 12:14; Status DC Fentanyl Citrate (Fentanyl 2ml Vial) 100 mcg STK-MED ONCE .ROUTE ; Start at 12:13; Stop 06/27/18 at 12:14; Status DC Lidocaine/Sodium Bicarbonate (Buffered Lidocaine 1%) 3 ml 1X ONCE IJ Last administered on 06/27/18at 12:30; Start 06/27/18 at 12:30; Stop 06/27/18 at 12:31; Status DC Midazolam HCl (Versed) 2 mg 1X ONCE IV Last administered on 06/27/18at 12:30; Start 06/27/18 at 12:30; Stop 06/27/18 at 12:31; Status DC Fentanyl Citrate (Fentanyl 2ml Vial) 100 mcg 1X ONCE IV Last administered on at 12:30; Start 06/27/18 at 12:30; Stop 06/27/18 at 12:31; Status DC Potassium Chloride (Klor-Con) 40 meq 1X ONCE PO Last administered on 06/29/18at 12:31; Start 06/29/18 at 12:00; Stop 06/29/18 at 12:01; Status DC Dextrose/Sodium Chloride 1,000 ml @ 100 mls/hr Q10H IV Last administered on 07/01/18at 21:16; Start 06/29/18 at 21:00 Sodium Chloride 500 ml @ 500 mls/hr 1X ONCE IV Last administered on 06/29/18at 20:30; Start 06/29/18 at 19:30; Stop 06/29/18 at 20:29; Status DC Amlodipine Besylate (Norvasc) 10 mg DAILY PO ; Start 07/02/18 at 18:00 Active Scripts Active Reported Zofran (Ondansetron Hcl) 4 Mg Tablet 4 Mg PO BID PRN Lisinopril-Hctz 10-12.5 Mg Tab (Lisinopril/Hydrochlorothiazide) 1 Each Tablet 1 Tab PO DAILY Vitals/I & O Vital Sign - Last 24 Hours 07/01/18 07/01/18 07/01/18 07/01/18 08:43 08:56 09:05 09:54 Temp 97.3 97.8 97.9 97.3 97.8 97.9 Pulse 76 76 78 77 Resp 18 18 18 B/P (MAP) 154/96 (115) 154/96 155/105 (122) 160/90 (113) Pulse Ox 95 97 95 O2 Delivery Room Air Room Air Room Air 07/01/18 07/01/18 07/01/18 07/01/18 11:00 12:55 14:18 15:00 Temp 98.0 98.0 98.6 98.0 98.0 98.6 Pulse 82 90 89 Resp 18 18 17 18 B/P (MAP) 157/89 (111) 172/109 (130) 176/107 (130) Pulse Ox 96 98 98 97 O2 Delivery Room Air Room Air Room Air Room Air O2 Flow Rate 2.0 07/01/18 07/01/18 07/01/18 07/01/18 19:00 19:14 20:30 23:00 Temp 98.8 97.5 98.8 97.5 Pulse 78 61 Resp 18 18 B/P (MAP) 152/100 (117) 141/105 (117) Pulse Ox 99 98 O2 Delivery Room Air Room Air Room Air Room Air 07/02/18 07/02/18 07/02/18 02:01 03:00 03:01 Temp 97.9 97.9 Pulse 70 Resp 16 18 16 B/P (MAP) 147/97 (114) Pulse Ox 98 95 95 O2 Delivery Room Air Room Air Room Air O2 Flow Rate 2.0 Intake and Output 307/01/18 07/02/18 15:00 23:00 07:00 Intake Total 600 ml 240 ml 300 ml Output Total 1630 ml 450 ml 650 ml Balance -1030 ml -210 ml -350 ml PHILIP POST MD Jul 02, 2018 08:37
[2018-07-02] MEDS: IV DEXTROSE 5% - 0.9 % NACL 1,000 ML IV SCH (09:00)
--- NOTE | 2018-07-02 09:34 | PDOC ---
Infectious Disease Note Subjective: Subjective Pt witthout complaints no n/v/f/c ROS: ROS Negative except for above. Vital Signs: Vital Signs Vital Signs Date Time Temp Pulse Resp B/P (MAP) Pulse Ox O2 Delivery O2 Flow Rate FiO2 07/02/18 08:33 95 Room Air 07/02/18 08:30 70 147/97 07/02/18 07:00 97.9 18 97.9 07/02/18 02:01 2.0 Physical Exam: PHYSICAL EXAM GENERAL: Lying down, NAD HEENT: Oral cavity clear NECK: Supple LUNGS: Clear. HEART: S1, S2 regular. ABDOMEN: Slightly distended, midline incision approx/steri-strips. Ostomy. Left -sided CATHRYN - purulent drainage EXTREMITIES: No edema or cyanosis. SKIN: warm NEUROLOGIC: Awake, responds few questions PIV Medications: Inpatient Meds: Current Medications Medications (Trade) Dose Ordered Sig/Siri Start Time Stop Time Status Last Admin Dose Admin Albumin Human 500 ml @ As Directed STK-MED ONCE 06/20/18 09:35 06/20/18 09:36 DC Amlodipine Besylate (Norvasc) 10 mg DAILY 07/02/18 18:00 Cefoxitin Sodium (Mefoxin) 1 gm Q8H 06/20/18 18:00 06/21/18 10:01 DC 06/21/18 10:38 1 GM Dexamethasone Sodium Phosphate (Decadron) 20 mg STK-MED ONCE 06/20/18 07:43 06/20/18 07:44 DC Dextrose/Lactated Ringer's 1,000 ml @ 75 mls/hr [id number] 06/20/18 10:58 06/23/18 13:17 DC 06/20/18 14:54 75 MLS/HR Dextrose/Sodium Chloride 1,000 ml @ 100 mls/hr Q10H 06/29/18 21:00 07/01/18 21:16 100 MLS/HR Enoxaparin Sodium (Lovenox 40mg Syringe) 40 mg Q24H 06/22/18 12:00 07/01/18 12:02 40 MG Enoxaparin Sodium (Lovenox Per Pharmacy Prophylaxis Dosing) 1 each PRN DAILY PRN 06/22/18 11:30 06/27/18 14:49 DC Famotidine (Pepcid Vial) 20 mg STK-MED ONCE 06/20/18 07:43 06/20/18 07:44 DC Fentanyl Citrate (Fentanyl 2ml Vial) 100 mcg 1X ONCE 06/27/18 12:30 06/27/18 12:31 DC 06/27/18 12:30 75 MCG Glycopyrrolate (Robinul) 1 mg STK-MED ONCE 06/20/18 09:34 06/20/18 09:35 DC Guaifenesin (Mucinex) 600 mg BID 06/22/18 15:00 07/02/18 08:33 600 MG Hydrochlorothiazide (Microzide) 12.5 mg DAILY 06/23/18 10:00 07/02/18 08:31 12.5 MG Hydromorphone HCl (Dilaudid) 2 mg STK-MED ONCE 06/20/18 10:59 06/20/18 11:00 DC Info (CONTRAST GIVEN -- Rx MONITORING) 1 each PRN DAILY PRN 06/26/18 13:15 06/28/18 13:14 DC Iohexol (Omnipaque 240 Mg/ml) 30 ml 1X ONCE 06/26/18 13:00 06/26/18 13:02 DC 06/26/18 13:00 30 ML Iohexol (Omnipaque 300 Mg/ml) 75 ml 1X ONCE 06/26/18 13:00 06/26/18 13:02 DC 06/26/18 13:00 75 ML Ketorolac Tromethamine (Toradol 15mg Vial) 15 mg Q6HRS 06/20/18 12:00 06/22/18 11:59 DC 06/22/18 06:32 15 MG Ketorolac Tromethamine (Toradol 30mg Vial) 30 mg STK-MED ONCE 06/20/18 11:09 06/20/18 11:10 DC Lidocaine HCl (Lidocaine Pf 2% Vial) 5 ml STK-MED ONCE 06/20/18 07:43 06/20/18 07:44 DC Lidocaine HCl (Xylocaine-Mpf 1% 2ml Vial) 2 ml PRN 1X PRN 06/20/18 07:00 06/21/18 06:59 DC Lidocaine/Sodium Bicarbonate (Buffered Lidocaine 1%) 3 ml 1X ONCE 06/27/18 12:30 06/27/18 12:31 DC 06/27/18 12:30 9 ML Lisinopril (Prinivil) 10 mg DAILY 06/23/18 10:00 07/02/18 08:30 10 MG Meropenem 1 gm/ Sodium Chloride 100 ml @ 200 mls/hr Q8HRS 06/26/18 15:00 07/02/18 08:28 200 MLS/HR Midazolam HCl (Versed) 2 mg 1X ONCE 06/27/18 12:30 06/27/18 12:31 DC 06/27/18 12:30 2 MG Morphine Sulfate (Morphine Sulfate) 2 mg PRN Q3HRS PRN 06/20/18 11:00 06/30/18 05:07 2 MG Neostigmine Methylsulfate (Bloxiverz) 10 mg STK-MED ONCE 06/20/18 09:34 06/20/18 09:35 DC Ondansetron HCl (Zofran) 4 mg PRN Q6HRS PRN 06/20/18 11:00 07/01/18 19:14 4 MG Oxycodone/ Acetaminophen (Percocet 5/325) 2 tab PRN Q4HRS PRN 06/20/18 11:00 06/30/18 09:19 2 TAB Phenylephrine HCl (Celio-Synephrine Inj) 10 mg STK-MED ONCE 06/20/18 07:59 06/20/18 08:00 DC Potassium Chloride (Klor-Con) 40 meq 1X ONCE 06/29/18 12:00 06/29/18 12:01 DC 06/29/18 12:31 40 MEQ Prochlorperazine Edisylate (Compazine) 5 mg PACU PRN PRN 06/20/18 07:00 06/21/18 06:59 DC 06/20/18 12:18 5 MG Propofol 20 ml @ As Directed STK-MED ONCE 06/20/18 07:43 06/20/18 07:44 DC Ringer's Solution 1,000 ml @ 30 mls/hr Q24H 06/20/18 07:00 06/20/18 18:59 DC 06/20/18 06:39 30 MLS/HR Rocuronium [place] (Zemuron) 100 mg STK-MED ONCE 06/20/18 07:43 06/20/18 07:44 DC Sevoflurane (Ultane) 90 ml STK-MED ONCE 06/20/18 08:55 06/20/18 08:56 DC Sodium Chloride 500 ml @ 500 mls/hr 1X ONCE 06/29/18 19:30 06/29/18 20:29 DC 06/29/18 20:30 500 MLS/HR Sodium Chloride (Normal Saline Flush) 3 ml QSHIFT PRN 06/20/18 11:00 Vancomycin HCl (Vanco Per Pharmacy) 1 each PRN DAILY PRN 06/26/18 17:00 06/30/18 09:52 1 EACH Vancomycin HCl (Vancomycin Trough Level) 1 each 1X ONCE 06/28/18 04:30 06/28/18 04:31 DC Vancomycin HCl 1.25 gm/Sodium Chloride 250 ml @ 167 mls/hr Q12H 06/27/18 05:00 07/02/18 05:38 167 MLS/HR Vancomycin HCl 1.5 gm/Sodium Chloride 500 ml @ 250 mls/hr 1X ONCE 06/26/18 14:45 06/26/18 16:44 DC 06/26/18 16:53 250 MLS/HR Labs: Lab Laboratory Tests Test 07/02/18 05:00 Creatinine 0.7 mg/dL (0.7-1.3) Estimated GFR (Cockcroft-Gault) 136.9 Micro RUN DATE: 07/01/18 PAGE 1 RUN TIME: 1810 [facility] [address] [place] [address] Elijah Johnson M.D., [employer] PATIENT: PRABHA GROVER ACCT: [id number] LOC: [address] [place] [address] U : [id number] AGE/SX: 63/M ROOM: [facility] REG : 06/20/[address]: PEPE PAGAN MD : 1955 BED: 1 DIS : STATUS: ADM IN TLOC: SPEC #: [id number] SYD: 06/27/18 STATUS: RES REQ #: [id number] RECD: 06/27/[address] [facility] [address]: NOAH HUBBARD MD SOURCE: PELVIS ENTR: 06/27/[address]: TADEO MCLAUGHLIN MD [facility]: FLOR DEWEY MD, AIDA BUCKLEY MD, MD, THOMAS W MD ORDERED: ANAER/AEROB/GS Procedure Result ANAEROBIC-AEROBIC CULTURE Final Final report ANAEROBIC RES 1 Final Bacteroides fragilis 4+ AEROBIC CULT Preliminary Preliminary report AEROBIC RES 1 Preliminary Comment Pseudomonas aeruginosa 1+ AEROBIC RES 2 Preliminary Escherichia coli 1+ GRAM STAIN Final Final report GRAM STAIN RES 1 Final Comment Many gram negative rods. GRAM STAIN RES 2 Final Comment CONTINUED ON NEXT PAGE RUN DATE: 07/01/18 PAGE 2 RUN TIME: 1810 [facility] [address] [place] [address] Elijah Johnson M.D., [employer] SPEC: [id number] PATIENT: PRABHA GROVER [id number] ( Continued) Procedure Result GRAM STAIN RES 2 Final (continued) Few gram positive rods. GRAM STAIN RES 3 Final Comment Few gram positive cocci GRAM STAIN RES 4 Final Comment Few white blood cells. Performed at: - [facility] [address], [place], [place] [id number] Certifier: BRISEYDA Peraza MD, Phone: [phone] Objective: Assessment: Leukocytosis chronic since 2014 Sepsis Abdominal abscess / leak s/p CT drainage on 06/27. 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 s/p splenic flexure segmental resection on 11/22/2014 by s/p total colectomy with end ileostomy 06/20/2018 awaiting palliative chemotherapy by oncology PCM Anemia Plan: Plan of Care Vanc and meropenem Trough 13.3 f/u final id and kamlesh for GNR .GPCs from intraabdominal abscess Supportive care SARAH SHEN MD Jul 02, 2018 09:34
[2018-07-02 11:00] VITALS: BP 135/92
--- NOTE | 2018-07-02 11:51 | PDOC ---
SURGICAL PROGRESS NOTE Subjective Patient doing quite well today complaints Vital Signs Vital Signs Date Time Temp Pulse Resp B/P (MAP) Pulse Ox O2 Delivery O2 Flow Rate FiO2 07/02/18 11:00 97.1 81 18 135/92 (106) 97 Room Air 97.1 07/02/18 02:01 2.0 I&O Intake and Output 07/02/18 06:59 Intake Total 1140 ml Output Total 2730 ml Balance -1590 ml Intake Oral 1140 ml Output Urine Total 1675 ml Stool Total 1000 ml Drainage Total 55 ml PATIENT HAS A RIVERA: No General: Alert, Oriented X3, Cooperative, No acute distress Abdomen: Normal bowel sounds, Soft, No tenderness, Other (midline wounds clean dry and intact CATHRYN drain intact with cloudy purulent drainage) Labs Laboratory Tests Test 07/01/18 04:30 07/02/18 05:00 White Blood Count 17.8 x10^3/uL (4.0-11.0) Red Blood Count 3.71 x10^6/uL (4.30-5.70) Hemoglobin 8.6 g/dL (13.0-17.5) Hematocrit 27.7 % (39.0-53.0) Mean Corpuscular Volume 75 fL (79-100) Mean Corpuscular Hemoglobin 23 pg (25-35) Mean Corpuscular Hemoglobin Concent 31 g/dL (31-37) Red Cell Distribution Width 20.2 % (11.5-14.5) Platelet Count 529 x10^3/uL (140-400) Neutrophils (%) (Auto) 49 % (31-73) Lymphocytes (%) (Auto) 40 % (24-48) Monocytes (%) (Auto) 10 % (0-9) Eosinophils (%) (Auto) 0 % (0-3) Basophils (%) (Auto) 0 % (0-3) Neutrophils # (Auto) 8.8 x10^3uL (1.8-7.7) Lymphocytes # (Auto) 7.1 x10^3/uL (1.0-4.8) Monocytes # (Auto) 1.8 x10^3/uL (0.0-1.1) Eosinophils # (Auto) 0.0 x10^3/uL (0.0-0.7) Basophils # (Auto) 0.1 x10^3/uL (0.0-0.2) Creatinine 0.7 mg/dL (0.7-1.3) Estimated GFR (Cockcroft-Gault) 136.9 Laboratory Tests Test 07/02/18 05:00 Creatinine 0.7 mg/dL (0.7-1.3) Estimated GFR (Cockcroft-Gault) 136.9 Assessment/Plan At as post colectomy with ileostomy anesthetic colon cancer to the liver Pelvic abscess status post IR drain Will recheck CT scan of the abdomen and pelvis for evaluation of fluid collection and efficiency of drainage will recheck lab. Potentially home tomorrow pending recommendations on oral antibiotics per infectious disease PEPE PAGAN MD Jul 02, 2018 11:51
--- NOTE | 2018-07-02 13:28 | NUR ---
SW following. Discussed with RN, CT and labs being repeated, if they come back okay, pt is okay to discharge home tomorrow (07/03/18) with CATHRYN mantilla and Freda SINGH. SW will continue to follow.
[2018-07-02] MEDS: ENOXAPARIN 40 MG/0.4 ML SYRINGE. SQ SCH (14:37)
[2018-07-02 15:00] VITALS: BP 155/108
[2018-07-02] MEDS: amLODIPine BESYLATE 10 MG TABLET PO SCH (17:20)
[2018-07-02 19:00] VITALS: BP 141/96
[2018-07-02 23:00] VITALS: BP 137/94
[2018-07-03 03:00] VITALS: BP 131/90
[2018-07-03 04:37] LABS: BASO # 0.1 x10^3/uL (0.0-0.2); BASO % 0 % (0-3); EOS # 0.1 x10^3/uL (0.0-0.7); EOS % 0 % (0-3); HEMATOCRIT 27.6 % (39.0-53.0); HEMOGLOBIN 8.6 g/dL (13.0-17.5); LYMPH # 7.9 x10^3/uL (1.0-4.8); LYMPH % 49 % (24-48); MEAN CORPUSCULAR HEMOGLOBIN 23 pg (25-35); MEAN CORPUSCULAR HGB CONC 31 g/dL (31-37); MEAN CORPUSCULAR VOLUME 73 fL (79-100); MONO # 1.3 x10^3/uL (0.0-1.1); MONO % 8 % (0-9); NEUT # 6.7 x10^3uL (1.8-7.7); NEUT % 42 % (31-73); PLATELET COUNT 566 x10^3/uL (140-400); RED BLOOD COUNT 3.77 x10^6/uL (4.30-5.70); RED CELL DISTRIBUTION WIDTH 20.2 % (11.5-14.5)
[2018-07-03] MEDS: VANCOMYCIN 1.25 GM in IV NORMAL SALINE 250ML 250 ML IV SCH (04:57)
--- NOTE | 2018-07-03 06:15 | NUR ---
Pt's drain flushed w/ 10ml NS, drainage noted to be purulent and pt tolerated well, will continue to monitor.
[2018-07-03] MEDS: MEROPENEM 1 GM in IV NORMAL SALINE 100ML 100 ML IV SCH (06:18)
[2018-07-03 07:00] VITALS: BP 153/99
--- NOTE | 2018-07-03 07:46 | PDOC ---
PROGRESS NOTES Chief Complaint Chief Complaint CC: Sepsis w. 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 Originally diagnosed 2014, now with multiple bilateral lung metastases and liver metastasis consistent with stage [address] 05/20/2018 and liver biopsy 06/20/18. CEA [id number] on 06/28/18. 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 Iron studies are consistent with anemia due to chronic disease. Hb 8.6 History of Present Illness History of Present Illness Patient is 63 yo male s/p total colectomy with end ileostomy, liver biopsy. General surgery following. Patient seen and examined. Patient has no new complaints today. Drainage from midline incision has improved. Incision site c/d /i. Plan: final sensitivities for ID to prescribe antibiotics as this is pseudomonas - can take levaquin oral on d/c for 7 days Surgery to eval for further wound drainage. He needs skilled wound care services established for d/c - [place] CT abdomen/pelvis completed. Have d/w him and bedside Vitals Vitals Vital Signs Date Time Temp Pulse Resp B/P (MAP) Pulse Ox O2 Delivery O2 Flow Rate FiO2 07/03/18 07:00 97.8 81 18 153/99 (117) 95 Room Air 97.8 07/02/18 08:10 2.0 Physical Exam Physical Exam GENERAL: Lying down, NAD HEENT: Oral cavity clear NECK: Supple LUNGS: Clear. HEART: S1, S2 regular. ABDOMEN: Slightly distended, midline incision approx/steri-strips. Ostomy. Left -sided CATHRYN - purulent drainage EXTREMITIES: No edema or cyanosis. SKIN: warm NEUROLOGIC: Awake, responds few questions PIV General: Alert, Oriented X3, Cooperative, No acute distress Heart: Normal S1, Normal S2 Lungs: Clear Abdomen: Normal bowel sounds, Soft, No tenderness, Other (midline wounds clean dry and intact CATHRYN drain intact with cloudy purulent drainage) Extremities: No edema, Normal pulses Skin: No rashes, Other (CATHRYN tube in place) Labs LABS Laboratory Tests Test 07/03/18 04:05 White Blood Count 16.0 x10^3/uL (4.0-11.0) Red Blood Count 3.77 x10^6/uL (4.30-5.70) Hemoglobin 8.6 g/dL (13.0-17.5) Hematocrit 27.6 % (39.0-53.0) Mean Corpuscular Volume 73 fL (79-100) Mean Corpuscular Hemoglobin 23 pg (25-35) Mean Corpuscular Hemoglobin Concent 31 g/dL (31-37) Red Cell Distribution Width 20.2 % (11.5-14.5) Platelet Count 566 x10^3/uL (140-400) Neutrophils (%) (Auto) 42 % (31-73) Lymphocytes (%) (Auto) 49 % (24-48) Monocytes (%) (Auto) 8 % (0-9) Eosinophils (%) (Auto) 0 % (0-3) Basophils (%) (Auto) 0 % (0-3) Neutrophils # (Auto) 6.7 x10^3uL (1.8-7.7) Lymphocytes # (Auto) 7.9 x10^3/uL (1.0-4.8) Monocytes # (Auto) 1.3 x10^3/uL (0.0-1.1) Eosinophils # (Auto) 0.1 x10^3/uL (0.0-0.7) Basophils # (Auto) 0.1 x10^3/uL (0.0-0.2) Comment Review of Relevant I have reviewed the following items pallavi (where applicable) has been applied. Labs Laboratory Tests Test 07/02/18 05:00 07/03/18 04:05 Creatinine 0.7 mg/dL (0.7-1.3) Estimated GFR (Cockcroft-Gault) 136.9 White Blood Count 16.0 x10^3/uL (4.0-11.0) Red Blood Count 3.77 x10^6/uL (4.30-5.70) Hemoglobin 8.6 g/dL (13.0-17.5) Hematocrit 27.6 % (39.0-53.0) Mean Corpuscular Volume 73 fL (79-100) Mean Corpuscular Hemoglobin 23 pg (25-35) Mean Corpuscular Hemoglobin Concent 31 g/dL (31-37) Red Cell Distribution Width 20.2 % (11.5-14.5) Platelet Count 566 x10^3/uL (140-400) Neutrophils (%) (Auto) 42 % (31-73) Lymphocytes (%) (Auto) 49 % (24-48) Monocytes (%) (Auto) 8 % (0-9) Eosinophils (%) (Auto) 0 % (0-3) Basophils (%) (Auto) 0 % (0-3) Neutrophils # (Auto) 6.7 x10^3uL (1.8-7.7) Lymphocytes # (Auto) 7.9 x10^3/uL (1.0-4.8) Monocytes # (Auto) 1.3 x10^3/uL (0.0-1.1) Eosinophils # (Auto) 0.1 x10^3/uL (0.0-0.7) Basophils # (Auto) 0.1 x10^3/uL (0.0-0.2) Laboratory Tests Test 07/03/18 04:05 White Blood Count 16.0 x10^3/uL (4.0-11.0) Red Blood Count 3.77 x10^6/uL (4.30-5.70) Hemoglobin 8.6 g/dL (13.0-17.5) Hematocrit 27.6 % (39.0-53.0) Mean Corpuscular Volume 73 fL (79-100) Mean Corpuscular Hemoglobin 23 pg (25-35) Mean Corpuscular Hemoglobin Concent 31 g/dL (31-37) Red Cell Distribution Width 20.2 % (11.5-14.5) Platelet Count 566 x10^3/uL (140-400) Neutrophils (%) (Auto) 42 % (31-73) Lymphocytes (%) (Auto) 49 % (24-48) Monocytes (%) (Auto) 8 % (0-9) Eosinophils (%) (Auto) 0 % (0-3) Basophils (%) (Auto) 0 % (0-3) Neutrophils # (Auto) 6.7 x10^3uL (1.8-7.7) Lymphocytes # (Auto) 7.9 x10^3/uL (1.0-4.8) Monocytes # (Auto) 1.3 x10^3/uL (0.0-1.1) Eosinophils # (Auto) 0.1 x10^3/uL (0.0-0.7) Basophils # (Auto) 0.1 x10^3/uL (0.0-0.2) Microbiology 06/26/18 Blood Culture - Final, Complete NO GROWTH AFTER 5 DAYS 06/27/18 Anaerobic/Aerobic Culture - Final, Complete 06/27/18 Anaerobic Culture Result 1 (MILAN) - Final, Complete 06/27/18 Aerobic Culture - Final, Complete 06/27/18 Aerobic Culture Result 1 (MILAN) - Final, Complete 06/27/18 Aerobic Culture Result 2 (MILAN) - Final, Complete 06/27/18 Aerobic Culture Result 3 (MILAN) - Final, Complete 06/27/18 Antimicrobic Susceptibility - Final, Complete 06/27/18 Gram Stain - Final, Complete 06/27/18 Gram Stain Result 1 (MILAN) - Final, Complete 06/27/18 Gram Stain Result 2 (MILAN) - Final, Complete 06/27/18 Gram Stain Result 3 (MILAN) - Final, Complete 06/27/18 Gram Stain Result 4 (MILAN) - Final, Complete Medications Current Medications Ondansetron HCl (Zofran) 4 mg PRN Q6HRS PRN IV NAUSEA/VOMITING; Start 06/20/18 at 07:00; Stop 06/21/18 at 06:59; Status DC Fentanyl Citrate (Fentanyl 2ml Vial) 25 mcg PRN Q5MIN PRN IV MILD PAIN; Start 06/20/18 at 07:00; Stop 06/21/18 at 06:59; Status DC Fentanyl Citrate (Fentanyl 2ml Vial) 50 mcg PRN Q5MIN PRN IV MODERATE TO SEVERE PAIN Last administered on 06/20/18at 12:39; Start 06/20/18 at 07:00; Stop 06/21/18 at 06:59; Status DC Morphine Sulfate (Morphine Sulfate) 1 mg PRN Q10MIN PRN IV SEVERE PAIN; Start 06/20/18 at 07:00; Stop 06/21/18 at 06:59; Status DC Ringer's Solution 1,000 ml @ 30 mls/hr Q24H IV Last administered on 06/20/18at 06:39; Start 06/20/18 at 07:00; Stop 06/20/18 at 18:59; Status DC Lidocaine HCl (Xylocaine-Mpf 1% 2ml Vial) 2 ml PRN 1X PRN ID IV START; Start at 07:00; Stop 06/21/18 at 06:59; Status DC Hydromorphone HCl (Dilaudid) 0.5 mg PRN Q10MIN PRN IV SEV PAIN, Second choice; Start 06/20/18 at 07:00; Stop 06/21/18 at 06:59; Status DC Prochlorperazine Edisylate (Compazine) 5 mg PACU PRN PRN IV NAUSEA, MRX1 Last administered on 06/20/18at 12:18; Start 06/20/18 at 07:00; Stop 06/21/18 at 06:59 ; Status DC Cefoxitin Sodium (Mefoxin) 2 gm 1X PREOP PRN IVP PRIOR TO PROCEDURE Last administered on 06/20/18at 10:07; Start 06/20/18 at 06:00; Stop 06/20/18 at 21:00 ; Status DC Propofol 20 ml @ As Directed STK-MED ONCE IV ; Start 06/20/18 at 07:43; Stop at 07:44; Status DC Dexamethasone Sodium Phosphate (Decadron) 20 mg STK-MED ONCE .ROUTE ; Start at 07:43; Stop 06/20/18 at 07:44; Status DC Famotidine (Pepcid Vial) 20 mg STK-MED ONCE .ROUTE ; Start 06/20/18 at 07:43; Stop 06/20/18 at 07:44; Status DC Lidocaine HCl (Lidocaine Pf 2% Vial) 5 ml STK-MED ONCE .ROUTE ; Start 06/20/18 at 07:43; Stop 06/20/18 at 07:44; Status DC Ondansetron HCl (Zofran) 4 mg STK-MED ONCE .ROUTE ; Start 06/20/18 at 07:43; Stop 06/20/18 at 07:44; Status DC Rocuronium [place] (Zemuron) 100 mg STK-MED ONCE .ROUTE ; Start 06/20/18 at 07: 43; Stop 06/20/18 at 07:44; Status DC Fentanyl Citrate (Fentanyl 2ml Vial) 100 mcg STK-MED ONCE .ROUTE ; Start at 07:43; Stop 06/20/18 at 07:44; Status DC Midazolam HCl (Versed) 2 mg STK-MED ONCE .ROUTE ; Start 06/20/18 at 07:43; Stop 06/20/18 at 07:44; Status DC Fentanyl Citrate (Fentanyl 2ml Vial) 100 mcg STK-MED ONCE .ROUTE ; Start at 07:46; Stop 06/20/18 at 07:47; Status DC Phenylephrine HCl (Celio-Synephrine Inj) 10 mg STK-MED ONCE .ROUTE ; Start at 07:59; Stop 06/20/18 at 08:00; Status DC Sevoflurane (Ultane) 90 ml STK-MED ONCE IH ; Start 06/20/18 at 08:55; Stop 06/20 at 08:56; Status DC Neostigmine Methylsulfate (Bloxiverz) 10 mg STK-MED ONCE .ROUTE ; Start at 09:34; Stop 06/20/18 at 09:35; Status DC Glycopyrrolate (Robinul) 1 mg STK-MED ONCE .ROUTE ; Start 06/20/18 at 09:34; Stop 06/20/18 at 09:35; Status DC Albumin Human 500 ml @ As Directed STK-MED ONCE IV ; Start 06/20/18 at 09:35; Stop 06/20/18 at 09:36; Status DC Hydromorphone HCl (Dilaudid) 2 mg STK-MED ONCE .ROUTE ; Start 06/20/18 at 10:59 ; Stop 06/20/18 at 11:00; Status DC Cefoxitin Sodium (Mefoxin) 1 gm Q8H IVP ; Start 06/20/18 at 18:00; Stop at 10:01; Status Cancel Sodium Chloride (Normal Saline Flush) 3 ml QSHIFT PRN IV AFTER MEDS AND BLOOD DRAWS; Start 06/20/18 at 11:00 Morphine Sulfate (Morphine Sulfate) 2 mg PRN Q3HRS PRN IV PAIN Last administered on 06/30/18at 05:07; Start 06/20/18 at 11:00 Oxycodone/ Acetaminophen (Percocet 5/325) 1 tab PRN Q4HRS PRN PO MILD PAIN, 1ST CHOICE Last administered on 07/02/18 21:16; Start 06/20/18 at 11:00 Oxycodone/ Acetaminophen (Percocet 5/325) 2 tab PRN Q4HRS PRN PO MODERATE PAIN , SEVERE PAIN Last administered on 06/30/18 09:19; Start 06/20/18 at 11:00 Ketorolac Tromethamine (Toradol 15mg Vial) 15 mg Q6HRS IV Last administered on 06/22/18 06:32; Start 06/20/18 at 12:00; Stop 06/22/18 at 11:59; Status DC Ondansetron HCl (Zofran) 4 mg PRN Q6HRS PRN IV NAUSEA, 1ST CHOICE Last administered on 07/01/18at 19:14; Start 06/20/18 at 11:00 Dextrose/Lactated Ringer's 1,000 ml @ 75 mls/hr [id number] IV Last administered on 06/20/18at 14:54; Start 06/20/18 at 10:58; Stop 06/23/18 at 13:17; Status DC Ketorolac Tromethamine (Toradol 30mg Vial) 30 mg STK-MED ONCE .ROUTE ; Start at 11:09; Stop 06/20/18 at 11:10; Status DC Sodium Chloride 1,000 ml @ 100 mls/hr Q10H IV Last administered on 06/22/18at 00:45; Start 06/20/18 at 11:15; Stop 06/23/18 at 13:17; Status DC Cefoxitin Sodium (Mefoxin) 1 gm Q8H IVP Last administered on 06/21/18at 10:38; Start 06/20/18 at 18:00; Stop 06/21/18 at 10:01; Status DC Enoxaparin Sodium (Lovenox Per Pharmacy Prophylaxis Dosing) 1 each PRN DAILY PRN MC SEE COMMENTS; Start 06/22/18 at 11:30; Stop 06/27/18 at 14:49; Status DC Enoxaparin Sodium (Lovenox 40mg Syringe) 40 mg Q24H SQ Last administered on 07/02at 14:37; Start 06/22/18 at 12:00 Guaifenesin (Mucinex) 600 mg BID PO Last administered on 07/02/18 21:10; Start 06/22/18 at 15:00 Lisinopril (Prinivil) 10 mg DAILY PO Last administered on 07/02/18 08:30; Start 06/23/18 at 10:00 Hydrochlorothiazide (Microzide) 12.5 mg DAILY PO Last administered on 07/02/18 08:31; Start 06/23/18 at 10:00 Iohexol (Omnipaque 300 Mg/ml) 75 ml 1X ONCE IV Last administered on 06/26/18at 13:00; Start 06/26/18 at 13:00; Stop 06/26/18 at 13:02; Status DC Iohexol (Omnipaque 240 Mg/ml) 30 ml 1X ONCE PO Last administered on 06/26/18 13:00; Start 06/26/18 at 13:00; Stop 06/26/18 at 13:02; Status DC Info (CONTRAST GIVEN -- Rx MONITORING) 1 each PRN DAILY PRN MC SEE COMMENTS; Start 06/26/18 at 13:15; Stop 06/28/18 at 13:14; Status DC Sodium Chloride 1,000 ml @ 100 mls/hr Q10H IV Last administered on 06/28/18 09 :14; Start 06/26/18 at 15:00; Stop 06/28/18 at 10:46; Status DC Potassium Chloride (Klor-Con) 40 meq 1X ONCE PO Last administered on at 16:56; Start 06/26/18 at 15:00; Stop 06/26/18 at 15:01; Status DC Potassium Chloride (Klor-Con) 20 meq [id number] PO Last administered on at 08:32; Start 06/27/18 at 08:00 Sodium Chloride 1,000 ml @ 500 mls/hr Q2H IV ; Start 06/26/18 at 15:00; Status Cancel Meropenem 1 gm/ Sodium Chloride 100 ml @ 200 mls/hr Q8HRS IV Last administered on 07/03/18at 06:18; Start 06/26/18 at 15:00 Vancomycin HCl 1.5 gm/Sodium Chloride 500 ml @ 250 mls/hr 1X ONCE IV Last administered on 2/28/19at 16:53; Start 06/26/18 at 14:45; Stop 06/26/18 at 16:44 ; Status DC Sodium Chloride 1,000 ml @ 500 mls/hr 1X ONCE IV Last administered on at 16:10; Start 06/26/18 at 15:00; Stop 06/26/18 at 16:59; Status DC Sodium Chloride 1,000 ml @ 2,460 mls/hr Q25M IV ; Start 06/26/18 at 17:00; Stop 06/26/18 at 17:11; Status DC Sodium Chloride 500 ml @ 1,000 mls/hr PRN Q30MIN PRN IV SEE COMMENTS; Start at 17:00 Vancomycin HCl (Vanco Per Pharmacy) 1 each PRN DAILY PRN MC SEE COMMENTS Last administered on 06/30/18at 09:52; Start 06/26/18 at 17:00 Vancomycin HCl 1.25 gm/Sodium Chloride 250 ml @ 167 mls/hr Q12H IV Last administered on 07/03/18at 04:57; Start 06/27/18 at 05:00 Vancomycin HCl (Vancomycin Trough Level) 1 each 1X ONCE MC ; Start 06/28/18 at 04:30; Stop 06/28/18 at 04:31; Status DC Lidocaine/Sodium Bicarbonate (Buffered Lidocaine 1%) 3 ml STK-MED ONCE .ROUTE ; Start 06/27/18 at 12:12; Stop 06/27/18 at 12:13; Status DC Midazolam HCl (Versed) 2 mg STK-MED ONCE .ROUTE ; Start 06/27/18 at 12:13; Stop 06/27/18 at 12:14; Status DC Fentanyl Citrate (Fentanyl 2ml Vial) 100 mcg STK-MED ONCE .ROUTE ; Start at 12:13; Stop 06/27/18 at 12:14; Status DC Lidocaine/Sodium Bicarbonate (Buffered Lidocaine 1%) 3 ml 1X ONCE IJ Last administered on 06/27/18at 12:30; Start 06/27/18 at 12:30; Stop 06/27/18 at 12:31; Status DC Midazolam HCl (Versed) 2 mg 1X ONCE IV Last administered on 06/27/18at 12:30; Start 06/27/18 at 12:30; Stop 06/27/18 at 12:31; Status DC Fentanyl Citrate (Fentanyl 2ml Vial) 100 mcg 1X ONCE IV Last administered on 12:30; Start 06/27/18 at 12:30; Stop 06/27/18 at 12:31; Status DC Potassium Chloride (Klor-Con) 40 meq 1X ONCE PO Last administered on 06/29/18 12:31; Start 06/29/18 at 12:00; Stop 06/29/18 at 12:01; Status DC Dextrose/Sodium Chloride 1,000 ml @ 100 mls/hr Q10H IV Last administered on 21:16; Start 06/29/18 at 21:00; Stop 07/02/18 at 16:54; Status DC Sodium Chloride 500 ml @ 500 mls/hr 1X ONCE IV Last administered on 06/29/18 20:30; Start 06/29/18 at 19:30; Stop 06/29/18 at 20:29; Status DC Amlodipine Besylate (Norvasc) 10 mg DAILY PO Last administered on 07/02/18at 17: 20; Start 07/02/18 at 18:00 Active Scripts Active Reported Zofran (Ondansetron Hcl) 4 Mg Tablet 4 Mg PO BID PRN Lisinopril-Hctz 10-12.5 Mg Tab (Lisinopril/Hydrochlorothiazide) 1 Each Tablet 1 Tab PO DAILY Vitals/I & O Vital Sign - Last 24 Hours 07/02/18 07/02/18 07/02/18 07/02/18 08:10 08:30 08:33 11:00 Temp 97.1 97.1 Pulse 70 81 Resp 18 B/P (MAP) 147/97 135/92 (106) Pulse Ox 95 97 O2 Delivery Room Air Room Air Room Air O2 Flow Rate 2.0 07/02/18 07/02/18 07/02/18 07/02/18 15:00 15:40 17:20 19:00 Temp 97.3 97.6 97.3 97.6 Pulse 92 92 92 Resp 18 18 B/P (MAP) 155/108 (124) 155/108 141/96 (111) Pulse Ox 99 98 O2 Delivery Room Air Room Air Room Air 07/02/18 07/02/18 07/02/18 07/02/18 20:25 21:16 22:16 23:00 Temp 97.9 97.9 Pulse 82 Resp 16 16 18 B/P (MAP) 137/94 (108) Pulse Ox 98 O2 Delivery Room Air Room Air Room Air Room Air 07/03/18 07/03/18 03:00 07:00 Temp 98.0 97.8 98.0 97.8 Pulse 80 81 Resp 18 18 B/P (MAP) 131/90 (104) 153/99 (117) Pulse Ox 98 95 O2 Delivery Room Air Room Air Intake and Output 07/02/18 07/02/18 07/03/18 14:59 22:59 06:59 Intake Total 220 ml 480 ml Output Total 450 ml 1140 ml Balance -230 ml 480 ml -1140 ml PHILIP POST MD Jul 03, 2018 07:46
--- NOTE | 2018-07-03 07:50 | NUR ---
Pt's ostomy noted to be leaking and removed from stoma site during shift report. Pt's ostomy bag removed, midline abd drsg assessed and underlying steri-strips noted to be saturated w/ bowel drainage. Site cleaned w/ ChloraPrep, steri-strips removed and drsg changed. LEANDER Heath assisted w/ ostomy change w/ no complications. Pt tolerated well, will continue to monitor.
[2018-07-03] MEDS: POTASSIUM CHLORIDE 20 MEQ TABLET.ER. PO SCH (08:00)
[2018-07-03] MEDS ORDERED: IOHEXOL 300 MG/ML 100ML VIAL. IV ONE (08:15)
[2018-07-03] MEDS ORDERED: IOHEXOL 240 MG/ML 50ML VIAL. PO ONE (08:15)
[2018-07-03] MEDS ORDERED: CONTRAST GIVEN. MC PRN (08:30)
--- NOTE | 2018-07-03 08:50 | PDOC ---
Infectious Disease Note Subjective: Subjective Pt without complaints no n/v/f/c is been dc home today ROS: ROS Negative except for above. Vital Signs: Vital Signs Vital Signs Date Time Temp Pulse Resp B/P (MAP) Pulse Ox O2 Delivery O2 Flow Rate FiO2 07/03/18 07:00 97.8 81 18 153/99 (117) 95 Room Air 97.8 07/02/18 08:10 2.0 Physical Exam: PHYSICAL EXAM GENERAL: Lying down, NAD HEENT: Oral cavity clear NECK: Supple LUNGS: Clear. HEART: S1, S2 regular. ABDOMEN: Slightly distended, midline incision approx/steri-strips. Ostomy. Left -sided CATHRYN - purulent drainage EXTREMITIES: No edema or cyanosis. SKIN: warm NEUROLOGIC: Awake, responds few questions PIV Medications: Inpatient Meds: Current Medications Medications (Trade) Dose Ordered Sig/Siri Start Time Stop Time Status Last Admin Dose Admin Albumin Human 500 ml @ As Directed STK-MED ONCE 06/20/18 09:35 06/20/18 09:36 DC Amlodipine Besylate (Norvasc) 10 mg DAILY 07/02/18 18:00 07/02/18 17:20 10 MG Cefoxitin Sodium (Mefoxin) 1 gm Q8H 06/20/18 18:00 06/21/18 10:01 DC 06/21/18 10:38 1 GM Dexamethasone Sodium Phosphate (Decadron) 20 mg STK-MED ONCE 06/20/18 07:43 06/20/18 07:44 DC Dextrose/Lactated Ringer's 1,000 ml @ 75 mls/hr [id number] 06/20/18 10:58 06/23/18 13:17 DC 06/20/18 14:54 75 MLS/HR Dextrose/Sodium Chloride 1,000 ml @ 100 mls/hr Q10H 06/29/18 21:00 07/02/18 16:54 DC 07/01/18 21:16 100 MLS/HR Enoxaparin Sodium (Lovenox 40mg Syringe) 40 mg Q24H 06/22/18 12:00 07/02/18 14:37 40 MG Enoxaparin Sodium (Lovenox Per Pharmacy Prophylaxis Dosing) 1 each PRN DAILY PRN 06/22/18 11:30 06/27/18 14:49 DC Famotidine (Pepcid Vial) 20 mg STK-MED ONCE 06/20/18 07:43 06/20/18 07:44 DC Fentanyl Citrate (Fentanyl 2ml Vial) 100 mcg 1X ONCE 06/27/18 12:30 06/27/18 12:31 DC 06/27/18 12:30 75 MCG Glycopyrrolate (Robinul) 1 mg STK-MED ONCE 06/20/18 09:34 06/20/18 09:35 DC Guaifenesin (Mucinex) 600 mg BID 06/22/18 15:00 07/02/18 21:10 600 MG Hydrochlorothiazide (Microzide) 12.5 mg DAILY 06/23/18 10:00 07/02/18 08:31 12.5 MG Hydromorphone HCl (Dilaudid) 2 mg STK-MED ONCE 06/20/18 10:59 06/20/18 11:00 DC Info (CONTRAST GIVEN -- Rx MONITORING) 1 each PRN DAILY PRN 07/03/18 08:30 07/05/18 08:29 Iohexol (Omnipaque 240 Mg/ml) 30 ml 1X ONCE 07/03/18 08:15 07/03/18 08:17 DC Iohexol (Omnipaque 300 Mg/ml) 75 ml 1X ONCE 07/03/18 08:15 07/03/18 08:17 DC Ketorolac Tromethamine (Toradol 15mg Vial) 15 mg Q6HRS 06/20/18 12:00 06/22/18 11:59 DC 06/22/18 06:32 15 MG Ketorolac Tromethamine (Toradol 30mg Vial) 30 mg STK-MED ONCE 06/20/18 11:09 06/20/18 11:10 DC Lidocaine HCl (Lidocaine Pf 2% Vial) 5 ml STK-MED ONCE 06/20/18 07:43 06/20/18 07:44 DC Lidocaine HCl (Xylocaine-Mpf 1% 2ml Vial) 2 ml PRN 1X PRN 06/20/18 07:00 06/21/18 06:59 DC Lidocaine/Sodium Bicarbonate (Buffered Lidocaine 1%) 3 ml 1X ONCE 06/27/18 12:30 06/27/18 12:31 DC 06/27/18 12:30 9 ML Lisinopril (Prinivil) 10 mg DAILY 06/23/18 10:00 07/02/18 08:30 10 MG Meropenem 1 gm/ Sodium Chloride 100 ml @ 200 mls/hr Q8HRS 06/26/18 15:00 07/03/18 06:18 200 MLS/HR Midazolam HCl (Versed) 2 mg 1X ONCE 06/27/18 12:30 06/27/18 12:31 DC 06/27/18 12:30 2 MG Morphine Sulfate (Morphine Sulfate) 2 mg PRN Q3HRS PRN 06/20/18 11:00 06/30/18 05:07 2 MG Neostigmine Methylsulfate (Bloxiverz) 10 mg STK-MED ONCE 06/20/18 09:34 06/20/18 09:35 DC Ondansetron HCl (Zofran) 4 mg PRN Q6HRS PRN 06/20/18 11:00 07/01/18 19:14 4 MG Oxycodone/ Acetaminophen (Percocet 5/325) 2 tab PRN Q4HRS PRN 06/20/18 11:00 06/30/18 09:19 2 TAB Phenylephrine HCl (Celio-Synephrine Inj) 10 mg STK-MED ONCE 06/20/18 07:59 06/20/18 08:00 DC Potassium Chloride (Klor-Con) 40 meq 1X ONCE 06/29/18 12:00 06/29/18 12:01 DC 06/29/18 12:31 40 MEQ Prochlorperazine Edisylate (Compazine) 5 mg PACU PRN PRN 06/20/18 07:00 06/21/18 06:59 DC 06/20/18 12:18 5 MG Propofol 20 ml @ As Directed STK-MED ONCE 06/20/18 07:43 06/20/18 07:44 DC Ringer's Solution 1,000 ml @ 30 mls/hr Q24H 06/20/18 07:00 06/20/18 18:59 DC 06/20/18 06:39 30 MLS/HR Rocuronium [place] (Zemuron) 100 mg STK-MED ONCE 06/20/18 07:43 06/20/18 07:44 DC Sevoflurane (Ultane) 90 ml STK-MED ONCE 06/20/18 08:55 06/20/18 08:56 DC Sodium Chloride 500 ml @ 500 mls/hr 1X ONCE 06/29/18 19:30 06/29/18 20:29 DC 06/29/18 20:30 500 MLS/HR Sodium Chloride (Normal Saline Flush) 3 ml QSHIFT PRN 06/20/18 11:00 Vancomycin HCl (Vanco Per Pharmacy) 1 each PRN DAILY PRN 06/26/18 17:00 06/30/18 09:52 1 EACH Vancomycin HCl (Vancomycin Trough Level) 1 each 1X ONCE 06/28/18 04:30 06/28/18 04:31 DC Vancomycin HCl 1.25 gm/Sodium Chloride 250 ml @ 167 mls/hr Q12H 06/27/18 05:00 07/03/18 04:57 167 MLS/HR Vancomycin HCl 1.5 gm/Sodium Chloride 500 ml @ 250 mls/hr 1X ONCE 06/26/18 14:45 06/26/18 16:44 DC 06/26/18 16:53 250 MLS/HR Labs: Lab Laboratory Tests Test 07/03/18 04:05 White Blood Count 16.0 x10^3/uL (4.0-11.0) Red Blood Count 3.77 x10^6/uL (4.30-5.70) Hemoglobin 8.6 g/dL (13.0-17.5) Hematocrit 27.6 % (39.0-53.0) Mean Corpuscular Volume 73 fL (79-100) Mean Corpuscular Hemoglobin 23 pg (25-35) Mean Corpuscular Hemoglobin Concent 31 g/dL (31-37) Red Cell Distribution Width 20.2 % (11.5-14.5) Platelet Count 566 x10^3/uL (140-400) Neutrophils (%) (Auto) 42 % (31-73) Lymphocytes (%) (Auto) 49 % (24-48) Monocytes (%) (Auto) 8 % (0-9) Eosinophils (%) (Auto) 0 % (0-3) Basophils (%) (Auto) 0 % (0-3) Neutrophils # (Auto) 6.7 x10^3uL (1.8-7.7) Lymphocytes # (Auto) 7.9 x10^3/uL (1.0-4.8) Monocytes # (Auto) 1.3 x10^3/uL (0.0-1.1) Eosinophils # (Auto) 0.1 x10^3/uL (0.0-0.7) Basophils # (Auto) 0.1 x10^3/uL (0.0-0.2) Micro RUN DATE: 07/02/18 PAGE 1 RUN TIME: 1423 [facility] [address] [place] [address] Elijah Johnson M.D., Lan Specialist PATIENT: PRABHA GROVER ACCT: [id number] LOC: [address] [place] [address] U : [id number] AGE/SX: 63/M ROOM: [facility] REG : 06/20/[address]: PEPE PAGAN MD : 1955 BED: 1 DIS : STATUS: ADM IN TLOC: SPEC #: [id number] SYD: 06/27/18 STATUS: COMP REQ #: [id number] RECD: 06/27/[address] [facility] [address]: NOAH HUBBARD MD SOURCE: PELVIS ENTR: 06/27/[address]: TADEO MCLAUGHLIN MD SPDESC: FLOR DEWEY MD, PRASHANTH S MD TERMULO, CHERRIE Y MD WILDER, THOMAS W MD ORDERED: ANAER/AEROB/GS Procedure Result ANAEROBIC-AEROBIC CULTURE Final Final report ANAEROBIC RES 1 Final Bacteroides fragilis 4+ AEROBIC CULT Final Final report AEROBIC RES 1 Final Comment Pseudomonas aeruginosa 1+ AEROBIC RES 2 Final Escherichia coli 1+ AEROBIC RES 3 Final Mixed site phillip. 1+ ANTIMICROBIAL SUSCEPTIBILITY Final Comment S = Susceptible; I = Intermediate; R = Resistant P = Positive; N = Negative MICS are expressed in micrograms per mL Antibiotic RSLT#1 RSLT#2 RSLT#3 RSLT#4 Amikacin S<=2 Amoxicillin/Clavulanic Acid S<=2 CONTINUED ON NEXT PAGE RUN DATE: 07/02/18 PAGE 2 RUN TIME: 1423 [facility] [address] [place] [address] Elijah Johnson M.D., Lan Specialist SPEC: [id number] PATIENT: PRABHA GROVER Bret [id number] ( Continued) Procedure Result ANTIMICROBIAL SUSCEPTIBILITY Final (continued) Ampicillin S<=2 Ampicillin/Sulbactam R>=32 Cefepime S =4 S<=0.12 Cefotaxime R =32 Ceftazidime S =4 Ceftriaxone R =32 S<=0.25 Cefuroxime S<=1 Ciprofloxacin S<=0.25 S<=0.25 Ertapenem S<=0.12 Gentamicin S =4 S<=1 Imipenem I =8 S<=0.25 Levofloxacin S =0.25 S<=0.12 Meropenem S =1 S<=0.25 Piperacillin R>=128 Piperacillin/Tazobactam S<=4 Tetracycline R>=16 S<=1 Ticarcillin R =R Tobramycin S<=1 S<=1 Trimethoprim/Sulfa R =80 S<=20 GRAM STAIN Final Final report GRAM STAIN RES 1 Final Comment Many gram negative rods. GRAM STAIN RES 2 Final Comment Few gram positive rods. GRAM STAIN RES 3 Final Comment Few gram positive cocci GRAM STAIN RES 4 Final Comment Few white blood cells. Performed at: [facility] [address] [facility] [address], [place], [place] [id number] Infertility Medical Assistant: BRISEYDA Peraza MD, Phone: [phone] Objective: Assessment: Leukocytosis chronic since 2015 Sepsis Abdominal abscess / leak s/p CT drainage on 06/27. 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 s/p splenic flexure segmental resection on 11/22/2014 by s/p total colectomy with end ileostomy 06/20/2018 CEA 29K awaiting palliative chemotherapy by oncology PCM Anemia Plan: Plan of Care DC Vanc DC merrem levaquin for dc home for 7 days,script in chart s/e discussed probiotics f/u ct abdomen and pelvis f/u with us in ID clinic if needed Overall prognosis poor SARAH SHEN MD Jul 03, 2018 08:50
--- NOTE | 2018-07-03 08:56 | PDOC ---
SURGICAL PROGRESS NOTE Subjective feeling better waiting for CT Vital Signs Vital Signs Date Time Temp Pulse Resp B/P (MAP) Pulse Ox O2 Delivery O2 Flow Rate FiO2 07/03/18 07:00 97.8 81 18 153/99 (117) 95 Room Air 97.8 07/02/18 08:10 2.0 I&O Intake and Output 07/03/18 07:00 Intake Total 700 ml Output Total 1590 ml Balance -890 ml Intake Oral 700 ml Output Urine Total 600 ml Stool Total 800 ml Urine/Stool Mix 100 ml Drainage Total 90 ml General: Alert, Oriented X3, Cooperative, No acute distress Abdomen: Soft, Other (ND, wound clean, ostmoy with stool, drain cloudy purulent ) Labs Laboratory Tests Test 07/02/18 05:00 07/03/18 04:05 Creatinine 0.7 mg/dL (0.7-1.3) Estimated GFR (Cockcroft-Gault) 136.9 White Blood Count 16.0 x10^3/uL (4.0-11.0) Red Blood Count 3.77 x10^6/uL (4.30-5.70) Hemoglobin 8.6 g/dL (13.0-17.5) Hematocrit 27.6 % (39.0-53.0) Mean Corpuscular Volume 73 fL (79-100) Mean Corpuscular Hemoglobin 23 pg (25-35) Mean Corpuscular Hemoglobin Concent 31 g/dL (31-37) Red Cell Distribution Width 20.2 % (11.5-14.5) Platelet Count 566 x10^3/uL (140-400) Neutrophils (%) (Auto) 42 % (31-73) Lymphocytes (%) (Auto) 49 % (24-48) Monocytes (%) (Auto) 8 % (0-9) Eosinophils (%) (Auto) 0 % (0-3) Basophils (%) (Auto) 0 % (0-3) Neutrophils # (Auto) 6.7 x10^3uL (1.8-7.7) Lymphocytes # (Auto) 7.9 x10^3/uL (1.0-4.8) Monocytes # (Auto) 1.3 x10^3/uL (0.0-1.1) Eosinophils # (Auto) 0.1 x10^3/uL (0.0-0.7) Basophils # (Auto) 0.1 x10^3/uL (0.0-0.2) Laboratory Tests Test 07/03/18 04:05 White Blood Count 16.0 x10^3/uL (4.0-11.0) Red Blood Count 3.77 x10^6/uL (4.30-5.70) Hemoglobin 8.6 g/dL (13.0-17.5) Hematocrit 27.6 % (39.0-53.0) Mean Corpuscular Volume 73 fL (79-100) Mean Corpuscular Hemoglobin 23 pg (25-35) Mean Corpuscular Hemoglobin Concent 31 g/dL (31-37) Red Cell Distribution Width 20.2 % (11.5-14.5) Platelet Count 566 x10^3/uL (140-400) Neutrophils (%) (Auto) 42 % (31-73) Lymphocytes (%) (Auto) 49 % (24-48) Monocytes (%) (Auto) 8 % (0-9) Eosinophils (%) (Auto) 0 % (0-3) Basophils (%) (Auto) 0 % (0-3) Neutrophils # (Auto) 6.7 x10^3uL (1.8-7.7) Lymphocytes # (Auto) 7.9 x10^3/uL (1.0-4.8) Monocytes # (Auto) 1.3 x10^3/uL (0.0-1.1) Eosinophils # (Auto) 0.1 x10^3/uL (0.0-0.7) Basophils # (Auto) 0.1 x10^3/uL (0.0-0.2) Assessment/Plan noted ID--oral abx CT pending ANUSHA OVALLES APRN Jul 03, 2018 08:56
--- NOTE | 2018-07-03 09:00 | PDOC ---
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 ROS - no fever Objective Objective Vital Signs Date Time Temp Pulse Resp B/P (MAP) Pulse Ox O2 Delivery O2 Flow Rate FiO2 07/03/18 07:00 97.8 81 18 153/99 (117) 95 Room Air 97.8 07/02/18 08:10 2.0 Intake and Output 07/03/18 07:00 Intake Total 700 ml Output Total 1590 ml Balance -890 ml Intake Oral 700 ml Output Urine Total 600 ml Stool Total 800 ml Urine/Stool Mix 100 ml Drainage Total 90 ml Physical Exam Heart: Normal S1, Normal S2 General: Alert, Oriented X3, No acute distress Lungs: Clear to auscultation Neuro: Normal speech Psych/Mental Status: Mental status NL Assessment Assessment IMPRESSION AND PLAN: 1. 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 He had a colon cancer diagnosed in 2014 involving the splenic flexure and it was stage 2 at that time. He was diagnosed with multiple bilateral lung metastases and liver metastasis consistent with stage [address] 2018 and liver biopsy 06/20/18. CEA [id number] on 06/28/18. I reviewed the CT results and the pathology results in detail with the patient and his . I explained that this is stage 4 malignancy, which is not curable and treatments are palliative. I discussed the role of palliative chemotherapy and the risks and benefits. He is going to continue postoperative management at this point and follow up with me in about 3 weeks to evaluate for palliative chemotherapy. I d/w Dr Orozco. 2. Hypoalbuminemia. He reports a 25-pound weight loss. This is due to malignancy. 3. Liver metastasis, status post biopsy. 4. Lung metastasis, bilateral. 5. Anemia due to malignancy. Iron studies are consistent with anemia due to chronic disease. Hb 8.6 Comment Review of Relevant I have reviewed the following items pallavi (where applicable) has been applied. Labs Laboratory Tests Test 07/02/18 05:00 07/03/18 04:05 Creatinine 0.7 mg/dL (0.7-1.3) Estimated GFR (Cockcroft-Gault) 136.9 White Blood Count 16.0 x10^3/uL (4.0-11.0) Red Blood Count 3.77 x10^6/uL (4.30-5.70) Hemoglobin 8.6 g/dL (13.0-17.5) Hematocrit 27.6 % (39.0-53.0) Mean Corpuscular Volume 73 fL (79-100) Mean Corpuscular Hemoglobin 23 pg (25-35) Mean Corpuscular Hemoglobin Concent 31 g/dL (31-37) Red Cell Distribution Width 20.2 % (11.5-14.5) Platelet Count 566 x10^3/uL (140-400) Neutrophils (%) (Auto) 42 % (31-73) Lymphocytes (%) (Auto) 49 % (24-48) Monocytes (%) (Auto) 8 % (0-9) Eosinophils (%) (Auto) 0 % (0-3) Basophils (%) (Auto) 0 % (0-3) Neutrophils # (Auto) 6.7 x10^3uL (1.8-7.7) Lymphocytes # (Auto) 7.9 x10^3/uL (1.0-4.8) Monocytes # (Auto) 1.3 x10^3/uL (0.0-1.1) Eosinophils # (Auto) 0.1 x10^3/uL (0.0-0.7) Basophils # (Auto) 0.1 x10^3/uL (0.0-0.2) Laboratory Tests Test 07/03/18 04:05 White Blood Count 16.0 x10^3/uL (4.0-11.0) Red Blood Count 3.77 x10^6/uL (4.30-5.70) Hemoglobin 8.6 g/dL (13.0-17.5) Hematocrit 27.6 % (39.0-53.0) Mean Corpuscular Volume 73 fL (79-100) Mean Corpuscular Hemoglobin 23 pg (25-35) Mean Corpuscular Hemoglobin Concent 31 g/dL (31-37) Red Cell Distribution Width 20.2 % (11.5-14.5) Platelet Count 566 x10^3/uL (140-400) Neutrophils (%) (Auto) 42 % (31-73) Lymphocytes (%) (Auto) 49 % (24-48) Monocytes (%) (Auto) 8 % (0-9) Eosinophils (%) (Auto) 0 % (0-3) Basophils (%) (Auto) 0 % (0-3) Neutrophils # (Auto) 6.7 x10^3uL (1.8-7.7) Lymphocytes # (Auto) 7.9 x10^3/uL (1.0-4.8) Monocytes # (Auto) 1.3 x10^3/uL (0.0-1.1) Eosinophils # (Auto) 0.1 x10^3/uL (0.0-0.7) Basophils # (Auto) 0.1 x10^3/uL (0.0-0.2) Microbiology 06/26/18 Blood Culture - Final, Complete NO GROWTH AFTER 5 DAYS 06/27/18 Anaerobic/Aerobic Culture - Final, Complete 06/27/18 Anaerobic Culture Result 1 (MILAN) - Final, Complete 06/27/18 Aerobic Culture - Final, Complete 06/27/18 Aerobic Culture Result 1 (MILAN) - Final, Complete 06/27/18 Aerobic Culture Result 2 (MILAN) - Final, Complete 06/27/18 Aerobic Culture Result 3 (MILAN) - Final, Complete 06/27/18 Antimicrobic Susceptibility - Final, Complete 06/27/18 Gram Stain - Final, Complete 06/27/18 Gram Stain Result 1 (MILAN) - Final, Complete 06/27/18 Gram Stain Result 2 (MILAN) - Final, Complete 06/27/18 Gram Stain Result 3 (MILAN) - Final, Complete 06/27/18 Gram Stain Result 4 (MILAN) - Final, Complete Medications Current Medications Ondansetron HCl (Zofran) 4 mg PRN Q6HRS PRN IV NAUSEA/VOMITING; Start 06/20/18 at 07:00; Stop 06/21/18 at 06:59; Status DC Fentanyl Citrate (Fentanyl 2ml Vial) 25 mcg PRN Q5MIN PRN IV MILD PAIN; Start 06/20/18 at 07:00; Stop 06/21/18 at 06:59; Status DC Fentanyl Citrate (Fentanyl 2ml Vial) 50 mcg PRN Q5MIN PRN IV MODERATE TO SEVERE PAIN Last administered on 06/20/18at 12:39; Start 06/20/18 at 07:00; Stop 06/21/18 at 06:59; Status DC Morphine Sulfate (Morphine Sulfate) 1 mg PRN Q10MIN PRN IV SEVERE PAIN; Start 06/20/18 at 07:00; Stop 06/21/18 at 06:59; Status DC Ringer's Solution 1,000 ml @ 30 mls/hr Q24H IV Last administered on 06/20/18at 06:39; Start 06/20/18 at 07:00; Stop 06/20/18 at 18:59; Status DC Lidocaine HCl (Xylocaine-Mpf 1% 2ml Vial) 2 ml PRN 1X PRN ID IV START; Start at 07:00; Stop 06/21/18 at 06:59; Status DC Hydromorphone HCl (Dilaudid) 0.5 mg PRN Q10MIN PRN IV SEV PAIN, Second choice; Start 06/20/18 at 07:00; Stop 06/21/18 at 06:59; Status DC Prochlorperazine Edisylate (Compazine) 5 mg PACU PRN PRN IV NAUSEA, MRX1 Last administered on 06/20/18at 12:18; Start 06/20/18 at 07:00; Stop 06/21/18 at 06:59 ; Status DC Cefoxitin Sodium (Mefoxin) 2 gm 1X PREOP PRN IVP PRIOR TO PROCEDURE Last administered on 06/20/18at 10:07; Start 06/20/18 at 06:00; Stop 06/20/18 at 21:00 ; Status DC Propofol 20 ml @ As Directed STK-MED ONCE IV ; Start 06/20/18 at 07:43; Stop at 07:44; Status DC Dexamethasone Sodium Phosphate (Decadron) 20 mg STK-MED ONCE .ROUTE ; Start at 07:43; Stop 06/20/18 at 07:44; Status DC Famotidine (Pepcid Vial) 20 mg STK-MED ONCE .ROUTE ; Start 06/20/18 at 07:43; Stop 06/20/18 at 07:44; Status DC Lidocaine HCl (Lidocaine Pf 2% Vial) 5 ml STK-MED ONCE .ROUTE ; Start 06/20/18 at 07:43; Stop 06/20/18 at 07:44; Status DC Ondansetron HCl (Zofran) 4 mg STK-MED ONCE .ROUTE ; Start 06/20/18 at 07:43; Stop 06/20/18 at 07:44; Status DC Rocuronium [place] (Zemuron) 100 mg STK-MED ONCE .ROUTE ; Start 06/20/18 at 07: 43; Stop 06/20/18 at 07:44; Status DC Fentanyl Citrate (Fentanyl 2ml Vial) 100 mcg STK-MED ONCE .ROUTE ; Start at 07:43; Stop 06/20/18 at 07:44; Status DC Midazolam HCl (Versed) 2 mg STK-MED ONCE .ROUTE ; Start 06/20/18 at 07:43; Stop 06/20/18 at 07:44; Status DC Fentanyl Citrate (Fentanyl 2ml Vial) 100 mcg STK-MED ONCE .ROUTE ; Start at 07:46; Stop 06/20/18 at 07:47; Status DC Phenylephrine HCl (Celio-Synephrine Inj) 10 mg STK-MED ONCE .ROUTE ; Start at 07:59; Stop 06/20/18 at 08:00; Status DC Sevoflurane (Ultane) 90 ml STK-MED ONCE IH ; Start 06/20/18 at 08:55; Stop 06/20 at 08:56; Status DC Neostigmine Methylsulfate (Bloxiverz) 10 mg STK-MED ONCE .ROUTE ; Start at 09:34; Stop 06/20/18 at 09:35; Status DC Glycopyrrolate (Robinul) 1 mg STK-MED ONCE .ROUTE ; Start 06/20/18 at 09:34; Stop 06/20/18 at 09:35; Status DC Albumin Human 500 ml @ As Directed STK-MED ONCE IV ; Start 06/20/18 at 09:35; Stop 06/20/18 at 09:36; Status DC Hydromorphone HCl (Dilaudid) 2 mg STK-MED ONCE .ROUTE ; Start 06/20/18 at 10:59 ; Stop 06/20/18 at 11:00; Status DC Cefoxitin Sodium (Mefoxin) 1 gm Q8H IVP ; Start 06/20/18 at 18:00; Stop at 10:01; Status Cancel Sodium Chloride (Normal Saline Flush) 3 ml QSHIFT PRN IV AFTER MEDS AND BLOOD DRAWS; Start 06/20/18 at 11:00 Morphine Sulfate (Morphine Sulfate) 2 mg PRN Q3HRS PRN IV PAIN Last administered on 06/30/18 05:07; Start 06/20/18 at 11:00 Oxycodone/ Acetaminophen (Percocet 5/325) 1 tab PRN Q4HRS PRN PO MILD PAIN, 1ST CHOICE Last administered on 07/02/18at 21:16; Start 06/20/18 at 11:00 Oxycodone/ Acetaminophen (Percocet 5/325) 2 tab PRN Q4HRS PRN PO MODERATE PAIN , SEVERE PAIN Last administered on 06/30/18 09:19; Start 06/20/18 at 11:00 Ketorolac Tromethamine (Toradol 15mg Vial) 15 mg Q6HRS IV Last administered on 06/22/18 06:32; Start 06/20/18 at 12:00; Stop 06/22/18 at 11:59; Status DC Ondansetron HCl (Zofran) 4 mg PRN Q6HRS PRN IV NAUSEA, 1ST CHOICE Last administered on 07/01/18at 19:14; Start 06/20/18 at 11:00 Dextrose/Lactated Ringer's 1,000 ml @ 75 mls/hr [id number] IV Last administered on 06/20/18at 14:54; Start 06/20/18 at 10:58; Stop 06/23/18 at 13:17; Status DC Ketorolac Tromethamine (Toradol 30mg Vial) 30 mg STK-MED ONCE .ROUTE ; Start at 11:09; Stop 06/20/18 at 11:10; Status DC Sodium Chloride 1,000 ml @ 100 mls/hr Q10H IV Last administered on 06/22/18at 00:45; Start 06/20/18 at 11:15; Stop 06/23/18 at 13:17; Status DC Cefoxitin Sodium (Mefoxin) 1 gm Q8H IVP Last administered on 06/21/18at 10:38; Start 06/20/18 at 18:00; Stop 06/21/18 at 10:01; Status DC Enoxaparin Sodium (Lovenox Per Pharmacy Prophylaxis Dosing) 1 each PRN DAILY PRN MC SEE COMMENTS; Start 06/22/18 at 11:30; Stop 06/27/18 at 14:49; Status DC Enoxaparin Sodium (Lovenox 40mg Syringe) 40 mg Q24H SQ Last administered on 07/02at 14:37; Start 06/22/18 at 12:00 Guaifenesin (Mucinex) 600 mg BID PO Last administered on 07/02/18at 21:10; Start 06/22/18 at 15:00 Lisinopril (Prinivil) 10 mg DAILY PO Last administered on 07/02/18 08:30; Start 06/23/18 at 10:00 Hydrochlorothiazide (Microzide) 12.5 mg DAILY PO Last administered on 07/02/18 08:31; Start 06/23/18 at 10:00 Iohexol (Omnipaque 300 Mg/ml) 75 ml 1X ONCE IV Last administered on 06/26/18at 13:00; Start 06/26/18 at 13:00; Stop 06/26/18 at 13:02; Status DC Iohexol (Omnipaque 240 Mg/ml) 30 ml 1X ONCE PO Last administered on 06/26/18at 13:00; Start 06/26/18 at 13:00; Stop 06/26/18 at 13:02; Status DC Info (CONTRAST GIVEN -- Rx MONITORING) 1 each PRN DAILY PRN MC SEE COMMENTS; Start 06/26/18 at 13:15; Stop 06/28/18 at 13:14; Status DC Sodium Chloride 1,000 ml @ 100 mls/hr Q10H IV Last administered on 06/28/18 09 :14; Start 06/26/18 at 15:00; Stop 06/28/18 at 10:46; Status DC Potassium Chloride (Klor-Con) 40 meq 1X ONCE PO Last administered on at 16:56; Start 06/26/18 at 15:00; Stop 06/26/18 at 15:01; Status DC Potassium Chloride (Klor-Con) 20 meq DAILYWBKFT PO Last administered on at 08:32; Start 06/27/18 at 08:00 Sodium Chloride 1,000 ml @ 500 mls/hr Q2H IV ; Start 06/26/18 at 15:00; Status Cancel Meropenem 1 gm/ Sodium Chloride 100 ml @ 200 mls/hr Q8HRS IV Last administered on 07/03/18at 06:18; Start 06/26/18 at 15:00 Vancomycin HCl 1.5 gm/Sodium Chloride 500 ml @ 250 mls/hr 1X ONCE IV Last administered on 06/26/18at 16:53; Start 06/26/18 at 14:45; Stop 06/26/18 at 16:44 ; Status DC Sodium Chloride 1,000 ml @ 500 mls/hr 1X ONCE IV Last administered on at 16:10; Start 06/26/18 at 15:00; Stop 06/26/18 at 16:59; Status DC Sodium Chloride 1,000 ml @ 2,460 mls/hr Q25M IV ; Start 06/26/18 at 17:00; Stop 06/26/18 at 17:11; Status DC Sodium Chloride 500 ml @ 1,000 mls/hr PRN Q30MIN PRN IV SEE COMMENTS; Start at 17:00 Vancomycin HCl (Vanco Per Pharmacy) 1 each PRN DAILY PRN MC SEE COMMENTS Last administered on 06/30/18at 09:52; Start 06/26/18 at 17:00 Vancomycin HCl 1.25 gm/Sodium Chloride 250 ml @ 167 mls/hr Q12H IV Last administered on 07/03/18at 04:57; Start 06/27/18 at 05:00 Vancomycin HCl (Vancomycin Trough Level) 1 each 1X ONCE MC ; Start 06/28/18 at 04:30; Stop 06/28/18 at 04:31; Status DC Lidocaine/Sodium Bicarbonate (Buffered Lidocaine 1%) 3 ml STK-MED ONCE .ROUTE ; Start 06/27/18 at 12:12; Stop 06/27/18 at 12:13; Status DC Midazolam HCl (Versed) 2 mg STK-MED ONCE .ROUTE ; Start 06/27/18 at 12:13; Stop 06/27/18 at 12:14; Status DC Fentanyl Citrate (Fentanyl 2ml Vial) 100 mcg STK-MED ONCE .ROUTE ; Start at 12:13; Stop 06/27/18 at 12:14; Status DC Lidocaine/Sodium Bicarbonate (Buffered Lidocaine 1%) 3 ml 1X ONCE IJ Last administered on 06/27/18at 12:30; Start 06/27/18 at 12:30; Stop 06/27/18 at 12:31; Status DC Midazolam HCl (Versed) 2 mg 1X ONCE IV Last administered on 06/27/18at 12:30; Start 06/27/18 at 12:30; Stop 06/27/18 at 12:31; Status DC Fentanyl Citrate (Fentanyl 2ml Vial) 100 mcg 1X ONCE IV Last administered on at 12:30; Start 06/27/18 at 12:30; Stop 06/27/18 at 12:31; Status DC Potassium Chloride (Klor-Con) 40 meq 1X ONCE PO Last administered on 06/29/18at 12:31; Start 06/29/18 at 12:00; Stop 06/29/18 at 12:01; Status DC Dextrose/Sodium Chloride 1,000 ml @ 100 mls/hr Q10H IV Last administered on 07/01/18at 21:16; Start 06/29/18 at 21:00; Stop 07/02/18 at 16:54; Status DC Sodium Chloride 500 ml @ 500 mls/hr 1X ONCE IV Last administered on 06/29/18at 20:30; Start 06/29/18 at 19:30; Stop 06/29/18 at 20:29; Status DC Amlodipine Besylate (Norvasc) 10 mg DAILY PO Last administered on 07/02/18at 17: 20; Start 07/02/18 at 18:00 Iohexol (Omnipaque 240 Mg/ml) 30 ml 1X ONCE PO ; Start 07/03/18 at 08:15; Stop 07/03/18 at 08:17; Status DC Iohexol (Omnipaque 300 Mg/ml) 75 ml 1X ONCE IV ; Start 07/03/18 at 08:15; Stop 07/03/18 at 08:17; Status DC Info (CONTRAST GIVEN -- Rx MONITORING) 1 each PRN DAILY PRN MC SEE COMMENTS; Start 07/03/18 at 08:30; Stop 07/05/18 at 08:29 Active Scripts Active Reported Zofran (Ondansetron Hcl) 4 Mg Tablet 4 Mg PO BID PRN Lisinopril-Hctz 10-12.5 Mg Tab (Lisinopril/Hydrochlorothiazide) 1 Each Tablet 1 Tab PO DAILY Vitals/I & O Vital Sign - Last 24 Hours 07/02/18 07/02/18 07/02/18 07/02/18 11:00 15:00 15:40 17:20 Temp 97.1 97.3 97.1 97.3 Pulse 81 92 92 Resp 18 18 B/P (MAP) 135/92 (106) 155/108 (124) 155/108 Pulse Ox 97 99 O2 Delivery Room Air Room Air Room Air 07/02/18 07/02/18 07/02/18 07/02/18 19:00 20:25 21:16 22:16 Temp 97.6 97.6 Pulse 92 Resp 18 16 16 B/P (MAP) 141/96 (111) Pulse Ox 98 O2 Delivery Room Air Room Air Room Air Room Air 07/02/18 07/03/18 07/03/18 23:00 03:00 07:00 Temp 97.9 98.0 97.8 97.9 98.0 97.8 Pulse 82 80 81 Resp 18 18 18 B/P (MAP) 137/94 (108) 131/90 (104) 153/99 (117) Pulse Ox 98 98 95 O2 Delivery Room Air Room Air Room Air Intake and Output 07/02/18 07/02/18 07/03/18 15:00 23:00 07:00 Intake Total 220 ml 480 ml Output Total 450 ml 540 ml 600 ml Balance -230 ml -60 ml -600 ml BJORN CHACON MD Jul 03, 2018 09:00
[2018-07-03] MEDS: ONDANSETRON PF 4 MG/2 ML VIAL. IV PRN (10:36)
[2018-07-03 11:00] VITALS: BP 166/113
--- NOTE | 2018-07-03 11:06 | DISCH ---
DISCHARGE INSTRUCTIONS Condition on Discharge Condition on Discharge: Stable Activity After Discharge Activity Instructions for Disc: Activity as tolerated, Avoid exertion Bathing Instructions: No Tub Bath until see Lifting Instructions after Dis: No heavy lifting, No pulling or pushing Exercise Instruction after Dis: Progress as tolerated Driving Instructions after Dis: Do not drive Diet after Discharge Diet after Discharge: Regular Diet Texture: Regular Liquid Texture: Thin Liquid Swallowing Supervision: None needed Wound Incision Care Wound/Incision Care: Change dressing, May get incision wet Contacting the after DC Call your doctor for: Concerns you may have Follow-Up Follow up with: Dr Pagan in 1 week Treatment/Equipment after DC Adaptive Equipment Issued: None PEPE PAGAN MD Jul 03, 2018 11:06
[2018-07-03] MEDS: amLODIPine BESYLATE 10 MG TABLET PO SCH (11:31)
[2018-07-03 11:32] VITALS: BP 166/113
[2018-07-03] MEDS: hydroCHLOROthiazide 12.5 MG CAPSULE PO SCH (11:32)
[2018-07-03] MEDS: LISINOPRIL 10 MG TABLET PO SCH (11:32)
--- NOTE | 2018-07-03 11:48 | SNU/HH DC ---
DISCHARGE WITH HOME HEALTH DISCHARGE INFORMATION: Discharge Date: Jul 03, 2018 Final Diagnosis: Sepsis w. 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 Originally diagnosed 2014, now with multiple bilateral lung metastases and liver metastasis consistent with stage [address] 05/20/2018 and liver biopsy 06/20/18. CEA [id number] on 06/28/18. 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 Iron studies are consistent with anemia due to chronic disease. Hb 8.6 Condition on Discharge: Stable CODE STATUS: Code Status: Full HOME HEALTH: Face to Face: I certify this patient is under my care and that I, or a nurse practitioner or physician's certified anesthesiologist assistant working with me, had a face to face encounter that meets the physician face to face encounter requirements with this patient on 07/03/18. Medical Complications: Other (Colon cancer, abdominal wound) Retirement For: Assess & Educate Safety, Bowel/Bladder Training, Medication Management, Ostomy Care, Wound Care Physical Therapy For: Evalulation/Treatment Occupational Therapy For: Evaluation/Treatment Home Health Aide For: Self-care Pt Meets Homebound Status: Extreme weakness w/ amb. POST DISCHARGE ORDERS: Activity Instructions for Disc: Activity as tolerated, Avoid exertion Bathing Instructions: No Tub Bath until see DIET AFTER DISCHARGE: Regular Wound/Incision Care: Change dressing, May get incision wet CHECKS AFTER DISCHARGE: Checks after discharge: Check blood press - daily, Check your Temp as needed, Weigh Yourself Daily FOLLOW-UP: Follow up with: Dr Juarez in 1 week TREATMENT/EQUIPMENT ORDERS: Adaptive Equipment Issued: None CERTIFICATION STATEMENT: Certification Statement: Certification Statement: Based on the above finding, I certify that this patient is confined to the home and needs intermittent longterm care, physical therapy and/or speech therapy, or continues to need occupational therapy.~ This patient is under my care, and I have initiated the establishment of the plan of care.~ This patient will be followed by myself or a community physician who will periodically review the plan of care. Home Meds Active Scripts Levofloxacin (LEVAQUIN) 500 Mg Tablet, 1 TAB PO DAILY for abdominal wound for 7 Days, #7 TAB Prov:PHILIP POST MD 07/03/18 Oxycodone/Apap 5-325 (PERCOCET 5-325 MG TABLET ) 1 Each Tablet, 1 TAB PO PRN Q4HRS PRN for MILD PAIN, 1ST CHOICE for 10 Days, TAB Prov:PHILIP POST MD 07/03/18 Reported Medications Ondansetron Hcl (ZOFRAN) 4 Mg Tablet, 4 MG PO BID PRN for NAUSEA/VOMITING, TAB 06/17/18 Lisinopril/Hydrochlorothiazide (LISINOPRIL-HCTZ 10-12.5 MG TAB) 1 Each Tablet, 1 TAB PO DAILY, #90 TAB 3 Refills 06/29/15 PHILIP POST MD Jul 03, 2018 11:48
[2018-07-03] MEDS ORDERED: LEVO500T59 PO (11:51)
[2018-07-03] MEDS ORDERED: OXYC1TAB15 PO (11:51)
[2018-07-03] MEDS: ENOXAPARIN 40 MG/0.4 ML SYRINGE. SQ SCH (12:00)
--- NOTE | 2018-07-03 12:08 | RAD ---
PQRS Compliance statement: One or more of the following individualized dose reduction techniques were utilized for this examination: 1. Automated exposure control. 2. Adjustment of the mA and/or kV according to patient size. 3. Use of iterative reconstruction technique. Indication:EVAL PELVIC ABSCESS INJ 75ML OMNI 300 PREV SENT TECHNIQUE: CT abdomen and pelvis with IV contrast with multiplanar reformats. COMPARISON: 06/26/2018 FINDINGS: Heart is normal in size. No pericardial or pleural effusion. Multiple right lung metastasis seen as follows: Stable 2.6 cm nodule in the subpleural medial basal segment of the right lower lobe (series 2 image 8). Slight interval increase in the size of other medial basal segment right lower lobe nodule measuring 1.9 cm, previously 1.6 cm (series 2 image 3). Minimal interval increase in the size of subpleural lateral basal segment right lower lobe nodule measuring 2.6 cm, previously 2.4 cm (series 2 image 10) is. Multiple liver metastatic lesions are seen. Index lesions as follows: Segment 2 lesion measuring 5.7 x 5.0 cm, previously 5.1 x 4.2 cm (series 2 image 24). Confluent large metastatic lesion in the segment 8/4 A measuring 11.3 x 10.0 cm, previously 10.1 x 9.5 cm (series 2 image 16) (. Segment 7 lesion measuring 5.6 x 4.8 cm, previously 5.5 x 4.2 cm (series 2 image 21) (. Lesion in segment IVb measures 5.8 x 4.8 cm, previously 5.1 x 5.1 cm (series 2 image 42). Stable thrombus in the posterior branch supplying segment 6. Main portal vein is patent. Status post splenectomy. Pancreas, adrenals and left kidney within normal limits. Simple cyst in the upper pole of the right kidney measuring 3 cm. Gastrohepatic ligament recess lymph node measuring 2.9 x 2.2 cm, previously 2.4 x 2.0 cm. Common hepatic artery lymph node measuring 2.5 x 2.1 cm, previously 2.2 x 1.6 cm. Interval resolution of previously seen presacral fluid collection with surgical drain in place. Syed's pouch is seen. 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 Status post colectomy. Right lower quadrant ostomy. Interval resolution of previously seen fluid collection in the ventral midline surgical incision. No bowel obstruction. The prostate and seminal vesicles show no large mass. Urinary bladder is within normal limits. No peritoneum. No suspicious bony lesion. IMPRESSION: 1. Interval resolution of previously seen presacral fluid collection. Interval decrease in the amount of contained mesenteric emphysema in the pelvis. 2. Diffuse metastatic disease in the visualized lungs, liver and metastatic lymph nodes with interval change as described above. 3. 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 Electronically signed by: Kyler Abdul DO (07/03/2018 12:05 PM) [id number]
--- NOTE | 2018-07-03 12:30 | NUR ---
SW following. Discussed with RN, pt ready to discharge home today with Freda SINGH. BENI faxed discharge and clinicals. Freda will contact pt to set up time to visit with pt. No further SW needs.
--- NOTE | 2018-07-03 14:00 | NUR ---
Wound/Ostomy Care Pt seen prior to d/c, as pt's ostomy bag began to leak. Bag removed, skin cleaned with water and washcloths, skin prep and stoma powder applied to peristomal skin redness, then a strip of ostomy ring placed on either side of stoma into skinfold, as this is possibly where stool is leaking from the bag. Then a 2 piece convex Ostomy bag was placed over the stoma, stoma is beefy red and protrudes nicely. Pt's at bedside, taking note and photographs of step by step bag application, with pt approval, all questions answered at this time. Assisted pt to get dressed, bag is tightly sealed. Pt and are aware of f/u ostomy questions to FRANCISCO RN and Kasandra program.
--- NOTE | 2018-07-03 14:01 | NUR ---
Pt was given dc packet. Pt will be having Home Health services for Pt, OT, and WC. Rx given for pain, antibiotics, and ostomy supplies. VSS. No questions asked. All of pt's questions answered. Pt was escorted to main entrance at 1330 by wc accompanied by NA.
--- NOTE | 2018-07-25 10:36 | PDOC3 ---
Discharge Summary Visit Information Date of Admission: Jun 20, 2018 Date of Discharge: Jul 03, 2018 Admitting Diagnosis: Metachronous colon masses sigmoid colon distal rectum li Final Diagnosis Metachronous colon masses sigmoid colon distal rectum liver mass Brief Hospital Course Allergies Allergies Coded Allergies Type Severity Reaction Last Updated Verified No Known Drug Allergies 06/20/18 No Brief Hospital Course Mr. Nagel is a 63 old male who underwent Total colectomy with end ileostomy, liver biopsy. Postoperatively developed wound infection, treated with wound care. Drain was placed in pelvic abscess and treated with antibiotics. At discharge patient tolerating diet, pain managed. He was discharged with home health services Discharge Information Condition at Discharge: Stable Follow Up: Weeks (2) Disposition/Orders: D/C to Home w/ HH Scheduled Levofloxacin (Levaquin) 500 Mg Tablet, 1 TAB PO DAILY for abdominal wound for 7 Days, #7 Prescribed by: PHILIP POST MD on 07/03/18 1151 Lisinopril/Hydrochlorothiazide (Lisinopril-Hctz 10-12.5 Mg Tab) 1 Each Tablet, 1 TAB PO DAILY, #90 Ref 3 (Reported) Entered as Reported by: JESE AWAD on 06/29/15 1143 Last Taken: Unknown Dose on 06/19/18 0830 Last Action: Converted on 925 by Anusha Wild Scheduled PRN Ondansetron Hcl (Zofran) 4 Mg Tablet, 4 MG PO BID PRN for NAUSEA/VOMITING, ( Reported) Entered as Reported by: DEVI WHITLOCK on 06/17/18 1305 Last Taken: Unknown Dose on 06/12/18 Last Action: HELD on 06/23/18925 by Anusha Wild Oxycodone/Apap 5-325 (Percocet 5-325 Mg Tablet ) 1 Each Tablet, 1 TAB PO PRN Q4HRS PRN for MILD PAIN, 1ST CHOICE for 10 Days Prescribed by: PHILIP POST MD on 07/03/18 1151 ANUSHA WILD APRN Jul 25, 2018 10:36
== END 2018-07-03 13:49 | disposition home health service (06) | DRG 329 ==
LOC: OPSVCIP 06:06 → 4 NORTH 13:07 → 1 WEST ICU 06-29 18:57 → 4 NORTH 07-01 12:59
PROVIDERS: ADMIT Surgery; ATTEND Surgery
PROC: 0D1B0Z4 Bypass Ileum to Cutaneous, Open Approach (ICD-10-PCS; 2018-06-20)
PROC: 0FB00ZX Excision of Liver, Open Approach, Diagnostic (ICD-10-PCS; principal; 2018-06-20 08:00)
PROC: 0DTE0ZZ Resection of Large Intestine, Open Approach (ICD-10-PCS; 2018-06-20 08:00)
PROC: 0D9W30Z Drainage of Peritoneum with Drainage Device, Percutaneous Approach (ICD-10-PCS; 2018-06-30)
DX: C18.9 Malignant neoplasm of colon, unspecified (principal); A41.9 Sepsis, unspecified organism; E43 Unspecified severe protein-calorie malnutrition; N17.0 Acute kidney failure with tubular necrosis; K65.1 Peritoneal abscess; C78.7 Secondary malignant neoplasm of liver and intrahepatic bile duct; I47.1 Supraventricular tachycardia; C78.01 Secondary malignant neoplasm of right lung; C78.02 Secondary malignant neoplasm of left lung; J90 Pleural effusion, not elsewhere classified; R16.0 Hepatomegaly, not elsewhere classified; E87.6 Hypokalemia; I10 Essential (primary) hypertension; M19.90 Unspecified osteoarthritis, unspecified site; D63.0 Anemia in neoplastic disease; E86.9 Volume depletion, unspecified; K21.9 Gastro-esophageal reflux disease without esophagitis; Z90.81 Acquired absence of spleen; Z87.891 Personal history of nicotine dependence; Z80.1 Family history of malignant neoplasm of trachea, bronchus and lung; Z82.49 Family history of ischemic heart disease and other diseases of the circulatory system; Z83.3 Family history of diabetes mellitus; Z68.25 Body mass index [BMI] 25.0-25.9, adult
CPT/HCPCS: 36415; 49406; 71045; 74177; 80048; 80053; 80202; 81001; 82378; 82565; 82607; 82728; 83540; 83550; 83605; 83735; 84145; 84443; 85007; 85025; 85384; 85610; 85730; 87040; 87071; 87075; 87186; 87641; 88304; 88307; 88309; 88341; 88342; 93005; 93306; 99152; 99153; A4215; A7015; C1729; C1892; C1894; J0694; J0780; J1100; J1170; J1650; J1885; J2001; J2185; J2250; J2270; J2405; J2704; J2710; J3010; J3370; J3490; J7030; J7040; J7042; J7050; J7120; P9045; Q9966; Q9967; 97116; 97530; 97535; A4461

== ENCOUNTER 2018-08-19 11:24 | Day surgery (SDC) | payer MEDICARE ==
[~2018-08-19] VITALS: Ht 188 cm; Wt 81.2 kg
[~2018-08-19 11:24] MED LIST changes: +HYDROmorphone 2 MG/ML VIAL IV PRN; +IV RINGERS,LACTATED 1000ML 1,000 ML IV SCH; +LEVO500T59 PO; +MORPHINE SULFATE 2 MG/ML VIAL. IV PRN; +OXYC1TAB15 PO; +PROCHLORPERAZINE 10 MG/2 ML VIAL. IV PRN; +ceFAZolin 2GM PREMIX 2 GM/50 ML BAG IV ONE; +fentaNYL PF VIAL 100 MCG/2 ML VIAL IV PRN
--- NOTE | 2018-08-19 12:11 | PDOC1 ---
History and Physical Date of Admission Date of Admission DATE: 08/19/18 TIME: 12:08 Identification/Chief Complaint Chief Complaint Needs long-term venous access for chemotherapy Source Source: Patient History of Present Illness History of Present Illness 63-year-old male with a history of colorectal cancer has undergone a total colectomy with ileostomy has metastatic disease and is needing chemotherapy and long-term venous access Past Medical History Cardiovascular: HTN Pulmonary: No pertinent hx CENTRAL NERVOUS SYSTEM: Other GI: GERD Heme/Onc: Cancer Hepatobiliary: No pertinent hx Psych: No pertinent hx Musculoskeletal: Osteoarthritis Rheumatologic: No pertinent hx Infectious disease: No pertinent hx Renal/: No pertinent hx Endocrine: No pertinent hx Past Surgical History Past Surgical History: Hernia Repair, Colon Resection, Other Family History Family History: Diabetes, Heart Disease, Hypertension Family History: Parent Social History ALCOHOL: none Drugs: None Current Medications Current Medications Current Medications Cefazolin Sodium/ Dextrose 50 ml @ 100 mls/hr 1X PREOP PRN IV PRIOR TO PROCEDURE; Start 08/19/18 at 06:00; Stop 08/19/18 at 18:00 Fentanyl Citrate (Fentanyl 2ml Vial) 25 mcg PRN Q5MIN PRN IV MILD PAIN; Start 08/19/18 at 07:45; Stop 08/20/18 at 07:44 Fentanyl Citrate (Fentanyl 2ml Vial) 50 mcg PRN Q5MIN PRN IV MODERATE TO SEVERE PAIN; Start 08/19/18 at 07:45; Stop 08/20/18 at 07:44 Morphine Sulfate (Morphine Sulfate) 1 mg PRN Q10MIN PRN IV SEVERE PAIN; Start 08/19/18 at 07:45; Stop 08/20/18 at 07:44 Ringer's Solution 1,000 ml @ 30 mls/hr Q24H IV ; Start 08/19/18 at 07:45; Stop 08/19/18 at 19:44 Hydromorphone HCl (Dilaudid) 0.5 mg PRN Q10MIN PRN IV SEV PAIN, Second choice; Start 08/19/18 at 07:45; Stop 08/20/18 at 07:44 Prochlorperazine Edisylate (Compazine) 5 mg PACU PRN PRN IV NAUSEA, MRX1; Start 08/19/18 at 07:45; Stop 08/20/18 at 07:44 Fentanyl Citrate (Fentanyl 2ml Vial) 25 mcg PRN Q5MIN PRN IV MILD PAIN; Start 08/19/18 at 10:30; Stop 08/20/18 at 10:29 Fentanyl Citrate (Fentanyl 2ml Vial) 50 mcg PRN Q5MIN PRN IV MODERATE TO SEVERE PAIN; Start 08/19/18 at 10:30; Stop 08/20/18 at 10:29 Morphine Sulfate (Morphine Sulfate) 1 mg PRN Q10MIN PRN IV SEVERE PAIN; Start 08/19/18 at 10:30; Stop 08/20/18 at 10:29 Ringer's Solution 1,000 ml @ 30 mls/hr Q24H IV ; Start 08/19/18 at 10:20; Stop 08/19/18 at 22:19 Hydromorphone HCl (Dilaudid) 0.5 mg PRN Q10MIN PRN IV SEV PAIN, Second choice; Start 08/19/18 at 10:30; Stop 08/20/18 at 10:29 Prochlorperazine Edisylate (Compazine) 5 mg PACU PRN PRN IV NAUSEA, MRX1; Start 08/19/18 at 10:30; Stop 08/20/18 at 10:29 Active Scripts Active Percocet 5-325 Mg Tablet (Oxycodone/Acetaminophen) 1 Each Tablet 1 Tab PO PRN Q4HRS PRN 10 Days Reported Zofran (Ondansetron Hcl) 4 Mg Tablet 4 Mg PO BID PRN Lisinopril-Hctz 10-12.5 Mg Tab (Lisinopril/Hydrochlorothiazide) 1 Each Tablet 1 Tab PO DAILY Allergies Allergies: Coded Allergies: No Known Drug Allergies (Unverified , 08/19/18) ROS General: YES: Fatigue Physical Exam General: Alert, Oriented X3, Cooperative, No acute distress HEENT: Atraumatic, PERRLA, EOMI Lungs: Clear to auscultation, Normal air movement Heart: RRR Abdomen: Normal bowel sounds, Soft, No tenderness, Other (ileostomy in place well-healed midline scar) Extremities: No edema Skin: No significant lesion Neuro: Normal speech VTE Prophylaxis Ordered VTE Prophylaxis Devices: Yes VTE Pharmacological Prophylaxi: No Assessment/Plan Assessment/Plan Metastatic colon cancer needs long-term venous access for chemotherapy for Port-A-Cath placement PEPE PAGAN MD Aug 19, 2018 12:11
[2018-08-19] MEDS ORDERED: HEPARIN for IV BOLUS 10,000 UNIT/10 ML VIAL. ONE (12:28)
[2018-08-19] MEDS ORDERED: BUPIVACAINE 0.25% 50 ML VIAL. ONE (12:28)
[2018-08-19] MEDS ORDERED: HEPARIN PF 500 UNIT/5 ML DISP.SYRIN. IV ONE ×2 (12:28→12:29)
[2018-08-19] MEDS ORDERED: PROPOFOL 20 ML IV ONE (13:08)
[2018-08-19] MEDS ORDERED: LIDOCAINE 2% PF 5 ML VIAL. ONE (13:08)
[2018-08-19] MEDS ORDERED: ONDANSETRON PF 4 MG/2 ML VIAL. ONE (13:56)
[2018-08-19] MEDS ORDERED: DEXAMETHASONE SOD PHOS 20 MG/5 ML VIAL. ONE (13:56)
[2018-08-19] MEDS ORDERED: fentaNYL PF VIAL 100 MCG/2 ML VIAL ONE (14:06)
[2018-08-19] MEDS ORDERED: SEVOFLURANE 31 TO 60 MINUTES. IH ONE (14:37)
--- NOTE | 2018-08-19 14:41 | PDOC4 ---
Operative Note Operative Note Date: 08/19/2018 Preoperative diagnosis: Colon cancer Postoperative diagnosis: Same Procedure: Port-A-Cath placement left cephalic Specimen: None Dictation: Patient is a 63-year-old male who has metastatic colon cancer and is needing long-term venous access for chemotherapy. Procedure of Port-A-Cath placement was explained to the patient detail risk benefits were also discussed including bleeding infection alternatives to this procedure also discussed with patient who seemed to understand and gave both verbal and written consent to have the procedure performed. Patient was taken to the operating room placed in supine position general anesthesia was initiated once patient was sleep and intubated his neck and chest were prepped and draped usual sterile fashion using ChloraPrep and area over the left deltopectoral groove was injected with quarter percent Marcaine plain incision was made with 15 blade scalpel was carried down through the subcutaneous tissue using electrocautery divided hemostasis until cephalic vein was visualized this was controlled proximally and distally with Vicryl suture. The vein was partially opened 11 blade scalpel and a Salinger wire was placed via the vein to this subclavian vein to the superior vena cava this was all confirmed by fluoroscopy. Peel-away dilator was then placed over the wire and the catheter was placed through the peel-away with the tip of the catheter in the superior vena cava. The port was placed on the end of the catheter pocket was propagated in the anterior chest for the port which was sewn into place with a 3-0 Prolene. Port was then accessed there was good blood return was easily flushed with hep saline and then locked with Hep-Lock 1-1/2 mL of 1000 units per ml. Wound was then closed in 2 layers a deep layer running 3-0 Vicryl and skin was approximate for septic and a Monocryl Mastisol Steri-Strips and island dressing were applied. She was awakened and asked bated operating room taken to recovery in stable condition all sponge instrument needle counts listed as correct estimate blood loss 5 mL PEPE PAGAN MD Aug 19, 2018 14:40
--- NOTE | 2018-08-19 14:44 | DISCH ---
DISCHARGE INSTRUCTIONS Condition on Discharge Condition on Discharge: Stable Activity After Discharge Activity Instructions for Disc: Activity as tolerated, Avoid exertion Diet after Discharge Diet after Discharge: Regular Diet Texture: Regular Liquid Texture: Thin Liquid Swallowing Supervision: None needed Wound Incision Care Wound/Incision Care: Change dressing, May get incision wet Other wound/incision instructi: May shower in 24 hours Checks after Discharge Checks after discharge: Check blood press - daily, Check your Temp as needed, Weigh Yourself Daily Contacting the DRJennifer after DC Call your doctor for: Concerns you may have Follow-Up Follow up with: Dr. Pagan in 2 weeks Treatment/Equipment after DC Adaptive Equipment Issued: None PEPE PAGAN MD Aug 19, 2018 14:44
[2018-08-19] MEDS ORDERED: HYDROcodone/APAP 5/325MG 1 TAB TABLET PO ONE (15:15)
[2018-08-19 16:05] VITALS: BP 142/103
== END 2018-08-19 16:14 | disposition home or self-care (01) ==
LOC: SURG 11:24
PROVIDERS: ATTEND Surgery
DX: C18.3 Malignant neoplasm of hepatic flexure (principal); I10 Essential (primary) hypertension; K21.9 Gastro-esophageal reflux disease without esophagitis; M19.90 Unspecified osteoarthritis, unspecified site; Z90.49 Acquired absence of other specified parts of digestive tract; Z98.890 Other specified postprocedural states; Z82.49 Family history of ischemic heart disease and other diseases of the circulatory system; Z83.3 Family history of diabetes mellitus; Z79.899 Other long term (current) drug therapy
CPT/HCPCS: 36571; 77001; C1788; J0696; J1100; J1644; J2001; J2405; J2704; J3010; J3490; 36556

== ENCOUNTER 2018-09-19 06:57 | Outpatient (CLI) | payer MEDICARE ==
[2018-09-19] VITALS (8 sets, daily range): BP systolic 124–154; BP diastolic 89–98
[~2018-09-19] VITALS: Ht 188 cm; Wt 74.8 kg
[~2018-09-19 06:57] MED LIST changes: -HYDROmorphone 2 MG/ML VIAL IV PRN; -IV RINGERS,LACTATED 1000ML 1,000 ML IV SCH; -MORPHINE SULFATE 2 MG/ML VIAL. IV PRN; -PROCHLORPERAZINE 10 MG/2 ML VIAL. IV PRN; -ceFAZolin 2GM PREMIX 2 GM/50 ML BAG IV ONE; -fentaNYL PF VIAL 100 MCG/2 ML VIAL IV PRN
[2018-09-19] MEDS ORDERED: AMLO5TAB10 PO (07:19)
[2018-09-19] MEDS ORDERED: GABA300C18 PO (07:19)
[2018-09-19] MEDS ORDERED: MEGE40TA PO (07:19)
[2018-09-19] MEDS ORDERED: ONDA4TAB11 PO (07:19)
[2018-09-19] MEDS ORDERED: OXYC1TAB15 PO (07:19)
[2018-09-19 07:28] LABS: BASO # 0.1 x10^3/uL (0.0-0.2); BASO % 1 % (0-3); EOS % 0 % (0-3); HEMATOCRIT 31.4 % (39.0-53.0); HEMOGLOBIN 9.8 g/dL (13.0-17.5); LYMPH % 65 % (24-48); MEAN CORPUSCULAR HEMOGLOBIN 22 pg (25-35); MEAN CORPUSCULAR HGB CONC 31 g/dL (31-37); MEAN CORPUSCULAR VOLUME 70 fL (79-100); MONO # 0.6 x10^3/uL (0.0-1.1); MONO % 7 % (0-9); NEUT # 2.5 x10^3uL (1.8-7.7); NEUT % 28 % (31-73); PLATELET COUNT 831 x10^3/uL (140-400); RED BLOOD COUNT 4.47 x10^6/uL (4.30-5.70); RED CELL DISTRIBUTION WIDTH 20.4 % (11.5-14.5); WHITE BLOOD COUNT 9.2 x10^3/uL (4.0-11.0)
[2018-09-19 07:42] LABS: PROTHROMBIN TIME PATIENT 14.2 SEC (11.7-14.0)
[2018-09-19] MEDS ORDERED: FLUMAZENIL 0.5 MG/5 ML VIAL. IV ONE (07:49)
[2018-09-19] MEDS ORDERED: fentaNYL PF VIAL 100 MCG/2 ML VIAL ONE (07:49)
[2018-09-19] MEDS ORDERED: MIDAZOLAM HCL/PF 2 MG/2 ML VIAL. ONE (07:49)
[2018-09-19] MEDS ORDERED: NALOXONE 0.4 MG/ML VIAL. ONE (07:49)
[2018-09-19] MEDS ORDERED: LIDOCAINE WITH 8.4% SOD BICARB 3 ML DISP.SYRIN. ONE (08:13)
[2018-09-19 08:25] LABS: % LYMPHS 59 % (24-48); % MONOS 11 % (0-10); % MYELOS 1 % (0-0); % SEGS 29 % (35-66); PLT ESTIMATE INCREASED (ADEQUATE)
[2018-09-19 08:27] LABS: ANISOCYTOSIS PRESENT; HYPOCHROMIA PRESENT; MICROCYTOSIS PRESENT; POLYCHROMASIA PRESENT; TARGET CELLS PRESENT
[2018-09-19] MEDS ORDERED: LIDOCAINE WITH 8.4% SOD BICARB 3 ML DISP.SYRIN. IJ ONE (08:30)
[2018-09-19] MEDS ORDERED: MIDAZOLAM HCL/PF 2 MG/2 ML VIAL. IV ONE (08:30)
[2018-09-19] MEDS ORDERED: fentaNYL PF VIAL 100 MCG/2 ML VIAL IV ONE (08:30)
--- NOTE | 2018-09-19 08:49 | RAD ---
CT-guided bone marrow biopsy. 09/19/2018 8:45 AM Indication: IMMATURE MYELOID CELLS Discussion: The risks and benefits of the procedure, including but not limited to, bleeding and infection were discussed patient. Informed consent was obtained. The patient was brought to the CT scanner and placed in the prone position. A timeout procedure was performed. Kindergarten Assistant CT imaging of the pelvis demonstrated left ilium amenable to bone marrow biopsy. The overlying soft tissues were prepped and draped using maximum sterile barrier technique. 1% lidocaine without epinephrine was administered for local anesthesia. Under intermittent CT guidance, an OncControl needle was advanced into the bone marrow of the left iliac crest. 2 Aspirates and 1 core biopsy samples were obtained. Samples were delivered to pathology was present at the time of procedure. The needle was removed and manual pressure held to achieve hemostasis. No immediate complications were identified. The procedure was performed under conscious sedation including continuous cardiopulmonary monitoring via dedicated sedation nurse. Sedation time: 20 minutes Impression: Successful CT-guided bone marrow biopsy of the left iliac crest . PQRS Compliance Statement: One or more of the following individualized dose reduction techniques were utilized for this examination: 1. Automated exposure control 2. Adjustment of the mA and/or kV according to patient size 3. Use of iterative reconstruction technique Impression: 1. CT-guided bone marrow aspiration and biopsy as described PQRS Compliance Statement: One or more of the following individualized dose reduction techniques were utilized for this examination: 1. Automated exposure control 2. Adjustment of the mA and/or kV according to patient size 3. Use of iterative reconstruction technique
--- NOTE | 2018-09-19 09:55 | NUR ---
Discharge Note: PRABHA GROVER Discharge instructions and discharge home medications reviewed with Spouse and a copy given. All questions have been answered and understanding verbalized. Patient tolerated breakfast with no difficulties. The following instructions and handouts were given: Moderate sedation and Bone Marrow Biopsy post care. Discontinued lines and drains: left chest boni cath deaccessed with no difficulties, bandaid clean dry intact. Patient discharged to home with via wheelchair in private vehichle.
--- NOTE | 2018-09-26 11:07 | PATHOLOGY ---
[facility] Accession Number: [id number] . 01 Material submitted: . PART A: bone - BONE MARROW BIOPSY PART B: bone - BONE MARROW CLOT PART C: bone - BONE MARROW ASPIRATE SLIDES PART D: bone - PERIPHERAL BLOOD SMEARS PART E: bone - BONE MARROW FLOW . 01 Clinical history: . Immature myeloid cells/MDS . 02 Diagnosis: Peripheral smear: - Microcytic anemia, mild, with mild to moderate anisopoikilocytosis. - Thrombocytosis, marked. . Bone marrow, aspirate smears, clot section, and core biopsy: - Variable normocellular to focally mildly hypocellular marrow showing trilineage hematopoiesis, relative erythroid hyperplasia, no significant dyspoiesis, and mildly increased reticuloendothelial iron stores. (See comment). . (JPM:mm; 09/25/2018) [facility]/09/26/2018 . 02 Comment: The peripheral smear shows mild microcytic anemia and marked thrombocytosis. The bone marrow is normocellular to focally mildly hypocellular and shows trilineage hematopoiesis, relative erythroid hyperplasia, no significant dyspoiesis, and mildly increased reticuloendothelial iron stores. Red blood cells show mild to moderate anisopoikilocytosis with occasional presence of Lobo-Deans bodies. 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 There is no evidence of metastatic colon carcinoma. . Special stains performed: Retic stain on A1 Iron stain on B1 and C1 . (JPM:mml; 09/25/2018) . 02 Electronically signed: . Elijah Johnson MD, Pathologist NPI- [id number] . 01 Gross description: . A. The specimen is received in formalin, labeled "Wilfredo Nagel, BM BX" and consists of 3 amor-brown bone cores measuring between 0.3 cm and 1.3 cm in length and 0.3 cm each in diameter. They are entirely submitted in A1 following decalcification. . B. The specimen is received in formalin, labeled "Wilfredo Nagel, BM ASP clot" and consists of a biopsy bag containing blood clot measuring 2.6 x 2.4 x 0.4 cm which is entirely submitted in B1. (SDY; 09/19/2018) SYU/SYU . 02 Microscopic: . Laboratory Data: The WBC count is 9.2 K/CMM, and the WBC differential reveals 29% segmented neutrophils, 59% lymphs, 11% monos, and 1% myelocytes. The RBC count is 4.47 M/CMM, hemoglobin 9.8 G/DL, hematocrit 31.4%, MCV 70 FL, MCH 22 PG, MCHC 31 G/DL, and the RDW is 20.4%. The platelet count is 831 K/CMM. . Additional laboratory studies are obtained from Dr. Chacon's office. The alkaline phosphatase is 414 U/L, and the CEA is greater than 8500 NG/ML. . Peripheral Smear: The peripheral smear is reviewed. The WBC count is normal. The WBC differential reveals a predominant population of lymphocytes, with smaller populations of neutrophils and monocytes noted. The lymphocyte population consists predominantly of small lymphocytes. There are several medium-sized granular lymphocytes. Neutrophils do not show dysplastic changes. There is a rare circulating myelocyte. There are no circulating blasts and there is no leukoerythroblastic reaction. Some of the monocytes appear young and immature. There is a dual red cell population. One is normochromic, and the other is hypochromic. Red blood cells appear microcytic and show mild to moderate anisocytosis. Red blood cells show moderate poikilocytosis comprised of ovalocytes, spiculated red blood cells and target cells. Occasional red blood cells appear to contain a Lobo-Deans body. Platelets are markedly increased and predominantly normal in morphology with occasional large platelets noted. . Aspirate Smears: Two Encarnacion's-stained and one iron-stained aspirate smears are examined. The smears contain multiple marrow particles. There is a relative erythroid hyperplasia. The M/E ratio is on the order of 1-1.5. Erythroid maturation predominantly appears normoblastic. There are no megaloblastic or obvious dysplastic changes. Granulopoiesis qualitatively appears normal. There may be a mild left shift of granulocytic maturation. There is no increase of blasts. Megakaryocytes appear adequate to mildly increased and are focally clustered. The megakaryocytes are of variable ploidy. There are scattered admixed plasma cells with no significant increase of plasma cells noted. Lymphocytes are not increased. There are no cells foreign to the marrow. The iron stained smear shows mildly increased reticuloendothelial iron stores. No ringed sideroblasts are identified. . Bone Marrow Biopsy and Clot Section: Sections of the bone marrow biopsy reveal segments of bone marrow, which range between 10% and 30% cellular. The clot sections contain multiple marrow particles, the majority of which range between 20% and 50-60% cellular. There is trilineage hematopoiesis with a relative erythroid hyperplasia. Erythroid precursors are admixed with granulocytic precursors which are present in varying stages of maturation. There is no apparent increase of blasts. Megakaryocytes appear adequate in number and are of variable ploidy. There is a discrete lymphoid aggregate present within the clot section, which is comprised of small lymphocytes. There are no abnormal lymphoid aggregates. There are focal perivascular plasma cells with no significant increase of plasma cells noted. There are no granulomas. There are no cells foreign to the marrow. More specifically, there is no evidence of metastatic colon carcinoma. A reticulin stain obtained on the biopsy shows no increase of reticulin fibers. An iron stain obtained on the clot section shows mildly increased reticuloendothelial iron stores. No ringed sideroblasts are identified. . Special Studies: Bone marrow submitted for flow cytometry has a viability of 97.7%. Granulocytes comprise 68.5% of total cells and show left-shifted maturation with decreased CD10 expression. Monocytes comprise 7.4% of total cells and co-express CD14 and CD64. CD45 dim, CD34 positive cells comprise 1.5% of total cells. Plasma cells comprise 0.6% of total cells and show unremarkable surface marker expression. Lymphocytes comprise 18.1% of total cells. T-cells comprise 69% of lymphoid cells and show a CD4/CD8 ratio of 1.5. NK-cells comprise 9% of lymphoid cells. Mature B-cells comprise 17% of lymphoid cells and are polyclonal with a kappa:lambda ratio of 1.2. . (JPM:poli/nicolasa; 09/24/2018) . 02 Pathologist provided ICD-10: D75.89, D47.3, D50.9 . 02 CPT . 921015, 195851, 502029, 753984, 161356, 743468, 777810, 794869, 307691 Specimen Comment: A courtesy copy of this report has been sent to Specimen Comment: [phone], , . Specimen Comment: Report sent to ,DR CHACON / DR MCLAUGHLIN Performed at: 01 [facility] [address] [address], [place] [id number] MD Castillo Cervantes MD Phone: [phone] Performed at: 02 [facility] [address] [place], [place] [id number] MD Elijah Johnson MD Phone: [phone]
== END 2018-09-19 09:55 | disposition home or self-care (01) ==
LOC: INTRAD 06:57
PROVIDERS: ATTEND Internal Medicine Hematology & Oncology
DX: C92.90 Myeloid leukemia, unspecified, not having achieved remission (principal); I10 Essential (primary) hypertension; K21.9 Gastro-esophageal reflux disease without esophagitis
CPT/HCPCS: 36415; 38222; 77012; 85025; 85610; 88184; 88185; 88237; J2250; J3010; 85007; 88305; 88311; 88313; 99152

== ENCOUNTER → 2018-10-17 | Outpatient (CLI) | payer MEDICARE ==
[2018-09-19 09:30] VITALS: BP 154/94
[~2018-10-17] MED LIST changes: +AMLO5TAB10 PO; +CONTRAST GIVEN. MC PRN; +GABA300C18 PO; +HEPARIN PF 500 UNIT/5 ML DISP.SYRIN. IV ONE; +IOHEXOL 240 MG/ML 50ML VIAL. PO ONE; +IOHEXOL 300 MG/ML 100ML VIAL. IV ONE; +MEGE40TA PO; +ONDA4TAB11 PO
--- NOTE | 2018-10-17 12:49 | RAD ---
CT of the chest, abdomen and pelvis with contrast, 10/17/2018: HISTORY: Follow-up colon cancer with metastases Multidetector CT imaging was performed following oral and IV administration of contrast. There are numerous bilateral pulmonary nodules compatible with metastatic disease. The largest of these lies posterior laterally in the right lower lobe and measures 2.8 cm. Comparison is made to images from the 07/03/2018 CT abdomen study which included a portion of the lung bases. Several of the current small pulmonary nodules are new. No pleural fluid is evident. There are calcified mediastinal and right hilar lymph nodes. There is a 7 x 10 mm lymph node in the upper mediastinum located along the medial aspect of the proximal left common carotid artery. Several other smaller mediastinal nodes are seen without definite pathologic enlargement. There is a 2.3 cm nodule in the epicardial fat anteriorly adjacent to the diaphragm which is unchanged and likely on a metastatic basis. There is a small subcentimeter low-density lesion in the left thyroid lobe. A left Port-A-Cath is in place extending into the superior vena cava. There are extensive irregular low density lesions in both lobes of the liver. These have generally increased in size, for example a discrete 5.4 cm lesion in the left lobe seen on the previous study now measures 7 cm. There are larger confluent masses in the right lobe which have generally increased in size. The gallbladder is partially collapsed. No intrinsic pancreatic abnormality is seen. The spleen appears to be surgically absent. Several right renal cysts are present. The kidneys show no evidence of obstruction. Aortoiliac calcific plaquing is present. Gastrohepatic region adenopathy is again noted. A 2.4 cm lymph node located along the anterosuperior aspect of the pancreatic neck has increased in size and now measures 3.2 cm. No pelvic adenopathy is seen. There are surgical sutures related to what appears to be a rectal stump. An ileostomy is present in the right lower quadrant. The bowel loops are not dilated. No free fluid or free air is evident in the abdomen or pelvis. There is soft tissue thickening involving the anterior abdominal wall near the midline which is presumably postsurgical. Previously seen gas within this process has resolved. IMPRESSION: 1. Worsening hepatic metastatic disease and metastatic adenopathy in the upper abdomen. 2. Numerous bilateral pulmonary metastases, some which are new. 3. Stable small epicardial metastasis. PQRS Compliance Statement: One or more of the following individualized dose reduction techniques were utilized for this examination: 1. Automated exposure control 2. Adjustment of the mA and/or kV according to patient size 3. Use of iterative reconstruction technique Electronically signed by: Phillip Park MD (10/17/2018 12:46 PM) [facility]
== END | disposition home or self-care (01) ==
LOC: CT 10:22
PROVIDERS: ATTEND Internal Medicine Hematology & Oncology
DX: C78.7 Secondary malignant neoplasm of liver and intrahepatic bile duct (principal); C78.02 Secondary malignant neoplasm of left lung; C78.01 Secondary malignant neoplasm of right lung; C79.89 Secondary malignant neoplasm of other specified sites; C18.9 Malignant neoplasm of colon, unspecified; J98.59 Other diseases of mediastinum, not elsewhere classified; I31.8 Other specified diseases of pericardium; K82.8 Other specified diseases of gallbladder; N28.1 Cyst of kidney, acquired; I10 Essential (primary) hypertension
CPT/HCPCS: 71260; 74177; Q9966; Q9967

== ENCOUNTER 2018-10-26 19:08 | Emergency (ER) | payer MEDICARE ==
[~2018-10-26] VITALS: Ht 185.4 cm; Wt 74.8 kg
[~2018-10-26 19:08] MED LIST changes: -CONTRAST GIVEN. MC PRN; -HEPARIN PF 500 UNIT/5 ML DISP.SYRIN. IV ONE; -IOHEXOL 240 MG/ML 50ML VIAL. PO ONE; -IOHEXOL 300 MG/ML 100ML VIAL. IV ONE
[2018-10-26] MEDS ORDERED: KETOROLAC 15 MG/ML VIAL. IV ONE (19:45)
[2018-10-26] MEDS ORDERED: IV NORMAL SALINE 1000ML BAG 1,000 ML IV ONE (19:45)
[2018-10-26] MEDS ORDERED: MORPHINE SULFATE 4 MG/ML VIAL. IV ONE (19:45)
--- NOTE | 2018-10-26 19:45 | PHYS DOC ---
Past Medical History Past Medical History: Kidney Stone, Lung Disease, Other Additional Past Medical Histor: ABD PAIN, WEIGHT LOSS, Stg 4 lung CA (LUCIO MORGAN APRN) Past Surgical History: No Surgical History Additional Past Surgical Histo: Illeostomy (LUCIO MORGAN APRN) Alcohol Use: None Drug Use: None (LUCIO MORGAN APRN) Adult General Chief Complaint Chief Complaint: FEVER HPI HPI Patient is a 63 year old male] who presents with [fever. Patient reports he is a cancer patient, his history of metastatic colon cancer with metastasis to his lungs and liver. Reports he had been going through chemotherapy for the past several months. States his oncologist is going to change his chemotherapy medication as he has been non responsive, so he has been off his treatment for the past 2 weeks. States he has had a fever for the past 24 hours, spouse has been checking temperature every hour, had highest temperature of 100.2 last night. Patient states he just feels miserable, he has not taken any medication because he did not know what he could take. Also reports increased discomfort in back over the past 2 days, since he had the fever. States no change in urination, states no change in bowel habits - uses colostomy bag, has not noted any blood. ] (LUCIO MORGAN APRN) Review of Systems Review of Systems Constitutional: Reports fever and general malaise. Denies chills [] Eyes: Denies change in visual acuity, redness, or eye pain [] HENT: Reports increase in nasal congestion today. denies sore throat [] Respiratory: Denies cough or shortness of breath [] Cardiovascular: No additional information not addressed in HPI [] GI: Denies abdominal pain, nausea, vomiting, bloody stools or diarrhea [] : Denies dysuria or hematuria [] Musculoskeletal: Denies back pain or joint pain [] Integument: Denies rash or skin lesions [] Neurologic: Denies headache, focal weakness or sensory changes [] Endocrine: Denies polyuria or polydipsia [] All other systems were reviewed and found to be within normal limits, except as documented in this note. (LUCIO MORGAN APRN) Current Medications Current Medications Current Medications Medications (Trade) Dose Ordered Sig/Siri Start Time Stop Time Status Last Admin Dose Admin Ketorolac Tromethamine (Toradol 15mg Vial) 15 mg 1X ONCE 10/26/18 19:45 10/26/18 19:46 DC 10/26/18 20:12 15 MG Morphine Sulfate (Morphine Sulfate) 4 mg 1X ONCE 10/26/18 19:45 10/26/18 19:46 DC 10/26/18 20:12 4 MG Sodium Chloride 1,000 ml @ 1,000 mls/hr 1X ONCE 10/26/18 19:45 10/26/18 20:44 DC 10/26/18 20:11 1,000 MLS/HR (CAIT ARRIETA DO) Allergies Allergies Allergies Coded Allergies Type Severity Reaction Last Updated Verified No Known Drug Allergies 08/19/18 No (CAIT ARRIETA DO) Physical Exam Physical Exam Constitutional: Well developed, slender, appears uncomfortable, fatigued. non- toxic appearance. [] HENT: Normocephalic, atraumatic, bilateral external ears normal, oropharynx moist, no oral exudates, nose normal. [] Eyes: PERRLA, EOMI, conjunctiva normal, no discharge. [] Neck: Normal range of motion, no tenderness, supple, no stridor. [] Cardiovascular:Heart rate regular rhythm, no murmur [] Lungs & Thorax: Bilateral breath sounds, decreased lung sounds. clear to auscultation [] Abdomen: Bowel sounds normal, soft, no tenderness, no masses, no pulsatile masses. Colostomy bag noted. [] Skin: Warm, dry, no erythema, no rash. [] Back: No tenderness, minimal bilateral CVA tenderness. [] Extremities: No tenderness, no cyanosis, no clubbing, ROM intact, no edema. [] Neurologic: Alert and oriented X 3, normal motor function, normal sensory function, no focal deficits noted. [] Psychologic: Affect normal, judgement normal, mood normal. [] (LUCIO MORGAN APRN) Current Patient Data Vital Signs Vital Signs Date Time Temp Pulse Resp B/P (MAP) Pulse Ox O2 Delivery O2 Flow Rate FiO2 10/26/18 21:59 72 18 120/84 (96) 99 Room Air 10/26/18 19:16 99.2 99.2 (CAIT ARRIETA DO) Lab Values Laboratory Tests Test 10/26/18 19:35 10/26/18 20:55 White Blood Count 10.0 x10^3/uL (4.0-11.0) Red Blood Count 3.70 x10^6/uL (4.30-5.70) L Hemoglobin 8.7 g/dL (13.0-17.5) L Hematocrit 26.6 % (39.0-53.0) L Mean Corpuscular Volume 72 fL (79-100) L Mean Corpuscular Hemoglobin 24 pg (25-35) L Mean Corpuscular Hemoglobin Concent 33 g/dL (31-37) Red Cell Distribution Width 26.9 % (11.5-14.5) H Platelet Count 601 x10^3/uL (140-400) H Neutrophils (%) (Auto) 39 % (31-73) Lymphocytes (%) (Auto) 53 % (24-48) H Monocytes (%) (Auto) 7 % (0-9) Eosinophils (%) (Auto) 0 % (0-3) Basophils (%) (Auto) 1 % (0-3) Neutrophils # (Auto) 3.9 x10^3uL (1.8-7.7) Lymphocytes # (Auto) 5.3 x10^3/uL (1.0-4.8) H Monocytes # (Auto) 0.7 x10^3/uL (0.0-1.1) Eosinophils # (Auto) 0.0 x10^3/uL (0.0-0.7) Basophils # (Auto) 0.1 x10^3/uL (0.0-0.2) Segmented Neutrophils % 64 % (35-66) Lymphocytes % 23 % (24-48) L Monocytes % 13 % (0-10) H Platelet Estimate Increased (ADEQUATE) Polychromasia Slight Hypochromasia Slight Anisocytosis Marked Microcytosis Slight [place]obo-[place] Bodies Present Prothrombin Time 15.1 SEC (11.7-14.0) H Prothrombin Time INR 1.2 (0.8-1.1) H Sodium Level 136 mmol/L (136-145) Potassium Level 3.4 mmol/L (3.5-5.1) L Chloride Level 100 mmol/L (98-107) Carbon Dioxide Level 20 mmol/L (21-32) L Anion Gap 16 (6-14) H Blood Urea Nitrogen 10 mg/dL (8-26) Creatinine 0.8 mg/dL (0.7-1.3) Estimated GFR (Cockcroft-Gault) 117.4 BUN/Creatinine Ratio 13 (6-20) Glucose Level 98 mg/dL (70-99) Lactic Acid Level 1.7 mmol/L (0.4-2.0) Calcium Level 9.2 mg/dL (8.5-10.1) Total Bilirubin 0.4 mg/dL (0.2-1.0) Aspartate Amino Transferase (AST) 48 U/L (15-37) H Alanine Aminotransferase (ALT) 24 U/L (16-63) Alkaline Phosphatase 275 U/L (46-116) H Total Protein 7.9 g/dL (6.4-8.2) Albumin 2.2 g/dL (3.4-5.0) L Albumin/Globulin Ratio 0.4 (1.0-1.7) L Urine Collection Type Unknown Urine Color Yellow Urine Clarity Clear Urine pH 5.5 Urine Specific [place] 1.015 Urine Protein 30 mg/dL (NEG-TRACE) Urine Glucose (UA) Negative mg/dL (NEG) Urine Ketones (Stick) Negative mg/dL (NEG) Urine Blood Trace (NEG) Urine Nitrite Negative (NEG) Urine Bilirubin Negative (NEG) Urine Urobilinogen Dipstick 0.2 mg/dL (0.2 mg/dL) Urine Leukocyte Esterase Negative (NEG) Urine RBC Rare /HPF (0-2) Urine WBC 0 /HPF (0-4) Urine Squamous Epithelial Cells Few /LPF Urine Amorphous Sediment Present /HPF Urine Bacteria 0 /HPF (0-FEW) Urine Mucus Mod /LPF Laboratory Tests 10/26/18 19:35 Laboratory Tests 10/26/18 19:35 (CAIT ARRIETA DO) Lab Values Laboratory Tests Test 10/26/18 19:35 10/26/18 20:55 White Blood Count 10.0 x10^3/uL (4.0-11.0) Red Blood Count 3.70 x10^6/uL (4.30-5.70) L Hemoglobin 8.7 g/dL (13.0-17.5) L Hematocrit 26.6 % (39.0-53.0) L Mean Corpuscular Volume 72 fL (79-100) L Mean Corpuscular Hemoglobin 24 pg (25-35) L Mean Corpuscular Hemoglobin Concent 33 g/dL (31-37) Red Cell Distribution Width 26.9 % (11.5-14.5) H Platelet Count 601 x10^3/uL (140-400) H Neutrophils (%) (Auto) 39 % (31-73) Lymphocytes (%) (Auto) 53 % (24-48) H Monocytes (%) (Auto) 7 % (0-9) Eosinophils (%) (Auto) 0 % (0-3) Basophils (%) (Auto) 1 % (0-3) Neutrophils # (Auto) 3.9 x10^3uL (1.8-7.7) Lymphocytes # (Auto) 5.3 x10^3/uL (1.0-4.8) H Monocytes # (Auto) 0.7 x10^3/uL (0.0-1.1) Eosinophils # (Auto) 0.0 x10^3/uL (0.0-0.7) Basophils # (Auto) 0.1 x10^3/uL (0.0-0.2) Segmented Neutrophils % 64 % (35-66) Lymphocytes % 23 % (24-48) L Monocytes % 13 % (0-10) H Platelet Estimate Increased (ADEQUATE) Polychromasia Slight Hypochromasia Slight Anisocytosis Marked Microcytosis Slight [place]obo[place] Bodies Present Prothrombin Time 15.1 SEC (11.7-14.0) H Prothrombin Time INR 1.2 (0.8-1.1) H Sodium Level 136 mmol/L (136-145) Potassium Level 3.4 mmol/L (3.5-5.1) L Chloride Level 100 mmol/L (98-107) Carbon Dioxide Level 20 mmol/L (21-32) L Anion Gap 16 (6-14) H Blood Urea Nitrogen 10 mg/dL (8-26) Creatinine 0.8 mg/dL (0.7-1.3) Estimated GFR (Cockcroft-Gault) 117.4 BUN/Creatinine Ratio 13 (6-20) Glucose Level 98 mg/dL (70-99) Lactic Acid Level 1.7 mmol/L (0.4-2.0) Calcium Level 9.2 mg/dL (8.5-10.1) Total Bilirubin 0.4 mg/dL (0.2-1.0) Aspartate Amino Transferase (AST) 48 U/L (15-37) H Alanine Aminotransferase (ALT) 24 U/L (16-63) Alkaline Phosphatase 275 U/L (46-116) H Total Protein 7.9 g/dL (6.4-8.2) Albumin 2.2 g/dL (3.4-5.0) L Albumin/Globulin Ratio 0.4 (1.0-1.7) L Urine Collection Type Unknown Urine Color Yellow Urine Clarity Clear Urine pH 5.5 Urine Specific [place] 1.015 Urine Protein 30 mg/dL (NEG-TRACE) Urine Glucose (UA) Negative mg/dL (NEG) Urine Ketones (Stick) Negative mg/dL (NEG) Urine Blood Trace (NEG) Urine Nitrite Negative (NEG) Urine Bilirubin Negative (NEG) Urine Urobilinogen Dipstick 0.2 mg/dL (0.2 mg/dL) Urine Leukocyte Esterase Negative (NEG) Urine RBC Rare /HPF (0-2) Urine WBC 0 /HPF (0-4) Urine Squamous Epithelial Cells Few /LPF Urine Amorphous Sediment Present /HPF Urine Bacteria 0 /HPF (0-FEW) Urine Mucus Mod /LPF Laboratory Tests 10/26/18 19:35 Laboratory Tests 10/26/18 19:35 (LUCIO MORGAN APRN) EKG EKG [] (LUCIO MORGAN APRN) Radiology/Procedures Radiology/Procedures Per Dr Arrieta - No acute process noted today. Does have known CA nodules. [] (LUCIO MORGAN APRN) Course & Med Decision Making Course & Med Decision Making Pertinent Labs and Imaging studies reviewed. (See chart for details) [Discussed findings with patient, discussed lab results showing no acute abnormalities today, did notice l chronic abnormalities, without change today. We'll have patient follow up with oncologist and primary care, to hydrate, continue to rest. No neutropenia noted at this time, anemia consistent with patient history. AST noted elevated, improved from patient's normally is. Polycythemia is noted, similar to patient normal. Discussed pain control patient, continued use [id number] or prescription pain medications. Patient does report continued to have this to have his urine,. Advised patient to discuss with his oncologist on Saturday when he has his appointment to determine if he needs to start on a prostate medication he continues to have this issue. (LUCIO MORGAN APRN) Dragon Disclaimer Dragon Disclaimer This electronic medical record was generated, in whole or in part, using a voice recognition dictation system. (LUCIO MORGAN APRN) Departure Departure Impression: Primary Impression: Fever of undetermined origin Additional Impression: Urinary retention Disposition: HOME, SELF-CARE Condition: IMPROVED Referrals: TADEO MCLAUGHLIN MD (PCP) Patient Instructions: Fever of Unknown Origin, Urinary Retention, Acute, Male, [id number] Additional Instructions: As we discussed, make sure you keep the appointment with your oncologist on Saturday. When there you may want to discuss prostate medications with them, if you continue to have problems urinating and have continued problems urinating. Take your pain medicines at home that she had been taking if needed. Attending Signature Attending Signature I have reviewed the PA/[employer]INE [employer]ENT's note and plan of care. I was available for con sultation as needed during the patient's visit in the emergency department. I agree with the clinical impression, plan, and disposition. (CAIT ARRIETA DO) Problem Qualifiers LUCIO MORGAN APRN Oct 26, 2018 19:45 CAIT ARRIETA DO Oct 27, 2018 03:05
[2018-10-26 19:53] LABS: BASO # 0.1 x10^3/uL (0.0-0.2); BASO % 1 % (0-3); EOS % 0 % (0-3); HEMATOCRIT 26.6 % (39.0-53.0); HEMOGLOBIN 8.7 g/dL (13.0-17.5); LYMPH # 5.3 x10^3/uL (1.0-4.8); LYMPH % 53 % (24-48); MEAN CORPUSCULAR HEMOGLOBIN 24 pg (25-35); MEAN CORPUSCULAR HGB CONC 33 g/dL (31-37); MEAN CORPUSCULAR VOLUME 72 fL (79-100); MONO # 0.7 x10^3/uL (0.0-1.1); MONO % 7 % (0-9); NEUT # 3.9 x10^3uL (1.8-7.7); NEUT % 39 % (31-73); PLATELET COUNT 601 x10^3/uL (140-400); RED CELL DISTRIBUTION WIDTH 26.9 % (11.5-14.5)
[2018-10-26 19:58] LABS: PROTHROMBIN TIME PATIENT 15.1 SEC (11.7-14.0)
[2018-10-26 20:15] LABS: % LYMPHS 23 % (24-48); % MONOS 13 % (0-10); % SEGS 64 % (35-66); CALCIUM 9.2 mg/dL (8.5-10.1); CREATININE 0.8 mg/dL (0.7-1.3); GFR 117.4; POTASSIUM 3.4 mmol/L (3.5-5.1)
[2018-10-26 20:16] LABS: ANISOCYTOSIS MARKED; HOWELL-JOLLY BODIES PRESENT; HYPOCHROMIA SLIGHT; MICROCYTOSIS SLIGHT; PLT ESTIMATE INCREASED (ADEQUATE); POLYCHROMASIA SLIGHT
[2018-10-26 20:27] LABS: ALBUMIN 2.2 g/dL (3.4-5.0); ALBUMIN/GLOBULIN RATIO 0.4 (1.0-1.7); TOTAL BILIRUBIN 0.4 mg/dL (0.2-1.0); TOTAL PROTEIN 7.9 g/dL (6.4-8.2)
[2018-10-26 21:09] LABS: BILIRUBIN,URINE NEGATIVE (NEG); CLARITY,URINE CLEAR; COLOR,URINE YELLOW; NITRITE,URINE NEGATIVE (NEG); PH,URINE 5.5; PROTEIN,URINE 30 mg/dL (NEG-TRACE); UROBILINOGEN,URINE 0.2 mg/dL (0.2 mg/dL)
[2018-10-26 21:16] LABS: AMORPHOUS SEDIMENT,UR PRESENT /HPF; BACTERIA,URINE 0 /HPF (0-FEW); RBC,URINE RARE /HPF (0-2); SQUAMOUS EPITHELIAL CELL,UR FEW /LPF; WBC,URINE 0 /HPF (0-4)
--- NOTE | 2018-10-26 21:47 | RAD ---
Chest AP portable at 1943: Reason for examination: Short of breath. Comparison is made to previous chest x-ray dated 06/26/[address] of the chest dated 10/17/2018. Port-A-Cath is present on the left with the tip at the superior vena cava. Heart and mediastinum are unremarkable. Lung de santiago however show multiple pulmonary nodules with new nodules present bilaterally. The largest nodule is in the right lower lobe medially and measures at least 3 cm in greatest dimension. No pleural effusions are seen. No pneumothorax is seen. No acute bony abnormalities are evident. IMPRESSION: Multiple pulmonary nodules with the largest in the right lower lobe measuring 3 cm in size. These are consistent with pulmonary metastases. Electronically signed by: Nakita Camp MD (10/26/2018 9:44 PM) [facility]
[2018-10-26 21:59] VITALS: BP 120/84
== END 2018-10-26 22:20 | disposition home or self-care (01) ==
LOC: ER 19:08
DX: R50.9 Fever, unspecified (principal); R33.9 Retention of urine, unspecified; R06.02 Shortness of breath; Z87.442 Personal history of urinary calculi; Z93.3 Colostomy status
CPT/HCPCS: 36415; 71045; 80053; 81001; 83605; 85007; 85025; 85610; 87040; 96374; 96375; 99285; J1885; J2270; J7030

== ENCOUNTER → 2019-01-19 | Outpatient (CLI) | payer MEDICARE ==
[~2019-01-19] MED LIST changes: +CONTRAST GIVEN. MC PRN; +HEPARIN PF 500 UNIT/5 ML DISP.SYRIN. IV ONE; +IOHEXOL 240 MG/ML 50ML VIAL. PO ONE; +IOHEXOL 300 MG/ML 100ML VIAL. IV ONE; +LISI1TAB23 PO; -LISI1TAB3 PO
--- NOTE | 2019-01-19 12:47 | RAD ---
Examination: CT CHEST ABD PELVIS W/CONTRAST History: Colon cancer Comparison/Correlation: 10/17/2018 CT chest abdomen and pelvis with contrast Findings: Axial images of the chest, abdomen, and pelvis were obtained following IV contrast. Oral contrast was also administered. Sagittal and coronal reformatted images were provided. Numerous pulmonary nodules are again identified. These are similar in number compared to previous exam. There is decrease in size of most of the pulmonary nodules since the prior exam. No new pulmonary nodule or increase in size of pulmonary nodules is evident in the interval. Largest of the pulmonary nodules at the right lower lung. Measures up to 2.6 in diameter. Previously, this nodule measured up to 2.9 cm diameter. This nodule is currently seen on axial image 38 of series 2. Other nodules involving the lung de santiago also identified have decreased in size by a few millimeters diameter. Largest of the left lower lobe pulmonary nodules measuring up to 1.8 cm diameter on axial image 31 of series 2 is present. This is decreased in size by 2 mm in the interval. No infiltrates or pleural effusions. Massive the right pericardiac fat again seen. Numerous hepatic metastases are present. Mild decrease in size of a left hepatic dome metastatic lesion with prior 6.5 cm transverse is present. This has decreased compared to previous exam 5 almost 0.5 cm. Decrease in size of dominant right hepatic dome mass on axial image 21 of series 4 is identified. This currently measures up to 9.5 cm and this represents a decrease of 0.65 cm since the prior exam. Right posterior hepatic segment vein is noted with suggestion of collaterals. Splenectomy noted. Gastrohepatic ligament lymph node again identified and is decreased in size currently measuring up to 1.8 cm diameter. Adrenal glands are unremarkable. Pancreas is normal. No extraluminal gas. No ascites or pelvic free fluid. No new enlarged abdominal lymph nodes. Low-attenuation lymph node or other mass along the anterior aspect of the main portal vein is minimally decreased measuring up to 2.8 cm maximum diameter since the prior exam. Right lower quadrant ostomy is noted. Syed's pouch noted. Bony structures are grossly unremarkable. Impression: Overall decrease in size of pulmonary and hepatic metastases. Decreased size of lymphadenopathy of the upper abdomen. No new mass. No new enlarged lymph nodes or other findings to suggest progression. PQRS Compliance Statement: One or more of the following individualized dose reduction techniques were utilized for this examination: 1. Automated exposure control 2. Adjustment of the mA and/or kV according to patient size 3. Use of iterative reconstruction technique Electronically signed by: John Burnham MD (01/19/2019 12:44 PM) [facility]
== END | disposition home or self-care (01) ==
LOC: CT 08:18
PROVIDERS: ATTEND Internal Medicine Hematology & Oncology
DX: C78.7 Secondary malignant neoplasm of liver and intrahepatic bile duct (principal); C18.9 Malignant neoplasm of colon, unspecified; R91.8 Other nonspecific abnormal finding of lung field; R59.0 Localized enlarged lymph nodes; Z90.81 Acquired absence of spleen
CPT/HCPCS: 71260; 74177; Q9966; Q9967

== ENCOUNTER 2019-03-29 12:00 | Inpatient (IN) | payer MEDICARE ==
[~2019-03-29] VITALS: Ht 185.4 cm; Wt 66.0 kg
[~2019-03-29 12:00] MED LIST changes: +ACET325T9 PO; +ALBU2.5V8 NEB; -CONTRAST GIVEN. MC PRN; +DOCU-153 PO; +GUAI100L12 PO; -HEPARIN PF 500 UNIT/5 ML DISP.SYRIN. IV ONE; -IOHEXOL 240 MG/ML 50ML VIAL. PO ONE; -IOHEXOL 300 MG/ML 100ML VIAL. IV ONE; +LORA0.5T96 PO; +MECL12.52 PO; +POTA20TA4 PO; +ZOLP5TAB PO
[2019-03-29] MEDS ORDERED: IV NORMAL SALINE 1000ML BAG 1,000 ML IV SCH (12:09)
--- NOTE | 2019-03-29 12:12 | PHYS DOC ---
Past Medical History Past Medical History: Cancer, Hypertension, Kidney Stone, Lung Disease, Other Additional Past Medical Histor: ABD PAIN, WEIGHT LOSS, Stg 4 lung CA, Liver CA, Colon CA Past Surgical History: No Surgical History Additional Past Surgical Histo: Illeostomy Alcohol Use: None Drug Use: None Adult General Chief Complaint Chief Complaint: WEAKNESS/GENERALIZED HPI HPI Patient is a 64-year-old male, who presents to the emergency department for evaluation via EMS. According to the patient's , overnight he developed increasing weakness, to the point that he was unable to ambulate on his own, and the patient's , who was trying to take him to the bathroom to empty his ostomy bag, felt that he would fall down if she tried to have him ambulate so she called EMS. He was also less coherent than normal over the past 12 hours, although the patient's states that she did give him a Percocet tablet, although he does not normally take pain medication. He also ate some homemade brownies, although it is unclear if they were "medicated" with THC. The patient denies any pain today. He was admitted to this hospital about 2 weeks ago his generalized weakness and deconditioning, [facility] notes from that hospital stay have been reviewed. The patient is not having any new pain at this time, denies any headache, chest pain, shortness of breath, abdominal pain, vomiting, or bloody ostomy output. There are no alleviating or exacerbating factors to his symptoms. Review of Systems Review of Systems Constitutional: Denies fever or chills [] Eyes: Denies change in visual acuity, redness, or eye pain [] HENT: Denies nasal congestion or sore throat [] Respiratory: Denies cough or shortness of breath [] Cardiovascular:The patient denies any shortness of breath, chest pain, palpitations, or orthopnea[] GI: Denies abdominal pain, nausea, vomiting, bloody stools or diarrhea [] : Denies dysuria or hematuria [] Musculoskeletal: Denies back pain or joint pain [] Integument: Denies rash or skin lesions [] Neurologic: Denies headache, focal weakness or sensory changes [] Endocrine: Denies polyuria or polydipsia [] All other systems were reviewed and found to be within normal limits, except as documented in this note. Current Medications Current Medications Current Medications Medications (Trade) Dose Ordered Sig/Siri Start Time Stop Time Status Last Admin Dose Admin Info (CONTRAST GIVEN -- Rx MONITORING) 1 each PRN DAILY PRN 03/29/19 12:45 03/31/19 12:44 Iohexol (Omnipaque 300 Mg/ml) 70 ml 1X ONCE 03/29/19 12:30 03/29/19 12:31 DC 03/29/19 12:30 70 ML Sodium Chloride 1,000 ml @ 1,000 mls/hr Q1H 03/29/19 12:09 03/29/19 13:08 DC 03/29/19 12:09 1,000 MLS/HR Allergies Allergies Allergies Coded Allergies Type Severity Reaction Last Updated Verified No Known Drug Allergies 08/19/18 No Physical Exam Physical Exam PHYSICAL EXAM: CONSTITUTIONAL: Patient is thin, cachectic appearing. HEAD: normocephalic, atraumatic EENT: PERRL, EOMI. pupils are 2 mm bilaterally. Conjunctivae normal color, sclerae non-icteric; moist mucous membranes. NECK: Supple, non-tender; no meningismus. LUNGS: Lungs CTA, breathing even and unlabored. Normal air movement. HEART: Regular rate and rhythm, no murmur CHEST: No deformity; non-tender ABDOMEN: The abdomen is soft, and non-tender, no masses or bruits. There is an ostomy in the right lower quadrant. EXTREM: Normal ROM; no deformity, no calf tenderness. Normal pulses palpable in all extremities. There is no pedal edema. SKIN: No rash; no diaphoresis NEURO: Alert; normal speech and cognition; CN's grossly intact; strength grossly intact without focal deficit. BACK: No CVA TTP. Current Patient Data Vital Signs Vital Signs Date Time Temp Pulse Resp B/P (MAP) Pulse Ox O2 Delivery O2 Flow Rate FiO2 03/29/19 12:10 98.0 75 10 108/77 (87) 95 Room Air 98.0 Lab Values Laboratory Tests Test 03/29/19 13:27 White Blood Count 7.7 x10^3/uL (4.0-11.0) Red Blood Count 3.33 x10^6/uL (4.30-5.70) L Hemoglobin 10.4 g/dL (13.0-17.5) L Hematocrit 30.6 % (39.0-53.0) L Mean Corpuscular Volume 92 fL (79-100) Mean Corpuscular Hemoglobin 31 pg (25-35) Mean Corpuscular Hemoglobin Concent 34 g/dL (31-37) Red Cell Distribution Width 28.3 % (11.5-14.5) H Platelet Count 377 x10^3/uL (140-400) Neutrophils (%) (Auto) 6 % (31-73) L Lymphocytes (%) (Auto) 62 % (24-48) H Monocytes (%) (Auto) 31 % (0-9) H Eosinophils (%) (Auto) 1 % (0-3) Basophils (%) (Auto) 0 % (0-3) Neutrophils # (Auto) 0.5 x10^3/uL (1.8-7.7) L Lymphocytes # (Auto) 4.8 x10^3/uL (1.0-4.8) Monocytes # (Auto) 2.3 x10^3/uL (0.0-1.1) H Eosinophils # (Auto) 0.1 x10^3/uL (0.0-0.7) Basophils # (Auto) 0.0 x10^3/uL (0.0-0.2) Platelet Estimate Pending Prothrombin Time 15.3 SEC (11.7-14.0) H Prothrombin Time INR 1.2 (0.8-1.1) H Sodium Level 137 mmol/L (136-145) Potassium Level 3.7 mmol/L (3.5-5.1) Chloride Level 104 mmol/L (98-107) Carbon Dioxide Level 21 mmol/L (21-32) Anion Gap 12 (6-14) Blood Urea Nitrogen 16 mg/dL (8-26) Creatinine 1.0 mg/dL (0.7-1.3) Estimated GFR (Cockcroft-Gault) 90.5 BUN/Creatinine Ratio 16 (6-20) Glucose Level 82 mg/dL (70-99) Calcium Level 9.2 mg/dL (8.5-10.1) Magnesium Level 1.5 mg/dL (1.8-2.4) L Total Bilirubin 0.5 mg/dL (0.2-1.0) Aspartate Amino Transferase (AST) 24 U/L (15-37) Alanine Aminotransferase (ALT) 13 U/L (16-63) L Alkaline Phosphatase 163 U/L (46-116) H Ammonia < 10 mcmol/L (11-34) L Troponin I Quantitative < 0.017 ng/mL (0.000-0.055) NI-Npg-[id number]-Type Natriuretic Peptide 128 pg/mL (0-124) H Total Protein 7.3 g/dL (6.4-8.2) Albumin 2.8 g/dL (3.4-5.0) L Albumin/Globulin Ratio 0.6 (1.0-1.7) L Thyroid Stimulating Hormone (TSH) 1.633 uIU/mL (0.358-3.74) Laboratory Tests 03/29/19 13:27 Laboratory Tests 03/29/19 13:27 EKG EKG Normal sinus rhythm with a normal rate, normal axis, normal intervals, there are no acute ischemic ST/T changes. There is artifact in leads V2 and V3. Radiology/Procedures Radiology/Procedures PROCEDURE: PORTABLE CHEST 1V PORTABLE CHEST 1V Clinical Indication: Altered mental status. Comparison: AP chest March 13, 2019. Findings: Stable left chest Port-A-Cath. Tortuous thoracic aorta. Cardiac size is normal. Bilateral pulmonary nodules of various sizes are unchanged.. There is no pneumothorax. No pleural effusion is appreciated. No acute bone abnormality. IMPRESSION: No acute airspace disease. No significant change of pulmonary metastases.[] Course & Med Decision Making Course & Med Decision Making Pertinent Labs and Imaging studies reviewed. (See chart for details) []2:15 PM:The patient's condition remains stable. I spoke with the hosp italist, who accepted the patient to the hospital for further evaluation and treatment. CT pending. Dragon Disclaimer Dragon Disclaimer This electronic medical record was generated, in whole or in part, using a voice recognition dictation system. Departure Departure Impression: Primary Impression: Weakness Additional Impression: Colon cancer Disposition: ADMITTED INPATIENT Condition: STABLE Referrals: ERIC BETH (PCP) Problem Qualifiers FAY ROSALES MD Mar 29, 2019 12:12
[2019-03-29] MEDS ORDERED: IOHEXOL 300 MG/ML 100ML VIAL. IV ONE (12:30)
--- NOTE | 2019-03-29 12:39 | RAD ---
PORTABLE CHEST 1V Clinical Indication: Altered mental status. Comparison: AP chest March 13, 2019. Findings: Stable left chest Port-A-Cath. Tortuous thoracic aorta. Cardiac size is normal. Bilateral pulmonary nodules of various sizes are unchanged.. There is no pneumothorax. No pleural effusion is appreciated. No acute bone abnormality. IMPRESSION: No acute airspace disease. No significant change of pulmonary metastases. Electronically signed by: Marcos Alicea MD (03/29/2019 12:36 PM) [facility]
[2019-03-29] MEDS ORDERED: CONTRAST GIVEN. MC PRN (12:45)
--- NOTE | 2019-03-29 12:53 | PDOC1 ---
History and Physical Date of Admission Date of Admission DATE: 03/29/19 TIME: 12:52 Identification/Chief Complaint Chief Complaint SEEN IN ER 64-year-old male, who presents to the emergency department for evaluation via EMS. According to the patient's , overnight he developed increasing weakness, to the point that he was unable to ambulate on his own, and the patient's , who was trying to take him to the bathroom to empty his ostomy bag, felt that he would fall down if she tried to have him ambulate so she called EMS. He was also less coherent than normal over the past 12 hours, although the patient's states that she did give him a Percocet tablet, although he does not normally take pain medication. He also ate some homemade brownies, although it is unclear if they were "medicated" with THC. The patient denies any pain today. He was admitted to this hospital about 2 weeks ago his generalized weakness and deconditioning,NOW APPEARS MORE FRAIL Past Medical History Past Medical History Past Medical History Past Medical History Past Medical History: Cancer, Hypertension, Kidney Stone, Lung Disease, Other Additional Past Medical Histor: ABD PAIN, WEIGHT LOSS, Stg 4 lung CA, Liver CA, Colon CA Past Surgical History: No Surgical History Additional Past Surgical Histo: Illeostomy Alcohol Use: None Drug Use: None fhx htn Cardiovascular: HTN Pulmonary: No pertinent hx CENTRAL NERVOUS SYSTEM: Other GI: GERD Heme/Onc: Cancer Hepatobiliary: No pertinent hx Psych: No pertinent hx Musculoskeletal: Osteoarthritis Rheumatologic: No pertinent hx Infectious disease: No pertinent hx Renal/: No pertinent hx Endocrine: No pertinent hx Past Surgical History Past Surgical History: Hernia Repair, Colon Resection, Other Family History Family History: Diabetes, Heart Disease, Hypertension Family History: Parent Social History Smoke: No ALCOHOL: none Drugs: None Current Medications Current Medications Current Medications Sodium Chloride 1,000 ml @ 1,000 mls/hr Q1H IV ; Start 03/29/19 at 12:09; Stop 03/29/19 at 13:08 Iohexol (Omnipaque 300 Mg/ml) 70 ml 1X ONCE IV ; Start 03/29/19 at 12:30; Stop 03/29/19 at 12:31; Status DC Info (CONTRAST GIVEN -- Rx MONITORING) 1 each PRN DAILY PRN MC SEE COMMENTS; Start 03/29/19 at 12:45; Stop 03/31/19 at 12:44 Active Scripts Active Meclizine Hcl 12.5 Mg Tablet 25 Mg PO PRN Q8HRS PRN 30 Days Dok (Docusate Sodium) 100 Mg Capsule 100 Mg PO PRN BID PRN 30 Days Guaifenesin 100 Mg/5 Ml Liquid 200 Mg PO PRN Q4HRS PRN 10 Days Klor-Con M20 (Potassium Chloride) 20 Meq Tab.er.prt 20 Meq PO DAILYWBKFT 10 Days Ambien (Zolpidem Tartrate) 5 Mg Tablet 5 Mg PO PRN QHS PRN 10 Days Ativan (Lorazepam) 0.5 Mg Tablet 0.5 Mg PO PRN Q4HRS PRN 30 Days Tylenol (Acetaminophen) 325 Mg Tablet 650 Mg PO PRN Q4HRS PRN 14 Days Proair Hfa (Albuterol Sulfate) 8.5 Gm Hfa.aer.ad 2.5 Mg NEB PRN Q4HRS PRN 14 Days Reported Amlodipine Besylate 5 Mg Tablet 5 Mg PO DAILY Megestrol Acetate 40 Mg Tablet 0.5 Tab PO BID Gabapentin (Gabapentin) 300 Mg Capsule 300 Mg PO QID PRN Ondansetron Hcl 4 Mg Tablet 1 Tab PO PRN Q8HRS PRN Percocet 5-325 Mg Tablet (Oxycodone/Acetaminophen) 1 Each Tablet 1-2 Tab PO PRN Q4HRS PRN Allergies Allergies: Coded Allergies: No Known Drug Allergies (Unverified , 08/19/18) ROS General: YES: Fatigue, Malaise PSYCHOLOGICAL ROS: YES: Anxiety; No: Behavioral Disorder, Concentration difficultie, Decreased libido, Depression, Disorientation, Hallucinations, Hostility, Irritablity, Memory difficulties, Mood Swings, Obsessive thoughts, Physical abuse, Sexual abuse, Sleep disturbances, Suicidal ideation, Other ALLERGY AND IMMUNOLOGY: No: Hives, Insect Bite Sensitivity, Itchy/Watery Eyes, Nasal Congestion, Post Nasal Drip, Seasonal Allergies, Other Respiratory: YES: Shortness of breath Gastrointestinal: Yes Nausea Musculoskeletal: Yes Gait Disturbance, Yes Joint Stiffness Neurological: Yes Confusion, Yes Gait Disturbance Physical Exam Physical Exam Physical Exam Physical Exam GENERAL: Laying in bed, alert, FRAIL HEENT: Pupils are equally round, small. Oral cavity, oropharynx pink and dry. No thrush. NECK: Supple. LUNGS: Clear. HEART: S1, S2. ABDOMEN: Soft, nontender with bowel sounds present w/ ostomy - no complications EXTREMITIES: No gross edema or cyanosis. SKIN: Warm to touch. No signs of rash. NEUROLOGIC: Alert and answering questions appropriately. Left-sided Port-A-Cath without signs of any complications. General: Alert, Oriented X3, MILD acute distress Heart: Regular rate, Normal S1, Normal S2, Other (port left chest looks healthy) Lungs: Clear Abdomen: Normal bowel sounds, Soft, Other (ostomy) Extremities: No clubbing, No cyanosis, No edema Skin: No rashes General: Oriented X3, Cooperative Breasts: Not examined Abdomen: Soft Rectal Exam: not examined PELVIC: Examination not indicated Extremities: No cyanosis Neuro: Normal speech, Cranial nerves 3-12 NL Vitals Vitals Vital Signs Date Time Temp Pulse Resp B/P (MAP) Pulse Ox O2 Delivery O2 Flow Rate FiO2 03/29/19 12:10 98.0 75 10 108/77 (87) 95 Room Air 98.0 VTE Prophylaxis Ordered VTE Prophylaxis Devices: Yes VTE Pharmacological Prophylaxi: Yes Assessment/Plan Assessment/Plan impression 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 colon cancer diagnosed in 2014 involving the splenic flexure and it was stage 2 at that time. He was diagnosed with multiple bilateral lung metastases and liver metastasis consistent with stage [address] 05/20/2018 and liver biopsy 06/20/18. INCREASING generalized weakness, severe Diffuse metastatic disease in the visualized lungs, liver and metastatic lymph nodes with interval change 07/15 immuno-compromised state Multiple bilateral lung masses are seen, better delineated on prior CT chest. Left port tip projects over the proximal SVC, grossly stable. COPD severe protein-caloric malnutrition plan admit blood cult URINE CULT oncology consult iv fluid support HOME MEDS DVT PROPHYLAXIS DUONEBS QID PT/OT/ST 78 MIN PT EXAM, CHART REVIEW D/C PLANNING TIME , > 50% OF TIME SPENT WITH EXAM, CHART REVIEW, PT CARE COORDINATION PEPE ADEN MD Mar 29, 2019 12:53
[2019-03-29 13:39] LABS: BASO % 0 % (0-3); EOS # 0.1 x10^3/uL (0.0-0.7); EOS % 1 % (0-3); HEMATOCRIT 30.6 % (39.0-53.0); HEMOGLOBIN 10.4 g/dL (13.0-17.5); LYMPH # 4.8 x10^3/uL (1.0-4.8); LYMPH % 62 % (24-48); MEAN CORPUSCULAR HEMOGLOBIN 31 pg (25-35); MEAN CORPUSCULAR HGB CONC 34 g/dL (31-37); MEAN CORPUSCULAR VOLUME 92 fL (79-100); MONO # 2.3 x10^3/uL (0.0-1.1); MONO % 31 % (0-9); NEUT # 0.5 x10^3/uL (1.8-7.7); NEUT % 6 % (31-73); PLATELET COUNT 377 x10^3/uL (140-400); RED BLOOD COUNT 3.33 x10^6/uL (4.30-5.70); RED CELL DISTRIBUTION WIDTH 28.3 % (11.5-14.5); WHITE BLOOD COUNT 7.7 x10^3/uL (4.0-11.0)
[2019-03-29 13:48] LABS: CALCIUM 9.2 mg/dL (8.5-10.1); GFR 90.5
[2019-03-29 13:49] LABS: POTASSIUM 3.7 mmol/L (3.5-5.1)
[2019-03-29 13:50] LABS: PROTHROMBIN TIME PATIENT 15.3 SEC (11.7-14.0)
[2019-03-29 13:54] LABS: ALBUMIN 2.8 g/dL (3.4-5.0); ALBUMIN/GLOBULIN RATIO 0.6 (1.0-1.7); MAGNESIUM 1.5 mg/dL (1.8-2.4); TOTAL BILIRUBIN 0.5 mg/dL (0.2-1.0); TOTAL PROTEIN 7.3 g/dL (6.4-8.2)
[2019-03-29] MEDS ORDERED: MAGNESIUM SULFATE 1GM 100 ML IV ONE (14:30)
--- NOTE | 2019-03-29 14:36 | RAD ---
PQRS Compliance Statement: One or more of the following individualized dose reduction techniques were utilized for this examination: 1. Automated exposure control 2. Adjustment of the mA and/or kV according to patient size 3. Use of iterative reconstruction technique CT HEAD WITHOUT AND WITH CONTRAST History: Altered mental status. History of colon cancer. Comparison: None. Procedure: Axial images are obtained of the head from the skull base through the vertex before and after 70 cc of Omnipaque 300 IV contrast. Findings: The ventricles and sulci are prominent, consistent with age-related cerebral atrophy. There is supratentorial white matter hypoattenuation. This is a nonspecific finding but is commonly due to chronic small vessel ischemic disease in a patient of this age. No abnormal enhancement of the brain parenchyma is identified on the postcontrast images. No mass-effect, midline shift, hemorrhage, extra-axial fluid collection, or obvious acute infarction is identified. Basilar cisterns are patent. Bone windows demonstrate no acute calvarial abnormality. Mucous retention cyst or polyp left maxillary sinus. Mild mucosal thickening right maxillary sinus. Other paranasal sinuses are clear. Mastoid air cells are well aerated. IMPRESSION: 1. No acute intracranial abnormality. 2. No CT evidence of intracranial metastasis. 3. Generalized cerebral atrophy. 4. Mild supratentorial white matter changes probably due to chronic small vessel ischemic disease. Electronically signed by: Marcos Alicea MD (03/29/2019 2:33 PM) [id number]
[2019-03-29 14:44] LABS: % BASOS 1 % (0-3); % LYMPHS 83 % (24-48); % MONOS 15 % (0-10); % SEGS 1 % (35-66); NUCLEATED RBC 1; PLATELET CLUMP PRESENT; PLT ESTIMATE ADEQUATE (ADEQUATE); POIKILOCYTOSIS MOD; TARGET CELLS FEW
[2019-03-29 14:45] LABS: ACANTHOCYTES FEW; ANISOCYTOSIS MARKED; MICROCYTOSIS SLIGHT; OVALOCYTES OCC; SMUDGE CELLS PRESENT
[2019-03-29 14:46] LABS: HYPOCHROMIA SLIGHT; SCHISTOCYTES FEW
[2019-03-29 14:47] LABS: BURR CELLS OCC
[2019-03-29 14:49] LABS: POLYCHROMASIA OCCASIONAL
[2019-03-29] MEDS ORDERED: ACETAMINOPHEN 325 MG TABLET. PO PRN (16:00)
[2019-03-29] MEDS ORDERED: MECLIZINE HCL 12.5 MG TABLET. PO PRN (16:00)
[2019-03-29] MEDS ORDERED: ZOLPIDEM 5 MG TABLET. PO PRN (16:00)
[2019-03-29] MEDS ORDERED: ONDANSETRON ODT 4 MG TAB.RAPDIS. PO PRN (16:00)
[2019-03-29] MEDS: HYDROmorphone 2 MG/ML VIAL IV PRN ×2 (16:29→19:49)
[2019-03-29 19:00] VITALS: BP 103/70
[2019-03-29 23:00] VITALS: BP 75/54
[2019-03-30] MEDS: HYDROmorphone 2 MG/ML VIAL IV PRN ×6 (00:13→19:18)
[2019-03-30 03:00] VITALS: BP_SYST 143; BP_SYST 84; BP_DIAS 58; BP_DIAS 59
[2019-03-30 07:00] VITALS: BP 89/56
--- NOTE | 2019-03-30 07:14 | EKG ---
[facility] [address] [place] [address] Test Date: 2019-03-29 Test Time: 12:33:45 Pat Name: PRABHA GROVER Department: Room: Gender: M Personal Attendant: : 1955 Requested By: FAY ROSALES Order Number: [id number] Reading MD: Measurements Intervals [place] Rate: 78 P: 54 [place]: 150 QRS: 39 QRSD: 88 T: 70 QT: 398 QTc: 457 Interpretive Statements SINUS RHYTHM NORMAL ECG RI6.01 No previous ECG available for comparison
--- NOTE | 2019-03-30 07:59 | NUR ---
Patient using [place] prior to admission.
[2019-03-30] MEDS: POTASSIUM CHLORIDE 20 MEQ TABLET.ER. PO SCH (08:48)
[2019-03-30] MEDS: amLODIPine BESYLATE 5 MG TABLET PO SCH (09:00)
[2019-03-30] MEDS ORDERED: MAGNESIUM SULFATE 2GM 50 ML IV ONE (09:00)
--- NOTE | 2019-03-30 09:10 | PDOC ---
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 colon cancer diagnosed in 2014 involving the splenic flexure and it was stage 2 at that time. multiple bilateral lung metastases and liver metastasis consistent with stage 4 colon cancer INCREASING generalized weakness, severe COPD severe protein-caloric malnutrition History of Present Illness History of Present Illness cont IV fluid cultures pending vitals better consult onc, physiatry pt and ot pain control OOB if able Vitals Vitals Vital Signs Date Time Temp Pulse Resp B/P (MAP) Pulse Ox O2 Delivery O2 Flow Rate FiO2 03/30/19 08:49 90 Room Air 03/30/19 07:00 98.1 63 14 89/56 (67) 98.1 Physical Exam General: Alert, Oriented X3, Cooperative, No acute distress Heart: Regular rate Lungs: Clear Abdomen: Soft Extremities: No cyanosis Skin: No rashes Labs LABS Laboratory Tests Test 03/29/19 13:27 White Blood Count 7.7 x10^3/uL (4.0-11.0) Red Blood Count 3.33 x10^6/uL (4.30-5.70) Hemoglobin 10.4 g/dL (13.0-17.5) Hematocrit 30.6 % (39.0-53.0) Mean Corpuscular Volume 92 fL (79-100) Mean Corpuscular Hemoglobin 31 pg (25-35) Mean Corpuscular Hemoglobin Concent 34 g/dL (31-37) Red Cell Distribution Width 28.3 % (11.5-14.5) Platelet Count 377 x10^3/uL (140-400) Neutrophils (%) (Auto) 6 % (31-73) Lymphocytes (%) (Auto) 62 % (24-48) Monocytes (%) (Auto) 31 % (0-9) Eosinophils (%) (Auto) 1 % (0-3) Basophils (%) (Auto) 0 % (0-3) Neutrophils # (Auto) 0.5 x10^3/uL (1.8-7.7) Lymphocytes # (Auto) 4.8 x10^3/uL (1.0-4.8) Monocytes # (Auto) 2.3 x10^3/uL (0.0-1.1) Eosinophils # (Auto) 0.1 x10^3/uL (0.0-0.7) Basophils # (Auto) 0.0 x10^3/uL (0.0-0.2) Segmented Neutrophils % 1 % (35-66) Lymphocytes % 83 % (24-48) Monocytes % 15 % (0-10) Basophils % 1 % (0-3) Nucleated Red Blood Cells 1 Smudge Cells Present Platelet Estimate Adequate (ADEQUATE) Platelet Clumps, EDTA Present Large Platelets Occ Giant Platelets Occ Polychromasia Occasional Hypochromasia Slight Poikilocytosis Mod Anisocytosis Marked Microcytosis Slight Target Cells Few Ovalocytes Occ [place] Cells Occ Acanthocytes Few Schistocytes Few Prothrombin Time 15.3 SEC (11.7-14.0) Prothromb Time International Ratio 1.2 (0.8-1.1) Sodium Level 137 mmol/L (136-145) Potassium Level 3.7 mmol/L (3.5-5.1) Chloride Level 104 mmol/L (98-107) Carbon Dioxide Level 21 mmol/L (21-32) Anion Gap 12 (6-14) Blood Urea Nitrogen 16 mg/dL (8-26) Creatinine 1.0 mg/dL (0.7-1.3) Estimated GFR (Cockcroft-Gault) 90.5 BUN/Creatinine Ratio 16 (6-20) Glucose Level 82 mg/dL (70-99) Calcium Level 9.2 mg/dL (8.5-10.1) Magnesium Level 1.5 mg/dL (1.8-2.4) Total Bilirubin 0.5 mg/dL (0.2-1.0) Aspartate Amino Transf (AST/SGOT) 24 U/L (15-37) Alanine Aminotransferase (ALT/SGPT) 13 U/L (16-63) Alkaline Phosphatase 163 U/L (46-116) Ammonia < 10 mcmol/L (11-34) Troponin I Quantitative < 0.017 ng/mL (0.000-0.055) WV-Xpp-M-Type Natriuretic Peptide 128 pg/mL (0-124) Total Protein 7.3 g/dL (6.4-8.2) Albumin 2.8 g/dL (3.4-5.0) Albumin/Globulin Ratio 0.6 (1.0-1.7) Thyroid Stimulating Hormone (TSH) 1.633 uIU/mL (0.358-3.74) Assessment and Plan Assessmemt and Plan Problems Medical Problems: (1) Colon cancer Status: Acute (2) Weakness Status: Acute Comment Review of Relevant I have reviewed the following items pallavi (where applicable) has been applied. Labs Laboratory Tests Test 03/29/19 13:27 White Blood Count 7.7 x10^3/uL (4.0-11.0) Red Blood Count 3.33 x10^6/uL (4.30-5.70) Hemoglobin 10.4 g/dL (13.0-17.5) Hematocrit 30.6 % (39.0-53.0) Mean Corpuscular Volume 92 fL (79-100) Mean Corpuscular Hemoglobin 31 pg (25-35) Mean Corpuscular Hemoglobin Concent 34 g/dL (31-37) Red Cell Distribution Width 28.3 % (11.5-14.5) Platelet Count 377 x10^3/uL (140-400) Neutrophils (%) (Auto) 6 % (31-73) Lymphocytes (%) (Auto) 62 % (24-48) Monocytes (%) (Auto) 31 % (0-9) Eosinophils (%) (Auto) 1 % (0-3) Basophils (%) (Auto) 0 % (0-3) Neutrophils # (Auto) 0.5 x10^3/uL (1.8-7.7) Lymphocytes # (Auto) 4.8 x10^3/uL (1.0-4.8) Monocytes # (Auto) 2.3 x10^3/uL (0.0-1.1) Eosinophils # (Auto) 0.1 x10^3/uL (0.0-0.7) Basophils # (Auto) 0.0 x10^3/uL (0.0-0.2) Segmented Neutrophils % 1 % (35-66) Lymphocytes % 83 % (24-48) Monocytes % 15 % (0-10) Basophils % 1 % (0-3) Nucleated Red Blood Cells 1 Smudge Cells Present Platelet Estimate Adequate (ADEQUATE) Platelet Clumps, EDTA Present Large Platelets Occ Giant Platelets Occ Polychromasia Occasional Hypochromasia Slight Poikilocytosis Mod Anisocytosis Marked Microcytosis Slight Target Cells Few Ovalocytes Occ Nick Cells Occ Acanthocytes Few Schistocytes Few Prothrombin Time 15.3 SEC (11.7-14.0) Prothromb Time International Ratio 1.2 (0.8-1.1) Sodium Level 137 mmol/L (136-145) Potassium Level 3.7 mmol/L (3.5-5.1) Chloride Level 104 mmol/L (98-107) Carbon Dioxide Level 21 mmol/L (21-32) Anion Gap 12 (6-14) Blood Urea Nitrogen 16 mg/dL (8-26) Creatinine 1.0 mg/dL (0.7-1.3) Estimated GFR (Cockcroft-Gault) 90.5 BUN/Creatinine Ratio 16 (6-20) Glucose Level 82 mg/dL (70-99) Calcium Level 9.2 mg/dL (8.5-10.1) Magnesium Level 1.5 mg/dL (1.8-2.4) Total Bilirubin 0.5 mg/dL (0.2-1.0) Aspartate Amino Transf (AST/SGOT) 24 U/L (15-37) Alanine Aminotransferase (ALT/SGPT) 13 U/L (16-63) Alkaline Phosphatase 163 U/L (46-116) Ammonia < 10 mcmol/L (11-34) Troponin I Quantitative < 0.017 ng/mL (0.000-0.055) OD-Fqx-H-Type Natriuretic Peptide 128 pg/mL (0-124) Total Protein 7.3 g/dL (6.4-8.2) Albumin 2.8 g/dL (3.4-5.0) Albumin/Globulin Ratio 0.6 (1.0-1.7) Thyroid Stimulating Hormone (TSH) 1.633 uIU/mL (0.358-3.74) Laboratory Tests Test 03/29/19 13:27 White Blood Count 7.7 x10^3/uL (4.0-11.0) Red Blood Count 3.33 x10^6/uL (4.30-5.70) Hemoglobin 10.4 g/dL (13.0-17.5) Hematocrit 30.6 % (39.0-53.0) Mean Corpuscular Volume 92 fL (79-100) Mean Corpuscular Hemoglobin 31 pg (25-35) Mean Corpuscular Hemoglobin Concent 34 g/dL (31-37) Red Cell Distribution Width 28.3 % (11.5-14.5) Platelet Count 377 x10^3/uL (140-400) Neutrophils (%) (Auto) 6 % (31-73) Lymphocytes (%) (Auto) 62 % (24-48) Monocytes (%) (Auto) 31 % (0-9) Eosinophils (%) (Auto) 1 % (0-3) Basophils (%) (Auto) 0 % (0-3) Neutrophils # (Auto) 0.5 x10^3/uL (1.8-7.7) Lymphocytes # (Auto) 4.8 x10^3/uL (1.0-4.8) Monocytes # (Auto) 2.3 x10^3/uL (0.0-1.1) Eosinophils # (Auto) 0.1 x10^3/uL (0.0-0.7) Basophils # (Auto) 0.0 x10^3/uL (0.0-0.2) Segmented Neutrophils % 1 % (35-66) Lymphocytes % 83 % (24-48) Monocytes % 15 % (0-10) Basophils % 1 % (0-3) Nucleated Red Blood Cells 1 Smudge Cells Present Platelet Estimate Adequate (ADEQUATE) Platelet Clumps, EDTA Present Large Platelets Occ Giant Platelets Occ Polychromasia Occasional Hypochromasia Slight Poikilocytosis Mod Anisocytosis Marked Microcytosis Slight Target Cells Few Ovalocytes Occ Nick Cells Occ Acanthocytes Few Schistocytes Few Prothrombin Time 15.3 SEC (11.7-14.0) Prothromb Time International Ratio 1.2 (0.8-1.1) Sodium Level 137 mmol/L (136-145) Potassium Level 3.7 mmol/L (3.5-5.1) Chloride Level 104 mmol/L (98-107) Carbon Dioxide Level 21 mmol/L (21-32) Anion Gap 12 (6-14) Blood Urea Nitrogen 16 mg/dL (8-26) Creatinine 1.0 mg/dL (0.7-1.3) Estimated GFR (Cockcroft-Gault) 90.5 BUN/Creatinine Ratio 16 (6-20) Glucose Level 82 mg/dL (70-99) Calcium Level 9.2 mg/dL (8.5-10.1) Magnesium Level 1.5 mg/dL (1.8-2.4) Total Bilirubin 0.5 mg/dL (0.2-1.0) Aspartate Amino Transf (AST/SGOT) 24 U/L (15-37) Alanine Aminotransferase (ALT/SGPT) 13 U/L (16-63) Alkaline Phosphatase 163 U/L (46-116) Ammonia < 10 mcmol/L (11-34) Troponin I Quantitative < 0.017 ng/mL (0.000-0.055) DQ-Owh-F-Type Natriuretic Peptide 128 pg/mL (0-124) Total Protein 7.3 g/dL (6.4-8.2) Albumin 2.8 g/dL (3.4-5.0) Albumin/Globulin Ratio 0.6 (1.0-1.7) Thyroid Stimulating Hormone (TSH) 1.633 uIU/mL (0.358-3.74) Medications Current Medications Sodium Chloride 1,000 ml @ 1,000 mls/hr Q1H IV Last administered on 03/29/19at 12:09; Start 03/29/19 at 12:09; Stop 03/29/19 at 13:08; Status DC Iohexol (Omnipaque 300 Mg/ml) 70 ml 1X ONCE IV Last administered on 03/29/19at 12:30; Start 03/29/19 at 12:30; Stop 03/29/19 at 12:31; Status DC Info (CONTRAST GIVEN -- Rx MONITORING) 1 each PRN DAILY PRN MC SEE COMMENTS; Start 03/29/19 at 12:45; Stop 03/31/19 at 12:44 Magnesium Sulfate/ Dextrose 100 ml @ 100 mls/hr 1X ONCE IV Last administered on 03/29/19at 16:19; Start 03/29/19 at 14:30; Stop 03/29/19 at 15:29; Status DC Acetaminophen (Tylenol) 650 mg PRN Q4HRS PRN PO TEMP OVER 100.4F OR MILD PAIN; Start 03/29/19 at 16:00 Amlodipine Besylate (Norvasc) 5 mg DAILY PO ; Start 03/30/19 at 09:00 Lorazepam (Ativan) 0.5 mg PRN Q4HRS PRN PO ANXIETY / AGITATION; Start 03/29/19 at 16:00 Meclizine HCl (Antivert) 25 mg PRN Q8HRS PRN PO DIZZINESS; Start 03/29/19 at 16:00 Oxycodone/ Acetaminophen (Percocet 5/325) pain PRN Q4HRS PRN PO MODERATE TO SEVERE PAIN; Start 03/29/19 at 16:00 Potassium Chloride (Klor-Con) 20 meq DAILYWBKFT PO Last administered on 03/30/19at 08:48; Start 03/30/19 at 08:00 Zolpidem Tartrate (Ambien) 5 mg PRN QHS PRN PO INSOMNIA; Start 03/29/19 at 16:00 Megestrol Acetate (Megace) 20 mg BID PO ; Start 03/30/19 at 21:00 Ondansetron HCl (Zofran Odt) 4 mg PRN Q8HRS PRN PO NAUSEA/VOMITING; Start 03/29/19 at 16:00 Hydromorphone HCl (Dilaudid) 1 mg PRN Q3HRS PRN IV MODERATE TO SEVERE PAIN Last administered on 03/30/19at 08:49; Start 03/29/19 at 16:00 Magnesium Sulfate 50 ml @ 25 mls/hr 1X ONCE IV ; Start 03/30/19 at 09:00; Stop 03/30/19 at 10:59 Sodium Chloride 1,000 ml @ 100 mls/hr Q10H IV ; Start 03/30/19 at 09:00 Active Scripts Active Meclizine Hcl 12.5 Mg Tablet 25 Mg PO PRN Q8HRS PRN 30 Days Klor-Con M20 (Potassium Chloride) 20 Meq Tab.er.prt 20 Meq PO DAILYWBKFT 10 Days Ambien (Zolpidem Tartrate) 5 Mg Tablet 5 Mg PO PRN QHS PRN 10 Days Ativan (Lorazepam) 0.5 Mg Tablet 0.5 Mg PO PRN Q4HRS PRN 30 Days Tylenol (Acetaminophen) 325 Mg Tablet 650 Mg PO PRN Q4HRS PRN 14 Days Reported Amlodipine Besylate 5 Mg Tablet 5 Mg PO DAILY Megestrol Acetate 40 Mg Tablet 0.5 Tab PO BID Ondansetron Hcl 4 Mg Tablet 1 Tab PO PRN Q8HRS PRN Percocet 5-325 Mg Tablet (Oxycodone/Acetaminophen) 1 Each Tablet 1-2 Tab PO PRN Q4HRS PRN Vitals/I & O Vital Sign - Last 24 Hours 03/29/19 03/29/19 03/29/19 03/29/19 12:10 13:00 14:00 15:00 Temp 98.0 98.0 Pulse 75 78 78 76 Resp 10 11 12 10 B/P (MAP) 108/77 (87) Pulse Ox 95 99 94 94 O2 Delivery Room Air 03/29/19 03/29/19 03/29/19 03/29/19 16:05 16:29 16:49 19:00 Temp 97.5 97.5 Pulse 77 Resp 18 B/P (MAP) 103/70 (81) Pulse Ox 94 94 94 O2 Delivery Room Air Room Air Room Air Room Air 03/29/19 03/29/19 03/29/19 03/29/19 19:49 20:00 20:19 23:00 Temp 97.6 97.6 Pulse 93 Resp 16 B/P (MAP) 75/54 (61) Pulse Ox 94 94 96 O2 Delivery Room Air Room Air Room Air Room Air 03/30/19 03/30/19 03/30/19 03/30/19 00:13 00:43 03:00 04:38 Temp 98.4 98.4 Pulse 83 Resp 16 B/P (MAP) 84/58 (67) Pulse Ox 96 96 99 99 O2 Delivery Room Air Room Air Room Air Room Air 03/30/19 03/30/19 03/30/19 05:08 07:00 08:49 Temp 98.1 98.1 Pulse 63 Resp 14 B/P (MAP) 89/56 (67) Pulse Ox 99 90 90 O2 Delivery Room Air Room Air Room Air Intake and Output 03/29/19 03/29/19 03/30/19 15:00 23:00 07:00 Intake Total 0 ml Output Total 100 ml Balance -100 ml 0 ml JINA MILLER MD Mar 30, 2019 09:10
--- NOTE | 2019-03-30 09:46 | NUR ---
BENI following for discharge planning. Chart reviewed, discussed with RN. Pt on services with [facility] (ph: [phone], fax: [phone]). Dr. Corey and oncology consulted. BENI will continue to follow for discharge planning.
[2019-03-30] MEDS: oxyCODONE/APAP 5/325 1 TAB TABLET PO PRN ×3 (10:05→17:59)
[2019-03-30 11:00] VITALS: BP 101/64
[2019-03-30] MEDS: IV NORMAL SALINE 1000ML BAG 1,000 ML IV SCH ×2 (13:08→22:49)
--- NOTE | 2019-03-30 13:13 | PDOC ---
Provider Note Provider Note Med Onc consult: 1. Stage 4 colon ca - poor functional status. Plan hospice. see dictation [id number] BJORN CHACON MD Mar 30, 2019 13:13
[2019-03-30 15:00] VITALS: BP 122/77
--- NOTE | 2019-03-30 15:06 | RAD ---
EXAM: Right hip, 2 views. HISTORY: Acute pain. COMPARISON: None. FINDINGS: 2 views of the right hip are obtained. There is no fracture, dislocation or subluxation. IMPRESSION: No acute osseous finding. Electronically signed by: Elba Holder MD (03/30/2019 3:03 PM) [place] [id number]
[2019-03-30] MEDS ORDERED: oxyCODONE/APAP 5/325 1 TAB TABLET PO PRN (16:00)
[2019-03-30] MEDS: LORazepam 0.5 MG TABLET PO PRN (16:10)
[2019-03-30] MEDS: MORPHINE ER 15 MG TABLET.ER PO SCH ×2 (16:10→21:41)
--- NOTE | 2019-03-30 17:17 | CONS ---
DATE OF CONSULTATION: 03/30/2019 MEDICAL ONCOLOGY CONSULTATION REQUESTING PHYSICIAN: Dr. Don Cordova. REASON FOR CONSULTATION: Stage 4 colon cancer. HISTORY OF PRESENT ILLNESS: The patient is a 64-year-old gentleman who was diagnosed with a stage 2 colon cancer in 10/2014 and he underwent splenic flexure segmental resection by Dr. Don Juarez. He was diagnosed with metastatic colon cancer in 04/2018 when he had evidence of bilateral lung metastases and multiple liver metastases. He was started on palliative chemotherapy with FOLFIRI and Avastin on 08/26/2018 and he had disease progression and hence it was changed to FOLFOX and Avastin from 11/04/2018. He received cycle #10 on 03/11/2019. His functional status has been getting gradually worse and hence chemotherapy was not resumed. He has had worsening weakness for the last 2 days, because of which the had to bring him to the Emergency Room. He was admitted [facility]. He feels profoundly weak, deconditioned, and frail. PAST MEDICAL HISTORY: Hypertension, renal stones, lung disease, ileostomy. FAMILY HISTORY: Positive for diabetes, heart disease and hypertension. SOCIAL HISTORY: No smoking or alcohol abuse. REVIEW OF SYSTEMS: A 12-point review of system was performed. Pertinent positives are mentioned in the history of present illness. Rest of the system review is negative. PHYSICAL EXAMINATION: GENERAL APPEARANCE: The patient is a 64-year-old gentleman who is well built and poorly nourished. Appears frail and in no acute cardiorespiratory distress. VITAL SIGNS: Blood pressure 101/64, temperature 97.6. HEAD: Atraumatic, normocephalic. EYES: No icterus. NECK: Supple. CHEST: Bilaterally symmetrical. HEART: S1, S2 normal. ABDOMEN: Soft, nontender. CENTRAL NERVOUS SYSTEM: No focal deficits. He is able to move all 4 extremities. He is alert and awake, confused at times. PSYCHOLOGIC: He has had confusion and delirium. MUSCULOSKELETAL: No joint effusions. LABORATORY DATA: WBC 7.7, hemoglobin 10.4, platelet count 377. Creatinine 1.0. IMPRESSION AND PLAN: 1. Stage 4 colon cancer with liver and lung metastasis, status post cycle #10 of chemotherapy with FOLFOX and Avastin on 03/11/2019. His functional status has significantly declined. He is more deconditioned and appears more frail. He would not be a candidate for any further chemotherapy due to declining functional status. I discussed in detail with the patient and his . His does agree with supportive care only with the help of hospice. I discussed with registered nurse and will consult social work nurse to help with hospice arrangements. 2. 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 Hemoglobin is 10.4. No signs of bleeding. Continue to monitor. BJORN CHACON MD DR: ALEJANDRA/nts JOB#: [id number] / [id number] NINI
[2019-03-30 19:00] VITALS: BP 93/60
[2019-03-30] MEDS: MEGESTROL 20 MG TABLET. PO SCH (21:31)
[2019-03-30 23:00] VITALS: BP 107/67
[2019-03-31 03:00] VITALS: BP 99/58
[2019-03-31] MEDS: HYDROmorphone 2 MG/ML VIAL IV PRN ×4 (03:03→19:59)
[2019-03-31 07:00] VITALS: BP 110/65
[2019-03-31] MEDS: MORPHINE ER 15 MG TABLET.ER PO SCH ×2 (08:58→20:59)
[2019-03-31] MEDS: MEGESTROL 20 MG TABLET. PO SCH ×2 (08:58→20:50)
[2019-03-31] MEDS: IV NORMAL SALINE 1000ML BAG 1,000 ML IV SCH ×2 (08:58→17:24)
[2019-03-31] MEDS: POTASSIUM CHLORIDE 20 MEQ TABLET.ER. PO SCH (08:58)
[2019-03-31] MEDS: amLODIPine BESYLATE 5 MG TABLET PO SCH (08:58)
--- NOTE | 2019-03-31 09:24 | PDOC ---
PROGRESS NOTES Subjective Subjective HPI - f/u of Stage 4 colon cancer with liver and lung metastasis ROS -very weak, confused at times Objective Objective Vital Signs Date Time Temp Pulse Resp B/P (MAP) Pulse Ox O2 Delivery O2 Flow Rate FiO2 03/31/19 08:58 Room Air 03/31/19 08:58 71 110/65 03/31/19 07:00 97.9 12 100 97.9 Intake and Output 03/31/19 07:00 Intake Total 2535 ml Balance 2535 ml Intake Oral 135 ml IV Total 1200 ml Other 1200 ml # Voids 7 Physical Exam Heart: Normal S1, Normal S2 General: Alert, No acute distress Lungs: Clear to auscultation Assessment Assessment Problems Medical Problems: (1) Colon cancer Status: Acute (2) Weakness Status: Acute IMPRESSION AND PLAN: 1. Stage 4 colon cancer with liver and lung metastasis, status post cycle #10 of chemotherapy with FOLFOX and Avastin on 03/11/2019. His functional status has significantly declined. He is more deconditioned and appears more frail. He would not be a candidate for any further chemotherapy due to declining functional status. I discussed in detail with the patient and his . His does agree with supportive care only with the help of hospice. I discussed with registered nurse and will consult social services designee to help with hospice arrangements. ECOG PS is 4. 2. 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 Hemoglobin is 10.4. No signs of bleeding. Continue to monitor. 3. I d/w re code status - agrees with DNR status. Comment Review of Relevant I have reviewed the following items pallavi (where applicable) has been applied. Labs Laboratory Tests Test 03/29/19 13:27 White Blood Count 7.7 x10^3/uL (4.0-11.0) Red Blood Count 3.33 x10^6/uL (4.30-5.70) Hemoglobin 10.4 g/dL (13.0-17.5) Hematocrit 30.6 % (39.0-53.0) Mean Corpuscular Volume 92 fL (79-100) Mean Corpuscular Hemoglobin 31 pg (25-35) Mean Corpuscular Hemoglobin Concent 34 g/dL (31-37) Red Cell Distribution Width 28.3 % (11.5-14.5) Platelet Count 377 x10^3/uL (140-400) Neutrophils (%) (Auto) 6 % (31-73) Lymphocytes (%) (Auto) 62 % (24-48) Monocytes (%) (Auto) 31 % (0-9) Eosinophils (%) (Auto) 1 % (0-3) Basophils (%) (Auto) 0 % (0-3) Neutrophils # (Auto) 0.5 x10^3/uL (1.8-7.7) Lymphocytes # (Auto) 4.8 x10^3/uL (1.0-4.8) Monocytes # (Auto) 2.3 x10^3/uL (0.0-1.1) Eosinophils # (Auto) 0.1 x10^3/uL (0.0-0.7) Basophils # (Auto) 0.0 x10^3/uL (0.0-0.2) Segmented Neutrophils % 1 % (35-66) Lymphocytes % 83 % (24-48) Monocytes % 15 % (0-10) Basophils % 1 % (0-3) Nucleated Red Blood Cells 1 Smudge Cells Present Platelet Estimate Adequate (ADEQUATE) Platelet Clumps, EDTA Present Large Platelets Occ Giant Platelets Occ Polychromasia Occasional Hypochromasia Slight Poikilocytosis Mod Anisocytosis Marked Microcytosis Slight Target Cells Few Ovalocytes Occ Nick Cells Occ Acanthocytes Few Schistocytes Few Prothrombin Time 15.3 SEC (11.7-14.0) Prothromb Time International Ratio 1.2 (0.8-1.1) Sodium Level 137 mmol/L (136-145) Potassium Level 3.7 mmol/L (3.5-5.1) Chloride Level 104 mmol/L (98-107) Carbon Dioxide Level 21 mmol/L (21-32) Anion Gap 12 (6-14) Blood Urea Nitrogen 16 mg/dL (8-26) Creatinine 1.0 mg/dL (0.7-1.3) Estimated GFR (Cockcroft-Gault) 90.5 BUN/Creatinine Ratio 16 (6-20) Glucose Level 82 mg/dL (70-99) Calcium Level 9.2 mg/dL (8.5-10.1) Magnesium Level 1.5 mg/dL (1.8-2.4) Total Bilirubin 0.5 mg/dL (0.2-1.0) Aspartate Amino Transf (AST/SGOT) 24 U/L (15-37) Alanine Aminotransferase (ALT/SGPT) 13 U/L (16-63) Alkaline Phosphatase 163 U/L (46-116) Ammonia < 10 mcmol/L (11-34) Troponin I Quantitative < 0.017 ng/mL (0.000-0.055) BO-Nax-M-Type Natriuretic Peptide 128 pg/mL (0-124) Total Protein 7.3 g/dL (6.4-8.2) Albumin 2.8 g/dL (3.4-5.0) Albumin/Globulin Ratio 0.6 (1.0-1.7) Thyroid Stimulating Hormone (TSH) 1.633 uIU/mL (0.358-3.74) Medications Current Medications Sodium Chloride 1,000 ml @ 1,000 mls/hr Q1H IV Last administered on 03/29/19at 12:09; Start 03/29/19 at 12:09; Stop 03/29/19 at 13:08; Status DC Iohexol (Omnipaque 300 Mg/ml) 70 ml 1X ONCE IV Last administered on 03/29/19at 12:30; Start 03/29/19 at 12:30; Stop 03/29/19 at 12:31; Status DC Info (CONTRAST GIVEN -- Rx MONITORING) 1 each PRN DAILY PRN MC SEE COMMENTS; Start 03/29/19 at 12:45; Stop 03/31/19 at 12:44 Magnesium Sulfate/ Dextrose 100 ml @ 100 mls/hr 1X ONCE IV Last administered on 03/29/19at 16:19; Start 03/29/19 at 14:30; Stop 03/29/19 at 15:29; Status DC Acetaminophen (Tylenol) 650 mg PRN Q4HRS PRN PO TEMP OVER 100.4F OR MILD PAIN; Start 03/29/19 at 16:00 Amlodipine Besylate (Norvasc) 5 mg DAILY PO Last administered on 03/31/19at 08:58; Start 03/30/19 at 09:00 Lorazepam (Ativan) 0.5 mg PRN Q4HRS PRN PO ANXIETY / AGITATION Last administered on 03/30/19at 16:10; Start 03/29/19 at 16:00 Meclizine HCl (Antivert) 25 mg PRN Q8HRS PRN PO DIZZINESS; Start 03/29/19 at 16:00 Oxycodone/ Acetaminophen (Percocet 5/325) pain PRN Q4HRS PRN PO MODERATE TO SEVERE PAIN Last administered on 03/30/19at 14:08; Start 03/29/19 at 16:00; Stop 03/30/19 at 15:53; Status DC Potassium Chloride (Klor-Con) 20 meq DAILYWBKFT PO Last administered on 03/31/19at 08:58; Start 03/30/19 at 08:00 Zolpidem Tartrate (Ambien) 5 mg PRN QHS PRN PO INSOMNIA; Start 03/29/19 at 16:00 Megestrol Acetate (Megace) 20 mg BID PO Last administered on 03/31/19at 08:58; Start 03/30/19 at 21:00 Ondansetron HCl (Zofran Odt) 4 mg PRN Q8HRS PRN PO NAUSEA/VOMITING; Start 03/29/19 at 16:00 Hydromorphone HCl (Dilaudid) 1 mg PRN Q3HRS PRN IV MODERATE TO SEVERE PAIN Last administered on 03/31/19 03:03; Start 03/29/19 at 16:00 Magnesium Sulfate 50 ml @ 25 mls/hr 1X ONCE IV Last administered on 03/30/19at 10:07; Start 03/30/19 at 09:00; Stop 03/30/19 at 10:59; Status DC Sodium Chloride 1,000 ml @ 100 mls/hr Q10H IV Last administered on 03/31/19at 08:58; Start 03/30/19 at 09:00 Morphine Sulfate (Ms Contin) 15 mg BID PO Last administered on 03/31/19at 08:58; Start 03/30/19 at 16:00 Oxycodone/ Acetaminophen (Percocet 5/325) 1 tab PRN Q4HRS PRN PO MODERATE TO SEVERE PAIN; Start 03/30/19 at 16:00 Oxycodone/ Acetaminophen (Percocet 5/325) 2 tab PRN Q4HRS PRN PO MODERATE TO SEVERE PAIN Last administered on 03/30/19at 17:59; Start 03/30/19 at 16:00 Active Scripts Active Meclizine Hcl 12.5 Mg Tablet 25 Mg PO PRN Q8HRS PRN 30 Days Klor-Con M20 (Potassium Chloride) 20 Meq Tab.er.prt 20 Meq PO DAILYWBKFT 10 Days Ambien (Zolpidem Tartrate) 5 Mg Tablet 5 Mg PO PRN QHS PRN 10 Days Ativan (Lorazepam) 0.5 Mg Tablet 0.5 Mg PO PRN Q4HRS PRN 30 Days Tylenol (Acetaminophen) 325 Mg Tablet 650 Mg PO PRN Q4HRS PRN 14 Days Reported Amlodipine Besylate 5 Mg Tablet 5 Mg PO DAILY Megestrol Acetate 40 Mg Tablet 0.5 Tab PO BID Ondansetron Hcl 4 Mg Tablet 1 Tab PO PRN Q8HRS PRN Percocet 5-325 Mg Tablet (Oxycodone/Acetaminophen) 1 Each Tablet 1-2 Tab PO PRN Q4HRS PRN Vitals/I & O Vital Sign - Last 24 Hours 03/30/19 03/30/19 03/30/19 03/30/19 09:32 10:05 11:00 12:10 Temp 97.6 97.6 Pulse 82 Resp 18 B/P (MAP) 101/64 (76) Pulse Ox 90 90 100 100 O2 Delivery Room Air Room Air Room Air Room Air 03/30/19 03/30/19 03/30/19 03/30/19 13:08 14:08 15:00 15:19 Temp 98.4 98.4 Pulse 84 Resp 18 B/P (MAP) 122/77 (92) Pulse Ox 100 100 100 100 O2 Delivery Room Air Room Air Room Air Room Air 03/30/19 03/30/19 03/30/19 03/30/19 15:20 16:09 16:10 17:59 Pulse Ox 100 100 100 100 O2 Delivery Room Air Room Air Room Air Room Air 03/30/19 03/30/19 03/30/19 03/30/19 18:04 18:59 19:00 19:15 Temp 97.7 97.7 Pulse 72 Resp 18 18 B/P (MAP) 93/60 (71) Pulse Ox 100 98 O2 Delivery Room Air Room Air Room Air Room Air 03/30/19 03/30/19 03/30/19 03/30/19 19:18 19:48 19:48 21:41 Resp 18 20 20 18 O2 Delivery Room Air Room Air Room Air Room Air 03/30/19 03/31/19 03/31/19 03/31/19 23:00 01:41 03:00 03:03 Temp 97.9 97.9 97.9 97.9 Pulse 72 72 Resp 18 20 18 20 B/P (MAP) 107/67 (80) 99/58 (72) Pulse Ox 100 96 O2 Delivery Room Air Room Air Room Air Room Air 03/31/19 03/31/19 03/31/19 03/31/19 03:33 07:00 08:58 08:58 Temp 97.9 97.9 Pulse 71 71 Resp 20 12 B/P (MAP) 110/65 (80) 110/65 Pulse Ox 100 O2 Delivery Room Air Room Air Room Air Intake and Output 03/30/19 03/30/19 03/31/19 15:00 23:00 07:00 Intake Total 75 ml 2460 ml Balance 75 ml 2460 ml Nutrition Consultation Dietary Evaluation: Recommendations by RD: Dietary education by RD Comments: rec liberlize diet to regular with supplements Expected Outcomes/Goals: comfort care Interpretation of weight loss: >10% in 6 months Malnutrition Findings: Food and Nutrition Intake (Sev: <50% est energy req 5days Weight Status: Underweight BJORN CHACON MD Mar 31, 2019 09:24
--- NOTE | 2019-03-31 09:34 | PDOC ---
PROGRESS NOTES Chief Complaint Chief Complaint IMPRESSION confusion, acute metabolic encephalopathy, NOS acute right hip pain, pain to palpation of bursa Stage IV adenocarcinoma of the colon with metastatic disease to the liver and lungs. colon cancer diagnosed in 2014 involving the splenic flexure and it was stage 2 at that time. multiple bilateral lung metastases and liver metastasis consistent with stage 4 colon cancer INCREASING generalized weakness, severe COPD Diffuse metastatic disease in the visualized lungs, liver and metastatic lymph nodes with interval change 07/15 immuno-compromised state Multiple bilateral lung masses are seen, better delineated on prior CT chest. Left port tip projects over the proximal SVC, grossly stable. severe protein-caloric malnutrition agrees with DNR status., HOSPICE INTAKE History of Present Illness History of Present Illness cont IV fluid cultures pending START COMFORT MEASURES consult onc, physiatry pt and ot pain control 38 MIN PT EXAM, CHART REVIEW D/C PLANNING TIME , > 50% OF TIME SPENT WITH EXAM, CHART REVIEW, PT CARE COORDINATION Vitals Vitals Vital Signs Date Time Temp Pulse Resp B/P (MAP) Pulse Ox O2 Delivery O2 Flow Rate FiO2 03/31/19 08:58 Room Air 03/31/19 08:58 71 110/65 03/31/19 07:00 97.9 12 100 97.9 Physical Exam General: Alert, Cooperative, No acute distress, moderate distress Heart: Normal S1, Normal S2 Lungs: Clear Abdomen: Soft Extremities: No cyanosis Skin: No rashes Labs LABS TATUS: ADM IN ORD. PHYSICIAN: PEPE PAGAN MD REASON: evaluation of pelvic abscess and residual fluid. PROCEDURE: CT ABD PELV W/ORAL&IV CONTRAST PQRS Compliance statement: One or more of the following individualized dose reduction techniques were utilized for this examination: 1. Automated exposure control. 2. Adjustment of the mA and/or kV according to patient size. 3. Use of iterative reconstruction technique. Indication:EVAL PELVIC ABSCESS INJ 75ML OMNI 300 PREV SENT TECHNIQUE: CT abdomen and pelvis with IV contrast with multiplanar reformats. COMPARISON: 06/26/2018 FINDINGS: Heart is normal in size. No pericardial or pleural effusion. Multiple right lung metastasis seen as follows: Stable 2.6 cm nodule in the subpleural medial basal segment of the right lower lobe (series 2 image 8). Slight interval increase in the size of other medial basal segment right lower lobe nodule measuring 1.9 cm, previously 1.6 cm (series 2 image 3). Minimal interval increase in the size of subpleural lateral basal segment right lower lobe nodule measuring 2.6 cm, previously 2.4 cm (series 2 image 10) is. Multiple liver metastatic lesions are seen. Index lesions as follows: Segment 2 lesion measuring 5.7 x 5.0 cm, previously 5.1 x 4.2 cm (series 2 image 24). Confluent large metastatic lesion in the segment 8/4 A measuring 11.3 x 10.0 cm, previously 10.1 x 9.5 cm (series 2 image 16) (. Segment 7 lesion measuring 5.6 x 4.8 cm, previously 5.5 x 4.2 cm (series 2 image 21) (. Lesion in segment IVb measures 5.8 x 4.8 cm, previously 5.1 x 5.1 cm (series 2 image 42). Stable thrombus in the posterior branch supplying segment 6. Main portal vein is patent. Status post splenectomy. Pancreas, adrenals and left kidney within normal limits. Simple cyst in the upper pole of the right kidney measuring 3 cm. Gastrohepatic ligament recess lymph node measuring 2.9 x 2.2 cm, previously 2.4 x 2.0 cm. Common hepatic artery lymph node measuring 2.5 x 2.1 cm, previously 2.2 x 1.6 cm. Interval resolution of previously seen presacral fluid collection with surgical drain in place. Syed's pouch is seen. 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 Status post colectomy. Right lower quadrant ostomy. Interval resolution of previously seen fluid collection in the ventral midline surgical incision. No bowel obstruction. The prostate and seminal vesicles show no large mass. Urinary bladder is within normal limits. No peritoneum. No suspicious bony lesion. IMPRESSION: 1. Interval resolution of previously seen presacral fluid collection. Interval decrease in the amount of contained mesenteric emphysema in the pelvis. 2. Diffuse metastatic disease in the visualized lungs, liver and metastatic lymph nodes with interval change as described above. 3. 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 Electronically signed by: Kyler Abdul DO (07/03/2018 12:05 PM) [id number] DICTATED and SIGNED BY: KYLER ABDUL DO DATE: 07/03/18 1148 Assessment and Plan Assessmemt and Plan Problems Medical Problems: (1) Colon cancer Status: Acute (2) Weakness Status: Acute Comment Review of Relevant I have reviewed the following items pallavi (where applicable) has been applied. Labs Laboratory Tests Test 03/29/19 13:27 White Blood Count 7.7 x10^3/uL (4.0-11.0) Red Blood Count 3.33 x10^6/uL (4.30-5.70) Hemoglobin 10.4 g/dL (13.0-17.5) Hematocrit 30.6 % (39.0-53.0) Mean Corpuscular Volume 92 fL (79-100) Mean Corpuscular Hemoglobin 31 pg (25-35) Mean Corpuscular Hemoglobin Concent 34 g/dL (31-37) Red Cell Distribution Width 28.3 % (11.5-14.5) Platelet Count 377 x10^3/uL (140-400) Neutrophils (%) (Auto) 6 % (31-73) Lymphocytes (%) (Auto) 62 % (24-48) Monocytes (%) (Auto) 31 % (0-9) Eosinophils (%) (Auto) 1 % (0-3) Basophils (%) (Auto) 0 % (0-3) Neutrophils # (Auto) 0.5 x10^3/uL (1.8-7.7) Lymphocytes # (Auto) 4.8 x10^3/uL (1.0-4.8) Monocytes # (Auto) 2.3 x10^3/uL (0.0-1.1) Eosinophils # (Auto) 0.1 x10^3/uL (0.0-0.7) Basophils # (Auto) 0.0 x10^3/uL (0.0-0.2) Segmented Neutrophils % 1 % (35-66) Lymphocytes % 83 % (24-48) Monocytes % 15 % (0-10) Basophils % 1 % (0-3) Nucleated Red Blood Cells 1 Smudge Cells Present Platelet Estimate Adequate (ADEQUATE) Platelet Clumps, EDTA Present Large Platelets Occ Giant Platelets Occ Polychromasia Occasional Hypochromasia Slight Poikilocytosis Mod Anisocytosis Marked Microcytosis Slight Target Cells Few Ovalocytes Occ [place] Cells Occ Acanthocytes Few Schistocytes Few Prothrombin Time 15.3 SEC (11.7-14.0) Prothromb Time International Ratio 1.2 (0.8-1.1) Sodium Level 137 mmol/L (136-145) Potassium Level 3.7 mmol/L (3.5-5.1) Chloride Level 104 mmol/L (98-107) Carbon Dioxide Level 21 mmol/L (21-32) Anion Gap 12 (6-14) Blood Urea Nitrogen 16 mg/dL (8-26) Creatinine 1.0 mg/dL (0.7-1.3) Estimated GFR (Cockcroft-Gault) 90.5 BUN/Creatinine Ratio 16 (6-20) Glucose Level 82 mg/dL (70-99) Calcium Level 9.2 mg/dL (8.5-10.1) Magnesium Level 1.5 mg/dL (1.8-2.4) Total Bilirubin 0.5 mg/dL (0.2-1.0) Aspartate Amino Transf (AST/SGOT) 24 U/L (15-37) Alanine Aminotransferase (ALT/SGPT) 13 U/L (16-63) Alkaline Phosphatase 163 U/L (46-116) Ammonia < 10 mcmol/L (11-34) Troponin I Quantitative < 0.017 ng/mL (0.000-0.055) LV-Lzz-C-Type Natriuretic Peptide 128 pg/mL (0-124) Total Protein 7.3 g/dL (6.4-8.2) Albumin 2.8 g/dL (3.4-5.0) Albumin/Globulin Ratio 0.6 (1.0-1.7) Thyroid Stimulating Hormone (TSH) 1.633 uIU/mL (0.358-3.74) Medications Current Medications Sodium Chloride 1,000 ml @ 1,000 mls/hr Q1H IV Last administered on 03/29/19at 12:09; Start 03/29/19 at 12:09; Stop 03/29/19 at 13:08; Status DC Iohexol (Omnipaque 300 Mg/ml) 70 ml 1X ONCE IV Last administered on 03/29/19at 12:30; Start 03/29/19 at 12:30; Stop 03/29/19 at 12:31; Status DC Info (CONTRAST GIVEN -- Rx MONITORING) 1 each PRN DAILY PRN MC SEE COMMENTS; Start 03/29/19 at 12:45; Stop 03/31/19 at 12:44 Magnesium Sulfate/ Dextrose 100 ml @ 100 mls/hr 1X ONCE IV Last administered on 03/29/19at 16:19; Start 03/29/19 at 14:30; Stop 03/29/19 at 15:29; Status DC Acetaminophen (Tylenol) 650 mg PRN Q4HRS PRN PO TEMP OVER 100.4F OR MILD PAIN; Start 03/29/19 at 16:00 Amlodipine Besylate (Norvasc) 5 mg DAILY PO Last administered on 03/31/19at 08:58; Start 03/30/19 at 09:00 Lorazepam (Ativan) 0.5 mg PRN Q4HRS PRN PO ANXIETY / AGITATION Last administered on 03/30/19at 16:10; Start 03/29/19 at 16:00 Meclizine HCl (Antivert) 25 mg PRN Q8HRS PRN PO DIZZINESS; Start 03/29/19 at 16:00 Oxycodone/ Acetaminophen (Percocet 5/325) pain PRN Q4HRS PRN PO MODERATE TO SEVERE PAIN Last administered on 03/30/19at 14:08; Start 03/29/19 at 16:00; Stop 03/30/19 at 15:53; Status DC Potassium Chloride (Klor-Con) 20 meq DAILYWBKFT PO Last administered on 03/31/19at 08:58; Start 03/30/19 at 08:00 Zolpidem Tartrate (Ambien) 5 mg PRN QHS PRN PO INSOMNIA; Start 03/29/19 at 16:00 Megestrol Acetate (Megace) 20 mg BID PO Last administered on 03/31/19at 08:58; Start 03/30/19 at 21:00 Ondansetron HCl (Zofran Odt) 4 mg PRN Q8HRS PRN PO NAUSEA/VOMITING; Start 03/29/19 at 16:00 Hydromorphone HCl (Dilaudid) 1 mg PRN Q3HRS PRN IV MODERATE TO SEVERE PAIN Last administered on 03/31/19at 03:03; Start 03/29/19 at 16:00 Magnesium Sulfate 50 ml @ 25 mls/hr 1X ONCE IV Last administered on 03/30/19at 10:07; Start 03/30/19 at 09:00; Stop 03/30/19 at 10:59; Status DC Sodium Chloride 1,000 ml @ 100 mls/hr Q10H IV Last administered on 03/31/19at 08:58; Start 03/30/19 at 09:00 Morphine Sulfate (Ms Contin) 15 mg BID PO Last administered on 03/31/19at 08:58; Start 03/30/19 at 16:00 Oxycodone/ Acetaminophen (Percocet 5/325) 1 tab PRN Q4HRS PRN PO MODERATE TO SEVERE PAIN; Start 03/30/19 at 16:00 Oxycodone/ Acetaminophen (Percocet 5/325) 2 tab PRN Q4HRS PRN PO MODERATE TO SEVERE PAIN Last administered on 03/30/19at 17:59; Start 03/30/19 at 16:00 Active Scripts Active Meclizine Hcl 12.5 Mg Tablet 25 Mg PO PRN Q8HRS PRN 30 Days Klor-Con M20 (Potassium Chloride) 20 Meq Tab.er.prt 20 Meq PO DAILYWBKFT 10 Days Ambien (Zolpidem Tartrate) 5 Mg Tablet 5 Mg PO PRN QHS PRN 10 Days Ativan (Lorazepam) 0.5 Mg Tablet 0.5 Mg PO PRN Q4HRS PRN 30 Days Tylenol (Acetaminophen) 325 Mg Tablet 650 Mg PO PRN Q4HRS PRN 14 Days Reported Amlodipine Besylate 5 Mg Tablet 5 Mg PO DAILY Megestrol Acetate 40 Mg Tablet 0.5 Tab PO BID Ondansetron Hcl 4 Mg Tablet 1 Tab PO PRN Q8HRS PRN Percocet 5-325 Mg Tablet (Oxycodone/Acetaminophen) 1 Each Tablet 1-2 Tab PO PRN Q4HRS PRN Vitals/I & O Vital Sign - Last 24 Hours 03/30/19 03/30/19 03/30/19 03/30/19 08:00 08:49 09:00 09:32 Pulse 63 B/P (MAP) 89/56 Pulse Ox 90 90 O2 Delivery Room Air Room Air Room Air 03/30/19 03/30/19 03/30/19 03/30/19 10:05 11:00 12:10 13:08 Temp 97.6 97.6 Pulse 82 Resp 18 B/P (MAP) 101/64 (76) Pulse Ox 90 100 100 100 O2 Delivery Room Air Room Air Room Air Room Air 03/30/19 03/30/19 03/30/19 03/30/19 14:08 15:00 15:19 15:20 Temp 98.4 98.4 Pulse 84 Resp 18 B/P (MAP) 122/77 (92) Pulse Ox 100 100 100 100 O2 Delivery Room Air Room Air Room Air Room Air 03/30/19 03/30/19 03/30/19 03/30/19 16:09 16:10 17:59 18:04 Pulse Ox 100 100 100 100 O2 Delivery Room Air Room Air Room Air Room Air 03/30/19 03/30/19 03/30/19 03/30/19 18:59 19:00 19:15 19:18 Temp 97.7 97.7 Pulse 72 Resp 18 18 18 B/P (MAP) 93/60 (71) Pulse Ox 98 O2 Delivery Room Air Room Air Room Air Room Air 03/30/19 03/30/19 03/30/19 03/30/19 19:48 19:48 21:41 23:00 Temp 97.9 97.9 Pulse 72 Resp 20 20 18 18 B/P (MAP) 107/67 (80) Pulse Ox 100 O2 Delivery Room Air Room Air Room Air Room Air 03/31/19 03/31/19 03/31/19 03/31/19 01:41 03:00 03:03 03:33 Temp 97.9 97.9 Pulse 72 Resp 20 18 20 20 B/P (MAP) 99/58 (72) Pulse Ox 96 O2 Delivery Room Air Room Air Room Air Room Air 03/31/19 03/31/19 03/31/19 07:00 08:58 08:58 Temp 97.9 97.9 Pulse 71 71 Resp 12 B/P (MAP) 110/65 (80) 110/65 Pulse Ox 100 O2 Delivery Room Air Room Air Intake and Output 03/30/19 03/31/19 03/31/19 16:59 00:59 08:59 Intake Total 50 ml 1400 ml 1060 ml Balance 50 ml 1400 ml 1060 ml Nutrition Consultation Dietary Evaluation: Recommendations by RD: Dietary education by RD Comments: rec liberlize diet to regular with supplements Expected Outcomes/Goals: comfort care Interpretation of weight loss: >10% in 6 months Malnutrition Findings: Food and Nutrition Intake (Sev: <50% est energy req 5days Weight Status: Underweight PEPE ADEN MD Mar 31, 2019 09:34
[2019-03-31 11:00] VITALS: BP 99/45
[2019-03-31] MEDS: oxyCODONE/APAP 5/325 1 TAB TABLET PO PRN (11:44)
--- NOTE | 2019-03-31 12:48 | NUR ---
SW following. Chart reviewed, discussed with RN. RN advised family meeting has been set for hospice, SW saw note in OT note regarding this. SW attempted to meet with family to determine hospice agency preference, however, pt's was not present and would be back shortly. SW to visit with family again. SW will continue to follow. RN notified. Addendum: 03/31/19 at 1335 by THERESA BAZAN BENI attempted to meet with pt's family again. Pt's requested SW return around 1430 when her niece who is an RN will be visiting. SW will return around 1430. Addendum: 03/31/19 at 1528 by THERESA BAZAN BENI met with pt's , Polly ([phone]) and Pat's sister, Itzel ([phone]) to discuss hospice. Family is agreeable to hospice and are wanting inpatient hospice of patient qualifies. If pt does not qualify for inpatient hospice, they would like the referral sent to [facility]. BENI discussed with RNLeonila who spoke with Dr. Tsang. Dr. Tsang anticipates pt has about 3-7 days but is thinking it would be closer to 3 days. BENI sent referral for inpatient hospice to [facility] (ph: [phone], fax: [phone]). SW awaiting acceptance. RN notified.
[2019-03-31] MEDS: LORazepam 0.5 MG TABLET PO PRN ×3 (13:21→23:04)
[2019-03-31 15:00] VITALS: BP 95/58
[2019-03-31 19:00] VITALS: BP 102/67
[2019-03-31 23:00] VITALS: BP 118/73
[2019-04-01] MEDS: IV NORMAL SALINE 1000ML BAG 1,000 ML IV SCH ×2 (04:00→11:47)
[2019-04-01 08:00] VITALS: BP 131/85
[2019-04-01] MEDS: POTASSIUM CHLORIDE 20 MEQ TABLET.ER. PO SCH (08:00)
[2019-04-01] MEDS: LORazepam 0.5 MG TABLET PO PRN ×2 (08:00→11:46)
[2019-04-01] MEDS: MEGESTROL 20 MG TABLET. PO SCH (08:00)
[2019-04-01] MEDS: amLODIPine BESYLATE 5 MG TABLET PO SCH (08:01)
[2019-04-01] MEDS: MORPHINE ER 15 MG TABLET.ER PO SCH (08:01)
--- NOTE | 2019-04-01 10:51 | PDOC ---
PROGRESS NOTES Subjective Subjective HPI - f/u of Stage 4 colon cancer with liver and lung metastasis ROS - feels weak Objective Objective Vital Signs Date Time Temp Pulse Resp B/P (MAP) Pulse Ox O2 Delivery O2 Flow Rate FiO2 04/01/19 08:01 97 Room Air 04/01/19 08:01 97 131/85 04/01/19 08:00 99.7 17 99.7 Intake and Output 04/01/19 07:00 Intake Total 3930 ml Output Total 475 ml Balance 3455 ml Intake Oral 30 ml IV Total 2700 ml Other 1200 ml Output Stool Total 475 ml # Voids 1 Physical Exam Heart: Normal S1, Normal S2 General: No acute distress Lungs: Clear to auscultation Assessment Assessment Problems Medical Problems: (1) Colon cancer Status: Acute (2) Weakness Status: Acute IMPRESSION AND PLAN: 1. Stage 4 colon cancer with liver and lung metastasis, status post cycle #10 of chemotherapy with FOLFOX and Avastin on 03/11/2019. His functional status has significantly declined. He is more deconditioned and appears more frail. He would not be a candidate for any further chemotherapy due to declining functional status. I discussed in detail with the patient and his . His does agree with supportive care only with the help of hospice. ECOG PS is 4. Appreciate eval by [facility]. 2. 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 Hemoglobin is 10.4. No signs of bleeding. Continue to monitor. 3. I d/w re code status - agrees with DNR status. Comment Review of Relevant I have reviewed the following items pallavi (where applicable) has been applied. Medications Current Medications Sodium Chloride 1,000 ml @ 1,000 mls/hr Q1H IV Last administered on 03/29/19at 12:09; Start 03/29/19 at 12:09; Stop 03/29/19 at 13:08; Status DC Iohexol (Omnipaque 300 Mg/ml) 70 ml 1X ONCE IV Last administered on 03/29/19at 12:30; Start 03/29/19 at 12:30; Stop 03/29/19 at 12:31; Status DC Info (CONTRAST GIVEN -- Rx MONITORING) 1 each PRN DAILY PRN MC SEE COMMENTS; Start 03/29/19 at 12:45; Stop 03/31/19 at 12:44; Status DC Magnesium Sulfate/ Dextrose 100 ml @ 100 mls/hr 1X ONCE IV Last administered on 03/29/19at 16:19; Start 03/29/19 at 14:30; Stop 03/29/19 at 15:29; Status DC Acetaminophen (Tylenol) 650 mg PRN Q4HRS PRN PO TEMP OVER 100.4F OR MILD PAIN; Start 03/29/19 at 16:00 Amlodipine Besylate (Norvasc) 5 mg DAILY PO Last administered on 04/01/19at 08:01; Start 03/30/19 at 09:00 Lorazepam (Ativan) 0.5 mg PRN Q4HRS PRN PO ANXIETY / AGITATION Last administered on 04/01/19at 08:00; Start 03/29/19 at 16:00 Meclizine HCl (Antivert) 25 mg PRN Q8HRS PRN PO DIZZINESS; Start 03/29/19 at 16:00 Oxycodone/ Acetaminophen (Percocet 5/325) pain PRN Q4HRS PRN PO MODERATE TO SEVERE PAIN Last administered on 03/30/19at 14:08; Start 03/29/19 at 16:00; Stop 03/30/19 at 15:53; Status DC Potassium Chloride (Klor-Con) 20 meq DAILYWBKFT PO Last administered on 03/31/19at 08:58; Start 03/30/19 at 08:00 Zolpidem Tartrate (Ambien) 5 mg PRN QHS PRN PO INSOMNIA; Start 03/29/19 at 16:00 Megestrol Acetate (Megace) 20 mg BID PO Last administered on 04/01/19at 08:00; Start 03/30/19 at 21:00 Ondansetron HCl (Zofran Odt) 4 mg PRN Q8HRS PRN PO NAUSEA/VOMITING; Start 03/29/19 at 16:00 Hydromorphone HCl (Dilaudid) 1 mg PRN Q3HRS PRN IV MODERATE TO SEVERE PAIN Last administered on 03/31/19at 19:59; Start 03/29/19 at 16:00 Magnesium Sulfate 50 ml @ 25 mls/hr 1X ONCE IV Last administered on 03/30/19at 10:07; Start 03/30/19 at 09:00; Stop 03/30/19 at 10:59; Status DC Sodium Chloride 1,000 ml @ 100 mls/hr Q10H IV Last administered on 04/01/19at 04:00; Start 03/30/19 at 09:00 Morphine Sulfate (Ms Contin) 15 mg BID PO Last administered on 04/01/19at 08:01; Start 03/30/19 at 16:00 Oxycodone/ Acetaminophen (Percocet 5/325) 1 tab PRN Q4HRS PRN PO MODERATE TO SEVERE PAIN; Start 03/30/19 at 16:00 Oxycodone/ Acetaminophen (Percocet 5/325) 2 tab PRN Q4HRS PRN PO MODERATE TO SEVERE PAIN Last administered on 03/31/19at 11:44; Start 03/30/19 at 16:00 Active Scripts Active Meclizine Hcl 12.5 Mg Tablet 25 Mg PO PRN Q8HRS PRN 30 Days Klor-Con M20 (Potassium Chloride) 20 Meq Tab.er.prt 20 Meq PO DAILYWBKFT 10 Days Ambien (Zolpidem Tartrate) 5 Mg Tablet 5 Mg PO PRN QHS PRN 10 Days Ativan (Lorazepam) 0.5 Mg Tablet 0.5 Mg PO PRN Q4HRS PRN 30 Days Tylenol (Acetaminophen) 325 Mg Tablet 650 Mg PO PRN Q4HRS PRN 14 Days Reported Amlodipine Besylate 5 Mg Tablet 5 Mg PO DAILY Megestrol Acetate 40 Mg Tablet 0.5 Tab PO BID Ondansetron Hcl 4 Mg Tablet 1 Tab PO PRN Q8HRS PRN Percocet 5-325 Mg Tablet (Oxycodone/Acetaminophen) 1 Each Tablet 1-2 Tab PO PRN Q4HRS PRN Vitals/I & O Vital Sign - Last 24 Hours 03/31/19 03/31/19 03/31/19 03/31/19 11:00 11:00 11:44 13:00 Temp 98.6 98.6 Pulse 115 Resp 10 B/P (MAP) 99/45 (63) Pulse Ox 95 O2 Delivery Room Air Room Air Room Air Room Air 03/31/19 03/31/19 03/31/19 03/31/19 13:00 14:55 15:00 17:55 Temp 98.3 98.3 Pulse 75 Resp 12 B/P (MAP) 95/58 (70) Pulse Ox 99 O2 Delivery Room Air Room Air Room Air 03/31/19 03/31/19 03/31/19 03/31/19 18:28 19:00 19:40 19:59 Temp 97.5 97.5 Pulse 89 Resp 16 20 B/P (MAP) 102/67 (79) Pulse Ox 98 O2 Delivery Room Air Room Air Room Air Room Air 03/31/19 03/31/19 03/31/19 04/01/19 20:29 20:59 23:00 00:59 Temp 98.0 98.0 Pulse 94 Resp 18 18 16 18 B/P (MAP) 118/73 (88) Pulse Ox 97 O2 Delivery Room Air Room Air Room Air Room Air 04/01/19 04/01/19 04/01/19 04/01/19 07:37 08:00 08:01 08:01 Temp 99.7 99.7 Pulse 97 97 Resp 17 B/P (MAP) 131/85 (100) 131/85 Pulse Ox 100 97 O2 Delivery Room Air Room Air Room Air Intake and Output 03/31/19 03/31/19 04/01/19 15:00 23:00 07:00 Intake Total 500 ml 1000 ml 2430 ml Output Total 300 ml 175 ml Balance 200 ml 825 ml 2430 ml Nutrition Consultation Dietary Evaluation: Recommendations by RD: Dietary education by RD Comments: rec liberlize diet to regular with supplements Expected Outcomes/Goals: comfort care Interpretation of weight loss: >10% in 6 months Malnutrition Findings: Food and Nutrition Intake (Sev: <50% est energy req 5days Weight Status: Underweight BJORN CHACON MD Apr 01, 2019 10:51
[2019-04-01 11:00] VITALS: BP 116/78
--- NOTE | 2019-04-01 11:13 | PDOC ---
PROGRESS NOTES Chief Complaint Chief Complaint IMPRESSION confusion, acute metabolic encephalopathy, NOS acute right hip pain, pain to palpation of bursa Stage IV adenocarcinoma of the colon with metastatic disease to the liver and lungs. colon cancer diagnosed in 2014 involving the splenic flexure and it was stage 2 at that time. multiple bilateral lung metastases and liver metastasis consistent with stage 4 colon cancer INCREASING generalized weakness, severe COPD Diffuse metastatic disease in the visualized lungs, liver and metastatic lymph nodes with interval change 07/15 immuno-compromised state Multiple bilateral lung masses are seen, better delineated on prior CT chest. Left port tip projects over the proximal SVC, grossly stable. severe protein-caloric malnutrition agrees with DNR status., HOSPICE INTAKE History of Present Illness History of Present Illness cont IV fluid cultures pending START COMFORT MEASURES consult onc, DNR pt and ot pain control 38 MIN PT EXAM, CHART REVIEW D/C PLANNING TIME , > 50% OF TIME SPENT WITH EXAM, CHART REVIEW, PT CARE COORDINATION Vitals Vitals Vital Signs Date Time Temp Pulse Resp B/P (MAP) Pulse Ox O2 Delivery O2 Flow Rate FiO2 04/01/19 08:01 97 Room Air 04/01/19 08:01 97 131/85 04/01/19 08:00 99.7 17 99.7 Physical Exam General: No acute distress Heart: Normal S1, Normal S2 Lungs: Clear Abdomen: Soft Extremities: No cyanosis Skin: No rashes Assessment and Plan Assessmemt and Plan Problems Medical Problems: (1) Colon cancer Status: Acute (2) Weakness Status: Acute Comment Review of Relevant I have reviewed the following items pallavi (where applicable) has been applied. Medications Current Medications Sodium Chloride 1,000 ml @ 1,000 mls/hr Q1H IV Last administered on 03/29/19at 12:09; Start 03/29/19 at 12:09; Stop 03/29/19 at 13:08; Status DC Iohexol (Omnipaque 300 Mg/ml) 70 ml 1X ONCE IV Last administered on 03/29/19at 12:30; Start 03/29/19 at 12:30; Stop 03/29/19 at 12:31; Status DC Info (CONTRAST GIVEN -- Rx MONITORING) 1 each PRN DAILY PRN MC SEE COMMENTS; Start 03/29/19 at 12:45; Stop 03/31/19 at 12:44; Status DC Magnesium Sulfate/ Dextrose 100 ml @ 100 mls/hr 1X ONCE IV Last administered on 03/29/19at 16:19; Start 03/29/19 at 14:30; Stop 03/29/19 at 15:29; Status DC Acetaminophen (Tylenol) 650 mg PRN Q4HRS PRN PO TEMP OVER 100.4F OR MILD PAIN; Start 03/29/19 at 16:00 Amlodipine Besylate (Norvasc) 5 mg DAILY PO Last administered on 04/01/19at 08:01; Start 03/30/19 at 09:00 Lorazepam (Ativan) 0.5 mg PRN Q4HRS PRN PO ANXIETY / AGITATION Last administered on 04/01/19at 08:00; Start 03/29/19 at 16:00 Meclizine HCl (Antivert) 25 mg PRN Q8HRS PRN PO DIZZINESS; Start 03/29/19 at 16:00 Oxycodone/ Acetaminophen (Percocet 5/325) pain PRN Q4HRS PRN PO MODERATE TO SEVERE PAIN Last administered on 03/30/19at 14:08; Start 03/29/19 at 16:00; Stop 03/30/19 at 15:53; Status DC Potassium Chloride (Klor-Con) 20 meq DAILYWBKFT PO Last administered on 03/31/19at 08:58; Start 03/30/19 at 08:00 Zolpidem Tartrate (Ambien) 5 mg PRN QHS PRN PO INSOMNIA; Start 03/29/19 at 16:00 Megestrol Acetate (Megace) 20 mg BID PO Last administered on 04/01/19at 08:00; Start 03/30/19 at 21:00 Ondansetron HCl (Zofran Odt) 4 mg PRN Q8HRS PRN PO NAUSEA/VOMITING; Start 03/29/19 at 16:00 Hydromorphone HCl (Dilaudid) 1 mg PRN Q3HRS PRN IV MODERATE TO SEVERE PAIN Last administered on 03/31/19at 19:59; Start 03/29/19 at 16:00 Magnesium Sulfate 50 ml @ 25 mls/hr 1X ONCE IV Last administered on 03/30/19at 10:07; Start 03/30/19 at 09:00; Stop 03/30/19 at 10:59; Status DC Sodium Chloride 1,000 ml @ 100 mls/hr Q10H IV Last administered on 04/01/19at 04:00; Start 03/30/19 at 09:00 Morphine Sulfate (Ms Contin) 15 mg BID PO Last administered on 04/01/19at 08:01; Start 03/30/19 at 16:00 Oxycodone/ Acetaminophen (Percocet 5/325) 1 tab PRN Q4HRS PRN PO MODERATE TO SEVERE PAIN; Start 03/30/19 at 16:00 Oxycodone/ Acetaminophen (Percocet 5/325) 2 tab PRN Q4HRS PRN PO MODERATE TO SEVERE PAIN Last administered on 03/31/19at 11:44; Start 03/30/19 at 16:00 Active Scripts Active Meclizine Hcl 12.5 Mg Tablet 25 Mg PO PRN Q8HRS PRN 30 Days Klor-Con M20 (Potassium Chloride) 20 Meq Tab.er.prt 20 Meq PO DAILYWBKFT 10 Days Ambien (Zolpidem Tartrate) 5 Mg Tablet 5 Mg PO PRN QHS PRN 10 Days Ativan (Lorazepam) 0.5 Mg Tablet 0.5 Mg PO PRN Q4HRS PRN 30 Days Tylenol (Acetaminophen) 325 Mg Tablet 650 Mg PO PRN Q4HRS PRN 14 Days Reported Amlodipine Besylate 5 Mg Tablet 5 Mg PO DAILY Megestrol Acetate 40 Mg Tablet 0.5 Tab PO BID Ondansetron Hcl 4 Mg Tablet 1 Tab PO PRN Q8HRS PRN Percocet 5-325 Mg Tablet (Oxycodone/Acetaminophen) 1 Each Tablet 1-2 Tab PO PRN Q4HRS PRN Vitals/I & O Vital Sign - Last 24 Hours 03/31/19 03/31/19 03/31/19 03/31/19 11:44 13:00 13:00 14:55 Temp 98.3 98.3 Pulse 75 Resp 12 B/P (MAP) Pulse Ox 99 O2 Delivery Room Air Room Air Room Air Room Air 03/31/19 03/31/19 03/31/19 03/31/19 15:00 17:55 18:28 19:00 Temp 97.5 97.5 Pulse 89 Resp 16 B/P (MAP) 95/58 (70) 102/67 (79) Pulse Ox 98 O2 Delivery Room Air Room Air Room Air 03/31/19 03/31/19 03/31/19 03/31/19 19:40 19:59 20:29 20:59 Resp 20 18 18 O2 Delivery Room Air Room Air Room Air Room Air 03/31/19 04/01/19 04/01/19 04/01/19 23:00 00:59 07:37 08:00 Temp 98.0 99.7 98.0 99.7 Pulse 94 97 Resp 16 18 17 B/P (MAP) 118/73 (88) 131/85 (100) Pulse Ox 97 100 O2 Delivery Room Air Room Air Room Air Room Air 04/01/19 04/01/19 08:01 08:01 Pulse 97 B/P (MAP) 131/85 Pulse Ox 97 O2 Delivery Room Air Intake and Output 03/31/19 03/31/19 04/01/19 15:00 23:00 07:00 Intake Total 500 ml 1000 ml 2430 ml Output Total 300 ml 175 ml Balance 200 ml 825 ml 2430 ml Nutrition Consultation Dietary Evaluation: Recommendations by RD: Dietary education by RD Comments: rec liberlize diet to regular with supplements Expected Outcomes/Goals: comfort care Interpretation of weight loss: >10% in 6 months Malnutrition Findings: Food and Nutrition Intake (Sev: <50% est energy req 5days Weight Status: Underweight PEPE ADEN MD Apr 01, 2019 11:13
[2019-04-01] MEDS: oxyCODONE/APAP 5/325 1 TAB TABLET PO PRN (11:47)
--- NOTE | 2019-04-01 12:36 | NUR ---
SS following up with discharge planning. SS notified that pt will transition to inaptient hospice care with [facility], ; fax [phone]. Physician notified and asked for discharge order. SS will continue to follow for discharge planning.
[2019-04-01] MEDS: HYDROmorphone 2 MG/ML VIAL IV PRN (13:40)
== END 2019-04-01 13:52 | disposition hospice, inpatient (51) | DRG 70 ==
LOC: ER 12:00 → 4 NORTH 12:55
PROVIDERS: ADMIT Family Medicine; ATTEND Family Medicine
DX: G93.41 Metabolic encephalopathy (principal); E43 Unspecified severe protein-calorie malnutrition; C18.9 Malignant neoplasm of colon, unspecified; C77.9 Secondary and unspecified malignant neoplasm of lymph node, unspecified; C78.00 Secondary malignant neoplasm of unspecified lung; C78.7 Secondary malignant neoplasm of liver and intrahepatic bile duct; Z68.1 Body mass index [BMI] 19.9 or less, adult; D63.0 Anemia in neoplastic disease; D70.9 Neutropenia, unspecified; I10 Essential (primary) hypertension; J44.9 Chronic obstructive pulmonary disease, unspecified; Z66 Do not resuscitate; Z82.49 Family history of ischemic heart disease and other diseases of the circulatory system; Z83.3 Family history of diabetes mellitus; Z85.038 Personal history of other malignant neoplasm of large intestine; Z85.05 Personal history of malignant neoplasm of liver; Z85.118 Personal history of other malignant neoplasm of bronchus and lung; Z87.442 Personal history of urinary calculi; K21.9 Gastro-esophageal reflux disease without esophagitis; M19.90 Unspecified osteoarthritis, unspecified site
CPT/HCPCS: 36415; 70470; 71045; 73502; 80053; 82140; 83735; 83880; 84443; 84484; 85007; 85025; 85610; 93005; J1170; J3475; J7030; Q9967; G0378

== ENCOUNTER 2019-04-01 14:11 | Inpatient (IN) | payer OTHER ==
[~2019-04-01] VITALS: Ht 185.4 cm; Wt 64.9 kg
[2019-04-01 15:00] VITALS: BP 128/87
[2019-04-01] MEDS ORDERED: ZOLPIDEM 5 MG TABLET. PO PRN (15:00)
[2019-04-01] MEDS ORDERED: oxyCODONE/APAP 5/325 1 TAB TABLET PO PRN (15:00)
[2019-04-01] MEDS: IV NORMAL SALINE 1000ML BAG 1,000 ML IV SCH ×2 (15:00→22:40)
[2019-04-01] MEDS ORDERED: ACETAMINOPHEN 325 MG TABLET. PO PRN (15:00)
[2019-04-01] MEDS ORDERED: ONDANSETRON PF 4 MG/2 ML VIAL. IVP PRN (15:00)
[2019-04-01] MEDS ORDERED: HYDROmorphone 2 MG/ML VIAL IV PRN (15:00)
[2019-04-01] MEDS: oxyCODONE/APAP 5/325 1 TAB TABLET PO PRN (15:47)
[2019-04-01] MEDS: LORazepam 0.5 MG TABLET PO PRN ×2 (15:47→22:36)
[2019-04-01 19:55] VITALS: BP 126/78
[2019-04-01] MEDS: MORPHINE ER 15 MG TABLET.ER PO SCH (20:30)
[2019-04-01] MEDS: MEGESTROL 20 MG TABLET. PO SCH (20:30)
[2019-04-01 22:52] VITALS: BP 131/87
[2019-04-02 02:22] VITALS: BP 121/80
[2019-04-02] MEDS: oxyCODONE/APAP 5/325 1 TAB TABLET PO PRN ×2 (03:29→08:18)
[2019-04-02] MEDS: LORazepam 0.5 MG TABLET PO PRN ×2 (03:29→08:17)
--- NOTE | 2019-04-02 04:41 | NUR ---
0430 opice project management consultant paged regarding increased pain, Dr Cordova notified and new order made to increase dilaudid Iv , will wait for Hospice project management consultant for authorization, will informed family of new order.
[2019-04-02] MEDS: HYDROmorphone 2 MG/ML VIAL IV PRN ×4 (05:25→22:29)
[2019-04-02 07:00] VITALS: BP 126/85
[2019-04-02] MEDS: MORPHINE ER 15 MG TABLET.ER PO SCH (08:18)
[2019-04-02] MEDS: MEGESTROL 20 MG TABLET. PO SCH (08:18)
[2019-04-02] MEDS: IV NORMAL SALINE 1000ML BAG 1,000 ML IV SCH ×2 (08:19→22:30)
--- NOTE | 2019-04-02 08:38 | NUR ---
Patient is able to open eyes, but not respond to verbal cues or directions. Patient not able to swallow pills at this time. Paged Dr. Cordova for new orders for IV medication, awaiting return call. Addendum: 04/02/19 at 0858 by KEN DE LA ROSA RN Received call back from Dr. Cordova and new orders received. Also notified Mariela the [facility] Nurse, will continue to monitor patient.
--- NOTE | 2019-04-02 10:48 | PDOC1 ---
History and Physical Date of Admission Date of Admission DATE: 04/02/19 TIME: 10:46 Identification/Chief Complaint Chief Complaint ADMITTED TO HOSPICE 04/01 presented to the emergency department for evaluation via EMS. According to the patient's , overnight he developed increasing weakness, to the point that he was unable to ambulate on his own, and the patient's , who was trying to take him to the bathroom to empty his ostomy bag, felt that he would fall down if she tried to have him ambulate so she called EMS. He was also less coherent, Now intake is poor, unable to swallow tablets Past Medical History Past Medical History Past Medical History Past Medical History Past Medical History Past Medical History Past Medical History: Cancer, Hypertension, Kidney Stone, Lung Disease, Other Additional Past Medical Histor: ABD PAIN, WEIGHT LOSS, Stg 4 lung CA, Liver CA, Colon CA Past Surgical History: No Surgical History Additional Past Surgical Histo: Illeostomy Alcohol Use: None Drug Use: None fhx htn Cardiovascular: HTN Pulmonary: No pertinent hx CENTRAL NERVOUS SYSTEM: Other GI: GERD Heme/Onc: Cancer Hepatobiliary: No pertinent hx Psych: No pertinent hx Musculoskeletal: Osteoarthritis Rheumatologic: No pertinent hx Infectious disease: No pertinent hx Renal/: No pertinent hx Endocrine: No pertinent hx Past Surgical History Past Surgical History: Hernia Repair, Colon Resection, Other Family History Family History: Diabetes, Heart Disease, Hypertension Family History: Parent Social History Smoke: No ALCOHOL: none Drugs: None Current Medications Current Medications Current Medications Sodium Chloride 1,000 ml @ 1,000 mls/hr Q1H IV ; Start 03/29/19 at 12:09; Stop 03/29/19 at 13:08 Iohexol (Omnipaque 300 Mg/ml) 70 ml 1X ONCE IV ; Start 03/29/19 at 12:30; Stop 03/29/19 at 12:31; Status DC Info (CONTRAST GIVEN -- Rx MONITORING) 1 each PRN DAILY PRN MC SEE COMMENTS; Start 03/29/19 at 12:45; Stop 03/31/19 at 12:44 Active Scripts Active Meclizine Hcl 12.5 Mg Tablet 25 Mg PO PRN Q8HRS PRN 30 Days Dok (Docusate Sodium) 100 Mg Capsule 100 Mg PO PRN BID PRN 30 Days Guaifenesin 100 Mg/5 Ml Liquid 200 Mg PO PRN Q4HRS PRN 10 Days Klor-Con M20 (Potassium Chloride) 20 Meq Tab.er.prt 20 Meq PO DAILYWBKFT 10 Days Ambien (Zolpidem Tartrate) 5 Mg Tablet 5 Mg PO PRN QHS PRN 10 Days Ativan (Lorazepam) 0.5 Mg Tablet 0.5 Mg PO PRN Q4HRS PRN 30 Days Tylenol (Acetaminophen) 325 Mg Tablet 650 Mg PO PRN Q4HRS PRN 14 Days Proair Hfa (Albuterol Sulfate) 8.5 Gm Hfa.aer.ad 2.5 Mg NEB PRN Q4HRS PRN 14 Days Reported Amlodipine Besylate 5 Mg Tablet 5 Mg PO DAILY Megestrol Acetate 40 Mg Tablet 0.5 Tab PO BID Gabapentin (Gabapentin) 300 Mg Capsule 300 Mg PO QID PRN Ondansetron Hcl 4 Mg Tablet 1 Tab PO PRN Q8HRS PRN Percocet 5-325 Mg Tablet (Oxycodone/Acetaminophen) 1 Each Tablet 1-2 Tab PO PRN Q4HRS PRN Allergies Allergies: Coded Allergies: No Known Drug Allergies (Unverified , 08/19/18) ROS General: YES: Fatigue, Malaise PSYCHOLOGICAL ROS: YES: Anxiety; No: Behavioral Disorder, Concentration difficultie, Decreased libido, Depression, Disorientation, Hallucinations, Hostility, Irritablity, Memory difficulties, Mood Swings, Obsessive thoughts, Physical abuse, Sexual abuse, Sleep disturbances, Suicidal ideation, Other ALLERGY AND IMMUNOLOGY: No: Hives, Insect Bite Sensitivity, Itchy/Watery Eyes, Nasal Congestion, Post Nasal Drip, Seasonal Allergies, Other Respiratory: YES: Shortness of breath Gastrointestinal: Yes Nausea Musculoskeletal: Yes Gait Disturbance, Yes Joint Stiffness Neurological: Yes Confusion, Yes Gait Disturbance Physical Exam Physical Exam Physical Exam Physical Exam GENERAL: Laying in bed, alert, FRAIL HEENT: Pupils are equally round, small. Oral cavity, oropharynx pink and dry. No thrush. NECK: Supple. LUNGS: Clear. HEART: S1, S2. ABDOMEN: Soft, nontender with bowel sounds present w/ ostomy - no complications EXTREMITIES: No gross edema or cyanosis. SKIN: Warm to touch. No signs of rash. NEUROLOGIC: Alert and answering questions appropriately. Left-sided Port-A-Cath without signs of any complications. General: Alert, Oriented X3, MILD acute distress Heart: Regular rate, Normal S1, Normal S2, Other (port left chest looks healthy) Lungs: Clear Abdomen: Normal bowel sounds, Soft, Other (ostomy) Extremities: No clubbing, No cyanosis, No edema Skin: No rashes General: Cooperative Breasts: Not examined Abdomen: Soft Rectal Exam: not examined PELVIC: Examination not indicated Extremities: No cyanosis Neuro: LETHARGIC Cardiovascular: HTN Pulmonary: No pertinent hx CENTRAL NERVOUS SYSTEM: Other GI: GERD Heme/Onc: Cancer Hepatobiliary: No pertinent hx Psych: No pertinent hx Musculoskeletal: Osteoarthritis Rheumatologic: No pertinent hx Infectious disease: No pertinent hx Renal/: No pertinent hx Endocrine: No pertinent hx Past Surgical History Past Surgical History: Hernia Repair, Colon Resection, Other Family History Family History: Diabetes, Heart Disease, Hypertension Family History: Parent Social History ALCOHOL: none Drugs: None Current Medications Current Medications Current Medications Oxycodone/ Acetaminophen (Percocet 5/325) 1 tab PRN Q4HRS PRN PO MODERATE PAIN; Start 04/01/19 at 15:00; Stop 04/02/19 at 08:46; Status DC Oxycodone/ Acetaminophen (Percocet 5/325) 2 tab PRN Q4HRS PRN PO SEVERE PAIN Last administered on 04/02/19at 08:18; Start 04/01/19 at 15:00; Stop 04/02/19 at 08:46; Status DC Morphine Sulfate (Ms Contin) 15 mg BID PO Last administered on 04/02/19at 08:18; Start 04/01/19 at 21:00; Stop 04/02/19 at 08:46; Status DC Sodium Chloride 1,000 ml @ 100 mls/hr Q10H IV Last administered on 04/02/19at 08:19; Start 04/01/19 at 15:00 Hydromorphone HCl (Dilaudid) 1 mg PRN Q3HRS PRN IV MODERATE TOSEVERE PAIN Last administered on 04/02/19at 02:32; Start 04/01/19 at 15:00; Stop 04/02/19 at 04:55; Status DC Lorazepam (Ativan) 0.5 mg PRN Q4HRS PRN PO anxiety Last administered on 04/02/19at 08:17; Start 04/01/19 at 15:00; Stop 04/02/19 at 08:46; Status DC Acetaminophen (Tylenol) 650 mg PRN Q6HRS PRN PO MILD PAIN 1-3; Start 04/01/19 at 15:00; Stop 04/02/19 at 08:46; Status DC Zolpidem Tartrate (Ambien) 5 mg PRN QHS PRN PO INSOMNIA; Start 04/01/19 at 15:00; Stop 04/02/19 at 08:46; Status DC Megestrol Acetate (Megace) 20 mg BID PO Last administered on 04/01/19at 20:30; Start 04/01/19 at 21:00; Stop 04/02/19 at 08:46; Status DC Ondansetron HCl (Zofran) 4 mg PRN Q8HRS PRN IVP NAUSEA/VOMITING; Start 04/01/19 at 15:00 Hydromorphone HCl (Dilaudid) 2 mg PRN Q2HRS PRN IV SEVERE PAIN 7-10 Last administered on 04/02/19at 10:32; Start 04/02/19 at 04:45 Lorazepam (Ativan Inj) 1 mg PRN Q3HRS PRN IVP ANXIETY / AGITATION Last administered on 04/02/19at 10:31; Start 04/02/19 at 08:45 Active Scripts Active Meclizine Hcl 12.5 Mg Tablet 25 Mg PO PRN Q8HRS PRN 30 Days Klor-Con M20 (Potassium Chloride) 20 Meq Tab.er.prt 20 Meq PO DAILYWBKFT 10 Days Ambien (Zolpidem Tartrate) 5 Mg Tablet 5 Mg PO PRN QHS PRN 10 Days Ativan (Lorazepam) 0.5 Mg Tablet 0.5 Mg PO PRN Q4HRS PRN 30 Days Tylenol (Acetaminophen) 325 Mg Tablet 650 Mg PO PRN Q4HRS PRN 14 Days Reported Amlodipine Besylate 5 Mg Tablet 5 Mg PO DAILY Megestrol Acetate 40 Mg Tablet 0.5 Tab PO BID Ondansetron Hcl 4 Mg Tablet 1 Tab PO PRN Q8HRS PRN Percocet 5-325 Mg Tablet (Oxycodone/Acetaminophen) 1 Each Tablet 1-2 Tab PO PRN Q4HRS PRN Allergies Allergies: Coded Allergies: No Known Drug Allergies (Unverified , 08/19/18) Vitals Vitals Vital Signs Date Time Temp Pulse Resp B/P (MAP) Pulse Ox O2 Delivery O2 Flow Rate FiO2 04/02/19 10:32 98 Room Air 04/02/19 07:00 97.9 86 14 126/85 (99) 97.9 VTE Prophylaxis Ordered VTE Prophylaxis Devices: Contraindicated VTE Pharmacological Prophylaxi: Yes Assessment/Plan Assessment/Plan IMPRESSION confusion, acute metabolic encephalopathy, NOS acute right hip pain, pain to palpation of bursa Stage IV adenocarcinoma of the colon with metastatic disease to the liver and lungs. colon cancer diagnosed in 2014 involving the splenic flexure and it was stage 2 at that time. multiple bilateral lung metastases and liver metastasis consistent with stage 4 colon cancer INCREASING generalized weakness, severe COPD Diffuse metastatic disease in the visualized lungs, liver and metastatic lymph nodes with interval change 07/15 immuno-compromised state Multiple bilateral lung masses are seen, better delineated on prior CT chest. Left port tip projects over the proximal SVC, grossly stable. severe protein-caloric malnutrition agrees with DNR status., HOSPICE INTAKE 04/01 cont IV fluid cultures pending START COMFORT MEASURES consult onc, DNR pt and ot pain control, IV vitals q shift, focus on comfort 78 MIN PT EXAM, CHART REVIEW , > 50% OF TIME SPENT WITH EXAM, CHART REVIEW, PT CARE COORDINATION PEPE ADEN MD Apr 02, 2019 10:48
[2019-04-02 19:15] VITALS: BP 129/89
[2019-04-03 07:00] VITALS: BP 142/99
[2019-04-03] MEDS: HYDROmorphone 2 MG/ML VIAL IV PRN ×3 (08:04→23:05)
--- NOTE | 2019-04-03 10:05 | PDOC ---
PROGRESS NOTES History of Present Illness History of Present Illness VTE Prophylaxis Ordered VTE Prophylaxis Devices: Contraindicated VTE Pharmacological Prophylaxi: Yes Assessment/Plan Assessment/Plan IMPRESSION confusion, acute metabolic encephalopathy, NOS acute right hip pain, pain to palpation of bursa Stage IV adenocarcinoma of the colon with metastatic disease to the liver and lungs. colon cancer diagnosed in 2014 involving the splenic flexure and it was stage 2 at that time. multiple bilateral lung metastases and liver metastasis consistent with stage 4 colon cancer INCREASING generalized weakness, severe COPD Diffuse metastatic disease in the visualized lungs, liver and metastatic lymph nodes with interval change 07/15 immuno-compromised state Multiple bilateral lung masses are seen, better delineated on prior CT chest. Left port tip projects over the proximal SVC, grossly stable. severe protein-caloric malnutrition family agrees with DNR status., HOSPICE INTAKE 04/01 cont IV fluid, dec rate 35 cc /hr cultures pending COMFORT MEASURES consult onc, DNR pain control, IV dilaudid 2 mg q 2-3 hrs prn severe pain vitals q shift, focus on comfort 38 MIN PT EXAM, CHART REVIEW , > 50% OF TIME SPENT WITH EXAM, CHART REVIEW, PT CARE COORDINATION Vitals Vitals Vital Signs Date Time Temp Pulse Resp B/P (MAP) Pulse Ox O2 Delivery O2 Flow Rate FiO2 04/03/19 08:04 Room Air 04/02/19 22:59 16 04/02/19 22:29 100 04/02/19 19:15 99.1 96 129/89 (102) 99.1 Physical Exam Physical Exam Lungs: diminished Abdomen: Normal bowel sounds, Soft, Other (ostomy) Extremities: No clubbing, No cyanosis, No edema Skin: No rashes General: Cooperative Breasts: Not examined Abdomen: Soft Rectal Exam: not examined PELVIC: Examination not indicated Extremities: No cyanosis Neuro: LETHARGIC General: Cooperative, No acute distress Lungs: Clear Abdomen: Soft Extremities: No cyanosis Comment Review of Relevant I have reviewed the following items pallavi (where applicable) has been applied. Medications Current Medications Oxycodone/ Acetaminophen (Percocet 5/325) 1 tab PRN Q4HRS PRN PO MODERATE PAIN; Start 04/01/19 at 15:00; Stop 04/02/19 at 08:46; Status DC Oxycodone/ Acetaminophen (Percocet 5/325) 2 tab PRN Q4HRS PRN PO SEVERE PAIN Last administered on 04/02/19 08:18; Start 04/01/19 at 15:00; Stop 04/02/19 at 08:46; Status DC Morphine Sulfate (Ms Contin) 15 mg BID PO Last administered on 04/02/19at 08:18; Start 04/01/19 at 21:00; Stop 04/02/19 at 08:46; Status DC Sodium Chloride 1,000 ml @ 100 mls/hr Q10H IV Last administered on 04/02/19at 22:30; Start 04/01/19 at 15:00 Hydromorphone HCl (Dilaudid) 1 mg PRN Q3HRS PRN IV MODERATE TOSEVERE PAIN Last administered on 04/02/19at 02:32; Start 04/01/19 at 15:00; Stop 04/02/19 at 04:55; Status DC Lorazepam (Ativan) 0.5 mg PRN Q4HRS PRN PO anxiety Last administered on 04/02/19 08:17; Start 04/01/19 at 15:00; Stop 04/02/19 at 08:46; Status DC Acetaminophen (Tylenol) 650 mg PRN Q6HRS PRN PO MILD PAIN 1-3; Start 04/01/19 at 15:00; Stop 04/02/19 at 08:46; Status DC Zolpidem Tartrate (Ambien) 5 mg PRN QHS PRN PO INSOMNIA; Start 04/01/19 at 15:00; Stop 04/02/19 at 08:46; Status DC Megestrol Acetate (Megace) 20 mg BID PO Last administered on 04/01/19at 20:30; Start 04/01/19 at 21:00; Stop 04/02/19 at 08:46; Status DC Ondansetron HCl (Zofran) 4 mg PRN Q8HRS PRN IVP NAUSEA/VOMITING; Start 04/01/19 at 15:00 Hydromorphone HCl (Dilaudid) 2 mg PRN Q2HRS PRN IV SEVERE PAIN 7-10 Last administered on 04/03/19at 08:04; Start 04/02/19 at 04:45 Lorazepam (Ativan Inj) 1 mg PRN Q3HRS PRN IVP ANXIETY / AGITATION Last administered on 04/03/19at 00:05; Start 04/02/19 at 08:45 Active Scripts Active Meclizine Hcl 12.5 Mg Tablet 25 Mg PO PRN Q8HRS PRN 30 Days Klor-Con M20 (Potassium Chloride) 20 Meq Tab.er.prt 20 Meq PO DAILYWBKFT 10 Days Ambien (Zolpidem Tartrate) 5 Mg Tablet 5 Mg PO PRN QHS PRN 10 Days Ativan (Lorazepam) 0.5 Mg Tablet 0.5 Mg PO PRN Q4HRS PRN 30 Days Tylenol (Acetaminophen) 325 Mg Tablet 650 Mg PO PRN Q4HRS PRN 14 Days Reported Amlodipine Besylate 5 Mg Tablet 5 Mg PO DAILY Megestrol Acetate 40 Mg Tablet 0.5 Tab PO BID Ondansetron Hcl 4 Mg Tablet 1 Tab PO PRN Q8HRS PRN Percocet 5-325 Mg Tablet (Oxycodone/Acetaminophen) 1 Each Tablet 1-2 Tab PO PRN Q4HRS PRN Vitals/I & O Vital Sign - Last 24 Hours 04/02/19 04/02/19 04/02/19 04/02/19 10:32 10:32 11:00 14:05 Resp 14 10 Pulse Ox 98 98 O2 Delivery Room Air Room Air 04/02/19 04/02/19 04/02/19 04/02/19 15:24 16:04 16:32 19:15 Temp 99.1 99.1 Pulse 96 Resp 16 18 B/P (MAP) 129/89 (102) Pulse Ox 98 98 100 O2 Delivery Room Air Room Air Room Air 04/02/19 04/02/19 04/02/19 04/03/19 20:00 22:29 22:59 08:04 Resp 18 16 Pulse Ox 100 O2 Delivery Room Air Room Air Room Air Room Air Intake and Output 04/02/19 04/02/19 04/03/19 14:59 22:59 06:59 Intake Total 0 ml Output Total 1150 ml 1050 ml Balance 0 ml -1150 ml -1050 ml PEPE ADEN MD Apr 03, 2019 10:05
[2019-04-03] MEDS: IV NORMAL SALINE 1000ML BAG 1,000 ML IV SCH (10:47)
[2019-04-03] MEDS: HYOSCYAMINE 0.125 MG TAB.RAPDIS PO PRN (11:49)
[2019-04-03] MEDS ORDERED: ACETAMINOPHEN 325 MG SUPP.RECT. PR PRN (18:30)
[2019-04-03 19:00] VITALS: BP 109/78
[2019-04-03] MEDS ORDERED: ACETAMINOPHEN 650 MG/20.3 ML SOLUTION. PEG PRN (19:30)
[2019-04-04] MEDS: HYDROmorphone 2 MG/ML VIAL IV PRN ×4 (01:19→15:05)
[2019-04-04] MEDS: HYOSCYAMINE 0.125 MG TAB.RAPDIS PO PRN (01:25)
[2019-04-04] MEDS: IV NORMAL SALINE 1000ML BAG 1,000 ML IV SCH (04:15)
[2019-04-04 07:00] VITALS: BP 109/76
[2019-04-04] MEDS: SCOPOLAMINE 1.5MG PATCH. TD SCH (09:37)
--- NOTE | 2019-04-04 10:15 | PDOC ---
PROGRESS NOTES Chief Complaint Chief Complaint MEtastatic colon ca' FEvers Severe PCM confusion/met enceph [facility] hospice History of Present Illness History of Present Illness confusion, acute metabolic encephalopathy, NOS acute right hip pain, pain to palpation of bursa Stage IV adenocarcinoma of the colon with metastatic disease to the liver and lungs. colon cancer diagnosed in 2014 DNR Hospice [facility] CALLED by RN last night, fevers, cant swallow FAm members at bedside PLAN: TYlenol prn Scopo patch Hospice packet DNR dw family and RN les Vitals Vitals Vital Signs Date Time Temp Pulse Resp B/P (MAP) Pulse Ox O2 Delivery O2 Flow Rate FiO2 04/04/19 09:39 20 Nasal Cannula 2.0 04/04/19 09:00 99.9 96 98 99.9 04/04/19 07:00 109/76 (87) Physical Exam Physical Exam Lungs: diminished Abdomen: Normal bowel sounds, Soft, Other (ostomy) Extremities: No clubbing, No cyanosis, No edema Skin: No rashes General: Cooperative Breasts: Not examined Abdomen: Soft Rectal Exam: not examined PELVIC: Examination not indicated Extremities: No cyanosis Neuro: LETHARGIC General: Cooperative, No acute distress Heart: Regular rate Lungs: Clear Abdomen: Normal bowel sounds, Soft Extremities: No cyanosis Review of Systems Review of Systems non verbal Comment Review of Relevant I have reviewed the following items pallavi (where applicable) has been applied. Medications Current Medications Oxycodone/ Acetaminophen (Percocet 5/325) 1 tab PRN Q4HRS PRN PO MODERATE PAIN; Start 04/01/19 at 15:00; Stop 04/02/19 at 08:46; Status DC Oxycodone/ Acetaminophen (Percocet 5/325) 2 tab PRN Q4HRS PRN PO SEVERE PAIN Last administered on 04/02/19at 08:18; Start 04/01/19 at 15:00; Stop 04/02/19 at 08:46; Status DC Morphine Sulfate (Ms Contin) 15 mg BID PO Last administered on 04/02/19at 08:18; Start 04/01/19 at 21:00; Stop 04/02/19 at 08:46; Status DC Sodium Chloride 1,000 ml @ 35 mls/hr Q24H IV Last administered on 04/04/19at 04:15; Start 04/01/19 at 15:00 Hydromorphone HCl (Dilaudid) 1 mg PRN Q3HRS PRN IV MODERATE TOSEVERE PAIN Last administered on 04/02/19at 02:32; Start 04/01/19 at 15:00; Stop 04/02/19 at 04:55; Status DC Lorazepam (Ativan) 0.5 mg PRN Q4HRS PRN PO anxiety Last administered on 04/02/19at 08:17; Start 04/01/19 at 15:00; Stop 04/02/19 at 08:46; Status DC Acetaminophen (Tylenol) 650 mg PRN Q6HRS PRN PO MILD PAIN 1-3; Start 04/01/19 at 15:00; Stop 04/02/19 at 08:46; Status DC Zolpidem Tartrate (Ambien) 5 mg PRN QHS PRN PO INSOMNIA; Start 04/01/19 at 15:00; Stop 04/02/19 at 08:46; Status DC Megestrol Acetate (Megace) 20 mg BID PO Last administered on 04/01/19at 20:30; Start 04/01/19 at 21:00; Stop 04/02/19 at 08:46; Status DC Ondansetron HCl (Zofran) 4 mg PRN Q8HRS PRN IVP NAUSEA/VOMITING; Start 04/01/19 at 15:00 Hydromorphone HCl (Dilaudid) 2 mg PRN Q2HRS PRN IV SEVERE PAIN 7-10 Last administered on 04/04/19at 09:39; Start 04/02/19 at 04:45 Lorazepam (Ativan Inj) 1 mg PRN Q3HRS PRN IVP ANXIETY / AGITATION Last administered on 04/04/19at 09:38; Start 04/02/19 at 08:45 Hyoscyamine (Anaspaz) 0.125 mg PRN Q4HRS PRN PO STOMACH CRAMPING Last administered on 04/04/19at 01:25; Start 04/03/19 at 11:15 Acetaminophen (Tylenol Supp) 325 mg PRN Q6HRS PRN [place] MILD PAIN / TEMP; Start 04/03/19 at 18:30 Acetaminophen (Tylenol) 650 mg PRN Q6HRS PRN PEG MILD PAIN / TEMP; Start 04/03/19 at 19:30 Morphine Sulfate (Roxanol Conc) 20 mg PRN Q3HRS PRN SL PAIN; Start 04/04/19 at 08:45 Lorazepam (Ativan Intensol) 2 mg PRN Q6HRS PRN SL ANXIETY / AGITATION; Start 04/04/19 at 08:45 Scopolamine (Transderm-Scop) 1 patch Q3DAYS TD Last administered on 04/04/19at 09:37; Start 04/04/19 at 09:00 Active Scripts Active Meclizine Hcl 12.5 Mg Tablet 25 Mg PO PRN Q8HRS PRN 30 Days Klor-Con M20 (Potassium Chloride) 20 Meq Tab.er.prt 20 Meq PO DAILYWBKFT 10 Days Ambien (Zolpidem Tartrate) 5 Mg Tablet 5 Mg PO PRN QHS PRN 10 Days Ativan (Lorazepam) 0.5 Mg Tablet 0.5 Mg PO PRN Q4HRS PRN 30 Days Tylenol (Acetaminophen) 325 Mg Tablet 650 Mg PO PRN Q4HRS PRN 14 Days Reported Amlodipine Besylate 5 Mg Tablet 5 Mg PO DAILY Megestrol Acetate 40 Mg Tablet 0.5 Tab PO BID Ondansetron Hcl 4 Mg Tablet 1 Tab PO PRN Q8HRS PRN Percocet 5-325 Mg Tablet (Oxycodone/Acetaminophen) 1 Each Tablet 1-2 Tab PO PRN Q4HRS PRN Vitals/I & O Vital Sign - Last 24 Hours 04/03/19 04/03/19 04/03/19 04/04/19 19:00 20:30 23:05 07:00 Temp 99.9 99.2 99.9 99.2 Pulse 90 97 Resp 14 14 B/P (MAP) 109/78 (88) 109/76 (87) Pulse Ox 98 85 O2 Delivery Room Air Room Air Room Air Room Air 04/04/19 04/04/19 09:00 09:39 Temp 99.9 99.9 Pulse 96 Resp 16 20 Pulse Ox 98 O2 Delivery Nasal Cannula Nasal Cannula O2 Flow Rate 2.0 Intake and Output 04/03/19 04/03/19 04/04/19 15:00 23:00 07:00 Intake Total 1000 ml Output Total 200 ml 1000 ml 50 ml Balance -200 ml -1000 ml 950 ml AIDA AVILA MD Apr 04, 2019 10:15
[2019-04-04 19:00] VITALS: BP 132/84
[2019-04-04] MEDS: LORazepam INTENSOL 2 MG/ML ORAL.CONC SL PRN (19:51)
[2019-04-04] MEDS: MORPHINE SULFATE 20 MG/ML CONC SOLUTION. SL PRN ×2 (19:51→22:54)
[2019-04-05] MEDS: IV NORMAL SALINE 1000ML BAG 1,000 ML IV SCH (02:49)
[2019-04-05] MEDS: MORPHINE SULFATE 20 MG/ML CONC SOLUTION. SL PRN ×2 (02:53→05:56)
[2019-04-05] MEDS: LORazepam INTENSOL 2 MG/ML ORAL.CONC SL PRN (02:53)
[2019-04-05 07:00] VITALS: BP 132/94
--- NOTE | 2019-04-05 11:28 | PDOC ---
PROGRESS NOTES Chief Complaint Chief Complaint MEtastatic colon ca' FEvers Severe PCM confusion/met m[facility]ioeph [facility] hosp[facility] History of Present Illness History of Present Illness on hospice for stage 4 colon ca with mets NOn verbal fam at bedside PLAN: TYlenol prn - had fevers saturday Scopo patch Hospice packet DNR dw family and RN les Vitals Vitals Vital Signs Date Time Temp Pulse Resp B/P (MAP) Pulse Ox O2 Delivery O2 Flow Rate FiO2 04/05/19 07:00 98.3 118 18 132/94 (107) 92 Room Air 98.3 04/05/19 06:56 2.0 Physical Exam Physical Exam Lungs: diminished Abdomen: Normal bowel sounds, Soft, Other (ostomy) Extremities: No clubbing, No cyanosis, No edema Skin: No rashes General: Cooperative Breasts: Not examined Abdomen: Soft Rectal Exam: not examined PELVIC: Examination not indicated Extremities: No cyanosis Neuro: LETHARGIC General: Cooperative, No acute distress Heart: Regular rate Lungs: Clear Abdomen: Normal bowel sounds, Soft Extremities: No cyanosis Review of Systems Review of Systems nonverbal Comment Review of Relevant I have reviewed the following items pallavi (where applicable) has been applied. Medications Current Medications Oxycodone/ Acetaminophen (Percocet 5/325) 1 tab PRN Q4HRS PRN PO MODERATE PAIN; Start 04/01/19 at 15:00; Stop 04/02/19 at 08:46; Status DC Oxycodone/ Acetaminophen (Percocet 5/325) 2 tab PRN Q4HRS PRN PO SEVERE PAIN Last administered on 04/02/19at 08:18; Start 04/01/19 at 15:00; Stop 04/02/19 at 08:46; Status DC Morphine Sulfate (Ms Contin) 15 mg BID PO Last administered on 04/02/19at 08:18; Start 04/01/19 at 21:00; Stop 04/02/19 at 08:46; Status DC Sodium Chloride 1,000 ml @ 35 mls/hr Q24H IV Last administered on 04/05/19at 02:49; Start 04/01/19 at 15:00 Hydromorphone HCl (Dilaudid) 1 mg PRN Q3HRS PRN IV MODERATE TOSEVERE PAIN Last administered on 04/02/19at 02:32; Start 04/01/19 at 15:00; Stop 04/02/19 at 04:55; Status DC Lorazepam (Ativan) 0.5 mg PRN Q4HRS PRN PO anxiety Last administered on 04/02/19at 08:17; Start 04/01/19 at 15:00; Stop 04/02/19 at 08:46; Status DC Acetaminophen (Tylenol) 650 mg PRN Q6HRS PRN PO MILD PAIN 1-3; Start 04/01/19 at 15:00; Stop 04/02/19 at 08:46; Status DC Zolpidem Tartrate (Ambien) 5 mg PRN QHS PRN PO INSOMNIA; Start 04/01/19 at 15:00; Stop 04/02/19 at 08:46; Status DC Megestrol Acetate (Megace) 20 mg BID PO Last administered on 04/01/19at 20:30; Start 04/01/19 at 21:00; Stop 04/02/19 at 08:46; Status DC Ondansetron HCl (Zofran) 4 mg PRN Q8HRS PRN IVP NAUSEA/VOMITING; Start 04/01/19 at 15:00 Hydromorphone HCl (Dilaudid) 2 mg PRN Q2HRS PRN IV SEVERE PAIN 7-10 Last administered on 04/04/19at 15:05; Start 04/02/19 at 04:45 Lorazepam (Ativan Inj) 1 mg PRN Q3HRS PRN IVP ANXIETY / AGITATION Last administered on 04/04/19at 15:05; Start 04/02/19 at 08:45 Hyoscyamine (Anaspaz) 0.125 mg PRN Q4HRS PRN PO STOMACH CRAMPING Last administered on 04/04/19at 01:25; Start 04/03/19 at 11:15 Acetaminophen (Tylenol Supp) 325 mg PRN Q6HRS PRN [place] MILD PAIN / TEMP; Start 04/03/19 at 18:30 Acetaminophen (Tylenol) 650 mg PRN Q6HRS PRN PEG MILD PAIN / TEMP; Start 04/03/19 at 19:30 Morphine Sulfate (Roxanol Conc) 20 mg PRN Q3HRS PRN SL PAIN Last administered on 04/05/19at 05:56; Start 04/04/19 at 08:45 Lorazepam (Ativan Intensol) 2 mg PRN Q6HRS PRN SL ANXIETY / AGITATION Last administered on 04/05/19at 02:53; Start 04/04/19 at 08:45 Scopolamine (Transderm-Scop) 1 patch Q3DAYS TD Last administered on 04/04/19at 09:37; Start 04/04/19 at 09:00 Active Scripts Active Meclizine Hcl 12.5 Mg Tablet 25 Mg PO PRN Q8HRS PRN 30 Days Klor-Con M20 (Potassium Chloride) 20 Meq Tab.er.prt 20 Meq PO DAILYWBKFT 10 Days Ambien (Zolpidem Tartrate) 5 Mg Tablet 5 Mg PO PRN QHS PRN 10 Days Ativan (Lorazepam) 0.5 Mg Tablet 0.5 Mg PO PRN Q4HRS PRN 30 Days Tylenol (Acetaminophen) 325 Mg Tablet 650 Mg PO PRN Q4HRS PRN 14 Days Reported Amlodipine Besylate 5 Mg Tablet 5 Mg PO DAILY Megestrol Acetate 40 Mg Tablet 0.5 Tab PO BID Ondansetron Hcl 4 Mg Tablet 1 Tab PO PRN Q8HRS PRN Percocet 5-325 Mg Tablet (Oxycodone/Acetaminophen) 1 Each Tablet 1-2 Tab PO PRN Q4HRS PRN Vitals/I & O Vital Sign - Last 24 Hours 04/04/19 04/04/19 04/04/19 04/04/19 15:05 15:35 19:00 19:51 Temp 98.3 98.3 Pulse 103 Resp 18 20 18 12 B/P (MAP) 132/84 (100) Pulse Ox 98 99 O2 Delivery Nasal Cannula Room Air Room Air O2 Flow Rate 2.0 04/04/19 04/04/19 04/04/19 04/05/19 20:00 22:54 23:55 02:53 O2 Delivery Room Air Room Air Room Air Room Air 04/05/19 04/05/19 04/05/19 05:56 06:56 07:00 Temp 98.3 98.3 Pulse 118 Resp 18 18 B/P (MAP) 132/94 (107) Pulse Ox 92 92 O2 Delivery Room Air Nasal Cannula Room Air O2 Flow Rate 2.0 Intake and Output 04/04/19 04/04/19 04/05/19 15:00 23:00 07:00 Intake Total 0 ml 800 ml Output Total 700 ml 250 ml Balance -700 ml -250 ml 800 ml AIDA AVILA MD Apr 05, 2019 11:28
--- NOTE | 2019-04-05 13:49 | NUR ---
Report received from the hospice nurse who recommended a tylenol suppository; a patient bath. In talking with pt's , she espressed her desire not to have him bathed since even turning pt is very painful for him, and there is no apparent odor or soiling. She also said she would prefer not to have him turned on side for a tylenol suppository unless temp goes higher (it is 98.8 at this time). Pt does seem to spike low grade fevers off and on. Will continue to assess pt's condition.
[2019-04-05 19:00] VITALS: BP 135/96
[2019-04-06] MEDS: IV NORMAL SALINE 1000ML BAG 1,000 ML IV SCH (03:46)
[2019-04-06 07:00] VITALS: BP 153/112
[2019-04-06] MEDS: LORazepam INTENSOL 2 MG/ML ORAL.CONC SL PRN (07:48)
[2019-04-06] MEDS: MORPHINE SULFATE 20 MG/ML CONC SOLUTION. SL PRN (10:34)
--- NOTE | 2019-04-06 11:47 | PDOC ---
[facility] PROGRESS NOTE Chief Complaint Chief Complaint MEtastatic colon ca' FEvers Severe PCM confusion/met maurizioeph N hospice History of Present Illness History of Present Illness Pt seen and examined Discussed with his daughter from [place] and the nurse Patient appears comfortable Has near agonal respirations Vitals/I&O Vitals/I&O: Vital Signs Date Time Temp Pulse Resp B/P (MAP) Pulse Ox O2 Delivery O2 Flow Rate FiO2 04/06/19 10:34 94 Nasal Cannula 2.0 04/06/19 07:00 98.8 135 20 153/112 (126) 98.8 I & O 04/05/19 04/05/19 04/06/19 14:59 22:59 06:59 Intake Total 0 ml 0 ml 0 ml Balance 0 ml 0 ml 0 ml Physical Exam Physical Exam: Lungs: diminished Abdomen: Normal bowel sounds, Soft, Other (ostomy) Extremities: No clubbing, No cyanosis, No edema Skin: No rashes General: Cooperative Breasts: Not examined Abdomen: Soft Rectal Exam: not examined PELVIC: Examination not indicated Extremities: No cyanosis Neuro: LETHARGIC General: Cooperative, No acute distress Heart: Regular rate Lungs: Clear Abdomen: Normal bowel sounds, Soft Extremities: No cyanosis Assessment and Plan Assessmemt and Plan Terminal colon cancer Plan Comfort Care Comment Review of Relevant I have reviewed the following items pallavi (where applicable) has been applied. VERN VALENTIN III DO Apr 06, 2019 11:47
[2019-04-06] MEDS: HYDROmorphone 2 MG/ML VIAL IV PRN ×4 (12:14→22:13)
[2019-04-06] MEDS ORDERED: MORPHINE SULFATE 20 MG/ML CONC SOLUTION. SL PRN (12:15)
[2019-04-06] MEDS: SCOPOLAMINE 1.5MG PATCH. TD SCH (15:31)
[2019-04-06] MEDS ORDERED: ATROPINE 1% OPHTH SOLUTION 5ML BOTTLE. SL PRN (16:00)
[2019-04-06] MEDS ORDERED: SCOPOLAMINE 1.5MG PATCH. TD PRN ×2 (16:00)
[2019-04-06 19:00] VITALS: BP 99/66
[2019-04-07] MEDS: HYDROmorphone 2 MG/ML VIAL IV PRN ×4 (02:07→11:36)
[2019-04-07] MEDS: IV NORMAL SALINE 1000ML BAG 1,000 ML IV SCH (03:46)
[2019-04-07 07:00] VITALS: BP 62/38
--- NOTE | 2019-04-07 10:45 | PDOC ---
PROGRESS NOTES Chief Complaint Chief Complaint Metastatic colon ca' Fevers Severe PCM confusion/met enceph continue hospice History of Present Illness History of Present Illness Pt seen and examined Discussed with his daughter from [place] and the nurse Patient appears comfortable Has near agonal respirations Vitals Vitals Vital Signs Date Time Temp Pulse Resp B/P (MAP) Pulse Ox O2 Delivery O2 Flow Rate FiO2 04/07/19 10:03 94 Nasal Cannula 2.0 04/07/19 07:00 98.1 90 24 62/38 (46) 98.1 Physical Exam Physical Exam Lungs: diminished Abdomen: Normal bowel sounds, Soft, Other (ostomy) Extremities: No clubbing, No cyanosis, No edema Skin: No rashes General: Cooperative Breasts: Not examined Abdomen: Soft Rectal Exam: not examined PELVIC: Examination not indicated Extremities: No cyanosis Neuro: LETHARGIC General: Cooperative, No acute distress Heart: Regular rate Lungs: Clear Abdomen: Normal bowel sounds, Soft Extremities: No cyanosis Comment Review of Relevant I have reviewed the following items pallavi (where applicable) has been applied. Medications Current Medications Oxycodone/ Acetaminophen (Percocet 5/325) 1 tab PRN Q4HRS PRN PO MODERATE PAIN; Start 04/01/19 at 15:00; Stop 04/02/19 at 08:46; Status DC Oxycodone/ Acetaminophen (Percocet 5/325) 2 tab PRN Q4HRS PRN PO SEVERE PAIN Last administered on 04/02/19at 08:18; Start 04/01/19 at 15:00; Stop 04/02/19 at 08:46; Status DC Morphine Sulfate (Ms Contin) 15 mg BID PO Last administered on 04/02/19at 08:18; Start 04/01/19 at 21:00; Stop 04/02/19 at 08:46; Status DC Sodium Chloride 1,000 ml @ 35 mls/hr Q24H IV Last administered on 04/05/19at 02:49; Start 04/01/19 at 15:00 Hydromorphone HCl (Dilaudid) 1 mg PRN Q3HRS PRN IV MODERATE TOSEVERE PAIN Last administered on 04/02/19at 02:32; Start 04/01/19 at 15:00; Stop 04/02/19 at 04:55; Status DC Lorazepam (Ativan) 0.5 mg PRN Q4HRS PRN PO anxiety Last administered on 04/02/19at 08:17; Start 04/01/19 at 15:00; Stop 04/02/19 at 08:46; Status DC Acetaminophen (Tylenol) 650 mg PRN Q6HRS PRN PO MILD PAIN 1-3; Start 04/01/19 at 15:00; Stop 04/02/19 at 08:46; Status DC Zolpidem Tartrate (Ambien) 5 mg PRN QHS PRN PO INSOMNIA; Start 04/01/19 at 15:00; Stop 04/02/19 at 08:46; Status DC Megestrol Acetate (Megace) 20 mg BID PO Last administered on 04/01/19at 20:30; Start 04/01/19 at 21:00; Stop 04/02/19 at 08:46; Status DC Ondansetron HCl (Zofran) 4 mg PRN Q8HRS PRN IVP NAUSEA/VOMITING; Start 04/01/19 at 15:00 Hydromorphone HCl (Dilaudid) 2 mg PRN Q2HRS PRN IV SEVERE PAIN 7-10 Last administered on 04/07/19at 07:49; Start 04/02/19 at 04:45 Lorazepam (Ativan Inj) 1 mg PRN Q3HRS PRN IVP ANXIETY / AGITATION Last administered on 04/06/19at 23:45; Start 04/02/19 at 08:45 Hyoscyamine (Anaspaz) 0.125 mg PRN Q4HRS PRN PO STOMACH CRAMPING Last administered on 04/04/19at 01:25; Start 04/03/19 at 11:15 Acetaminophen (Tylenol Supp) 325 mg PRN Q6HRS PRN [place] MILD PAIN / TEMP; Start 04/03/19 at 18:30 Acetaminophen (Tylenol) 650 mg PRN Q6HRS PRN PEG MILD PAIN / TEMP; Start 04/03/19 at 19:30 Morphine Sulfate (Roxanol Conc) 20 mg PRN Q3HRS PRN SL PAIN Last administered on 04/06/19at 10:34; Start 04/04/19 at 08:45; Stop 04/06/19 at 12:07; Status DC Lorazepam (Ativan Intensol) 2 mg PRN Q6HRS PRN SL ANXIETY / AGITATION Last administered on 04/06/19at 07:48; Start 04/04/19 at 08:45 Scopolamine (Transderm-Scop) 1 patch Q3DAYS TD Last administered on 04/06/19at 15:31; Start 04/04/19 at 09:00; Stop 04/06/19 at 15:49; Status DC Morphine Sulfate (Roxanol Conc) 20 mg PRN Q1HR PRN SL PAIN Last administered on 04/06/19at 13:55; Start 04/06/19 at 12:15 Scopolamine (Transderm-Scop) 1 patch PRN Q72HRS PRN TD SECRETIONS; Start 04/06/19 at 16:00 Atropine Sulfate (Isopto Atropine) 1 drop PRN Q2HR PRN SL SECRETIONS Last ad ministered on 04/06/19at 23:45; Start 04/06/19 at 16:00 Scopolamine (Transderm-Scop) 3 patch PRN Q72HRS PRN TD SECRETIONS; Start 04/06/19 at 16:00 Active Scripts Active Meclizine Hcl 12.5 Mg Tablet 25 Mg PO PRN Q8HRS PRN 30 Days Klor-Con M20 (Potassium Chloride) 20 Meq Tab.er.prt 20 Meq PO DAILYWBKFT 10 Days Ambien (Zolpidem Tartrate) 5 Mg Tablet 5 Mg PO PRN QHS PRN 10 Days Ativan (Lorazepam) 0.5 Mg Tablet 0.5 Mg PO PRN Q4HRS PRN 30 Days Tylenol (Acetaminophen) 325 Mg Tablet 650 Mg PO PRN Q4HRS PRN 14 Days Reported Amlodipine Besylate 5 Mg Tablet 5 Mg PO DAILY Megestrol Acetate 40 Mg Tablet 0.5 Tab PO BID Ondansetron Hcl 4 Mg Tablet 1 Tab PO PRN Q8HRS PRN Percocet 5-325 Mg Tablet (Oxycodone/Acetaminophen) 1 Each Tablet 1-2 Tab PO PRN Q4HRS PRN Vitals/I & O Vital Sign - Last 24 Hours 04/06/19 04/06/19 04/06/19 04/06/19 11:50 12:14 13:17 13:55 Pulse Ox 94 94 94 94 O2 Delivery Nasal Cannula Nasal Cannula Nasal Cannula Nasal Cannula O2 Flow Rate 2.0 2.0 2.0 2.0 04/06/19 04/06/19 04/06/19 04/06/19 15:27 19:00 19:12 19:12 Temp 98.2 98.2 Pulse 131 Resp 22 B/P (MAP) 99/66 (77) Pulse Ox 94 90 94 94 O2 Delivery Nasal Cannula Nasal Cannula Nasal Cannula Nasal Cannula O2 Flow Rate 2.0 2.0 2.0 2.0 04/06/19 04/06/19 04/06/19 04/06/19 19:15 19:19 19:49 22:13 Resp 24 24 24 O2 Delivery Nasal Cannula Nasal Cannula Room Air O2 Flow Rate 2.0 2.0 04/06/19 04/07/19 04/07/19 04/07/19 22:43 02:07 02:37 04:16 Resp 24 20 20 20 O2 Delivery Nasal Cannula Nasal Cannula Nasal Cannula Nasal Cannula O2 Flow Rate 2.0 2.0 2.0 2.0 04/07/19 04/07/19 04/07/19 04/07/19 04:46 07:00 07:49 08:00 Temp 98.1 98.1 Pulse 90 Resp 20 24 B/P (MAP) 62/38 (46) Pulse Ox 90 94 O2 Delivery Nasal Cannula Nasal Cannula Nasal Cannula Nasal Cannula O2 Flow Rate 2.0 2.0 2.0 2.0 04/07/19 10:03 Pulse Ox 94 O2 Delivery Nasal Cannula O2 Flow Rate 2.0 Intake and Output 04/06/19 04/06/19 04/07/19 15:00 23:00 07:00 Intake Total 0 ml 25 ml Balance 0 ml 25 ml JINA MILLER MD Apr 07, 2019 10:45
--- NOTE | 2019-04-07 14:15 | NUR ---
Patient , Shazia notified this nurse at 1308 that they believed patient had passed. This nurse verified with Rory TABOR that no vital signs were present. Dr. Berg on [address] and notified at that time 1311. [facility] hospice notified at 1320, [place] transplant notified at 1334, nursing steam fitter supervisor maintenance, LEANDER Evans notified at 1359. Patient's family took personal belongings. Hospice present at this time to assist with post-mortem cares.
--- NOTE | 2019-04-07 15:50 | NUR ---
Discharge Note: PRABHA GROVER P [address] Patient and body transported to [facility] at 1550. Nursing film processing supervisor notified. Family took all of patient belongings and visited with [facility] nurse and brush trimming machine setter.
--- NOTE | 2019-04-07 16:16 | NUR ---
Saving eyes notified this RN that patient family declined any eye or tissue donation and okay to release body. Nursing supervisor garage notified. Body to be released to [facility].
== END 2019-04-07 13:11 | disposition expired | DRG 374 ==
LOC: 4 NORTH 14:11
PROVIDERS: ADMIT Family Medicine; ATTEND Family Medicine
DX: C18.9 Malignant neoplasm of colon, unspecified (principal); E43 Unspecified severe protein-calorie malnutrition; G93.41 Metabolic encephalopathy; C77.9 Secondary and unspecified malignant neoplasm of lymph node, unspecified; C78.00 Secondary malignant neoplasm of unspecified lung; C78.7 Secondary malignant neoplasm of liver and intrahepatic bile duct; Z68.1 Body mass index [BMI] 19.9 or less, adult; I10 Essential (primary) hypertension; J44.9 Chronic obstructive pulmonary disease, unspecified; Z66 Do not resuscitate; Z82.49 Family history of ischemic heart disease and other diseases of the circulatory system; Z83.3 Family history of diabetes mellitus; Z85.038 Personal history of other malignant neoplasm of large intestine; Z85.05 Personal history of malignant neoplasm of liver; Z85.118 Personal history of other malignant neoplasm of bronchus and lung; Z87.442 Personal history of urinary calculi; K21.9 Gastro-esophageal reflux disease without esophagitis; M19.90 Unspecified osteoarthritis, unspecified site
CPT/HCPCS: J1170; J2060; J7030; G0378